=== PATIENT | female | born 1940 | race Caucasian/White ===

== ENCOUNTER → 2018-01-03 | Outpatient (CLI) | payer MEDICARE, BC ==
--- NOTE | 2018-01-03 10:45 | ECHOS ---
STRESS ECHOCARDIOGRAM INDICATIONS: Shortness of breath, preoperative. BASELINE HEART RATE: 80 BASELINE BLOOD PRESSURE: 141/47 MAXIMUM HEART RATE: 142 MAXIMUM BLOOD PRESSURE: 191/63 85% MPHR: 120 100% MPHR: 141 METS: 3.8 MAXIMUM STAGE REACHED: I TOTAL EXERCISE TIME: 2:36 CLINICAL INFORMATION: Baseline EKG shows sinus rhythm, normal axis, normal intervals. Patient exercised on Faisal protocol for a total of 2.5 minutes achieving 3 METS, 100% of predicted maximal heart rate without chest pain or diagnostic ST-segment depression. Baseline echo shows normal left ventricular size wall motion systolic function. Postexercise, there is normal hyperdynamic response of all segments of myocardium noted. CONCLUSIONS: 1. Poor exercise tolerance. 2. Negative stress test by EKG criteria. 3. Negative stress echo. MMODL / IJN: [id number] /
--- NOTE | 2018-01-03 11:00 | XR ---
EXAMINATION TYPE: XR chest 2V DATE OF EXAM: 01/03/2018 COMPARISON: NONE HISTORY: Shortness of breath TECHNIQUE: Frontal and lateral views of the chest are obtained. FINDINGS: Retrocardiac density with associated air-fluid level is noted. The aorta is dense. There is no focal air space opacity, pleural effusion, or pneumothorax seen. The cardiac silhouette size is within normal limits. The osseous structures are intact. Eventration of the right hemidiaphragm is noted. IMPRESSION: No acute cardiopulmonary process. There is likely an hiatal hernia, fixed portion of int rathoracic stomach, correlate.
== END ==
LOC: RADNMMAIN 08:35
PROVIDERS: ATTEND Family Medicine
DX: R06.02 Shortness of breath (principal); I10 Essential (primary) hypertension
CPT/HCPCS: 71046; 93351

== ENCOUNTER 2018-04-08 13:40 | Inpatient (IN) | payer MEDICARE, BC ==
[2018-03-28 09:02] VITALS: BMI 34.3
[~2018-04-08 13:40] MED LIST: ACETAMINOPHEN TAB 500 MG TAB PO ONE; DEXAMETHASONE SOD PHOSPHATE 10 MG/ML 1 ML VIAL IV ONE; MELOXICAM 7.5 MG TAB PO ONE; MIDAZOLAM (PF) 2 MG/2 ML VIAL IV PRN; ONDANSETRON 4 MG/2 ML VIAL IVP ONE; TRANEXAMIC ACID 1,000 MG in SODIUM CHLORIDE 0.9% 50 ML IVPB ONE; fentaNYL (PF) 50 MCG/ML 2 ML AMP IV PRN
[2018-04-08] MEDS: LACTATED RINGERS 1,000 ML IV SCH ×3 (14:30→23:27)
--- NOTE | 2018-04-08 15:12 | P.ONQ ---
Anesthesiology Proc Note - PNB - Peripheral Nerve Block Performed Right Adductor Canal Infusion Time Out Performed: Yes Procedure Start Time: 14:47 Procedure Stop Time: 14:57 Indication: Acute Post-Operative Pain, Analgesia, Requested by physician Sedation Type: Sedate with meaningful contact maintained Preparation: Sterile Prep Position: Supine Catheter: None Needle Types: On-Q Needle Size: 100mm (4") Needle Gauge: 21 Technique: Ultrasound Injectate: 0.5% Ropivacaine (see comment for volume) (20cc) Blood Aspirated: No Pain Paresthesia on Injection Noted: No Resistance on Injection: Normal Events: Uneventful and Well Tolerated
[2018-04-08] MEDS ORDERED: HYDROmorphone (PF) 1 MG/ML ONE (15:46)
[2018-04-08] MEDS ORDERED: LIDOCAINE 1% INJ 10MG/ML (20 ML MDV) ONE (15:46)
[2018-04-08] MEDS ORDERED: MIDAZOLAM 2 MG/2 ML VIAL ONE (15:46)
[2018-04-08] MEDS ORDERED: SODIUM CHLORIDE 0.9% 100 ML BAG ONE (15:46)
[2018-04-08] MEDS ORDERED: KETAMINE 10 MG/ML 20 ML VIAL ONE (15:46)
[2018-04-08] MEDS ORDERED: PROPOFOL 10 MG/ML 20 ML VIAL IV ONE (15:46)
[2018-04-08] MEDS ORDERED: GLYCOPYRROLATE 0.2 MG/ML 2 ML VIAL ONE (15:46)
[2018-04-08] MEDS ORDERED: TRANEXAMIC ACID 1,000 MG/10 ML VIAL ONE (15:46)
[2018-04-08] MEDS ORDERED: ROPIVACAINE 246.25 MG, EPINEPHrine 0.5 MG, KETOROLAC 30 MG, cloNIDine HCL/PF 80 MCG, WA... MISCELLANE ONE ×5 (15:56)
[2018-04-08] MEDS: ceFAZolin IN SWFI 2 GM/20 ML SYRINGE IVP ONE ×2 (15:56→16:36)
[2018-04-08] MEDS ORDERED: ceFAZolin 3,000 MG in SODIUM CHLORIDE 0.9% IRRIGATIO 3,000 ML IRRIGATION ONE (16:15)
[2018-04-08] MEDS: ROPIVACAINE 1,100 MG, SODIUM CHLORIDE 0.9% 500 ML 330 ML MISCELLANE PRN ×4 (16:36→18:25)
[2018-04-08] MEDS ORDERED: BISACODYL 10 MG SUPP RECTAL PRN (17:46)
[2018-04-08] MEDS ORDERED: traMADol 50 MG TAB PO PRN (17:46)
[2018-04-08] MEDS ORDERED: MAGNESIUM HYDROXIDE 2,400 MG/10 ML CUP PO PRN (17:46)
[2018-04-08] MEDS ORDERED: NALOXONE 0.4 MG/ML 1 ML VIAL IV PRN (17:46)
[2018-04-08] MEDS ORDERED: NA PHOS,M-B/NA PHOS,DI-BA 133 ML ENEMA RECTAL PRN (17:46)
--- NOTE | 2018-04-08 18:00 | P.OP ---
Date of Procedure: 04/08/18 Procedure(s) Performed: right knee TKA no stem extension Bon genu varum PREOPERATIVE DIAGNOSIS: Right knee severe osteoarthritis with genu varum POSTOPERATIVE DIAGNOSIS: Right knee severe osteoarthritis with genu varum OPERATION: Right knee cemented total replacement arthroplasty. ANESTHESIA: Spinal ESTIMATED BLOOD LOSS: 100 ml. TELECOMMUNICATIONS OFFICER: Kristina Crockett PA-C (assistance with: patient positioning, retraction, exposure, hemostasis, leg positioning, implantation, irrigation, closure, dressing) COMPLICATIONS: None apparent. COMPONENTS IMPLANTED: Persona system from [employer] INDICATIONS: Mrs. Draper is a 77-year-old female with a history of right knee osteoarthritis. She has artery undergone left knee replacement without complication 3 years ago. The patient's right knee is end-stage, and conservative management has failed. The operation of knee replacement has been discussed at length in the office, as well as potential risks and complications. These are inclusive of, but not limited to: bleeding, infection , scarring, discomfort, blood vessel and nerve damage, need for further surgery , failure to relieve symptoms, persistence, recurrence, or worsening of problems , loosening, dislocation, wear, blood clot, pulmonary embolism, , gait dysfunction, stiffness, and other risks as discussed in the office. The patient elects to proceed and the consent form has been signed. PROCEDURE: The patient was taken to the operating room and positioned on the operating room table in the supine position. Anesthesia was initiated. Care was taken to make sure that all pressure points were adequately padded. The operative lower extremity was prepped and draped in the usual aseptic fashion using ChloraPrep. Ioban drape was used for the case and the patient received intravenous antibiotics within one hour of the incision. A pneumotourniquet and leg hong were used for the case. The limb was exsanguinated with an Esmarch bandage and the tourniquet was inflated to 350 mmHg. Time-out was called confirming the patient's identity, side, procedure and administration of antibiotics and tranexamic acid. The incision was then created midline directly over the knee, carried down through skin and into the subcutaneous tissues and down to fascia. Full thickness subcutaneous medial flap was developed. Medial parapatellar arthrotomy was performed and the interior of the knee was inspected. There was end-stage osteoarthritis of the knee with a mild to moderate genu varum type deformity. The fat pad was excised and proximal medial release on the tibia was completed using meticulous dissection and a curved osteotome. The anterior cruciate ligament was taken down. Note was made of significant attrition of the anterior and significant degenerative appearance of the cruciate ligaments. The exposure was excellent. The knee was flexed 90 degrees and the patella was everted. A spot was chosen on the femur approximately 1 cm anterior to the posterior cruciate ligament insertion and an intramedullary hole was created within the femur. The intramedullary guide was then set to 5 degrees of valgus. The distal cutting block was attached and pinned into position. An appropriate amount of distal femoral resection was set. The oscillating saw was then used to make the distal femoral cut. This cut was confirmed to be flat with the flat end of an osteotome. The retractors were placed around the tibia and the tibial surface was addressed. The angle and depth of resection was adjusted using an extramedullary cutting guide. The guide had a built-in 3 degree posterior slope cut. Once the cutting guide was adjusted appropriately and in line with the axis of the tibia and confirmed to be in good position in relation to the second metatarsal and transmalleolar axis, the tibial cut was then created with protection of the posterior neurovascular structures and the collateral ligaments. The tibial cut surface was removed and sized. Femoral sizing was then accomplished using anterior referencing. Care was taken to analyze the posterior condyles for signs of deficiency or severe wear, and adjustments to the guide were made, as appropriate. 3 degree external rotation pins were placed. The cutting jig for the femur was applied to these pins. The planned cuts were further analyzed prior to performing them with the oscillating saw. No femoral notching was produced. Bone fragments were removed and the cut surfaces were finished, as necessary, with a reciprocating saw. Spacer block technique was then used to confirm that the flexion and extension gaps were equal. Soft tissue releases and adjustment of the tibial and/or femoral cuts were made, as necessary, until the gaps were equal. This included release of the posterior cruciate ligament, which was excessively tight in this patient. The femur was then further finished for a posterior cruciate ligament substituting component. Patellar resurfacing was performed using a reamer. The size of the required patellar component was estimated and the patellar surface was then reamed down to a residual thickness which would recreate the sioux thickness with the component. The exact placement of the patellar component was adjusted for position based on preoperative x-rays and intraoperative findings. Prior to placing trial components, anesthetic solution consisting of ropivicaine with epinephrine, ketorolac, and clonidine was injected carefully and methodically in a grid pattern using aspiration technique into the soft tissue around the knee circumferentially, starting with the deeper tissues first and progressing to fascia, and then finally the skin/subcutaneous tissue. Particular care was taken when injecting the posterior capsule. The trial components were inserted. The tibial tray was allowed to self center and the patella was noted to track very well. The position of the tibial component was marked and the tibia was then finished for a stemmed tibial component. Cement was mixed on the back table and applied to the final components. Trial components were removed and the cut surfaces of the bone were pulse lavaged thoroughly and dried. Cement was then applied to the tibial surface and pressurized into the surface using finger pressurization technique. The tibial component was then applied and excess cement was removed after it was impacted securely and noted to be flush with the cut surface. In similar fashion, the cement was applied to the cut femoral surface, pressurized in using finger pressurization and the component was impacted into place. Excess cement was removed. The polyethylene spacer was then implanted and locked into position. The patellar component was then applied in similar technique and a patellar clamp was used to hold the patella in place as the cement hardened. Once the cement had fully hardened, the knee was reinspected. Any other cement extrusion was removed and final kinematic testing showed range of motion from 0 to 130 degrees with excellent stability, both medially and laterally and appropriate alignment of the leg. Patellar tracking was excellent. The knee was then thoroughly pulse lavaged with normal saline. The tourniquet was deflated and hemostasis was obtained with electrocautery and IV tranexamic acid, 1 g given at the start of the operation and 1 g at the start of closure. Closure was with #2 Ethibond in the fascia/capsule and supplemented with #2 Quill, 2-0 Vicryl suture was used for the subcutaneous tissues and 3-0 Quill for the skin. Dermabond/Steri-Strips were then applied. A lightly compressive dressing was applied using Webril and an Everardo wrap. The patient was then transferred to stretcher and taken to the recovery room in stable condition. Sponge and needle counts were correct.
--- NOTE | 2018-04-08 18:26 | XR ---
EXAMINATION TYPE: XR knee limited RT DATE OF EXAM: 04/08/2018 CLINICAL HISTORY: Right knee pain and arthritis status post total knee replacement. TECHNIQUE: Portable AP and crosstable lateral views of the right knee are obtained immediately posto peratively. COMPARISON: Bilateral knee x-ray February 12, 2014 FINDINGS: Metallic hardware from total right knee arthroplasty is seen and appears satisfactory in a lignment and position. There is evidence of recent surgery with diffuse subcutaneous gas and soft ti ssue swelling noted. IMPRESSION: METALLIC HARDWARE FROM TOTAL RIGHT KNEE ARTHROPLASTY IS SATISFACTORY IN ALIGNMENT.
[2018-04-08] MEDS ORDERED: SENNOSIDES-DOCUSATE SODIUM 1 EACH TAB PO SCH (21:00)
[2018-04-08] MEDS: ceFAZolin IN SWFI 2 GM/20 ML SYRINGE IVP SCH (23:50)
[2018-04-09 02:17] VITALS: RESP 17
[2018-04-09] MEDS: LACTATED RINGERS 1,000 ML IV SCH (05:20)
--- NOTE | 2018-04-09 07:08 | P.PN ---
Progress Note - Text Progress Note Date: 04/09/18 Patient is postop day 1 from total knee replacement doing very well. Catheter is in place. Required no when necessary medications. Has full range of motion of the lower extremities. Has been able to ambulate. Denies any numbness or tingling in the lower extremities. On-Q pump is functional, site is clean and dry. Patient is likely to be discharged home today.
[2018-04-09 07:30] VITALS: BP 109/69; PULSE 60; TEMP 98.5
[2018-04-09] MEDS: ceFAZolin IN SWFI 2 GM/20 ML SYRINGE IVP SCH (07:31)
[2018-04-09 07:47] LABS: Basophils % (A) 0 %; Eosinophils % (A) 0 %; HCT 36.5 % (34.0-46.0); HGB 11.6 gm/dL (11.4-16.0); Lymphocytes # (A) 0.8 k/uL (1.0-4.8); Lymphocytes % (A) 7 %; MCH 30.1 pg (25.0-35.0); MCHC 31.7 g/dL (31.0-37.0); MCV 94.8 fL (80.0-100.0); Mean Platelet Volume 9.4; Monocytes # (A) 0.6 k/uL (0-1.0); Monocytes % (A) 6 %; Neutrophils # (A) 9.2 k/uL (1.3-7.7); Neutrophils % (A) 86 %; Platelet Count 147 k/uL (150-450); RBC 3.85 m/uL (3.80-5.40); RDW 14.9 % (11.5-15.5); WBC 10.7 k/uL (3.8-10.6)
[2018-04-09] MEDS ORDERED: MELOXICAM 7.5 MG TAB PO SCH (09:00)
[2018-04-09] MEDS ORDERED: RIVAROXABAN 10 MG TAB PO SCH (09:00)
--- NOTE | 2018-04-09 13:13 | P.DS ---
Providers Date of admission: 04/08/18 13:40 Expected date of discharge: 04/09/18 Attending physician: Petar Matamoros Consults: 04/08/18 17:46 Consult Physician Routine Consulting Provider: Bernardino Townsend Consult Reason/Comments: Medical management Do you want consulting provider notified?: Yes Primary care physician: Nico Joiner - Discharge Diagnosis(es) (1) Osteoarthritis of right knee Current Visit: Yes Status: Acute (2) Status post total right knee replacement Current Visit: Yes Status: Acute (3) Hypertension Current Visit: No Status: Acute Hospital Course: This is a 77-year-old female who was last seen with complaint of continued right knee pain. The patient has a known history of degenerative arthritis of the right knee and presents to discuss surgical options. After discussion and consideration the patient elects to proceed with total right knee arthroplasty. The patient is seen preoperatively by her primary care physician and cleared for surgery. The patient is admitted to [facility] for total right knee arthroplasty. The procedures performed without complication or sequelae. Patient is doing well postoperatively. Vital signs are stable at discharge. Labs are stable at discharge. the patient is ambulating well with walker with minimal assistance. The patient is discharged to home on postop day #1 pending medical clearance. Please see orders and refer to the med rec for accurate list of medications. Plan - Discharge Summary Discharge Rx Participant: No New Discharge Prescriptions: New Aspirin 325 mg PO DAILY #30 tab Rivaroxaban [Xarelto] 10 mg PO DAILY #5 tab Sennosides-Docusate Sodium [Senokot-S] 1 tab PO BID #60 tablet traMADol HCL [Ultram] 50 mg PO Q6HR PRN #28 tab PRN Reason: Pain No Action Simvastatin 40 mg PO DAILY Allopurinol 300 mg PO DAILY NIFEdipine [NIFEdipine ER] 60 mg PO DAILY Vit C/E/Zn/Coppr/Lutein/Zeaxan [Preservision Areds 2 Softgel] 1 each PO BID Aspirin [Adult Low Dose Aspirin EC] 81 mg PO DAILY Losartan/Hydrochlorothiazide [Hyzaar 50-12.5 Tablet] 1 each PO DAILY Discharge Medication List Allopurinol 300 mg PO DAILY 08/12/14 [History] NIFEdipine [NIFEdipine ER] 60 mg PO DAILY 08/12/14 [History] Simvastatin 40 mg PO DAILY 08/12/14 [History] Vit C/E/Zn/Coppr/Lutein/Zeaxan [Preservision Areds 2 Softgel] 1 each PO BID 12/17 [History] Aspirin [Adult Low Dose Aspirin EC] 81 mg PO DAILY 03/28/18 [History] Losartan/Hydrochlorothiazide [Hyzaar 50-12.5 Tablet] 1 each PO DAILY 03/28/18 [ History] Aspirin 325 mg PO DAILY #30 tab 04/08/18 [Rx] Rivaroxaban [Xarelto] 10 mg PO DAILY #5 tab 04/08/18 [Rx] Sennosides-Docusate Sodium [Senokot-S] 1 tab PO BID #60 tablet 04/08/18 [Rx] traMADol HCL [Ultram] 50 mg PO Q6HR PRN #28 tab 04/08/18 [Rx] Follow up Appointment(s)/Referral(s): Kristian Crockett PAC [PHYSICIAN WAITER/WAITRESS TAKE OUT] - 04/22/18 9:45 am Nico Joiner DO [Primary Care Provider] - 1 Week (Office will contact patient upon discharge to set up a follow up appointment) Activity/Diet/Wound Care/Special Instructions: May bear wt as tolerated w walker. May shower if no drainage from incision. Patient to attend physical therapy at [facility] - 04/11/18 at 10:45 a.m. Discharge Disposition: HOME SELF-CARE
--- NOTE | 2018-04-09 15:53 | P.CONS ---
History of Present Illness - Reason for Consult Consult date: 04/09/18 Medical management - History of Present Illness This is a 77-year-old female patient of Dr. Joiner with past medical history for macular degeneration, gastroesophageal reflux disease, hypertension, hyperlipidemia, gout. Patient has been brought in under the care of Dr. Matamoros status post right total knee arthroplasty. Patient has had no postop complications. She is on a Qpump for pain control. Her plan is to return home today with her . She denies any calf pain or discomfort. Blood pressure is stable. She has been afebrile. Review of Systems All systems: negative Constitutional: Denies anorexia, Denies chills, Denies fatigue, Denies fever, Denies poor appetite, Denies weight loss Eyes: denies blurred vision, denies pain Ears, nose, mouth and throat: Denies dysphagia, Denies headache, Denies sore throat, Denies vertigo Cardiovascular: Denies chest pain, Denies dyspnea on exertion, Denies edema, Denies leg edema, Denies shortness of breath, Denies syncope Respiratory: Denies cough, Denies cough with sputum, Denies dyspnea, Denies excessive sputum, Denies hemoptysis, Denies home oxygen, Denies wheezing Gastrointestinal: Denies abdominal pain, Denies diarrhea, Denies loss of appetite, Denies melena, Denies nausea, Denies vomiting Genitourinary: Denies dysuria, Denies hematuria Musculoskeletal: Denies frequent falls, Denies gait dysfunction, Denies myalgias Integumentary: Reports wounds, Denies pruritus, Denies rash Neurological: Denies aphasia, Denies change in mentation, Denies confusion, Denies gait dysfunction, Denies head injury, Denies headaches, Denies numbness, Denies seizures, Denies weakness Psychiatric: Denies anxiety, Denies depression Endocrine: Denies fatigue, Denies weight change Past Medical History Past Medical History: Eye Disorder, GERD/Reflux, Hyperlipidemia, Hypertension, Osteoarthritis (OA) Additional Past Medical History / Comment(s): MACULAR DEGENERATION, cataract shun eyes, gout History of Any Multi-Drug Resistant Organisms: None Reported Past Surgical History: Breast Surgery, Joint Replacement, Orthopedic Surgery Additional Past Surgical History / Comment(s): RIGHT KNEE ARTHROSCOPIC ,RIGHT BREAST BIOPSY,THYROID SURGERY-removed rt side , 08-24-14 TOTAL LT KNEE ARTHROPLASTY Past Anesthesia/Blood Transfusion Reactions: No Reported Reaction Past Psychological History: No Psychological Hx Reported Smoking Status: Never smoker Past Alcohol Use History: None Reported Additional Past Alcohol Use History / Comment(s): Patient is a lifelong nonsmoker. She denies any marijuana or illicit drug use. No alcohol use. She lives at home with her . Past Drug Use History: None Reported - Past Family History Sister(s) Family Medical History: Cancer Additional Family Medical History / Comment(s): Patient has one sister that from recurrence of breast cancer. Mother Family Medical History: No Reported History, Chest Pain / Angina Additional Family Medical History / Comment(s): Mother at age 74 from myocardial infarction. Father Additional Family Medical History / Comment(s): Father at age 82 from renal failure. Brother(s) Additional Family Medical History / Comment(s): Patient has 2 brothers that have passed one from a myocardial infarction at age 65 and 1 from a tumor in his neck. One brother is alive with no major medical problems. Medications and Allergies Home Medications Medication Instructions Recorded Confirmed Type Allopurinol 300 mg PO DAILY 08/12/14 03/28/18 History NIFEdipine [NIFEdipine ER] 60 mg PO DAILY 08/12/14 03/28/18 History Simvastatin 40 mg PO DAILY 08/12/14 03/28/18 History Vit C/E/Zn/Coppr/Lutein/Zeaxan 1 each PO BID 08/12/14 04/08/18 History [Preservision Areds 2 Softgel] Aspirin [Adult Low Dose Aspirin EC] 81 mg PO DAILY 03/28/18 04/08/18 History Losartan/Hydrochlorothiazide 1 each PO DAILY 03/28/18 03/28/18 History [Hyzaar 50-12.5 Tablet] Aspirin 325 mg PO DAILY #30 tab 04/08/18 Rx Rivaroxaban [Xarelto] 10 mg PO DAILY #5 tab 04/08/18 Rx Sennosides-Docusate Sodium 1 tab PO BID #60 tablet 04/08/18 Rx [Senokot-S] traMADol HCL [Ultram] 50 mg PO Q6HR PRN #28 tab 04/08/18 Rx Allergies Allergy/AdvReac Type Severity Reaction Status Date / Time codeine Allergy Rapid Verified 04/08/18 20:23 Heart Rate Penicillins Allergy Rash/Hives Verified 04/08/18 20:23 Physical Exam Vitals: Vital Signs Temp Pulse Pulse Resp BP Pulse Ox 04/09/18 07:00 98.5 F 60 17 109/69 91 L 04/09/18 00:00 98.1 F 58 L 17 107/67 95 04/08/18 21:20 76 118/70 91 L 04/08/18 21:05 74 108/70 84 L 04/08/18 20:50 62 114/71 93 L 04/08/18 20:35 64 113/66 95 04/08/18 20:20 73 115/73 91 L 04/08/18 20:05 77 120/64 92 L 04/08/18 19:50 80 122/79 89 L 04/08/18 19:35 79 121/74 91 L 04/08/18 19:20 97.4 F L 77 18 108/70 92 L 04/08/18 18:25 79 16 103/58 94 L 04/08/18 18:10 79 16 108/59 94 L 04/08/18 17:55 77 16 98/50 94 L 04/08/18 17:44 97.9 F 80 14 103/57 95 04/08/18 15:22 69 16 139/72 96 04/08/18 14:23 98.3 F 76 20 128/70 95 Intake and Output 04/08/18 04/09/18 04/09/18 22:59 06:59 14:59 Intake Total 701 800 296 Output Total 50 Balance 651 800 296 Intake: IV 601 Intake, IV Titration 800 Amount Lactated Ringers 1,000 ml 800 @ 100 mls/hr IV .Q10H SHRUTHI Rx#:[id number] Oral 100 296 Output: Estimated Blood Loss 50 Other: # Voids 1 2 Gen: This is a 77-year-old female. She is sitting up in a chair after walking from the bathroom and appears to be comfortable and in no acute distress. HEENT: Head is atraumatic, normocephalic. Pupils equal, round. Sclerae is anicteric. NECK: Supple. No JVD. No lymphadenopathy. No thyromegaly. LUNGS: Clear to auscultation. No wheezes or rhonchi. No intercostal retractions. HEART: Regular rate and rhythm. No murmur. ABDOMEN: Soft. Bowel sounds are present. No masses. No tenderness. EXTREMITIES: No pedal edema. No calf tenderness. Dorsalis pedis +2 bilaterally. Small dressing in place to the right knee. NEUROLOGICAL: Patient is awake, alert and oriented x3. Cranial nerves 2 through 12 are grossly intact. Results CBC & Chem 7: 04/09/18 06:52 Labs: Abnormal Lab Results - Last 24 Hours (Table) 04/09/18 Range/Units 06:52 WBC 10.7 H (3.8-10.6) k/uL Plt Count 147 L (150-450) k/uL Neutrophils # 9.2 H (1.3-7.7) k/uL Lymphocytes # 0.8 L (1.0-4.8) k/uL Assessment and Plan Plan: 1. Osteoarthritis status post right total knee arthroplasty. Continue PT OT. Patient is on aspirin and Xarelto for DVT prophylaxis. Continue current pain control. 2. Hypertension. Continue nifedipine 60 mg daily, Hyzaar one daily. 3. Hyperlipidemia. Continue simvastatin 40 mg daily. 4. Gout, chronic. Continue allopurinol. Discharge plan: home Impression and plan of care have been directed as dictated by the signing physician. Mya Stanley nurse practitioner acting as scribe for signing physician.
[2018-04-09] MEDS ORDERED: VIT A,C & E-LUTEIN-MINERALS 1 EACH TAB PO SCH (17:30)
[2018-04-10] MEDS ORDERED: ALLOPURINOL 300 MG TAB PO SCH (09:00)
[2018-04-10] MEDS ORDERED: ATORVASTATIN 20 MG TAB PO SCH (09:00)
== END 2018-04-09 14:00 | disposition home or self-care (01) | DRG 470 ==
LOC: 2ORMAIN 13:40 → 4SSUR 18:42
PROVIDERS: ADMIT Orthopaedic Surgery; ATTEND Orthopaedic Surgery
PROC: 0SRC0J9 Replacement of Right Knee Joint with Synthetic Substitute, Cemented, Open Approach (ICD-10-PCS; principal; 2018-04-08 15:25)
DX: M17.11 Unilateral primary osteoarthritis, right knee (principal); M21.169 Varus deformity, not elsewhere classified, unspecified knee; E78.5 Hyperlipidemia, unspecified; H35.30 Unspecified macular degeneration; I10 Essential (primary) hypertension; K21.9 Gastro-esophageal reflux disease without esophagitis; Z79.01 Long term (current) use of anticoagulants; Z79.82 Long term (current) use of aspirin; Z79.899 Other long term (current) drug therapy; Z80.3 Family history of malignant neoplasm of breast; Z82.49 Family history of ischemic heart disease and other diseases of the circulatory system; Z96.652 Presence of left artificial knee joint; H26.9 Unspecified cataract; Z84.1 Family history of disorders of kidney and ureter; Z88.5 Allergy status to narcotic agent; Z88.0 Allergy status to penicillin; M10.9 Gout, unspecified
CPT/HCPCS: 85025; 88300

== ENCOUNTER → 2019-12-30 | Outpatient (CLI) | payer MEDICARE, BC ==
--- NOTE | 2019-12-30 09:58 | XR ---
EXAMINATION TYPE: XR chest 2V DATE OF EXAM: 12/30/2019 COMPARISON: Prior chest x-ray January 03, 2018 HISTORY: Shortness of breath for 2 months. TECHNIQUE: Frontal and lateral views of the chest are obtained. FINDINGS: There is some chronic parietal change without suspicious new focal air space opacity, pleu ral effusion, or pneumothorax seen. The cardiac silhouette size remains within normal limits. Retro cardiac opacity consistent with moderate to large size hiatal hernia with air-fluid level redemonstra jose. The osseous structures are intact. IMPRESSION: Chronic changes without acute pulmonary process.
== END | disposition home or self-care (01) ==
LOC: RADXRWHC 09:05
PROVIDERS: ATTEND Family Medicine
DX: R06.02 Shortness of breath (principal)
CPT/HCPCS: 71046

== ENCOUNTER → 2021-06-16 | Outpatient (CLI) | payer MEDICARE, BC ==
--- NOTE | 2021-06-16 13:23 | P.STRESS ---
- Stress Test Note Stress Test Results/Findings: Exam Performed: stress test Exam Date: 06/16/21 Reason for Exam: SYNCOPE Height: 5 ft 5 in Weight: 81.647 kg Protocol: THANIA Stage: 1 Duration of Exercise: 2:10 Resting Heart Rate: 103 Resting Blood Pressure: 123/81 Maximum Achieved Heart Rate: 137 Maximum Achieved Blood Pressure: 123/81 85% PMHR: 117 100% PMHR: 138 METS: 4.7 Technologist Comment: Stress Test Results/Findings: Patient underwent exercise stress EKG with a Thania protocol treadmill stress test. Patient exercised into Stage 1 for a total of 2 minutes and 10 seconds reaching a total of 4.7 METS. Patient's maximum heart rate was 137 which represented 99 % age-predicted maximum heart rate. Stress EKG findings: At baseline patient's EKG showed normal sinus rhythm, normal axis, no significant ST or T wave abnormalities. At peak exercise, EKG showed no significant change from baseline. Conclusions: 1. Normal EKG response to exercise without evidence of inducible ischemia. 2. Poor exercise capacity.
--- NOTE | 2021-06-16 15:13 | XR ---
EXAMINATION TYPE: XR cervical spine 5 views comp, XR shoulder complete 3 views RT DATE OF EXAM: 06/16/2021 COMPARISON: None HISTORY: 80-year-old female M25.511 M54.2 FINDINGS: Cervical spine: Multilevel hypertrophic facet and uncovertebral joint arthropathy. There is moderate disc/endplate de generative change throughout especially C3-C4, C5-C7 levels with disc space narrowing, endplate scler osis/irregularity, and endplate spurring. There is degenerative grade 1 retrolisthesis C3-C4. Remaini ng alignment is maintained. No predental space widening or prevertebral soft tissue swelling. Degener ative changes at the C1 dens articulation. Normal odontoid view. On the left, moderate bony neurofora lillian narrowing at C5-C6 and C6-C7. On the right, moderate bony neuroforaminal narrowing at C5-C6 and possibly moderate to severe at C6/C7 and C7-T1. Right shoulder: Mild degenerative change at the AC joint with joint space narrowing and marginal spurring along with capsular hypertrophy. Subacromial space is preserved. No tendinous or bursal calcifications. Visualiz ed right hemithorax is clear. No acute fracture, subluxation, dislocation. IMPRESSION: 1. Cervical spine: Moderate to advanced spondylotic change. Degenerative grade 1 retrolisthesis at C3 -C4. Possible moderate to severe neuroforaminal narrowing on the right at C6/C7 and C7-T1. Moderate o n both sides in the mid cervical spine as outlined above. 2. Right shoulder: Mild AC joint OA. No acute osseous abnormality seen.
== END | disposition home or self-care (01) ==
LOC: RADNMMAIN 10:30
PROVIDERS: ATTEND Family Medicine
DX: M19.011 Primary osteoarthritis, right shoulder (principal); M47.812 Spondylosis without myelopathy or radiculopathy, cervical region; M43.12 Spondylolisthesis, cervical region; R55 Syncope and collapse
CPT/HCPCS: 72050; 93017

== ENCOUNTER → 2022-01-04 | Outpatient (CLI) | payer MEDICARE, BC ==
[2022-01-04 22:49] LABS: HCT 36.1 % (37.2-46.3); HGB 11.1 g/dL (12.0-15.0); MCH 25.8 pg (27.0-32.0); MCHC 30.7 g/dL (32.0-37.0); MCV 83.8 fL (80.0-97.0); NRBC Per 100 WBC 0 /100 WBCS (0.0-0.0); Platelet Count 185 X 10*3/uL (140-440); RBC 4.31 X 10*6/uL (4.10-5.20); RDW 18.1 % (11.5-14.5); WBC 7.72 X 10*3/uL (4.50-10.00)
[2022-01-04 23:14] LABS: African American GFR (CKD) 40.2 (60.0-200.0); Non-African American GFR(CKD) 34.7 (60.0-200.0); Potassium 4.3 mmol/L (3.5-5.5)
== END | disposition home or self-care (01) ==
LOC: LABPAT 15:51
PROVIDERS: ATTEND Internal Medicine
DX: Z01.812 Encounter for preprocedural laboratory examination (principal); R06.02 Shortness of breath
CPT/HCPCS: 80051; 82565; 84520; 85027

== ENCOUNTER 2022-01-09 10:06 | Day surgery (SDC) | payer MEDICARE, BC ==
[2022-01-06 09:55] VITALS: BMI 29.9
[~2022-01-09 10:06] MED LIST changes: -ACETAMINOPHEN TAB 500 MG TAB PO ONE; +ALPRAZolam 0.25 MG TAB PO PRN; +ALPRAZolam 0.5 MG TAB PO PRN; +ASPIRIN 325 MG TAB PO STA; +ATORVASTATIN 80 MG TAB PO STA; -DEXAMETHASONE SOD PHOSPHATE 10 MG/ML 1 ML VIAL IV ONE; +HEPARIN SODIUM,PORCINE 10,000 UNIT in SODIUM CHLORIDE 0.9% 1,000 ML IRRIGATION PRN; +HEPARIN SODIUM,PORCINE 2,500 UNIT in SODIUM CHLORIDE 0.9% 250 ML IRRIGATION PRN; -MELOXICAM 7.5 MG TAB PO ONE; -MIDAZOLAM (PF) 2 MG/2 ML VIAL IV PRN; +NITROGLYCERIN SL TABS 0.4 MG TAB SUBLINGUAL PRN; -ONDANSETRON 4 MG/2 ML VIAL IVP ONE; +SODIUM CHLORIDE 0.9% 1,000 ML in EMPTY BAG 1 BAG IV ONE; -TRANEXAMIC ACID 1,000 MG in SODIUM CHLORIDE 0.9% 50 ML IVPB ONE; -fentaNYL (PF) 50 MCG/ML 2 ML AMP IV PRN
[2022-01-09 10:39] VITALS: TEMP 97.7
[2022-01-09] MEDS: MIDAZOLAM 2 MG/2 ML VIAL IV ONE ×2 (11:29→11:59)
[2022-01-09] MEDS ORDERED: LIDOCAINE 1% INJ 10MG/ML (30 ML VIAL-PF) SQ ONE (11:30)
[2022-01-09] MEDS: fentaNYL (PF) 50 MCG/ML 2 ML AMP IV ONE ×2 (11:30→12:00)
[2022-01-09] MEDS ORDERED: VERAPAMIL 2.5 MG/ML 2 ML AMP IV ONE (11:37)
[2022-01-09] MEDS ORDERED: HEPARIN SODIUM 1,000 UN/ML (10ML VL) IV ONE (11:39)
[2022-01-09] MEDS ORDERED: SODIUM CHLORIDE 0.9% 500 ML 220 ML IV ONE (11:45)
[2022-01-09] MEDS ORDERED: IOPAMIDOL-370 125ML BTL INJ ONE (12:15)
[2022-01-09 13:19] VITALS: RESP 16
[2022-01-09 16:08] VITALS: BP 136/77; PULSE 80
--- NOTE | 2022-01-09 19:58 | P.CARDCATH ---
Description of Procedure: PROCEDURES PERFORMED: Left heart catheterization, bilateral coronary angiography INDICATION: Dyspnea on exertion concerning for unstable angina CONSENT:I have discussed the risks, benefits and alternative therapies for the above-mentioned procedure and for both sedation/analgesia as well as necessary blood product administration, if indicated, as they pertain to this patient. The patient has indicated understanding and acceptance of the risks and procedures discussed. PROCEDURE: After the risks, benefits and alternatives of the above mentioned procedure explained in detail with the patient, informed consent was obtained. Patient was taken to the catheterization lab and prepped and draped in usual fashion. 1% lidocaine was used to anesthetize the right radial artery. A 6- [place] sheath was placed in the right radial artery using modified Seldinger technique. Attempts were made at cannulating from the radial approach however given subclavian tortuosity, short aorta, there was difficulty engaging the left main and therefore felt best to limit contrast to go from a femoral approach. Therefore a 6Fr sheath was placed in the right femoral artery using Seldinger technique. Left coronary angiography was performed with a 5-Bolivian JL 3.5 catheter and right coronary angiography was performed with a 6-Bolivian AR2 cath eter in various views. There were brief episodes of bradycardia and hypotension when injecting the RCA and appeared possibly related to a vagal reaction which recovered on its own. A 5-B[place]ivian FR5 catheter was inserted into the left ventricle and pressure measurements were obtained. The right radial sheath was removed and a TR band was placed with hemostasis achieved. Right femoral angiography showed adequate anatomy for closure and therefore a 6Fr Angioseal was placed with hemostasis achieved. The patient tolerated the procedure well. Patient was transported back to the post catheterization holding area in stable condition. Conscious Sedation: Patient was monitored under the direct supervision of vision of myself for conscious sedation using Versed and fentanyl for a total duration of 46 minutes HEMODYNAMICS: Ao: 133/77 LV: 132/8, LVEDP 13 SELECTIVE CORONARY ARTERIOGRAPHY: LEFT MAIN: The left main is a large caliber vessel which bifurcates into the LAD and circumflex. There is no significant stenosis. LEFT ANTERIOR DESCENDING CORONARY ARTERY: LAD is a large caliber vessel which wraps around to the apex. There are mild luminal irregularities. LEFT CIRCUMFLEX CORONARY ARTERY: Left circumflex is a moderate caliber vessel with mild luminal irregularities and somewhat tortuous. RIGHT CORONARY ARTERY: The right coronary artery is a large caliber vessel which gives off a PDA and PLV branch and is the dominant vessel. There are mild luminal irregularities with a proximal RCA 20% stenosis FINAL IMPRESSION: 1. Relatively normal coronary arteries as described above 2. Temporary bradycardia and hypotension noted with RCA angiography, likely related to vagal reaction however may be a result of microvascular dysfunction with relatively normal RCA appearance. 3. Normal left sided filling pressures PLAN: 1. Aggressive risk factor modification per most recent ACC/AHA guidelines. 2. Continue medical therapy and pursue other workup of dyspnea.
== END 2022-01-09 16:20 | disposition home or self-care (01) ==
LOC: CATHCVL 10:06
PROVIDERS: ATTEND Internal Medicine
DX: I25.10 Atherosclerotic heart disease of native coronary artery without angina pectoris (principal); I10 Essential (primary) hypertension; E78.5 Hyperlipidemia, unspecified; R06.00 Dyspnea, unspecified
CPT/HCPCS: 93458; C1769 ×4; C1760; C1894 ×2; J2250; J2001; J3010; J1644; Q9967

== ENCOUNTER 2022-02-13 21:23 | Inpatient (IN) | payer MEDICARE, BC ==
--- NOTE | 2022-02-13 21:49 | ED ---
General Adult HPI - General Chief complaint: Shortness of Breath Stated complaint: sob Time Seen by Provider: 02/13/22 21:37 Source: patient Mode of arrival: wheelchair Limitations: no limitations - History of Present Illness Initial comments: Dictation was produced using [employer] dictation software. please excuse any grammatical, word or spelling errors. Chief Complaint: 81-year-old female with past medical history dyslipidemia and h ypertension presents to the ER for hypoxia and shortness of breath History of Present Illness: Patient is a 81-year-old female she has multiple comorbidities. Patient states that she has been having worsening shortness of breath for the last week or so. She's been having shortness of breath for the last 2 years it has felt like it's been getting worse over the last several days. She has been seen by primary care doctor who has been working up her shortness of breath. At this point there is no obvious cause for patient's shortness of breath. She states that she is going to follow-up with a maintenance leader. She recently had a cardiac catheterization that showed no obvious findings to cause her shortness of breath. Patient denies any chest pain. Denies any exacerbating or mitigating features. She states her shortness of breath is more noticeable with ambulation and exertion. She has no established history of COPD or asthma. The ROS documented in this emergency department record has been reviewed and confirmed by me. Those systems with pertinent positive or negative responses have been documented in the HPI. All other systems are other negative and/or noncontributory. PHYSICAL EXAM: General Impression: Alert and oriented x3, not in acute distress HEENT: Normocephalic atraumatic, extra-ocular movements intact, pupils equal and reactive to light bilaterally, mucous membranes moist. Cardiovascular: Heart regular rate and rhythm Chest: Able to complete full sentences, no retractions, no tachypnea Abdomen: abdomen soft, non-tender, non-distended, no organomegaly Musculoskeletal: Pulses present and equal in all extremities, no peripheral edema Motor: no focal deficits noted Neurological: CN II-XII grossly intact, no focal motor or sensory deficits noted Skin: Intact with no visualized rashes Psych: Normal affect and mood ED course: 81-year-old female presents emergency department for acute on chronic shortness of breath. Vital Signs upon arrival are within acceptable limits. Nursing notes and chart review was performed Old charts reviewed showing the patient had recent cardiac catheterization performed last month. Cardiac cath results showed no coronary artery disease. laboratory evaluation obtained showing normal CBC, coag panel unremarkable. Metabolic panel shows mild non-gap acidosis per troponin elevated 0.097 of unclear significance. Unclear what is causing elevated troponin however due to recent negative cardiac cath likely not secondary to coronary artery disease. 4 panel vital testing is negative. X-ray interpreted by me showing normal chest without any obvious acute processes. Patient admitted for pulmonary consultation, medical monitoring, serial troponins Case discussed with [facility] of [facility] hospitalist group Critical Care: no Critical Care time: n/a EKG interpreted by me: Ventricular rate 129, sinus tachycardia,. 140, QRS 80, QTC 347. No MD prolongation, no QTC prolongation, no ST or T-wave changes noted. Artifact limiting interpretation EKG compared to Gen. 2018 showing no changes. Overall, this EKG is unremarkable - Related Data Home Medications Medication Instructions Recorded Confirmed NIFEdipine [NIFEdipine ER] 60 mg PO DAILY 08/12/14 02/13/22 Simvastatin 40 mg PO DAILY 08/12/14 02/13/22 Vit C/E/Zn/Coppr/Lutein/Zeaxan 1 cap PO BID 08/12/14 02/13/22 [Preservision Areds 2 Softgel] allopurinoL [Allopurinol] 300 mg PO DAILY 08/12/14 02/13/22 Aspirin [Adult Low Dose Aspirin EC] 81 mg PO DAILY 03/28/18 02/13/22 Losartan Potassium [Cozaar] 25 mg PO BID 01/06/22 02/13/22 Albuterol Sulfate [Albuterol 2 puff PO RT-Q6H PRN 02/13/22 02/13/22 Sulfate Hfa] Allergies Allergy/AdvReac Type Severity Reaction Status Date / Time codeine Allergy Rapid Verified 02/13/22 22:07 Heart Rate Penicillins Allergy Rash/Hives Verified 02/13/22 22:07 Review of Systems ROS Statement: Those systems with pertinent positive or pertinent negative responses have been documented in the HPI. ROS Other: All systems not noted in ROS Statement are negative. Past Medical History Past Medical History: Eye Disorder, GERD/Reflux, Hyperlipidemia, Hypertension, Osteoarthritis (OA) Additional Past Medical History / Comment(s): Recent SOB. Macular Degeneration, Gout. Recent right carpal tunnel surgery, "still a little sore." History of Any Multi-Drug Resistant Organisms: None Reported Past Surgical History: Breast Surgery, Joint Replacement, Orthopedic Surgery Additional Past Surgical History / Comment(s): RIGHT KNEE ARTHROSCOPY ,RIGHT BREAST BIOPSY, PARTIAL THYROIDECTOMY(RIGHT SIDE), BILATERAL TOTAL KNEE REPLACEMENTS, BILATERAL CATARACTS REMOVED, RIGHT CARPAL TUNNEL SURGERY. Past Anesthesia/Blood Transfusion Reactions: No Reported Reaction Past Psychological History: No Psychological Hx Reported Smoking Status: Never smoker Past Alcohol Use History: None Reported Past Drug Use History: None Reported - Past Family History Sister(s) Family Medical History: Cancer Additional Family Medical History / Comment(s): Patient has one sister that from recurrence of breast cancer. Father Family Medical History: Renal Disease Additional Family Medical History / Comment(s): Father at age 82 from renal failure. Brother(s) Family Medical History: Cancer, Myocardial Infarction ([place]) Additional Family Medical History / Comment(s): Patient has 2 brothers that have passed, one from a myocardial infarction at age 65 and 1 from a tumor in his neck. Mother Family Medical History: Chest Pain / Angina, Myocardial Infarction ([place]) Additional Family Medical History / Comment(s): Mother at age 74 from myocardial infarction. General Exam Limitations: no limitations Course Vital Signs 02/13/22 02/13/22 02/13/22 21:26 21:44 22:00 Temperature 97.8 F Pulse Rate 122 H 114 H Respiratory 20 26 H 26 H Rate Blood Pressure 109/71 130/82 O2 Sat by Pulse 89 L 90 L Oximetry 02/13/22 23:00 Temperature Pulse Rate 115 H Respiratory 24 Rate Blood Pressure 112/79 O2 Sat by Pulse 90 L Oximetry Medical Decision Making - Lab Data Result diagrams: 02/13/22 21:49 02/13/22 21:49 Lab Results 02/13/22 02/13/22 02/13/22 Range/Units 21:49 21:49 21:49 WBC 7.3 (3.8-10.6) k/uL RBC 4.83 (3.80-5.40) m/uL Hgb 12.7 (11.4-16.0) gm/dL Hct 39.1 (34.0-46.0) % MCV 80.9 (80.0-100.0) fL MCH 26.3 (25.0-35.0) pg MCHC 32.4 (31.0-37.0) g/dL RDW 16.9 H (11.5-15.5) % Plt Count 291 (150-450) k/uL MPV 9.6 Neutrophils % 66 % Lymphocytes % 18 % Monocytes % 8 % Eosinophils % 3 % Basophils % 1 % Neutrophils # 4.8 (1.3-7.7) k/uL Lymphocytes # 1.3 (1.0-4.8) k/uL Monocytes # 0.6 (0-1.0) k/uL Eosinophils # 0.2 (0-0.7) k/uL Basophils # 0.1 (0-0.2) k/uL Hypochromasia Moderate Anisocytosis Slight PT 10.7 (9.0-12.0) sec INR 1.0 (<1.2) APTT 22.4 (22.0-30.0) sec Sodium 138 (137-145) mmol/L Potassium 4.4 (3.5-5.1) mmol/L Chloride 109 H (98-107) mmol/L Carbon Dioxide 18 L (22-30) mmol/L Anion Gap 11 mmol/L BUN 29 H (7-17) mg/dL Creatinine 1.32 H (0.52-1.04) mg/dL Est GFR (CKD-EPI)AfAm 43 (>60 ml/min/1.73 sqM) Est GFR (CKD-EPI)NonAf 37 (>60 ml/min/1.73 sqM) Glucose 114 H (74-99) mg/dL Calcium 9.4 (8.4-10.2) mg/dL Magnesium 1.8 (1.6-2.3) mg/dL Total Bilirubin 0.4 (0.2-1.3) mg/dL AST 22 (14-36) U/L ALT 17 (4-34) U/L Alkaline Phosphatase 148 H (38-126) U/L Troponin I (0.000-0.034) ng/mL Total Protein 6.2 L (6.3-8.2) g/dL Albumin 3.4 L (3.5-5.0) g/dL Influenza Type A (PCR) (Not Detectd) Influenza Type B (PCR) (Not Detectd) RSV (PCR) (Not Detectd) SARS-CoV-2 (PCR) (Not Detectd) 02/13/22 02/13/22 Range/Units 21:49 21:49 WBC (3.8-10.6) k/uL RBC (3.80-5.40) m/uL Hgb (11.4-16.0) gm/dL Hct (34.0-46.0) % MCV (80.0-100.0) fL MCH (25.0-35.0) pg MCHC (31.0-37.0) g/dL RDW (11.5-15.5) % Plt Count (150-450) k/uL MPV Neutrophils % % Lymphocytes % % Monocytes % % Eosinophils % % Basophils % % Neutrophils # (1.3-7.7) k/uL Lymphocytes # (1.0-4.8) k/uL Monocytes # (0-1.0) k/uL Eosinophils # (0-0.7) k/uL Basophils # (0-0.2) k/uL Hypochromasia Anisocytosis PT (9.0-12.0) sec INR (<1.2) APTT (22.0-30.0) sec Sodium (137-145) mmol/L Potassium (3.5-5.1) mmol/L Chloride (98-107) mmol/L Carbon Dioxide (22-30) mmol/L Anion Gap mmol/L BUN (7-17) mg/dL Creatinine (0.52-1.04) mg/dL Est GFR (CKD-EPI)AfAm (>60 ml/min/1.73 sqM) Est GFR (CKD-EPI)NonAf (>60 ml/min/1.73 sqM) Glucose (74-99) mg/dL Calcium (8.4-10.2) mg/dL Magnesium (1.6-2.3) mg/dL Total Bilirubin (0.2-1.3) mg/dL AST (14-36) U/L ALT (4-34) U/L Alkaline Phosphatase (38-126) U/L Troponin I 0.097 H* (0.000-0.034) ng/mL Total Protein (6.3-8.2) g/dL Albumin (3.5-5.0) g/dL Influenza Type A (PCR) Not Detected (Not Detectd) Influenza Type B (PCR) Not Detected (Not Detectd) RSV (PCR) Not Detected (Not Detectd) SARS-CoV-2 (PCR) Not Detected (Not Detectd) Disposition Clinical Impression: Hypoxia Disposition: ADMITTED IP TO THIS HOSP Condition: Serious Referrals: Nico Joiner DO [Primary Care Provider] - 1-2 days Decision Time: 23:38
[2022-02-13 22:08] LABS: Anisocytosis Slight; Basophils # (A) 0.1 k/uL (0-0.2); Basophils % (A) 1 %; Eosinophils # (A) 0.2 k/uL (0-0.7); Eosinophils % (A) 3 %; HCT 39.1 % (34.0-46.0); HGB 12.7 gm/dL (11.4-16.0); Hypochromasia Moderate; Lymphocytes # (A) 1.3 k/uL (1.0-4.8); Lymphocytes % (A) 18 %; MCH 26.3 pg (25.0-35.0); MCHC 32.4 g/dL (31.0-37.0); MCV 80.9 fL (80.0-100.0); Mean Platelet Volume 9.6; Monocytes # (A) 0.6 k/uL (0-1.0); Monocytes % (A) 8 %; Neutrophils # (A) 4.8 k/uL (1.3-7.7); Neutrophils % (A) 66 %; Platelet Count 291 k/uL (150-450); RBC 4.83 m/uL (3.80-5.40); RDW 16.9 % (11.5-15.5); WBC 7.3 k/uL (3.8-10.6)
--- NOTE | 2022-02-13 22:13 | XR ---
EXAMINATION TYPE: XR chest 2V DATE OF EXAM: 02/13/2022 COMPARISON: 01/03/2018 HISTORY: Short of breath TECHNIQUE: 2 view FINDINGS: Heart is normal. There is a large hiatal hernia. No heart failure seen. There are chest brittany ds. Bony thorax is intact. No evidence of pleural effusion. IMPRESSION: Large hiatal hernia which is increased compared to old exam. No active cardiopulmonary di sease.
[2022-02-13 22:16] LABS: Albumin 3.4 g/dL (3.5-5.0); Calcium 9.4 mg/dL (8.4-10.2); Magnesium 1.8 mg/dL (1.6-2.3); Potassium 4.4 mmol/L (3.5-5.1); Total Bilirubin 0.4 mg/dL (0.2-1.3); Total Protein 6.2 g/dL (6.3-8.2)
[2022-02-13 22:26] LABS: Partial Thromboplastin Time 22.4 sec (22.0-30.0); Prothrombin Time 10.7 sec (9.0-12.0)
[2022-02-13] MEDS ORDERED: NALOXONE 0.4 MG/ML 1 ML VIAL IV PRN (23:31)
[2022-02-14] MEDS ORDERED: HEPARIN SODIUM 1,000 UN/ML (10ML VL) IV PRN (00:30)
[2022-02-14] MEDS ORDERED: HEPARIN SODIUM 1,000 UN/ML (10ML VL) IV ONE (00:30)
[2022-02-14] MEDS ORDERED: HEPARIN SOD,PORK IN 0.45% NACL 25,000 UNIT in 0.45% NACL 1 250ML.BAG IV SCH (00:30)
[2022-02-14] MEDS ORDERED: SODIUM CHLORIDE 0.9% 500 ML 500 ML IV STA (00:31)
[2022-02-14] MEDS: SODIUM CHLORIDE 0.9% 1,000 ML IV SCH (00:37)
[2022-02-14] MEDS: HEPARIN SOD,PORK IN 0.45% NACL 25,000 UNIT in 0.45% NACL 1 250ML.BAG IV SCH ×2 (01:38→19:49)
--- NOTE | 2022-02-14 01:40 | ED ---
Medical Decision Making - Medical Decision Making I was notified by nurse at her approximately 12 in that patient's oxygen requirements were slowly increasing. More, tachycardia is not improved. She was placed on higher supplement oxygen. At this point there was going suspicion of pulmonary embolus. CT angios the chest was obtained showing large PE in the right pulmonary venous system. Patient started on high-dose heparin. Blood pressures trended remained stable. Patient be admitted to intensive care unit. Critical care: Yes Critical care time: 33 minutes - Lab Data Result diagrams: 02/13/22 21:49 02/13/22 21:49 Lab Results 02/13/22 02/13/22 02/13/22 Range/Units 21:49 21:49 21:49 WBC 7.3 (3.8-10.6) k/uL RBC 4.83 (3.80-5.40) m/uL Hgb 12.7 (11.4-16.0) gm/dL Hct 39.1 (34.0-46.0) % MCV 80.9 (80.0-100.0) fL MCH 26.3 (25.0-35.0) pg MCHC 32.4 (31.0-37.0) g/dL RDW 16.9 H (11.5-15.5) % Plt Count 291 (150-450) k/uL MPV 9.6 Neutrophils % 66 % Lymphocytes % 18 % Monocytes % 8 % Eosinophils % 3 % Basophils % 1 % Neutrophils # 4.8 (1.3-7.7) k/uL Lymphocytes # 1.3 (1.0-4.8) k/uL Monocytes # 0.6 (0-1.0) k/uL Eosinophils # 0.2 (0-0.7) k/uL Basophils # 0.1 (0-0.2) k/uL Hypochromasia Moderate Anisocytosis Slight PT 10.7 (9.0-12.0) sec INR 1.0 (<1.2) APTT 22.4 (22.0-30.0) sec Sodium 138 (137-145) mmol/L Potassium 4.4 (3.5-5.1) mmol/L Chloride 109 H (98-107) mmol/L Carbon Dioxide 18 L (22-30) mmol/L Anion Gap 11 mmol/L BUN 29 H (7-17) mg/dL Creatinine 1.32 H (0.52-1.04) mg/dL Est GFR (CKD-EPI)AfAm 43 (>60 ml/min/1.73 sqM) Est GFR (CKD-EPI)NonAf 37 (>60 ml/min/1.73 sqM) Glucose 114 H (74-99) mg/dL Calcium 9.4 (8.4-10.2) mg/dL Magnesium 1.8 (1.6-2.3) mg/dL Total Bilirubin 0.4 (0.2-1.3) mg/dL AST 22 (14-36) U/L ALT 17 (4-34) U/L Alkaline Phosphatase 148 H (38-126) U/L Troponin I (0.000-0.034) ng/mL NT-Pro-B Natriuret Pep pg/mL Total Protein 6.2 L (6.3-8.2) g/dL Albumin 3.4 L (3.5-5.0) g/dL Influenza Type A (PCR) (Not Detectd) Influenza Type B (PCR) (Not Detectd) RSV (PCR) (Not Detectd) SARS-CoV-2 (PCR) (Not Detectd) 02/13/22 02/13/22 02/13/22 Range/Units 21:49 21:49 21:49 WBC (3.8-10.6) k/uL RBC (3.80-5.40) m/uL Hgb (11.4-16.0) gm/dL Hct (34.0-46.0) % MCV (80.0-100.0) fL MCH (25.0-35.0) pg MCHC (31.0-37.0) g/dL RDW (11.5-15.5) % Plt Count (150-450) k/uL MPV Neutrophils % % Lymphocytes % % Monocytes % % Eosinophils % % Basophils % % Neutrophils # (1.3-7.7) k/uL Lymphocytes # (1.0-4.8) k/uL Monocytes # (0-1.0) k/uL Eosinophils # (0-0.7) k/uL Basophils # (0-0.2) k/uL Hypochromasia Anisocytosis PT (9.0-12.0) sec INR (<1.2) APTT (22.0-30.0) sec Sodium (137-145) mmol/L Potassium (3.5-5.1) mmol/L Chloride (98-107) mmol/L Carbon Dioxide (22-30) mmol/L Anion Gap mmol/L BUN (7-17) mg/dL Creatinine (0.52-1.04) mg/dL Est GFR (CKD-EPI)AfAm (>60 ml/min/1.73 sqM) Est GFR (CKD-EPI)NonAf (>60 ml/min/1.73 sqM) Glucose (74-99) mg/dL Calcium (8.4-10.2) mg/dL Magnesium (1.6-2.3) mg/dL Total Bilirubin (0.2-1.3) mg/dL AST (14-36) U/L ALT (4-34) U/L Alkaline Phosphatase (38-126) U/L Troponin I 0.097 H* (0.000-0.034) ng/mL NT-Pro-B Natriuret Pep 832 pg/mL Total Protein (6.3-8.2) g/dL Albumin (3.5-5.0) g/dL Influenza Type A (PCR) Not Detected (Not Detectd) Influenza Type B (PCR) Not Detected (Not Detectd) RSV (PCR) Not Detected (Not Detectd) SARS-CoV-2 (PCR) Not Detected (Not Detectd) Disposition Clinical Impression: Hypoxia, Pulmonary embolism Disposition: ADMITTED IP TO THIS HOSP Condition: Serious
[2022-02-14] MEDS ORDERED: AZITHROMYCIN 500 MG in SODIUM CHLORIDE 0.9% 250 ML IVPB STA (02:01)
[2022-02-14] MEDS ORDERED: cefTRIAXone IN SWFI 1,000 MG/10 ML SYRINGE IVP STA (02:01)
--- NOTE | 2022-02-14 02:04 | CT ---
EXAMINATION TYPE: CT angio chest DATE OF EXAM: 02/14/2022 COMPARISON: None HISTORY: ELEVATED D DIMER CT DLP: 336.5 mGycm Automated exposure control for dose reduction was used. CONTRAST: Performed with IV Contrast, patient injected with 66 mL of Isovue 370. Images obtained from the thoracic inlet to the diaphragm with the IV contrast. There are Three-D post processed images. There is some interstitial infiltrate and atelectasis left lower lobe. There is large hiatal hernia. There is filling defect in the right pulmonary artery extending into the right upper lobe and right l ower lobe. There is no mediastinal adenopathy. There are no hilar masses. The bony thorax is intact. The thoraci c spine is intact. Sternum is intact. IMPRESSION: There is large pulmonary emboli in the right upper lobe and right lower lobe branches of the right pu lmonary artery. Hiatal hernia. No evidence of right heart strain. Heart size is normal. Mild atelectasis and interstitial infiltrate left upper lobe and left lower lobe.. Exam was discussed with emergency room attending staff at 2:00 AM.
[2022-02-14] MEDS ORDERED: ONDANSETRON 4 MG/2 ML VIAL IVP STA (03:38)
--- NOTE | 2022-02-14 10:29 | P.CRDCN ---
History of Present Illness Consult date: 02/14/22 History of present illness: History of Present Illness: The patient is an 81-year-old female with known history of hypertension and hyperlipidemia, chronic dyspnea who presented with an acute dyspneic episode with no associated chest discomfort, dizziness or palpitations. She underwent cardiac catheterization in January of this year because of her symptoms of dyspnea and had no evidence of significant obstructive disease. She has been followed by Dr. Elder. Her left ventricle systolic function by echocardiography was normal in June. She underwent a CT angiogram of the chest today that showed right pulmonary artery embolism involving the right upper and right lower lobe. She is in sinus mechanism on 100% nonrebreather. There is no evidence of right heart strain on the computed tomography scan. She denies any chest discomfort, dizziness or palpitations. She has no leg pain or peripheral edema. She denies any PND or orthopnea. She has no recent injury to her extremities and her activity level has been stable. She has no prior history of pulmonary embolism. She is a nonsmoker, nondiabetic. Medications: Cozaar 25 mg daily, nifedipine 60 mg daily, simvastatin 40 mg daily, aspirin once a day Review of Systems: Respiratory: She has chronic dyspnea on exertion but no documented obstructive lung disease. GI: No nausea or vomiting . No history of peptic ulcer disease. No recent GI bleed. : No hematuria or dysuria. Nervous System: No stroke or seizure. Physical Examination: 81-year-old female, alert oriented mildly dyspneic ,Blood pressure 108/60, Heart rate 105 Head: Normocephalic. Eyes: Sclerae nonicteric. Neck: Good carotid upstroke, no bruit, no jugular venous distention. Lungs: Decreased air exchange with no wheezes Heart: Regular rate and rhythm, S1-S2, no S3, plus S4 no rub. No murmur. Abdomen: Soft nontender, positive bowel sounds no organomegaly. Extremities: No edema, intact distal pulses. Rocco signs are negative Labs: D-dimer 5.6, hemoglobin 12.7, BUN 29, creatinine 1.32. Potassium 4.4. NT proBNP 836. Troponin 0.09, 0.186, 0.355. Chest x-ray was evidence of hiatal hernia EKG: Sinus mechanism rate of 121 with right axis deviation Impression: 1. Acute pulmonary embolism with no evidence of right heart strain on the computed tomography scan, requiring oxygen supplementation 2. Troponin elevation secondary to the pulmonary embolism 3. Mild CAD by cardiac catheterization in January 4. History of hypertension 5. History of hyperlipidemia Plan: 1. Obtain an echocardiogram with Doppler 2. Duplex scan of the lower extremities 3. IV heparin and subsequently changed to oral anticoagulation 4. If there is evidence of strain on the echocardiogram she may be a candidate for thrombolytics and EKOS 5. Resume statin 6. Depending on her progress further recommendations will be made, thank you fo r this consult we will follow with you. Past Medical History Past Medical History: Eye Disorder, GERD/Reflux, Hyperlipidemia, Hypertension, Osteoarthritis (OA) Additional Past Medical History / Comment(s): Macular Degeneration, Gout. right carpal tunnel surgery Nov 2021. COVID 19 vaccination (moderna x3) and a flu shot History of Any Multi-Drug Resistant Organisms: None Reported Past Surgical History: Breast Surgery, Joint Replacement, Orthopedic Surgery Additional Past Surgical History / Comment(s): RIGHT KNEE ARTHROSCOPY ,RIGHT BREAST BIOPSY, PARTIAL THYROIDECTOMY(RIGHT SIDE), BILATERAL TOTAL KNEE REPLACEMENTS, BILATERAL CATARACTS REMOVED, RIGHT CARPAL TUNNEL SURGERY. Past Anesthesia/Blood Transfusion Reactions: No Reported Reaction Past Psychological History: No Psychological Hx Reported Smoking Status: Never smoker Past Alcohol Use History: None Reported Past Drug Use History: None Reported - Past Family History Sister(s) Family Medical History: Cancer Additional Family Medical History / Comment(s): Patient has one sister that from recurrence of breast cancer. Father Family Medical History: Renal Disease Additional Family Medical History / Comment(s): Father at age 82 from renal failure. Brother(s) Family Medical History: Cancer, Myocardial Infarction ([place]) Additional Family Medical History / Comment(s): Patient has 2 brothers that have passed, one from a myocardial infarction at age 65 and 1 from a tumor in his neck. Mother Family Medical History: Chest Pain / Angina, Myocardial Infarction ([place]) Additional Family Medical History / Comment(s): Mother at age 74 from myocardial infarction. Medications and Allergies Home Medications Medication Instructions Recorded Confirmed Type NIFEdipine [NIFEdipine ER] 60 mg PO DAILY 08/12/14 02/13/22 History Simvastatin 40 mg PO DAILY 08/12/14 02/13/22 History Vit C/E/Zn/Coppr/Lutein/Zeaxan 1 cap PO BID 08/12/14 02/13/22 History [Preservision Areds 2 Softgel] allopurinoL [Allopurinol] 300 mg PO DAILY 08/12/14 02/13/22 History Aspirin [Adult Low Dose Aspirin EC] 81 mg PO DAILY 03/28/18 02/13/22 History Losartan Potassium [Cozaar] 25 mg PO BID 01/06/22 02/13/22 History Albuterol Sulfate [Albuterol 2 puff PO RT-Q6H PRN 02/13/22 02/13/22 History Sulfate Hfa] Allergies Allergy/AdvReac Type Severity Reaction Status Date / Time codeine Allergy Rapid Verified 02/13/22 22:07 Heart Rate Penicillins Allergy Rash/Hives Verified 02/13/22 22:07 Physical Exam Vitals: Vital Signs Temp Pulse Resp BP Pulse Ox FiO2 02/14/22 09:00 105 H 31 H 108/67 90 L 02/14/22 08:00 104 H 29 H 101/69 89 L 02/14/22 07:00 108 H 30 H 115/77 91 L 02/14/22 06:30 112 H 30 H 115/77 87 L 02/14/22 06:00 111 H 32 H 118/72 92 L 02/14/22 05:30 111 H 26 H 118/72 98 02/14/22 05:00 115 H 21 104/67 98 02/14/22 04:30 111 H 32 H 104/67 93 L 02/14/22 04:00 112 H 32 H 138/85 94 L 02/14/22 03:30 118 H 32 H 138/85 86 L 02/14/22 03:00 126 H 32 H 136/94 96 02/14/22 02:30 126 H 30 H 136/94 84 L 02/14/22 02:00 121 H 34 H 133/88 88 L 02/14/22 01:30 121 H 29 H 155/93 90 L 50 02/14/22 01:00 122 H 28 H 133/86 89 L 02/14/22 00:30 121 H 32 H 133/81 88 L 02/14/22 00:00 117 H 27 H 129/81 88 L 02/13/22 23:30 116 H 28 H 116/88 88 L 02/13/22 23:00 115 H 24 112/79 90 L 02/13/22 22:00 114 H 26 H 130/82 90 L 02/13/22 21:44 26 H 02/13/22 21:26 97.8 F 122 H 20 109/71 89 L Intake and Output 02/13/22 02/14/22 02/14/22 22:59 06:59 14:59 Intake Total 67.318 0 Balance 67.318 0 Intake: Intake, IV Titration 67.318 0 Amount Heparin Sod,Pork in 0.45% 67.318 0 NaCl 25,000 unit In 0.45 % NaCl 1 250ml.bag @ 18 UNITS/KG/HR 13.88 mls/hr IV .Q18H1M [facility] Rx#: [id number] Other: Weight 77.111 kg Results 02/13/22 21:49 02/13/22 21:49 Cardiac Enzymes 02/13/22 02/13/22 02/14/22 Range/Units 21:49 21:49 00:09 AST 22 (14-36) U/L Troponin I 0.097 H* 0.186 H* (0.000-0.034) ng/mL 02/14/22 Range/Units 05:15 AST (14-36) U/L Troponin I 0.355 H* (0.000-0.034) ng/mL Coagulation 02/13/22 02/14/22 Range/Units 21:49 05:04 PT 10.7 (9.0-12.0) sec APTT 22.4 101.9 H* (22.0-30.0) sec CBC 02/13/22 Range/Units 21:49 WBC 7.3 (3.8-10.6) k/uL RBC 4.83 (3.80-5.40) m/uL Hgb 12.7 (11.4-16.0) gm/dL Hct 39.1 (34.0-46.0) % Plt Count 291 (150-450) k/uL Comprehensive Metabolic Panel 02/13/22 Range/Units 21:49 Sodium 138 (137-145) mmol/L Potassium 4.4 (3.5-5.1) mmol/L Chloride 109 H (98-107) mmol/L Carbon Dioxide 18 L (22-30) mmol/L BUN 29 H (7-17) mg/dL Creatinine 1.32 H (0.52-1.04) mg/dL Glucose 114 H (74-99) mg/dL Calcium 9.4 (8.4-10.2) mg/dL AST 22 (14-36) U/L ALT 17 (4-34) U/L Alkaline Phosphatase 148 H (38-126) U/L Total Protein 6.2 L (6.3-8.2) g/dL Albumin 3.4 L (3.5-5.0) g/dL Current Medications Generic Name Dose Route Start Last Admin Trade Name Hyacinth PRN Reason Stop Dose Admin Heparin Sodium (Porcine) 0 unit 02/14/22 00:30 Heparin Sodium 1,000 Un/Ml (10ml Vl) IV PER PROTOCOL PRN Low PTT Protocol Sodium Chloride 1,000 mls @ 20 mls/hr 02/13/22 23:45 02/14/22 00:37 Saline 0.9% IV 20 mls/hr .Q24H SHRUTHI Administration Heparin Sodium/Sodium Chloride 250 mls @ 13.88 mls/hr 02/14/22 01:45 02/14/22 07:30 25,000 unit/ Sodium Chloride IV 15 units/kg/hr .Q18H1M SHRUTHI 11.567 mls/hr Titration Protocol 18 UNITS/KG/HR Naloxone HCl 0.2 mg 02/13/22 23:31 Naloxone 0.4 Mg/Ml 1 Ml Vial IV Q2M PRN Opioid Reversal Intake and Output 02/13/22 02/14/22 02/14/22 22:59 06:59 14:59 Intake Total 67.318 0 Balance 67.318 0 Intake: Intake, IV Titration 67.318 0 Amount Heparin Sod,Pork in 0.45% 67.318 0 NaCl 25,000 unit In 0.45 % NaCl 1 250ml.bag @ 18 UNITS/KG/HR 13.88 mls/hr IV .Q18H1M [facility] Rx#: [id number] Other: Weight 77.111 kg 02/13/22 21:49 02/13/22 21:49
--- NOTE | 2022-02-14 10:36 | US ---
EXAMINATION TYPE: US venous doppler duplex LE BI DATE OF EXAM: 02/14/2022 10:26 AM COMPARISON: NONE CLINICAL HISTORY: PE, r/o DVT. SIDE PERFORMED: Bilateral TECHNIQUE: The lower extremity deep venous system is examined utilizing real time linear array sonog loco with graded compression, doppler sonography and color-flow sonography. VESSELS IMAGED: Common Femoral Vein Deep Femoral Vein Greater Saphenous Vein * Femoral Vein Popliteal Vein Small Saphenous Vein * Proximal Calf Veins (* superficial vessels) Right Leg: Negative for DVT Left Leg: Negative for DVT IMPRESSION: No evidence of DVT at this time.
[2022-02-14] MEDS: ATORVASTATIN 40 MG TAB PO SCH (14:15)
--- NOTE | 2022-02-14 14:20 | P.CNPUL ---
History of Present Illness Consult date: 02/14/22 Reason for consult: dyspnea History of present illness: 81-year-old female patient, presented emergency department because of an acute shortness of breath. The patient was at home and she felt an acute dyspnea without any pleurisy or chest pain or hemoptysis. He is known to have no significant coronary artery disease and she underwent a recent cardiac catheterization that showed no evidence of any significant coronary artery disease. The patient came into the emergency and the patient was having difficulty breathing. D-dimer was elevated. CT angiogram of the chest was done and the patient was found to have a large clot obstructing the right main pulmonary artery. Based on CAT scan criteria, there is no evidence of any strain. Nevertheless the troponins were elevated and the patient was quite hypoxic and currently she is on 100% nonrebreather facemask. She is in a normal sinus rhythm for now. Echo was ordered. Dopplers were ordered of the lower extremity. No previous PEs or DVTs and this patient. No history of malignancy. No history of any chronic immobilization. She has hypertension hyperlipidemia as comorbid conditions. Awaiting echocardiogram. This will be needed to assess the patient's PA pressures. Meanwhile, the patient was started on IV heparin in the emergency department. She has some mild sinus tachycardia. Otherwise she is hemodynamically stable. No altered mentation. Review of Systems Constitutional: Reports as per HPI Eyes: bilateral blurred vision, bilateral decreased vision, denies as per HPI, denies bulging eye, denies diplopia, denies discharge, denies dry eye, denies irritation, denies itching, denies pain, denies photophobia, denies loss of peripheral vision, denies loss of vision, denies tunnel vision/blind spots Ears: deny: decreased hearing, ear discharge, earache, tinnitus Ears, nose, mouth and throat: Reports as per HPI Breasts: absent: as per HPI, change in shape, gynecomastia, masses, nipple discharge, pain, skin changes, swelling Cardiovascular: Reports decreased exercise tolerance, Reports dyspnea on exertion Respiratory: Reports dyspnea Genitourinary: Reports as per HPI Menstruation: Reports as per HPI Musculoskeletal: Reports as per HPI Musculoskeletal: absent: ankle pain, ankle stiffness, ankle swelling Integumentary: Reports as per HPI Neurological: Reports as per HPI Psychiatric: Reports as per HPI Endocrine: Reports as per HPI Hematologic/Lymphatic: Reports as per HPI Allergic/Immunologic: Reports as per HPI Past Medical History Past Medical History: Eye Disorder, GERD/Reflux, Hyperlipidemia, Hypertension, Osteoarthritis (OA) Additional Past Medical History / Comment(s): Macular Degeneration, Gout. right carpal tunnel surgery Nov 2021. COVID 19 vaccination (moderna x3) and a flu shot History of Any Multi-Drug Resistant Organisms: None Reported Past Surgical History: Breast Surgery, Joint Replacement, Orthopedic Surgery Additional Past Surgical History / Comment(s): RIGHT KNEE ARTHROSCOPY ,RIGHT BREAST BIOPSY, PARTIAL THYROIDECTOMY(RIGHT SIDE), BILATERAL TOTAL KNEE REPLACEMENTS, BILATERAL CATARACTS REMOVED, RIGHT CARPAL TUNNEL SURGERY. Past Anesthesia/Blood Transfusion Reactions: No Reported Reaction Past Psychological History: No Psychological Hx Reported Smoking Status: Never smoker Past Alcohol Use History: None Reported Past Drug Use History: None Reported - Past Family History Sister(s) Family Medical History: Cancer Additional Family Medical History / Comment(s): Patient has one sister that from recurrence of breast cancer. Father Family Medical History: Renal Disease Additional Family Medical History / Comment(s): Father at age 82 from renal failure. Brother(s) Family Medical History: Cancer, Myocardial Infarction ([place]) Additional Family Medical History / Comment(s): Patient has 2 brothers that have passed, one from a myocardial infarction at age 65 and 1 from a tumor in his neck. Mother Family Medical History: Chest Pain / Angina, Myocardial Infarction ([place]) Additional Family Medical History / Comment(s): Mother at age 74 from myocardial infarction. Medications and Allergies Home Medications Medication Instructions Recorded Confirmed Type NIFEdipine [NIFEdipine ER] 60 mg PO DAILY 08/12/14 02/13/22 History Simvastatin 40 mg PO DAILY 08/12/14 02/13/22 History Vit C/E/Zn/Coppr/Lutein/Zeaxan 1 cap PO BID 08/12/14 02/13/22 History [Preservision Areds 2 Softgel] allopurinoL [Allopurinol] 300 mg PO DAILY 08/12/14 02/13/22 History Aspirin [Adult Low Dose Aspirin EC] 81 mg PO DAILY 03/28/18 02/13/22 History Losartan Potassium [Cozaar] 25 mg PO BID 01/06/22 02/13/22 History Albuterol Sulfate [Albuterol 2 puff PO RT-Q6H PRN 02/13/22 02/13/22 History Sulfate Hfa] Allergies Allergy/AdvReac Type Severity Reaction Status Date / Time codeine Allergy Rapid Verified 02/13/22 22:07 Heart Rate Penicillins Allergy Rash/Hives Verified 02/13/22 22:07 Physical Exam Vitals: Vital Signs Temp Pulse Resp BP Pulse Ox FiO2 02/14/22 09:00 105 H 31 H 108/67 90 L 02/14/22 08:00 104 H 29 H 101/69 89 L 02/14/22 07:00 108 H 30 H 115/77 91 L 02/14/22 06:30 112 H 30 H 115/77 87 L 02/14/22 06:00 111 H 32 H 118/72 92 L 02/14/22 05:30 111 H 26 H 118/72 98 02/14/22 05:00 115 H 21 104/67 98 02/14/22 04:30 111 H 32 H 104/67 93 L 02/14/22 04:00 112 H 32 H 138/85 94 L 02/14/22 03:30 118 H 32 H 138/85 86 L 02/14/22 03:00 126 H 32 H 136/94 96 02/14/22 02:30 126 H 30 H 136/94 84 L 02/14/22 02:00 121 H 34 H 133/88 88 L 02/14/22 01:30 121 H 29 H 155/93 90 L 50 02/14/22 01:00 122 H 28 H 133/86 89 L 02/14/22 00:30 121 H 32 H 133/81 88 L 02/14/22 00:00 117 H 27 H 129/81 88 L 02/13/22 23:30 116 H 28 H 116/88 88 L 02/13/22 23:00 115 H 24 112/79 90 L 02/13/22 22:00 114 H 26 H 130/82 90 L 02/13/22 21:44 26 H 02/13/22 21:26 97.8 F 122 H 20 109/71 89 L Intake and Output 02/13/22 02/14/22 02/14/22 22:59 06:59 14:59 Intake Total 67.318 0 Balance 67.318 0 Intake: Intake, IV Titration 67.318 0 Amount Heparin Sod,Pork in 0.45% 67.318 0 NaCl 25,000 unit In 0.45 % NaCl 1 250ml.bag @ 18 UNITS/KG/HR 13.88 mls/hr IV .Q18H1M [facility] Rx#: [id number] Other: Weight 77.111 kg The patient appeared well nourished and normally developed. Vital signs as documented. The patient is currently a mild degree of respiratory distress and the patient is currently in the 100% nonrebreather facemask Head exam is unremarkable. No scleral icterus or corneal arcus noted. Neck is without jugular venous distension, thyromegaly, or carotid bruits. Carotid upstrokes are brisk bilaterally. Lungs are clear to auscultation and percussion. Cardiac exam reveals the PMI to be normally sized and situated. Rhythm is regular. First and second heart sounds normal. No murmurs, rubs or gallops. Abdominal exam reveals normal bowel sounds, no masses, no organomegaly and no aortic enlargement. Extremities are nonedematous and both femoral and pedal pulses are normal. Neurologically, the patient is awake and alert and the patient does not have any focal neurological deficit. Cranial nerves are essentially intact. Examination of the skin revealed no evidence of significant rashes, suspicious appearing nevi or other concerning lesions. The patient has scars of previous knee surgeries on her knees bilaterally. No leg edema. no tenderness. Results - Laboratory Findings CBC and BMP: 02/13/22 21:49 02/13/22 21:49 PT/INR, D-dimer PT 10.7 sec (9.0-12.0) 02/13/22 21:49 INR 1.0 (<1.2) 02/13/22 21:49 D-Dimer 5.68 mg/L FEU (<0.60) H 02/14/22 00:40 Abnormal lab findings: Abnormal Labs 02/13/22 02/13/22 02/13/22 21:49 21:49 21:49 RDW 16.9 H APTT D-Dimer Chloride 109 H Carbon Dioxide 18 L BUN 29 H Creatinine 1.32 H Glucose 114 H Alkaline Phosphatase 148 H Troponin I 0.097 H* Total Protein 6.2 L Albumin 3.4 L 02/14/22 02/14/22 02/14/22 00:09 00:40 05:04 RDW APTT 101.9 H* D-Dimer 5.68 H Chloride Carbon Dioxide BUN Creatinine Glucose Alkaline Phosphatase Troponin I 0.186 H* Total Protein Albumin 02/14/22 05:15 RDW APTT D-Dimer Chloride Carbon Dioxide BUN Creatinine Glucose Alkaline Phosphatase Troponin I 0.355 H* Total Protein Albumin - Diagnostic Findings Chest x-ray: image reviewed CT scan - chest: image reviewed Assessment and Plan Plan: Acute pulmonary embolism, probably submassive, and the patient is a large clot burden obstructing the right main pulmonary artery. No strain pattern on the CAT scan findings. Awaiting echocardiogram to assess RV, and pulmonary artery pressures. Acute hypoxic respiratory failure secondary to above currently on 100% nonrebreather facemask Acute troponin elevation secondary to pulmonary embolism Acute dyspnea secondary to above Previous history of Covid 19 vaccination 3 Hypertension Hyperlipidemia Large hiatal hernia with ongoing acid reflux Macular degeneration Gout History of CVA also arthritis requiring bilateral knee replacements History of right carpal tunnel surgery, recent Plan Continue IV heparin Doppler of the lower extremities Echo of the heart with evaluation of the RV strain, RV failure and pulmonary artery pressures Possible catheter directed thrombolytic therapy in this will discuss with cardiology Continue IV heparin for now Admit this patient to the intensive care unit Keep 100% nonrebreather the facemask We'll continue to follow
[2022-02-14] MEDS: ALBUTEROL NEBULIZED 2.5 MG/3 ML INHALATION SCH ×2 (15:48→21:16)
--- NOTE | 2022-02-14 17:45 | CA ---
Transthoracic Echo Report Name: Gayatri Draper Age: 81 Gender: F : 1940 Exam Date: 02/14/2022 13:34 Exam Location: [facility] Ht (in): 65 Wt (lb): 170 Ordering Physician: Emy Lemon Attending/Referring Phys: [employer] Elli Saleh RDCS Procedure CPT: Indications: PE Cardiac Hx: Technical Quality: Fair Contrast 1: Total Dose (mL): Contrast 2: Total Dose (mL): MEASUREMENTS (Male / Female) Normal Values 2D ECHO LV Diastolic Diameter PLAX 2.4 cm 4.2 - 5.9 / 3.9 - 5.3 cm LV Systolic Diameter PLAX 1.3 cm IVS Diastolic Thickness 1.2 cm 0.6 - 1.0 / 0.6 - 0.9 cm LVPW Diastolic Thickness 1.3 cm 0.6 - 1.0 / 0.6 - 0.9 cm LV Relative Wall Thickness 1.1 RV Internal Dim ED PLAX 2.7 cm LA Volume 33.0 cm??? 18 - 58 / 22 - 52 cm??? M-MODE Aortic Root Diameter MM 3.0 cm LA Systolic Diameter MM 3.8 cm LA Ao Ratio MM 1.3 AV Cusp Separation MM 1.7 cm DOPPLER AV Peak Velocity 181.6 cm/s AV Peak Gradient 13.2 mmHg AV Mean Velocity 110.3 cm/s AV Mean Gradient 5.8 mmHg AV Velocity Time Integral 26.5 cm LVOT Peak Velocity 121.7 cm/s LVOT Peak Gradient 5.9 mmHg MV Area PHT 3.5 cm??? Mitral E Point Velocity 70.8 cm/s Mitral A Point Velocity 119.1 cm/s Mitral E to A Ratio 0.6 MV Deceleration Time 214.3 ms TR Peak Velocity 373.5 cm/s TR Peak Gradient 55.8 mmHg Right Ventricular Systolic Press 60.4 mmHg FINDINGS Left Ventricle Mildly increased left ventricular wall thickness. Normal left ventricular systolic function with no obvious regional wall motion abnormalities. Left ventricular ejection fraction is estimated at 55-60 %. Right Ventricle Mild right ventricular dilatation. Severe pulmonary hypertension. Right ventricular systolic pressure estimated at 60 mm hg. No RV strain noted. TAPSE 25, RV' 19 cm/sec. Right Atrium Mild right atrial dilatation. Left Atrium Mild left atrial dilatation. Mitral Valve Structurally normal mitral valve. Mild mitral regurgitation. Aortic Valve No aortic valve stenosis or regurgitation. Tricuspid Valve Moderate to severe tricuspid regurgitation. Pulmonic Valve Structurally normal pulmonic valve. Trace pulmonic regurgitation. Pericardium No pericardial effusion. Aorta Normal size aortic root and proximal ascending aorta. CONCLUSIONS Normal LV systolic function Severe pulmonary hypertension Moderate to severe tricuspid regurgitation Dilated right ventricle Apical septum is hypokinetic Previewed by: Dr. Christo Colby MD (Electronically Signed) Final Date: 14 February 2022 17:44
[2022-02-14] MEDS: LOSARTAN 25 MG TAB PO SCH (21:52)
--- NOTE | 2022-02-15 00:06 | HP ---
HISTORY AND PHYSICAL CHIEF COMPLAINT: Shortness of breath. HISTORY OF PRESENT ILLNESS: This 81-year-old woman with a past medical history of multiple medical problems including hypertension and hyperlipidemia, being followed by Dr. Joiner in the outpatient setting, apparently woke up this morning with shortness of breath. The patient came to [facility]. D-dimer was elevated at 5.8, and CT angio showed large pulmonary embolism on the right side. The patient is on non-rebreather mask at this time. There is no history of any fever, rigors, or chills. Ultrasound was negative for DVT. The patient is being transferred to ICU at this time. The patient also had retinal injections every 2 weeks from [facility] and the patient has minimal subconjunctival hemorrhage on the left eye. PAST MEDICAL HISTORY: Reviewed and include hypertension and hyperlipidemia. The rest of the history and the chart is also reviewed. HOME MEDICATIONS: Reviewed. Allopurinol, dose and rest of the medications reviewed. ALLERGIES: Reviewed and include codeine. FAMILY HISTORY: History of myocardial infarction. SOCIAL HISTORY: No history of smoking. REVIEW OF SYSTEMS: A 14-point review of systems is negative except as mentioned earlier. PHYSICAL EXAMINATION: VITAL SIGNS: Pulse 105, blood pressure ntd HEENT: Conjunctivae normal. NECK: No JVD. CARDIOVASCULAR: S1, S2. RESPIRATION: Breath sounds diminished at the bases. Scattered rhonchi and crackles. ABDOMEN: Soft, nontender. LEGS: No edema. No swelling. NERVOUS SYSTEM: Nonfocal. SKIN: No ulcer, rash, bleeding. JOINTS: No active deforming arthropathy. LABORATORY DATA: Reviewed. CT scan reviewed personally. Troponin noted. ASSESSMENT: 1. Acute right pulmonary embolism with acute hypoxic respiratory failure. 2. Troponin elevated up to 0.355, possibly secondary to pulmonary embolism. 3. Rule out coronary artery disease. 4. Hypertension. 5. Hyperlipidemia. 6. Degenerative joint disease. 7. Left subconjunctival hemorrhage. 8. Multiple medical issues. RECOMMENDATIONS AND DISCUSSION: In this 81-year-old woman, who presented with multiple complex medical issues, we will monitor the patient closely. I would recommend IV heparin. Otherwise, resume the home medications once they are confirmed. DVT is negative at this time. Cardiology consultation, 2D echo with Doppler was also ordered. Pulmonary evaluation. Further recommendations to follow. We will also obtain Ophthalmology consultation. Continue to monitor. Prognosis guarded. MMODL / IJN: [id number] / MTDD
[2022-02-15] MEDS: ALBUTEROL NEBULIZED 2.5 MG/3 ML INHALATION SCH ×2 (01:53→08:27)
[2022-02-15 06:05] LABS: Anisocytosis Slight; Basophils % (A) 1 %; Eosinophils # (A) 0.2 k/uL (0-0.7); Eosinophils % (A) 3 %; HCT 31.8 % (34.0-46.0); Hypochromasia Marked; Lymphocytes # (A) 0.9 k/uL (1.0-4.8); Lymphocytes % (A) 17 %; MCH 25.8 pg (25.0-35.0); MCHC 31.3 g/dL (31.0-37.0); MCV 82.4 fL (80.0-100.0); Mean Platelet Volume 9.8; Monocytes # (A) 0.3 k/uL (0-1.0); Monocytes % (A) 6 %; Neutrophils # (A) 3.5 k/uL (1.3-7.7); Neutrophils % (A) 71 %; Platelet Count 227 k/uL (150-450); RBC 3.85 m/uL (3.80-5.40); RDW 16.8 % (11.5-15.5); WBC 4.9 k/uL (3.8-10.6)
[2022-02-15 06:13] LABS: INR 1.1 (<1.2); Prothrombin Time 11.3 sec (9.0-12.0)
[2022-02-15 06:17] LABS: Calcium 8.5 mg/dL (8.4-10.2); HGB 9.9 gm/dL (11.4-16.0); Potassium 4.3 mmol/L (3.5-5.1)
[2022-02-15] MEDS: SODIUM CHLORIDE 0.9% 1,000 ML IV SCH (07:19)
[2022-02-15] MEDS ORDERED: NON FORMULARY DRUG (Simvastatin [Simvastatin] 40 MG Tablet) PO SCH (09:00)
[2022-02-15] MEDS ORDERED: allopurinoL 300 MG TAB PO SCH (09:00)
[2022-02-15] MEDS: LOSARTAN 25 MG TAB PO SCH (09:59)
[2022-02-15] MEDS: ATORVASTATIN 40 MG TAB PO SCH (09:59)
--- NOTE | 2022-02-15 11:37 | P.PN ---
Subjective Progress Note Date: 02/15/22 PROGRESS NOTE The patient is an 81-year-old female with known history of hypertension and hyperlipidemia, chronic dyspnea who presented with an acute dyspneic episode with no associated chest discomfort, dizziness or palpitations. She underwent cardiac catheterization in January of this year because of her symptoms of dyspnea and had no evidence of significant obstructive disease. She has been followed by Dr. Elder. Her left ventricle systolic function by echocardiography was normal in June. She underwent a CT angiogram of the chest today that showed right pulmonary artery embolism involving the right upper and right lower lobe. She is in sinus mechanism on 100% nonrebreather. There is no evidence of right heart strain on the computed tomography scan. She denies any chest discomfort, dizziness or palpitations. She has no leg pain or peripheral edema. She denies any PND or orthopnea. February 15: The patient continues to be dyspneic with minimal physical activity on high flow oxygen. She denies any chest discomfort, she has no dizziness or palpitation no nausea. She is in sinus tachycardia. Her echocardiogram showed a normal left ventricle systolic function with severe pulmonary hypertension and no evidence of RV strain. She had mild mitral and moderate severe tricuspid regurgitation. Her duplex scan of the lower extremities showed no evidence of thrombus. She continues to be on IV heparin. Her blood pressure has been stable. Medications: Lipitor 40 mg daily, IV heparin, losartan 25 mg twice a day, nifedipine 60 mg daily PHYSICAL EXAMINATION: Blood pressure 130/70 heart rate 102 LUNGS: Clear to auscultation HEART: Regular rate and rhythm, S1, S2. Prominent P2 No S3. systolic murmur at the left lower sternal border ABDOMEN: Soft, nontender, no organomegaly EXTREMETIES: No edema LAB: Hemoglobin 9.9, BUN 22, creatinine 1.1, potassium 4.3 IMPRESSION: 1. Right-sided pulmonary embolism with associated pulmonary hypertension and hypoxemia 2. History of hypertension 3. Mild CAD PLAN: 1. Continue IV heparin 2. The case was discussed with the primary service for possible transfer to tertiary unit for mechanical embolectomy 3. Discussed with the family 4. Prognosis is guarded Objective - Vital Signs Vital signs: Vital Signs Temp 97.8 F 02/13/22 21:26 Pulse 106 H 02/15/22 10:00 Resp 22 02/15/22 10:00 BP 138/82 02/15/22 10:00 Pulse Ox 89 L 02/15/22 10:00 FiO2 50 02/14/22 01:30 Intake & Output 02/14/22 02/15/22 02/15/22 18:59 06:59 18:59 Intake Total 104.489 70.168 Balance 104.489 70.168 Intake: Intake, IV Titration 104.489 70.168 Amount Heparin Sod,Pork in 0.45% 104.489 70.168 NaCl 25,000 unit In 0.45 % NaCl 1 250ml.bag @ 18 UNITS/KG/HR 13.88 mls/hr IV .Q18H1M [facility] Rx#: [id number] - Labs CBC & Chem 7: 02/15/22 05:37 02/15/22 05:37 Labs: Abnormal Lab Results - Last 24 Hours (Table) 02/14/22 02/14/22 02/15/22 Range/Units 13:14 22:44 05:37 Hgb 9.9 L D (11.4-16.0) gm/dL Hct 31.8 L (34.0-46.0) % RDW 16.8 H (11.5-15.5) % Lymphocytes # 0.9 L (1.0-4.8) k/uL APTT 71.1 H 66.2 H (22.0-30.0) sec Chloride (98-107) mmol/L BUN (7-17) mg/dL Creatinine (0.52-1.04) mg/dL 02/15/22 02/15/22 Range/Units 05:37 05:37 Hgb (11.4-16.0) gm/dL Hct (34.0-46.0) % RDW (11.5-15.5) % Lymphocytes # (1.0-4.8) k/uL APTT 49.7 H (22.0-30.0) sec Chloride 112 H (98-107) mmol/L BUN 22 H (7-17) mg/dL Creatinine 1.11 H (0.52-1.04) mg/dL
--- NOTE | 2022-02-15 14:26 | P.GSCN ---
History of Present Illness Consult date: 02/15/22 Reason for Consult: Pulmonary embolism, questionable cor pulmonale Requesting physician: Triny Rebolledo History of present illness: This is a pleasant 81-year-old female with a past medical history ocular degeneration, hypertension and hyperlipidemia who recently underwent cardiac catheterization on 01/07/2022 to evaluate for shortness of breath which she states she's had for the last 2 years duration. There was reported minimal heart disease not requiring any stenting. Patient states she was recommended to see a lithographic proofer however was trying to wait until after the first of the year. Patient came in 2 days ago with complaints of shortness of breath especially with exertion. Patient was noted to be hypoxic and is requiring 15 L high flow nasal cannula with saturation of 89-90%. Labs had shown an elevated d-dimer as well as elevated troponins. She had a CT angiogram of the chest that reported large pulmonary emboli in the right upper lobe and right lower lobe branches of the right pulmonary artery. Hiatal hernia, no evidence right heart strain, heart size normal. Mild atelectasis and interstitial infiltrate left upper lobe and left lower lobe. Cardiology was consulted as they were on all for pulmonary embolism response team. Cardiology has been following, they ordered an echocardiogram which reported mild right ventricular dilation with severe pulmonary hypertension. Right ventricular systolic pressure 60 mmHg. No RV strain noted. Venous duplex of bilateral lower extremities was negative for DVT. Vascular surgery was consulted by primary medicine team for pulmonary embolism, evaluate possible cor pulmonale. Patient also states she has been getting retinal injections every 10 weeks her last one was 2 weeks ago and she has a little residual left eye sub-conjunctiva hemorrhage, which she states is actually getting better. She states the hemorrhage was present since the injections not since his hospitalization. The patient currently states she has shortness of breath even at rest. She denies any chest pain. Denies any pain in her lower extremities, abdominal pain, prasad sea or vomiting. She denies any recent traveling, no previous history of DVT or pulmonary embolism no known history of clotting disorder. She did recently undergo carpal tunnel surgery in November of this year. Cardiology is recommending transfer to tertiary center, transfer to [facility] has been initiated prior to vascular surgery consultation. Review of Systems A 14 point review systems was completed all pertinent positives and negatives as stated in the HPI. Past Medical History Past Medical History: Eye Disorder, GERD/Reflux, Hyperlipidemia, Hypertension, Osteoarthritis (OA) Additional Past Medical History / Comment(s): Macular Degeneration, Gout. rig ht carpal tunnel surgery Nov 2021. COVID 19 vaccination (moderna x3) and a flu shot History of Any Multi-Drug Resistant Organisms: None Reported Past Surgical History: Breast Surgery, Joint Replacement, Orthopedic Surgery Additional Past Surgical History / Comment(s): RIGHT KNEE ARTHROSCOPY ,RIGHT BREAST BIOPSY, PARTIAL THYROIDECTOMY(RIGHT SIDE), BILATERAL TOTAL KNEE REPLACEMENTS, BILATERAL CATARACTS REMOVED, RIGHT CARPAL TUNNEL SURGERY. Past Anesthesia/Blood Transfusion Reactions: No Reported Reaction Past Psychological History: No Psychological Hx Reported Smoking Status: Never smoker Past Alcohol Use History: None Reported Past Drug Use History: None Reported - Past Family History Sister(s) Family Medical History: Cancer Additional Family Medical History / Comment(s): Patient has one sister that from recurrence of breast cancer. Father Family Medical History: Renal Disease Additional Family Medical History / Comment(s): Father at age 82 from renal failure. Brother(s) Family Medical History: Cancer, Myocardial Infarction (ND) Additional Family Medical History / Comment(s): Patient has 2 brothers that have passed, one from a myocardial infarction at age 65 and 1 from a tumor in his neck. Mother Family Medical History: Chest Pain / Angina, Myocardial Infarction (ND) Additional Family Medical History / Comment(s): Mother at age 74 from myocardial infarction. Medications and Allergies Home Medications Medication Instructions Recorded Confirmed Type NIFEdipine [NIFEdipine ER] 60 mg PO DAILY 08/12/14 02/13/22 History Simvastatin 40 mg PO DAILY 08/12/14 02/13/22 History Vit C/E/Zn/Coppr/Lutein/Zeaxan 1 cap PO BID 08/12/14 02/13/22 History [Preservision Areds 2 Softgel] allopurinoL [Allopurinol] 300 mg PO DAILY 08/12/14 02/13/22 History Aspirin [Adult Low Dose Aspirin EC] 81 mg PO DAILY 03/28/18 02/13/22 History Losartan Potassium [Cozaar] 25 mg PO BID 01/06/22 02/13/22 History Albuterol Sulfate [Albuterol 2 puff PO RT-Q6H PRN 02/13/22 02/13/22 History Sulfate Hfa] Allergies Allergy/AdvReac Type Severity Reaction Status Date / Time codeine Allergy Rapid Verified 02/13/22 22:07 Heart Rate Penicillins Allergy Rash/Hives Verified 02/13/22 22:07 Surgical - Exam Vital Signs Temp Pulse Resp BP Pulse Ox 97.8 F 122 H 20 109/71 89 L 02/13/22 21:26 02/13/22 21:26 02/13/22 21:26 02/13/22 21:26 02/13/22 21:26 General appearance: The patient is alert, oriented, appears in no acute distress. HET: Head is normocephalic and atraumatic. Pupils are equal and reactive. Neck: Supple without lymphadenopathy. Trachea midline. Heart: Regular. Lungs: Equal expansion, normal respiratory effort. Abdomen: Soft, nontender, nondistended. Extremities: Normal skin color and turgor. No cyanosis, rash, ulceration, clubbing, or edema. Neurological: No focal deficits. Alert and oriented 3. Results - Labs 02/15/22 05:37 02/15/22 05:37 Abnormal Lab Results - Last 24 Hours (Table) 02/14/22 02/15/22 02/15/22 Range/Units 22:44 05:37 05:37 Hgb 9.9 L D (11.4-16.0) gm/dL Hct 31.8 L (34.0-46.0) % RDW 16.8 H (11.5-15.5) % Lymphocytes # 0.9 L (1.0-4.8) k/uL APTT 66.2 H (22.0-30.0) sec Chloride 112 H (98-107) mmol/L BUN 22 H (7-17) mg/dL Creatinine 1.11 H (0.52-1.04) mg/dL 02/15/22 Range/Units 05:37 Hgb (11.4-16.0) gm/dL Hct (34.0-46.0) % RDW (11.5-15.5) % Lymphocytes # (1.0-4.8) k/uL APTT 49.7 H (22.0-30.0) sec Chloride (98-107) mmol/L BUN (7-17) mg/dL Creatinine (0.52-1.04) mg/dL Diabetes panel 02/15/22 Range/Units 05:37 Sodium 140 (137-145) mmol/L Potassium 4.3 (3.5-5.1) mmol/L Chloride 112 H (98-107) mmol/L Carbon Dioxide 23 (22-30) mmol/L BUN 22 H (7-17) mg/dL Creatinine 1.11 H (0.52-1.04) mg/dL Glucose 98 (74-99) mg/dL Calcium 8.5 (8.4-10.2) mg/dL Calcium panel 02/15/22 Range/Units 05:37 Calcium 8.5 (8.4-10.2) mg/dL Pituitary panel 02/15/22 Range/Units 05:37 Sodium 140 (137-145) mmol/L Potassium 4.3 (3.5-5.1) mmol/L Chloride 112 H (98-107) mmol/L Carbon Dioxide 23 (22-30) mmol/L BUN 22 H (7-17) mg/dL Creatinine 1.11 H (0.52-1.04) mg/dL Glucose 98 (74-99) mg/dL Calcium 8.5 (8.4-10.2) mg/dL Adrenal panel 02/15/22 Range/Units 05:37 Sodium 140 (137-145) mmol/L Potassium 4.3 (3.5-5.1) mmol/L Chloride 112 H (98-107) mmol/L Carbon Dioxide 23 (22-30) mmol/L BUN 22 H (7-17) mg/dL Creatinine 1.11 H (0.52-1.04) mg/dL Glucose 98 (74-99) mg/dL Calcium 8.5 (8.4-10.2) mg/dL Assessment and Plan Assessment: 1. Pulmonary embolism with main pulmonary artery thrombus, with right heart strain 2. Hypoxia secondary to above requiring 15 L high flow cannula 3. Chronic shortness of breath, over last 2 years duration Plan: Chest CT angiogram images reviewed by Dr. Thompson with evidence of right sided pulmonary embolism with main pulmonary artery thrombus and evidence of right heart strain with reflux contrast. Agree with aggressive intervention. Transfer to [facility] has already been initiated prior to vascular consultation by institutional nutrition consultant and lithographic proofer. Certainly if patient is not accepted at [facility] would recommend consideration for transfer to [facility] where he would be happy to see patient and provide continuity of care and treatment for possible thrombectomy. Thank you for this consultation, we will continue to follow along with you. The impression and plan of care has been dictated as directed. Dr. Thompson I performed a history and examination of this patient, discussed the same with the dictator. I agree with the dictator's note ,documented as a scribe. Any additional findings or plans will be noted.
[2022-02-15 14:51] VITALS: BP 144/85; PULSE 113; RESP 18; TEMP 98.2
--- NOTE | 2022-02-15 15:17 | P.PN ---
Subjective Progress Note Date: 02/15/22 On today's evaluation of 02/15/2022, the patient is essentially unchanged. The patient remains on high flow oxygen at 15 L per minute nasal cannula. She is complaining of shortness of breath and her breathing is slightly worse compared to yesterday according to her. She remains in sinus tachycardia. She remains hemodynamically stable. Troponins were slightly elevated because of her submassive pulmonary embolism. The patient's echocardiogram showed pulmonary hypertension. Of concern, his ongoing hypoxemia and shortness of breath. No obvious cause of 4.9 with a hemoglobin of 9.9 and a platelet count of 227. PTT is at 49.7. BUN is at 22 with a creatinine of 1.1. Doppler of the lower extrem ity has been negative. There is no evidence of any DVT. Objective - Vital Signs Vital signs: Vital Signs Temp 98.2 F 02/15/22 14:47 Pulse 113 H 02/15/22 14:47 Resp 18 02/15/22 14:47 BP 144/85 02/15/22 14:47 Pulse Ox 91 L 02/15/22 14:47 FiO2 50 02/14/22 01:30 Intake & Output 02/14/22 02/15/22 02/15/22 18:59 06:59 18:59 Intake Total 104.489 70.168 Balance 104.489 70.168 Intake: Intake, IV Titration 104.489 70.168 Amount Heparin Sod,Pork in 0.45% 104.489 70.168 NaCl 25,000 unit In 0.45 % NaCl 1 250ml.bag @ 18 UNITS/KG/HR 13.88 mls/hr IV .Q18H1M [facility] Rx#: [id number] - Exam The patient appeared well nourished and normally developed. Vital signs as documented. The patient is currently a mild degree of respiratory distress and the patient is currently on 15 L nasal cannula high flow Head exam is unremarkable. No scleral icterus or corneal arcus noted. Neck is without jugular venous distension, thyromegaly, or carotid bruits. Carotid upstrokes are brisk bilaterally. Lungs are clear to auscultation and percussion. Cardiac exam reveals the PMI to be normally sized and situated. Rhythm is regular. First and second heart sounds normal. No murmurs, rubs or gallops. Abdominal exam reveals normal bowel sounds, no masses, no organomegaly and no aortic enlargement. Extremities are nonedematous and both femoral and pedal pulses are normal. Neurologically, the patient is awake and alert and the patient does not have any focal neurological deficit. Cranial nerves are essentially intact. Examination of the skin revealed no evidence of significant rashes, suspicious appearing nevi or other concerning lesions. The patient has scars of previous knee surgeries on her knees bilaterally. No leg edema. no tenderness. - Labs CBC & Chem 7: 02/15/22 05:37 02/15/22 05:37 Labs: Abnormal Lab Results - Last 24 Hours (Table) 02/14/22 02/15/22 02/15/22 Range/Units 22:44 05:37 05:37 Hgb 9.9 L D (11.4-16.0) gm/dL Hct 31.8 L (34.0-46.0) % RDW 16.8 H (11.5-15.5) % Lymphocytes # 0.9 L (1.0-4.8) k/uL APTT 66.2 H (22.0-30.0) sec Chloride 112 H (98-107) mmol/L BUN 22 H (7-17) mg/dL Creatinine 1.11 H (0.52-1.04) mg/dL 02/15/22 Range/Units 05:37 Hgb (11.4-16.0) gm/dL Hct (34.0-46.0) % RDW (11.5-15.5) % Lymphocytes # (1.0-4.8) k/uL APTT 49.7 H (22.0-30.0) sec Chloride (98-107) mmol/L BUN (7-17) mg/dL Creatinine (0.52-1.04) mg/dL Assessment and Plan Plan: Acute pulmonary embolism, probably submassive, and the patient is a large clot burden obstructing the right main pulmonary artery. No strain pattern on the CAT scan findings. The pulmonary artery pressures were quite elevated and the patient continued to be hypoxic and currently patient is on 15 L nasal cannula. Acute hypoxic respiratory failure secondary to above currently on 15 L nasal cannula, high flow Acute troponin elevation secondary to pulmonary embolism, secondary to submassive pulmonary embolism Acute dyspnea secondary to above, with interval worsening in shortness of breath Previous history of Covid 19 vaccination 3 Hypertension Hyperlipidemia Large hiatal hernia with ongoing acid reflux Macular degeneration Gout History of CVA also arthritis requiring bilateral knee replacements History of right carpal tunnel surgery, recent Plan Continue IV heparin Doppler of the lower extremities were negative Echo of the heart showed significant pulmonary hypertension Continue IV heparin for now Patient may not be a candidate for EKOS due to the location and extent of the right sided pulmonary embolism which is pretty much obstructing the pulmonary outflow tract on the right. She will be a good candidate for INARI , mechanical removal/suctioning of the pulmonary embolism. For that reason, the patient will be transferred to [facility]. Family was agreeable Appropriate transfer process was initiated Case was discussed with cardiology We'll continue to follow
--- NOTE | 2022-02-16 04:28 | PN ---
PROGRESS NOTE DATE OF SERVICE: 02/15/2022 SUBJECTIVE: This is an 81-year-old woman who was admitted with acute right-sided pulmonary embolism, also had elevated troponin. The patient is being closely monitored. The patient is also hypoxic. The patient is on high-flow oxygen. Multiple consultants are following the patient closely. The patient had a 2D echo with Doppler, which showed normal systolic function, severe pulmonary hypertension and moderate severe tricuspid regurgitation, and dilated right ventricle. Ophthalmology has seen the patient for left subconjunctival hemorrhage with a history of recent injections. PAST MEDICAL HISTORY: Reviewed. REVIEW OF SYSTEMS: A 14-point review of systems is negative except as mentioned earlier. CURRENT MEDICATIONS: Reviewed include heparin. Dose and rest of medication reviewed. PHYSICAL EXAMINATION: VITAL SIGNS: Pulse is 106, blood pressure 138/80, respirations 20. HEENT: Conjunctivae normal. NECK: No JVD. CARDIOVASCULAR: S1, S2 muffled. RESPIRATIONS: Breath sounds diminished at the bases. Scattered rhonchi and crackles. ABDOMEN: Soft, nontender. LEGS: No edema. NERVOUS SYSTEM: No focal deficits. LABS: WBC 12.9, hemoglobin 9.9. The rest of the labs are noted. ASSESSMENT: 1. Acute right-sided pulmonary embolism with possible cor pulmonale. 2. Troponin elevated up to 0.355. Rule out acute unf-VA-kcssaeu elevation myocardial infarction possibly secondary to pulmonary embolism. 3. Rule out coronary artery disease. 4. Hypertension. 5. Hyperlipidemia. 6. Degenerative joint disease. 7. Left subconjunctival hemorrhage. 8. Multiple medical issues. RECOMMENDATIONS AND DISCUSSION: Recommend to continue current management and symptomatic treatment. Continue the IV heparin. I would also recommend Vascular Surgery evaluation because of the 2D echo findings. Otherwise continue the rest of medications. See orders for further details. Hypoxia will be closely monitored and Pulmonary is consulted. Overall prognosis guarded, which I discussed with the family and further recommendations to follow. See orders for further details. MMODL / IJN: [id number] /
--- NOTE | 2022-02-16 14:26 | DS ---
DISCHARGE SUMMARY FINAL DIAGNOSES: 1. Acute right pulmonary embolism with possible cor pulmonale. 2. Troponin elevated up to 0.355, possibly secondary to pulmonary embolism. 3. Hypertension. 4. Hyperlipidemia. 5. Multiple medical issues. DISCHARGE DISPOSITION: The patient will be transferred to [facility] for possible [place] per Dr. Wilson's suggestion. HISTORY OF PRESENT ILLNESS: This 81-year-old woman with a past medical history as above, admitted with acute pulmonary embolism. The patient was found to be hypoxic, and the patient was treated with IV heparin. Because of lack of improvement, Dr. Wilson discussed [facility]'s, and the patient will be transferred to [facility] for further evaluation and treatment. PHYSICAL EXAMINATION: VITAL SIGNS: Stable. CARDIOVASCULAR: S1, S2. ABDOMEN: Soft. NERVOUS SYSTEM: Nonfocal. DISCHARGE MEDICATIONS: Please refer to the list of medications for detailed list of medications. MMODL / IJN: [id number] /
== END 2022-02-15 14:51 | disposition short-term general hospital, planned readmission (82) | DRG 175 ==
LOC: EC 21:23 → 3SCARD 23:31 → 2SICU 02-14 01:59
PROVIDERS: ADMIT Hospitalist; ATTEND Hospitalist
PROC: 3E0F7SF Introduction of Other Gas into Respiratory Tract, Via Natural or Artificial Opening (ICD-10-PCS; principal; 2022-02-13)
PROC: B246ZZ4 Ultrasonography of Right and Left Heart, Transesophageal (ICD-10-PCS; 2022-02-14)
DX: I26.09 Other pulmonary embolism with acute cor pulmonale (principal); J96.01 Acute respiratory failure with hypoxia; E87.20 Acidosis, unspecified; J98.11 Atelectasis; I27.20 Pulmonary hypertension, unspecified; Z20.822 Contact with and (suspected) exposure to COVID-19; R00.0 Tachycardia, unspecified; R79.89 Other specified abnormal findings of blood chemistry; H11.32 Conjunctival hemorrhage, left eye; I25.10 Atherosclerotic heart disease of native coronary artery without angina pectoris; I08.1 Rheumatic disorders of both mitral and tricuspid valves; K44.9 Diaphragmatic hernia without obstruction or gangrene; I10 Essential (primary) hypertension; E78.5 Hyperlipidemia, unspecified; K21.9 Gastro-esophageal reflux disease without esophagitis; H35.30 Unspecified macular degeneration; M19.90 Unspecified osteoarthritis, unspecified site; M10.9 Gout, unspecified; Z96.653 Presence of artificial knee joint, bilateral; Z88.5 Allergy status to narcotic agent; Z88.0 Allergy status to penicillin; Z79.899 Other long term (current) drug therapy; Z79.82 Long term (current) use of aspirin; Z82.49 Family history of ischemic heart disease and other diseases of the circulatory system; Z84.1 Family history of disorders of kidney and ureter; Z86.711 Personal history of pulmonary embolism; Z98.42 Cataract extraction status, left eye; Z98.41 Cataract extraction status, right eye
CPT/HCPCS: 36415; 71046; 71275; 80048; 80053; 83735; 83880; 84484; 85025; 85379; 85610; 85730; 87636; 93005; 93306; 93970; 94640; 96365; 96366; 96368; 96375; 99285

== ENCOUNTER 2022-06-21 09:10 | Observation (INO) | payer MEDICARE, BC ==
[2022-06-21] MEDS ORDERED: SODIUM CHLORIDE 0.9% 1,000 ML IV STA (09:35)
[2022-06-21] MEDS ORDERED: PANTOPRAZOLE 40 MG/10 ML VIAL IVP STA (09:35)
[2022-06-21] MEDS ORDERED: ONDANSETRON 4 MG/2 ML VIAL IVP STA (09:35)
[2022-06-21] MEDS ORDERED: HYDROmorphone 0.5 MG/0.5 ML SYRINGE IVP STA (09:36)
--- NOTE | 2022-06-21 09:37 | ED ---
General Adult HPI - General Chief complaint: Abdominal Pain Stated complaint: Abd pain/vomiting Time Seen by Provider: 06/21/22 09:24 Source: patient, family, RN notes reviewed Mode of arrival: ambulatory Limitations: no limitations - History of Present Illness Initial comments: Patient is a pleasant 81-year-old female presenting to the emergency department with concerns for abdominal pain. Symptoms have been progressing over the past few weeks. Patient has been constipated the last couple of days. Patient is vomiting. Emesis is somewhat darkened patient is concerned she could be vomiting stool. No history of similar symptoms previously. No back pain. - Related Data Home Medications Medication Instructions Recorded Confirmed NIFEdipine [NIFEdipine ER] 60 mg PO DAILY 08/12/14 06/21/22 Simvastatin 40 mg PO DAILY 08/12/14 06/21/22 allopurinoL [Allopurinol] 300 mg PO DAILY 08/12/14 06/21/22 Aspirin [Adult Low Dose Aspirin EC] 81 mg PO DAILY 03/28/18 06/21/22 Apixaban [Eliquis] 5 mg PO BID 06/05/22 06/21/22 Sildenafil [Revatio] 1 tab PO TID 06/05/22 06/21/22 Albuterol Sulfate [Ventolin HFA] 2 puff INHALATION RT-Q6H PRN 06/21/22 06/21/22 Vit C/E/Zn/Coppr/Lutein/Zeaxan 1 tab PO BID 06/21/22 06/21/22 [Preservision Areds 2 Softgel] Allergies Allergy/AdvReac Type Severity Reaction Status Date / Time codeine Allergy Rapid Verified 06/21/22 11:25 Heart Rate Penicillins Allergy Rash/Hives Verified 06/21/22 11:25 Review of Systems ROS Statement: Those systems with pertinent positive or pertinent negative responses have been documented in the HPI. ROS Other: All systems not noted in ROS Statement are negative. Constitutional: Denies: fever Eyes: Denies: eye pain ENT: Denies: ear pain Respiratory: Denies: cough, dyspnea Cardiovascular: Denies: chest pain Endocrine: Denies: fatigue Gastrointestinal: Reports: as per HPI, abdominal pain, nausea, vomiting, constipation Genitourinary: Denies: dysuria Musculoskeletal: Denies: back pain Skin: Denies: rash Neurological: Denies: weakness Past Medical History Past Medical History: Eye Disorder, GERD/Reflux, Hyperlipidemia, Hypertension, Osteoarthritis (OA) Additional Past Medical History / Comment(s): Macular Degeneration, Gout. right carpal tunnel surgery Nov 2021. COVID 19 vaccination (moderna x3) and a flu shot History of Any Multi-Drug Resistant Organisms: None Reported Past Surgical History: Breast Surgery, Joint Replacement, Orthopedic Surgery Additional Past Surgical History / Comment(s): RIGHT KNEE ARTHROSCOPY ,RIGHT BREAST BIOPSY, PARTIAL THYROIDECTOMY(RIGHT SIDE), BILATERAL TOTAL KNEE REPLACEMENTS, BILATERAL CATARACTS REMOVED, RIGHT CARPAL TUNNEL SURGERY. Past Anesthesia/Blood Transfusion Reactions: No Reported Reaction Past Psychological History: No Psychological Hx Reported Smoking Status: Never smoker Past Alcohol Use History: None Reported Past Drug Use History: None Reported - Past Family History Sister(s) Family Medical History: Cancer Additional Family Medical History / Comment(s): Patient has one sister that from recurrence of breast cancer. Father Family Medical History: Renal Disease Additional Family Medical History / Comment(s): Father at age 82 from renal failure. Brother(s) Family Medical History: Cancer, Myocardial Infarction ([place]) Additional Family Medical History / Comment(s): Patient has 2 brothers that have passed, one from a myocardial infarction at age 65 and 1 from a tumor in his neck. Mother Family Medical History: Chest Pain / Angina, Myocardial Infarction ([place]) Additional Family Medical History / Comment(s): Mother at age 74 from myocardial infarction. General Exam Limitations: no limitations General appearance: alert, in no apparent distress Head exam: Present: normocephalic Eye exam: Present: normal appearance Neck exam: Present: normal inspection Respiratory exam: Present: normal lung sounds bilaterally Cardiovascular Exam: Present: regular rate, normal rhythm Expanded Peripheral pulses: 2+: Dorsalis Pedis (R), Dorsalis Pedis (L) GI/Abdominal exam: Present: soft, tenderness (Mild diffuse tenderness) Extremities exam: Present: pedal edema (+1 bilateral). Absent: calf tenderness Neurological exam: Present: alert Psychiatric exam: Present: normal affect, normal mood Skin exam: Present: normal color Course Vital Signs 06/21/22 09:15 Temperature 97.5 F L Pulse Rate 89 Respiratory 20 Rate Blood Pressure 92/58 O2 Sat by Pulse 96 Oximetry EKG Findings - EKG Results: EKG: interpreted by ERMD, sinus rhythm, normal axis, normal QRS, normal ST/T Medical Decision Making - Medical Decision Making Was pt. sent in by a medical professional or institution (JONNA Malin, [employer], urgent care, hospital, or fdc...) When possible be specific @ -Patient did go to clinic and was advised come to emergency department Did you speak to anyone other than the patient for history (EMS, parent, family, police, friend...)? What history was obtained from this source @ -Family is present and provides history. Daughter is a superior historian to the patient Did you review nursing and triage notes (agree or disagree)? Why? @ -I reviewed and agree with nursing and triage notes Were old charts reviewed (outside hosp., previous admission, EMS record, old EKG, old radiological studies, urgent care reports/EKG's, fdc records)? Report findings @ -No old charts were reviewed Differential Diagnosis (chest pain, altered mental status, abdominal pain women, abdominal pain men, vaginal bleeding, weakness, fever, dyspnea, syncope, headache, dizziness, GI bleed, back pain, seizure, CVA, palpatations, mental health)? @ -Differential Abdominal Pain Women: Appendicitis, Cholecystitis, diverticulosis, ischemic bowel, pancreatitis, hepatitis, UTI, gastroenteritis, AAA, incarcerated hernia, bowel obstruction, constipation, inflammatory bowel, hepatitis, peptic ulcer disease, splenic infarction, perforated viscus, vulvitis, ovarian torsion, PID, kidney stone, placenta abruption, this is not meant to be an all-inclusive list EKG interpreted by me (3pts min.). @ -As above X-rays interpreted by me (1pt min.). @ -None done CT interpreted by me (1pt min.). @ -Report reviewed U/S interpreted by me (1pt. min.). @ -None done What testing was considered but not performed or refused? (CT, X-rays, U/S, labs)? Why? @ -None What meds were considered but not given or refused? Why? @ -None Did you discuss the management of the patient with other professionals (professionals i.e. JONNA Malin, [employer], lab, RT, psych nurse, social work msw, public service director, teacher, human resources officer, shoe caser)? Give summary @ -Case was discussed with Dr. herron who will admit covering Dr. Worley. He does request consult with Dr. Philippe Was smoking cessation discussed for >3mins.? @ -No Was critical care preformed (if so, how long)? @ -No Were there social determinants of health that impacted care today? How? (Homelessness, low income, unemployed, alcoholism, drug addiction, transportatio n, low edu. Level, literacy, decrease access to med. care, fci, rehab)? @ -No Was there de-escalation of care discussed even if they declined (Discuss DNR or withdrawal of care, Hospice)? DNR status @ -No What co-morbidities impacted this encounter? (DM, HTN, Smoking, COPD, CAD, Cancer, CVA, ARF, Chemo, Hep., AIDS, mental health diagnosis, sleep apnea, morbid obesity)? @ -None Was patient admitted / discharged? Hospital course, mention meds given and route, prescriptions, significant lab abnormalities, going to OR and other pertinent info. @ -Patient reevaluated and still not feeling well. Patient does have mild epigastric tenderness. Patient is not comfortable with discharge home. She will be admitted with surgical consult. Undiagnosed new problem with uncertain prognosis? @ -No Drug Therapy requiring intensive monitoring for toxicity (Heparin, Nitro, Insulin, Cardizem)? @ -No Were any procedures done? @ -No Diagnosis/symptom? @ -Abdominal pain. Cholelithiasis Acute, or Chronic, or Acute on Chronic? @ -Acute, acute Uncomplicated (without systemic symptoms) or Complicated (systemic symptoms)? @ -default Side effects of treatment? @ -No Exacerbation, Progression, or Severe Exacerbation? @ -No Poses a threat to life or bodily function? How? (Chest pain, [place], [place], pneumonia, PE, COPD, DKA, ARF, appy, cholecystitis, CVA, Diverticulitis, Homicidal, Suicidal, threat to staff... and all critical care pts) @ -No - Lab Data Result diagrams: 06/21/22 09:39 06/21/22 09:39 Lab Results 06/21/22 06/21/22 06/21/22 Range/Units 09:39 09:39 09:39 WBC 8.3 (3.8-10.6) k/uL RBC 4.65 (3.80-5.40) m/uL Hgb 10.7 L (11.4-16.0) gm/dL Hct 35.6 (34.0-46.0) % MCV 76.6 L (80.0-100.0) fL MCH 22.9 L (25.0-35.0) pg MCHC 30.0 L (31.0-37.0) g/dL RDW 19.8 H (11.5-15.5) % Plt Count 255 (150-450) k/uL MPV 8.0 Neutrophils % 78 % Lymphocytes % 13 % Monocytes % 5 % Eosinophils % 2 % Basophils % 0 % Neutrophils # 6.5 (1.3-7.7) k/uL Lymphocytes # 1.1 (1.0-4.8) k/uL Monocytes # 0.4 (0-1.0) k/uL Eosinophils # 0.2 (0-0.7) k/uL Basophils # 0.0 (0-0.2) k/uL Hypochromasia Marked Poikilocytosis Slight Anisocytosis Slight Microcytosis Moderate PT 11.3 (9.0-12.0) sec INR 1.1 (<1.2) APTT 23.9 (22.0-30.0) sec Sodium 140 (137-145) mmol/L Potassium 4.0 (3.5-5.1) mmol/L Chloride 108 H (98-107) mmol/L Carbon Dioxide 22 (22-30) mmol/L Anion Gap 10 mmol/L BUN 18 H (7-17) mg/dL Creatinine 1.16 H (0.52-1.04) mg/dL Est GFR (CKD-EPI)AfAm 51 (>60 ml/min/1.73 sqM) Est GFR (CKD-EPI)NonAf 44 (>60 ml/min/1.73 sqM) Glucose 102 H (74-99) mg/dL Calcium 9.6 (8.4-10.2) mg/dL Total Bilirubin 0.6 (0.2-1.3) mg/dL AST 25 (14-36) U/L ALT 22 (4-34) U/L Alkaline Phosphatase 133 H (38-126) U/L Total Protein 5.8 L (6.3-8.2) g/dL Albumin 3.3 L (3.5-5.0) g/dL Amylase 34 (30-110) U/L Lipase 92 (23-300) U/L Disposition Clinical Impression: Abdominal pain, Cholelithiasis Disposition: ADMITTED IP TO THIS HOSP Is patient prescribed a controlled substance at d/c from ED?: No Referrals: Nico Joiner DO [Primary Care Provider] - 1-2 days Time of Disposition: 11:43
[2022-06-21 09:58] LABS: Anisocytosis Slight; Basophils % (A) 0 %; Eosinophils # (A) 0.2 k/uL (0-0.7); Eosinophils % (A) 2 %; HCT 35.6 % (34.0-46.0); HGB 10.7 gm/dL (11.4-16.0); Hypochromasia Marked; Lymphocytes # (A) 1.1 k/uL (1.0-4.8); Lymphocytes % (A) 13 %; MCH 22.9 pg (25.0-35.0); MCV 76.6 fL (80.0-100.0); Microcytosis Moderate; Monocytes # (A) 0.4 k/uL (0-1.0); Monocytes % (A) 5 %; Neutrophils # (A) 6.5 k/uL (1.3-7.7); Neutrophils % (A) 78 %; Platelet Count 255 k/uL (150-450); Poikilocytosis Slight; RBC 4.65 m/uL (3.80-5.40); RDW 19.8 % (11.5-15.5); WBC 8.3 k/uL (3.8-10.6)
[2022-06-21 10:06] LABS: INR 1.1 (<1.2); Partial Thromboplastin Time 23.9 sec (22.0-30.0); Prothrombin Time 11.3 sec (9.0-12.0)
[2022-06-21 10:10] LABS: Albumin 3.3 g/dL (3.5-5.0); Calcium 9.6 mg/dL (8.4-10.2); Total Bilirubin 0.6 mg/dL (0.2-1.3); Total Protein 5.8 g/dL (6.3-8.2)
--- NOTE | 2022-06-21 10:54 | CT ---
EXAMINATION TYPE: CT abdomen pelvis w con CT DLP: 942.7 mGycm, Automated exposure control for dose reduction was used. DATE OF EXAM: 06/21/2022 10:44 AM COMPARISON: None CLINICAL INDICATION:Female, 81 years old with history of abdominal pain; Pain, possible obstruction TECHNIQUE: Standard CT of the abdomen and pelvis following the administration of 80 cc of Isovue 30 0 IV contrast material. Coronal and sagittal reformats were performed. FINDINGS: LOWER CHEST: Posterior dependent subsegmental atelectasis is noted. Cardiomegaly. Trace pericardial e ffusion. ABDOMEN LIVER: Unremarkable GALLBLADDER AND BILE DUCTS: Layering increased densities within the lumen consistent with gallstones are present. PANCREAS: Fatty infiltration. SPLEEN: Unremarkable. ADRENAL GLANDS: Unremarkable. KIDNEYS AND URETERS: No hydronephrosis or renal calculi. Multiple bilateral renal cysts. The largest are within the right kidney measuring up to 7.4 cm. The kidneys enhance symmetrically. PELVIS BLADDER: Incompletely distended but grossly unremarkable. REPRODUCTIVE: Unremarkable. ABDOMEN & PELVIS STOMACH AND BOWEL: Large hiatal hernia containing at least half the stomach. Distal colonic diverticu losis without evidence for acute diverticulitis. No pneumatosis focal wall thickening. No surrounding inflammatory changes. No evidence of bowel obstruction. PERITONEUM: No evidence of pneumoperitoneum or free fluid. VASCULATURE: Mild atherosclerotic calcifications are present throughout the abdominal aorta and its b ranches. No evidence of aortic aneurysm. MUSCULOSKELETAL: No acute osseous abnormalities. Mild disc degeneration changes are present throughou t the thoracolumbar spine. Grade 1 anterolisthesis of L4 on L5 without evidence of pars defects. Ther e is some pneumorachis related to disc degeneration involving the L3-L4 disc. LYMPH NODES: No gross evidence for lymphadenopathy. SOFT TISSUE/ABDOMINAL WALL: Bilateral fat filled inguinal hernias. IMPRESSION: 1. No evidence for bowel obstruction. 2. Large hiatal hernia containing at least half the stomach. 3. Cholelithiasis. 4. Colonic diverticulosis without evidence for acute diverticulitis.
[2022-06-21] MEDS ORDERED: ACETAMINOPHEN TAB 325 MG TAB PO PRN (11:43)
[2022-06-21] MEDS ORDERED: NALOXONE 0.4 MG/ML 1 ML VIAL IV PRN (11:43)
[2022-06-21] MEDS ORDERED: HYDROmorphone 0.5 MG/0.5 ML SYRINGE IVP PRN (11:43)
[2022-06-21] MEDS ORDERED: traMADol 50 MG TAB PO PRN (11:43)
[2022-06-21] MEDS ORDERED: ONDANSETRON 4 MG/2 ML VIAL IVP PRN (11:43)
[2022-06-21] MEDS ORDERED: HEPARIN SODIUM 1,000 UN/ML (10ML VL) IV PRN (12:32)
[2022-06-21] MEDS ORDERED: ALBUTEROL NEBULIZED 2.5 MG/3 ML INHALATION PRN (12:34)
[2022-06-21] MEDS ORDERED: hydrALAZINE HCL 20 MG/ML 1 ML VIAL IVP PRN (12:36)
--- NOTE | 2022-06-21 12:37 | P.HPIM ---
History of Present Illness This is a pleasant 81 years old female with multiple medical problems as below. GERD/Reflux, Hyperlipidemia, Hypertension, Osteoarthritis, Macular Degeneration, Gout. right carpal tunnel surgery Nov 2021. Presents because of periumbilical abdominal pain of 2 days' duration, but it/10 in severity, nonspecific, nonradiating Associated with vomiting twice last night and this morning with no blood. Patient had little bowel movement this morning She denies any other symptoms like no chest pain or dyspnea. 9. No headache dizziness weakness. Patient denies smoking alcohol or illicit drugs. Patient is afebrile preop blood pressure 92/58 Labs showed mild anemia with hemoglobin 10.7, rest of CBC is unremarkable. Creatinine 1.1. Liver enzymes not elevated. Lipase is normal. CT of the abdomen and pelvis with IV contrast showing no bowel obstruction, cholelithiasis, colonic diverticulosis without diverticulitis EKG showing normal sinus rhythm at [address]-T changes. Review of Systems Review of systems CONSTITUTIONAL: No fever, no malaise, no fatigue. HEENT: No recent visual problems or hearing problems. Denied any sore throat. CARDIOVASCULAR: No orthopnea, PND, no palpitations, no syncope. PULMONARY: No shortness of breath, no cough, no hemoptysis. GASTROINTESTINAL: No constipation, Normoactive bowel sounds. NEUROLOGICAL: No headaches, no weakness, no numbness. HEMATOLOGICAL: Denies any bleeding or petechiae. GENITOURINARY: Denies any burning micturition, frequency, or urgency. MUSCULOSKELETAL/RHEUMATOLOGICAL: Denies any joint pain, swelling, or any muscle pain. ENDOCRINE: Denies any polyuria or polydipsia. Past Medical History Past Medical History: Eye Disorder, GERD/Reflux, Hyperlipidemia, Hypertension, Osteoarthritis (OA) Additional Past Medical History / Comment(s): Macular Degeneration, Gout. right carpal tunnel surgery Nov 2021. COVID 19 vaccination (moderna x3) and a flu shot History of Any Multi-Drug Resistant Organisms: None Reported Past Surgical History: Breast Surgery, Joint Replacement, Orthopedic Surgery Additional Past Surgical History / Comment(s): RIGHT KNEE ARTHROSCOPY ,RIGHT BREAST BIOPSY, PARTIAL THYROIDECTOMY(RIGHT SIDE), BILATERAL TOTAL KNEE REPLACEMENTS, BILATERAL CATARACTS REMOVED, RIGHT CARPAL TUNNEL SURGERY. Past Anesthesia/Blood Transfusion Reactions: No Reported Reaction Past Psychological History: No Psychological Hx Reported Smoking Status: Never smoker Past Alcohol Use History: None Reported Past Drug Use History: None Reported - Past Family History Sister(s) Family Medical History: Cancer Additional Family Medical History / Comment(s): Patient has one sister that from recurrence of breast cancer. Father Family Medical History: Renal Disease Additional Family Medical History / Comment(s): Father at age 82 from renal failure. Brother(s) Family Medical History: Cancer, Myocardial Infarction ([place]) Additional Family Medical History / Comment(s): Patient has 2 brothers that have passed, one from a myocardial infarction at age 65 and 1 from a tumor in his neck. Mother Family Medical History: Chest Pain / Angina, Myocardial Infarction ([place]) Additional Family Medical History / Comment(s): Mother at age 74 from myocardial infarction. Medications and Allergies Home Medications Medication Instructions Recorded Confirmed Type NIFEdipine [NIFEdipine ER] 60 mg PO DAILY 08/12/14 06/21/22 History Simvastatin 40 mg PO DAILY 08/12/14 06/21/22 History allopurinoL [Allopurinol] 300 mg PO DAILY 08/12/14 06/21/22 History Aspirin [Adult Low Dose Aspirin EC] 81 mg PO DAILY 03/28/18 06/21/22 History Apixaban [Eliquis] 5 mg PO BID 06/05/22 06/21/22 History Sildenafil [Revatio] 1 tab PO TID 06/05/22 06/21/22 History Albuterol Sulfate [Ventolin HFA] 2 puff INHALATION RT-Q6H PRN 06/21/22 06/21/22 History Vit C/E/Zn/Coppr/Lutein/Zeaxan 1 tab PO BID 06/21/22 06/21/22 History [Preservision Areds 2 Softgel] Allergies Allergy/AdvReac Type Severity Reaction Status Date / Time codeine Allergy Rapid Verified 06/21/22 11:25 Heart Rate Penicillins Allergy Rash/Hives Verified 06/21/22 11:25 Physical Exam Vitals: Vital Signs Temp Pulse Resp BP Pulse Ox 06/21/22 09:15 97.5 F L 89 20 92/58 96 Intake and Output 06/20/22 06/21/22 06/21/22 22:59 06:59 14:59 Other: Weight 72.575 kg GENERAL: The patient is alert and oriented x3, not in any acute distress. Well developed, well nourished. HEENT: Pupils are round and equally reacting to light. EOMI. No scleral icterus. No conjunctival pallor. Normocephalic, atraumatic. No pharyngeal erythema. No thyromegaly. CARDIOVASCULAR: S1 and S2 present. No murmurs, rubs, or gallops. PULMONARY: Chest is clear to auscultation, no wheezing or crackles. -ABDOMEN: Soft, mild periumbilical tenderness, nondistended, normoactive bowel sounds. No palpable organomegaly. MUSCULOSKELETAL: No joint swelling or deformity. EXTREMITIES: No cyanosis, clubbing, or pedal edema. NEUROLOGICAL: Gross neurological examination did not reveal any focal deficits. SKIN: No rashes. no petechiae. Results CBC & Chem 7: 06/21/22 09:39 06/21/22 09:39 Labs: Abnormal Lab Results - Last 24 Hours (Table) 06/21/22 06/21/22 Range/Units 09:39 09:39 Hgb 10.7 L (11.4-16.0) gm/dL MCV 76.6 L (80.0-100.0) fL MCH 22.9 L (25.0-35.0) pg MCHC 30.0 L (31.0-37.0) g/dL RDW 19.8 H (11.5-15.5) % Chloride 108 H (98-107) mmol/L BUN 18 H (7-17) mg/dL Creatinine 1.16 H (0.52-1.04) mg/dL Glucose 102 H (74-99) mg/dL Alkaline Phosphatase 133 H (38-126) U/L Total Protein 5.8 L (6.3-8.2) g/dL Albumin 3.3 L (3.5-5.0) g/dL Assessment and Plan Assessment: Abdominal pain possible Acute gastroenteritis cholelithiasis Hypertension, currently patient is hypertensive Hyperlipidemia History of GERD and history of osteoarthritis history of pulmonary embolism on 02/23 was on Eliquis Plan: Continue with bowel rest ( currently placed on liquid diet) IV fluids Pain medication Surgery team consult Hold Eliquis and start the patient on heparin drip hold nifedipine while blood pressure on hold. Put IV hydralazine when necessary Labs and medication were reviewed.. Continue same treatment. Continue with symptomatic treatment. Resume home medication. Monitor labs and vitals. DVT and GI prophylaxis. Further recommendations as per clinical course of the patient DVT prophylaxis:heparin GI Prophylaxis: Ppi Prognosis is guarded
[2022-06-21] MEDS: HEPARIN SOD,PORK IN 0.45% NACL 25,000 UNIT in 0.45% NACL 1 250ML.BAG IV SCH (12:58)
[2022-06-21] MEDS: SODIUM CHLORIDE 0.9% 1,000 ML IV SCH ×2 (13:18→20:29)
--- NOTE | 2022-06-21 20:41 | P.GSCN ---
History of Present Illness Consult date: 06/21/22 Reason for Consult: Abdominal pain History of present illness: A 1-year-old female known to our service. Patient came to the hospital complain ing of multiple medical issues. We were consulted for patient's complaints of abdominal pain with episode of vomiting last night and again this morning. Bile was ileus in nature. Patient states the abdominal discomfort is in the lower abdomen. Feels better currently. No nausea or vomiting since admission. CAT scan shows a large hiatal hernia. Possible gallstones in the gallbladder. Liver enzymes are normal. White blood cell count is normal. Patient also has complaints of right arm numbness, chronic back pain. Denies rectal bleeding or melena. GI has been consulted as well. Review of Systems The patient denies any acute changes in vision or hearing, no dysphagia or odynophagia, no chest pain or shortness of breath, no dysuria or hematuria, no headache, no runny nose, no rectal bleeding or melena, no unexplained weight loss Past Medical History Past Medical History: Eye Disorder, GERD/Reflux, Hyperlipidemia, Hypertension, Osteoarthritis (OA) Additional Past Medical History / Comment(s): Macular Degeneration, Gout. right carpal tunnel surgery Nov 2021. COVID 19 vaccination (moderna x3) and a flu shot History of Any Multi-Drug Resistant Organisms: None Reported Past Surgical History: Breast Surgery, Joint Replacement, Orthopedic Surgery Additional Past Surgical History / Comment(s): RIGHT KNEE ARTHROSCOPY ,RIGHT BREAST BIOPSY, PARTIAL THYROIDECTOMY(RIGHT SIDE), BILATERAL TOTAL KNEE REPLACEMENTS, BILATERAL CATARACTS REMOVED, RIGHT CARPAL TUNNEL SURGERY. Past Anesthesia/Blood Transfusion Reactions: No Reported Reaction Past Psychological History: No Psychological Hx Reported Smoking Status: Never smoker Past Alcohol Use History: None Reported Additional Past Alcohol Use History / Comment(s): Patient is a lifelong nonsmoker. She denies any marijuana or illicit drug use. No alcohol use. She lives at home with her . Past Drug Use History: None Reported - Past Family History Sister(s) Family Medical History: Cancer Additional Family Medical History / Comment(s): Patient has one sister that from recurrence of breast cancer. Father Family Medical History: Renal Disease Additional Family Medical History / Comment(s): Father at age 82 from renal failure. Brother(s) Family Medical History: Cancer, Myocardial Infarction ([place]) Additional Family Medical History / Comment(s): Patient has 2 brothers that have passed, one from a myocardial infarction at age 65 and 1 from a tumor in his neck. Mother Family Medical History: Chest Pain / Angina, Myocardial Infarction ([place]) Additional Family Medical History / Comment(s): Mother at age 74 from myocardial infarction. Medications and Allergies Home Medications Medication Instructions Recorded Confirmed Type NIFEdipine [NIFEdipine ER] 60 mg PO DAILY 08/12/14 06/21/22 History Simvastatin 40 mg PO DAILY 08/12/14 06/21/22 History allopurinoL [Allopurinol] 300 mg PO DAILY 08/12/14 06/21/22 History Aspirin [Adult Low Dose Aspirin EC] 81 mg PO DAILY 03/28/18 06/21/22 History Apixaban [Eliquis] 5 mg PO BID 06/05/22 06/21/22 History Sildenafil [Revatio] 1 tab PO TID 06/05/22 06/21/22 History Albuterol Sulfate [Ventolin HFA] 2 puff INHALATION RT-Q6H PRN 06/21/22 06/21/22 History Vit C/E/Zn/Coppr/Lutein/Zeaxan 1 tab PO BID 06/21/22 06/21/22 History [Preservision Areds 2 Softgel] Allergies Allergy/AdvReac Type Severity Reaction Status Date / Time codeine Allergy Rapid Verified 06/21/22 11:25 Heart Rate Penicillins Allergy Rash/Hives Verified 06/21/22 11:25 Surgical - Exam Vital Signs Temp Pulse Resp BP Pulse Ox 97.5 F L 89 20 92/58 96 06/21/22 09:15 06/21/22 09:15 06/21/22 09:15 06/21/22 09:15 06/21/22 09:15 Physical exam: General: Well-developed, well-nourished HEENT: Normocephalic, sclerae nonicteric Abdomen: Mild lower abdominal tenderness, nondistended Extremities: No edema Neuro: Alert and oriented Results - Labs 06/21/22 09:39 06/21/22 09:39 Abnormal Lab Results - Last 24 Hours (Table) 06/21/22 06/21/22 06/21/22 Range/Units 09:39 09:39 18:10 Hgb 10.7 L (11.4-16.0) gm/dL MCV 76.6 L (80.0-100.0) fL MCH 22.9 L (25.0-35.0) pg MCHC 30.0 L (31.0-37.0) g/dL RDW 19.8 H (11.5-15.5) % APTT 46.3 H (22.0-30.0) sec Chloride 108 H (98-107) mmol/L BUN 18 H (7-17) mg/dL Creatinine 1.16 H (0.52-1.04) mg/dL Glucose 102 H (74-99) mg/dL Alkaline Phosphatase 133 H (38-126) U/L Total Protein 5.8 L (6.3-8.2) g/dL Albumin 3.3 L (3.5-5.0) g/dL Diabetes panel 06/21/22 Range/Units 09:39 Sodium 140 (137-145) mmol/L Potassium 4.0 (3.5-5.1) mmol/L Chloride 108 H (98-107) mmol/L Carbon Dioxide 22 (22-30) mmol/L BUN 18 H (7-17) mg/dL Creatinine 1.16 H (0.52-1.04) mg/dL Glucose 102 H (74-99) mg/dL Calcium 9.6 (8.4-10.2) mg/dL AST 25 (14-36) U/L ALT 22 (4-34) U/L Alkaline Phosphatase 133 H (38-126) U/L Total Protein 5.8 L (6.3-8.2) g/dL Albumin 3.3 L (3.5-5.0) g/dL Calcium panel 06/21/22 Range/Units 09:39 Calcium 9.6 (8.4-10.2) mg/dL Albumin 3.3 L (3.5-5.0) g/dL Pituitary panel 06/21/22 Range/Units 09:39 Sodium 140 (137-145) mmol/L Potassium 4.0 (3.5-5.1) mmol/L Chloride 108 H (98-107) mmol/L Carbon Dioxide 22 (22-30) mmol/L BUN 18 H (7-17) mg/dL Creatinine 1.16 H (0.52-1.04) mg/dL Glucose 102 H (74-99) mg/dL Calcium 9.6 (8.4-10.2) mg/dL Adrenal panel 06/21/22 Range/Units 09:39 Sodium 140 (137-145) mmol/L Potassium 4.0 (3.5-5.1) mmol/L Chloride 108 H (98-107) mmol/L Carbon Dioxide 22 (22-30) mmol/L BUN 18 H (7-17) mg/dL Creatinine 1.16 H (0.52-1.04) mg/dL Glucose 102 H (74-99) mg/dL Calcium 9.6 (8.4-10.2) mg/dL Total Bilirubin 0.6 (0.2-1.3) mg/dL AST 25 (14-36) U/L ALT 22 (4-34) U/L Alkaline Phosphatase 133 H (38-126) U/L Total Protein 5.8 L (6.3-8.2) g/dL Albumin 3.3 L (3.5-5.0) g/dL Assessment and Plan (1) Abdominal pain Narrative/Plan: 81-year-old female with abdominal pain and vomiting. Pain is mostly lower abdomen which would not be explained by the recent findings of hiatal hernia or gallstones. We'll check abdominal ultrasound to first confirm the presence of gallstones. Continue clear liquids. Await GI consultation. Will follow with you. Current Visit: Yes Status: Acute Code(s): R10.9 - UNSPECIFIED ABDOMINAL PAIN SNOMED Code(s): 19819690
--- NOTE | 2022-06-22 08:01 | US ---
EXAMINATION TYPE: US gallbladder DATE OF EXAM: 06/22/2022 COMPARISON: CT 06/21/2022 CLINICAL INDICATION: Female, 81 years old with history of Abnormal CAT scan; Abnormal CAT scan. TECHNIQUE: Multiple sonographic images of the right upper quadrant are obtained. FINDINGS: EXAM MEASUREMENTS: Liver Length: 16.0 cm Gallbladder Wall: 0.20 cm CBD: 0.56 cm Right Kidney:Measurements are limited, difficult to visualize kidney tissue 10.5 x 5.9 x 5.7 cm MANAGER COMMERCIAL NOTES: Exam is limited due to gas. Pancreas: Not well seen. Liver: Appears coarse in echotexture. Gallbladder: Hyperechoic material seen within the gallbladder measuring 7.0 x 3.9 x 0.6 cm. Gallb ladder measures 4.7 cm in width. Evidence for sonographic Castaneda's sign: No CBD: Measures upper limits of normal. Right Kidney: Limited visibility of kidney tissue. Several septated anechoic areas seen. Largest seen measures: 7.3 x 6.8 x 7.1 cm. Pancreas is not well-visualized due to overlying bowel gas. Liver appears coarse in echotexture witho ut evidence of focal lesion. Cholelithiasis demonstrated. No wall thickening or pericholecystic fluid . Per conical mixer, negative sonographic Castaneda sign. Common bile duct is within normal limits. Multip le cystic anechoic septated cysts demonstrated involving the right kidney with limited visibility of parenchyma. IMPRESSION: 1. Cholelithiasis without evidence for acute cholecystitis. 2. Right renal cysts.
[2022-06-22] MEDS: PANTOPRAZOLE 40 MG/10 ML VIAL IV SCH (09:19)
[2022-06-22] MEDS: allopurinoL 300 MG TAB PO SCH (09:53)
[2022-06-22] MEDS: ASPIRIN 81 MG PO SCH (09:53)
[2022-06-22 10:28] LABS: Basophils # (A) 0.02 X 10*3/uL (0.00-0.10); Basophils % (A) 0.3 %; Eosinophils % (A) 3.4 %; HCT 30.8 % (37.2-46.3); HGB 9.2 g/dL (12.0-15.0); Immature Grans, Automated 0.5 %; Lymphocytes # (A) 1.04 X 10*3/uL (0.90-5.00); Lymphocytes % (A) 17.6 %; MCH 23.2 pg (27.0-32.0); MCHC 29.9 g/dL (32.0-37.0); MCV 77.6 fL (80.0-97.0); Monocytes # (A) 0.48 X 10*3/uL (0.20-1.00); Monocytes % (A) 8.1 %; NRBC Per 100 WBC 0 /100 WBCS (0.0-0.0); Neutrophils # (A) 4.14 X 10*3/uL (1.80-7.70); Neutrophils % (A) 70.1 %; Platelet Count 239 X 10*3/uL (140-440); RBC 3.97 X 10*6/uL (4.10-5.20); RDW 21.8 % (11.5-14.5); WBC 5.91 X 10*3/uL (4.50-10.00)
[2022-06-22 11:22] LABS: INR 1.09 (0.90-1.11); Prothrombin Time 12.3 sec (9.9-11.9)
[2022-06-22 11:57] LABS: African American GFR (CKD) 58.2 (60.0-200.0); Albumin/Globulin Ratio 1.68 (1.60-3.17); Anion Gap 10.5 mmol/L (10.00-18.00); BUN/Creat Ratio 14.27 Ratio (12.00-20.00); Blood Urea Nitrogen 14.7 mg/dL (9.0-27.0); Calcium 9.1 mg/dL (8.7-10.3); Carbon Dioxide 20.6 mmol/L (20.0-27.5); Globulin 1.8 g/dL (1.6-3.3); Non-African American GFR(CKD) 50.2 (60.0-200.0); Potassium 4.3 mmol/L (3.5-5.5); Total Bilirubin 0.4 mg/dL (0.30-1.20); Total Protein 4.8 g/dL (6.2-8.2)
--- NOTE | 2022-06-22 13:25 | P.CONS ---
History of Present Illness - Reason for Consult Consult date: 06/22/22 Abdominal pain Requesting physician: Rajendra E Sheet - Chief Complaint Abdominal pain, nausea and vomiting - History of Present Illness This a pleasant 81-year-old female who presented to the emergency department yesterday for complaints of abdominal pain and nausea and vomiting. Patient states emesis was bile colored. States she was concerned because she has not had a bowel movement for last 4 days and that she could have an obstruction. This she has a past medical history including GERD, hyperlipidemia, hypertension, osteoarthritis, recent pulmonary embolism diagnosed in February and currently on Eliquis. She denies any previous history of obstruction, denies any previous history of GI bleed. Denies any previous EGDs or colonoscopy. States currently she has no abdominal pain, no nausea or vomiting. States bowel movements are usually daily. CT abdomen and pelvis with contrast reported no evidence for bowel obstruction, large hiatal hernia containing at least half the stomach, cholelithiasis, colonic diverticulosis without evidence for acute diverticulitis. Gen. surgery following an Dr. Aguilar portable gallbladder ultrasound reports cholelithiasis without evidence for acute cholecystitis. Right renal cyst. Patient currently on IV heparin for PE. Initial hemoglobin 10.7 repeat today 9.2. Labs WBC 5.9 hemoglobin 9.2 hematocrit 30 platelet count 239,000, INR 1.0 sodium 144 potassium 4.3 BUN 14.7 creatinine 1.0 total bilirubin 0.4 AST 23 ALT 19 alkaline phosphatase 113 amylase 34 lipase 92 Review of Systems REVIEW OF SYSTEMS: CARDIOPULMONARY: No chest pain or shortness of breath. Gastrointestinal: Patient currently with no abdominal pain. Nausea and vomiting improved. No hematemesis, coffee-ground emesis. No rectal bleeding, or melena. GENITOURINARY: No dysuria or hematuria. MUSCULOSKELETAL: Reports normal range of motion. Joint pain. SKIN: No rashes. No jaundice. ENDOCRINE: No chills, fevers. No excessive weight gain or loss. No polydipsia or polyuria. PSYCHIATRIC: Unremarkable. NEUROLOGY: No change in mental status. Denies dizziness, headache. ENT: Vision unremarkable. CONSTITUTIONAL: No recent weight loss. No fever, chills, night sweats. Past Medical History Past Medical History: Eye Disorder, GERD/Reflux, Hyperlipidemia, Hypertension, Osteoarthritis (OA) Additional Past Medical History / Comment(s): Macular Degeneration, Gout. right carpal tunnel surgery Nov 2021. COVID 19 vaccination (moderna x3) and a flu shot History of Any Multi-Drug Resistant Organisms: None Reported Past Surgical History: Breast Surgery, Joint Replacement, Orthopedic Surgery Additional Past Surgical History / Comment(s): RIGHT KNEE ARTHROSCOPY ,RIGHT JERRY AST BIOPSY, PARTIAL THYROIDECTOMY(RIGHT SIDE), BILATERAL TOTAL KNEE REPLACEMENTS, BILATERAL CATARACTS REMOVED, RIGHT CARPAL TUNNEL SURGERY. Past Anesthesia/Blood Transfusion Reactions: No Reported Reaction Past Psychological History: No Psychological Hx Reported Smoking Status: Never smoker Past Alcohol Use History: None Reported Additional Past Alcohol Use History / Comment(s): Patient is a lifelong nonsmoker. She denies any marijuana or illicit drug use. No alcohol use. She lives at home with her . Past Drug Use History: None Reported - Past Family History Sister(s) Family Medical History: Cancer Additional Family Medical History / Comment(s): Patient has one sister that from recurrence of breast cancer. Father Family Medical History: Renal Disease Additional Family Medical History / Comment(s): Father at age 82 from renal failure. Brother(s) Family Medical History: Cancer, Myocardial Infarction ([place]) Additional Family Medical History / Comment(s): Patient has 2 brothers that have passed, one from a myocardial infarction at age 65 and 1 from a tumor in his neck. Mother Family Medical History: Chest Pain / Angina, Myocardial Infarction ([place]) Additional Family Medical History / Comment(s): Mother at age 74 from myocardial infarction. Medications and Allergies Home Medications Medication Instructions Recorded Confirmed Type NIFEdipine [NIFEdipine ER] 60 mg PO DAILY 08/12/14 06/21/22 History Simvastatin 40 mg PO DAILY 08/12/14 06/21/22 History allopurinoL [Allopurinol] 300 mg PO DAILY 08/12/14 06/21/22 History Aspirin [Adult Low Dose Aspirin EC] 81 mg PO DAILY 03/28/18 06/21/22 History Apixaban [Eliquis] 5 mg PO BID 06/05/22 06/21/22 History Sildenafil [Revatio] 1 tab PO TID 06/05/22 06/21/22 History Albuterol Sulfate [Ventolin HFA] 2 puff INHALATION RT-Q6H PRN 06/21/22 06/21/22 History Vit C/E/Zn/Coppr/Lutein/Zeaxan 1 tab PO BID 06/21/22 06/21/22 History [Preservision Areds 2 Softgel] Allergies Allergy/AdvReac Type Severity Reaction Status Date / Time codeine Allergy Rapid Verified 06/21/22 11:25 Heart Rate Penicillins Allergy Rash/Hives Verified 06/21/22 11:25 Physical Exam Vitals: Vital Signs Temp Pulse Pulse Resp BP BP Pulse Ox 06/22/22 07:00 98.2 F 76 17 140/82 91 L 06/22/22 02:19 97.9 F 76 18 121/81 94 L 06/21/22 20:00 83 16 06/21/22 19:18 97.7 F 83 16 127/77 94 L 06/21/22 18:50 74 06/21/22 18:41 74 06/21/22 15:00 97.5 F L 76 16 127/73 93 L 06/21/22 13:23 97.6 F 74 16 110/58 91 L 06/21/22 09:15 97.5 F L 89 20 92/58 96 Intake and Output 06/21/22 06/22/22 06/22/22 22:59 06:59 14:59 Intake Total 441.383 250 Balance 441.383 250 Intake: Intake, IV Titration 51.383 Amount Heparin Sod,Pork in 0.45% 51.383 NaCl 25,000 unit In 0.45 % NaCl 1 250ml.bag @ 12 UNITS/KG/HR 8.709 mls/hr IV .Q24H [facility] Rx#: [id number] Oral 390 250 Other: Voiding Method Toilet Weight 72.575 kg General appearance: The patient is alert, oriented, appears in no acute distress. HET: Head is normocephalic and atraumatic. Conjunctiva pink. Sclera anicteric. Neck: Supple without lymphadenopathy. Trachea midline. Heart: S1 S2. Regular rate and rhythm. Lungs: Clear to auscultation. Abdomen: Soft, nontender, nondistended with bowel sounds. No guarding or rigidity. Skin: No rashes. No jaundice. Extremities: Normal skin color and turgor. No pedal edema. Neurological: No focal deficits. Alert and oriented x3. Results CBC & Chem 7: 06/22/22 05:21 06/22/22 05:21 Labs: Abnormal Lab Results - Last 24 Hours (Table) 06/21/22 06/21/22 06/21/22 Range/Units 09:39 09:39 18:10 Hgb 10.7 L (11.4-16.0) gm/dL MCV 76.6 L (80.0-100.0) fL MCH 22.9 L (25.0-35.0) pg MCHC 30.0 L (31.0-37.0) g/dL RDW 19.8 H (11.5-15.5) % APTT 46.3 H (22.0-30.0) sec Chloride 108 H (98-107) mmol/L BUN 18 H (7-17) mg/dL Creatinine 1.16 H (0.52-1.04) mg/dL Glucose 102 H (74-99) mg/dL Alkaline Phosphatase 133 H (38-126) U/L Total Protein 5.8 L (6.3-8.2) g/dL Albumin 3.3 L (3.5-5.0) g/dL Assessment and Plan (1) Abdominal pain Narrative/Plan: 81-year-old female with multiple comorbidities who is on [place] for recent PE diagnosed in February 2022 presented to the emergency department with nausea and vomiting and reportedly abdominal pain. Patient denies any abdominal pain at this time. States she had several episodes of vomiting yesterday that were pelvis. She was concerned that she could have obstructions that she has not had a bowel movement for last 4 days duration. States that she regular has bowel movements daily with no previous history of bowel obstruction. No previous history of EGD colonoscopy. Nausea and vomiting has subsided, no abdominal pain at this time. Gen. surgery following as well. Will await their recommendations. Consider adding medication for bowel movement. No plans on endoscopic evaluation. Current Visit: Yes Status: Acute Code(s): R10.9 - UNSPECIFIED ABDOMINAL PAIN SNOMED Code(s): 35772355 (2) Nausea and vomiting Current Visit: Yes Status: Acute Code(s): R11.2 - NAUSEA WITH VOMITING, UNSPECIFIED SNOMED Code(s): 60919937 (3) Cholelithiasis Current Visit: Yes Status: Acute Code(s): K80.20 - CALCULUS OF GALLBLADDER W/O CHOLECYSTITIS W/O OBSTRUCTION SNOMED Code(s): 817830853 Plan: 1. Continue symptomatic and supportive care 2. Diet as tolerated if cleared by general surgery 3. Continue Protonix 40 mg IV daily 4. MiraLAX daily, discussed with patient can titrate to have daily to every other day to regulate bowel movements 5. No plans on endoscopic evaluation by gastroenterology 6. Await recommendations from general surgery 7. Patient has bowel movement she is cleared by gastroenterology for discharge Thank you for this consultation, we will continue to follow. Dr. Kike Colby I agree with the dictator's note, documented as a scribe by Kirsten Fan.
--- NOTE | 2022-06-22 13:30 | P.PN ---
Subjective This is a pleasant 81 years old female with multiple medical problems as below. GERD/Reflux, Hyperlipidemia, Hypertension, Osteoarthritis, Macular Degeneration, Gout. right carpal tunnel surgery Nov 2021. Presents because of periumbilical abdominal pain of 2 days' duration, but it/10 in severity, nonspecific, nonradiating Associated with vomiting twice last night and this morning with no blood. Patient had little bowel movement this morning She denies any other symptoms like no chest pain or dyspnea. 9. No headache dizziness weakness. Patient denies smoking alcohol or illicit drugs. Patient is afebrile preop blood pressure 92/58 Labs showed mild anemia with hemoglobin 10.7, rest of CBC is unremarkable. Creatinine 1.1. Liver enzymes not elevated. Lipase is normal. CT of the abdomen and pelvis with IV contrast showing no bowel obstruction, cholelithiasis, colonic diverticulosis without diverticulitis EKG showing normal sinus rhythm at [address]-T changes. 06/22/2022 Patient reports abdominal pain significantly improved today about 3/10 in severity. No more nausea vomiting. Patient has normal bowel movement with passing gas Ultrasound of the gallbladder showing gallstones with no acute cholecystitis Patient is afebrile, no leukocytosis. Since patient is improving and the suspicion for surgical intervention is low with going to hold his heparin drip and start him on his home dose of Eliquis 5 mg for his recent history of pulmonary embolism. He remains on aspirin overdose of 51 mg on normal saline 75 mL/h and Protonix Objective - Vital Signs Vital signs: Vital Signs Temp 98.2 F 06/22/22 07:00 Pulse 76 06/22/22 07:00 Resp 17 06/22/22 07:00 BP 140/82 06/22/22 07:00 Pulse Ox 91 L 06/22/22 07:00 FiO2 Intake & Output 06/21/22 06/22/22 06/22/22 18:59 06:59 18:59 Intake Total 291.383 400 134.554 Balance 291.383 400 134.554 Weight 72.575 kg Intake: Intake, IV Titration 51.383 134.554 Amount Heparin Sod,Pork in 0.45% 51.383 134.554 NaCl 25,000 unit In 0.45 % NaCl 1 250ml.bag @ 12 UNITS/KG/HR 8.709 mls/hr IV .Q24H [facility] Rx#: [id number] Oral 240 400 Other: Voiding Method Toilet - Exam GENERAL: The patient is alert and oriented x3, not in any acute distress. Well developed, well nourished. HEENT: Pupils are round and equally reacting to light. EOMI. No scleral icterus. No conjunctival pallor. Normocephalic, atraumatic. No pharyngeal erythema. No thyromegaly. CARDIOVASCULAR: S1 and S2 present. No murmurs, rubs, or gallops. PULMONARY: Chest is clear to auscultation, no wheezing or crackles. ABDOMEN: Soft, nontender, nondistended, normoactive bowel sounds. No palpable organomegaly. MUSCULOSKELETAL: No joint swelling or deformity. EXTREMITIES: No cyanosis, clubbing, or pedal edema. NEUROLOGICAL: Gross neurological examination did not reveal any focal deficits. SKIN: No rashes. no petechiae. - Labs CBC & Chem 7: 06/22/22 05:21 06/22/22 05:21 Labs: Abnormal Lab Results - Last 24 Hours (Table) 06/21/22 06/22/22 06/22/22 Range/Units 18:10 05:21 05:21 RBC 3.97 L (4.10-5.20) X 10*6/uL Hgb 9.2 L (12.0-15.0) g/dL Hct 30.8 L (37.2-46.3) % MCV 77.6 L (80.0-97.0) fL MCH 23.2 L (27.0-32.0) pg MCHC 29.9 L (32.0-37.0) g/dL RDW 21.8 H (11.5-14.5) % PT (9.9-11.9) sec APTT 46.3 H (22.0-30.0) sec Chloride 113 H (96-109) mmol/L Est GFR (CKD-EPI)AfAm 58.2 L (60.0-200.0) Est GFR (CKD-EPI)NonAf 50.2 L (60.0-200.0) Total Protein 4.8 L (6.2-8.2) g/dL Albumin 3.0 L (3.8-4.9) g/dL 04/20/23 04/20/23 Range/Units 05:21 09:11 RBC (4.10-5.20) X 10*6/uL Hgb (12.0-15.0) g/dL Hct (37.2-46.3) % MCV (80.0-97.0) fL MCH (27.0-32.0) pg MCHC (32.0-37.0) g/dL RDW (11.5-14.5) % PT 12.3 H (9.9-11.9) sec APTT 116.9 H* (22.0-30.0) sec Chloride (96-109) mmol/L Est GFR (CKD-EPI)AfAm (60.0-200.0) Est GFR (CKD-EPI)NonAf (60.0-200.0) Total Protein (6.2-8.2) g/dL Albumin (3.8-4.9) g/dL Assessment and Plan Assessment: Abdominal pain possible Acute gastroenteritis cholelithiasis Hypertension, currently patient is hypertensive Hyperlipidemia History of GERD and history of osteoarthritis history of pulmonary embolism on 02/23 was on Eliquis Plan: Continue with bowel rest ( currently placed on liquid diet) IV fluids Pain medication Surgery team consult Hold Eliquis and start the patient on heparin drip hold nifedipine while blood pressure on hold. Put IV hydralazine when necessary Labs and medication were reviewed.. Continue same treatment. Continue with symptomatic treatment. Resume home medication. Monitor labs and vitals. DVT and GI prophylaxis. Further recommendations as per clinical course of the patient DVT prophylaxis:heparin GI Prophylaxis: Ppi Prognosis is guarded
[2022-06-22] MEDS ORDERED: polyethylene glycoL 3350 17 GM POWD.PACK PO STA (13:34)
[2022-06-22] MEDS: DOCUSATE 100 MG CAP PO SCH ×2 (13:54→22:13)
[2022-06-22] MEDS: HEPARIN SOD,PORK IN 0.45% NACL 25,000 UNIT in 0.45% NACL 1 250ML.BAG IV SCH (13:54)
[2022-06-22] MEDS: SODIUM CHLORIDE 0.9% 1,000 ML IV SCH (13:54)
--- NOTE | 2022-06-22 14:07 | P.PN ---
Subjective Progress Note Date: 06/22/22 CHIEF COMPLAINT: Abdominal pain HISTORY OF PRESENT ILLNESS: Patient reports that she feels weak. Patient currently reporting no abdominal pain. Denies any nausea or vomiting. She is having flatus. But is complaining of constipation. Her last bowel movement was 4 days ago. Ultrasound of the gallbladder has shown evidence of cholelithiasis but no acute cholecystitis. CAT scan did show evidence of a large hiatal hernia and no bowel obstruction. Patient has history of PE and is restarted on Eliqu is. Afebrile. WBC 5.91 hgb 9.2 plt 239. LFTs normal. Patient also evaluated by GI service. They report no plans for endoscopy. PHYSICAL EXAM: VITAL SIGNS: Reviewed. GENERAL: Well-developed in no acute distress. HEENT: No sclera icterus. Extraocular movements grossly intact. Moist buccal mucosa. Head is atraumatic, normocephalic. ABDOMEN: Soft. Nondistended. Nontender. NEUROLOGIC: Alert and oriented. Cranial nerves II through XII grossly intact. ASSESSMENT: 1. Abdominal pain with nausea and vomiting improved 2. Cholelithiasis 3. Large hiatal hernia 4. Constipation PLAN: -No surgical intervention planned currently -Start low-fat diet -Constipation management per GI service Physician Acute Dialysis Registered Nurse note has been reviewed by physician. Signing provider agrees with the documented findings, assessment, and plan of care. I have personally seen and examined the patient, reviewed the RN CASE MGR /PAs history, exam and MDM and agree with the assessment and plan as written. Based on total visit time, I have performed more than 50% of the visit. As above: Patient says she has been doing well today. She did have some abdominal discomfort after eating solid food for dinner. No vomiting. The patient's abdominal pain and also tenderness is in the right lower abdomen. Ultrasound did confirm the findings of gallstones. The family and the patient and I discussed the clinical scenario. Unfortunately I do not have a good explanation for her lower abdominal pain or tenderness. Certainly her nausea after eating could be related to the moderate to large sized hiatal hernia or e ashley the recent identification of gallstones. Patient is a poor surgical candidate because of her history of near fatal pulmonary embolism last year. She thinks that many of her symptoms began after starting a new medication from cardiology. She would like to discuss that further with them. Again patient complaining of arm numbness intermittently. No bowel movement for the last 4 days. She was given stool softeners today. We will wait to see if the patient has any successful bowel function. Continue diet as ordered for now. Hopefully can discharge tomorrow with plans for outpatient follow-up. Objective - Vital Signs Vital signs: Vital Signs Temp 98.2 F 06/22/22 07:00 Pulse 76 06/22/22 07:00 Resp 17 06/22/22 07:00 BP 140/82 06/22/22 07:00 Pulse Ox 91 L 06/22/22 07:00 FiO2 Intake & Output 06/21/22 06/22/22 06/22/22 18:59 06:59 18:59 Intake Total 291.383 400 134.554 Balance 291.383 400 134.554 Weight 72.575 kg Intake: Intake, IV Titration 51.383 134.554 Amount Heparin Sod,Pork in 0.45% 51.383 134.554 NaCl 25,000 unit In 0.45 % NaCl 1 250ml.bag @ 12 UNITS/KG/HR 8.709 mls/hr IV .Q24H [facility] Rx#: [id number] Oral 240 400 Other: Voiding Method Toilet - Labs CBC & Chem 7: 06/22/22 05:21 06/22/22 05:21 Labs: Abnormal Lab Results - Last 24 Hours (Table) 06/21/22 06/22/22 06/22/22 Range/Units 18:10 05:21 05:21 RBC 3.97 L (4.10-5.20) X 10*6/uL Hgb 9.2 L (12.0-15.0) g/dL Hct 30.8 L (37.2-46.3) % MCV 77.6 L (80.0-97.0) fL MCH 23.2 L (27.0-32.0) pg MCHC 29.9 L (32.0-37.0) g/dL RDW 21.8 H (11.5-14.5) % PT (9.9-11.9) sec APTT 46.3 H (22.0-30.0) sec Chloride 113 H (96-109) mmol/L Est GFR (CKD-EPI)AfAm 58.2 L (60.0-200.0) Est GFR (CKD-EPI)NonAf 50.2 L (60.0-200.0) Total Protein 4.8 L (6.2-8.2) g/dL Albumin 3.0 L (3.8-4.9) g/dL 06/22/22 06/22/22 Range/Units 05:21 09:11 RBC (4.10-5.20) X 10*6/uL Hgb (12.0-15.0) g/dL Hct (37.2-46.3) % MCV (80.0-97.0) fL MCH (27.0-32.0) pg MCHC (32.0-37.0) g/dL RDW (11.5-14.5) % PT 12.3 H (9.9-11.9) sec APTT 116.9 H* (22.0-30.0) sec Chloride (96-109) mmol/L Est GFR (CKD-EPI)AfAm (60.0-200.0) Est GFR (CKD-EPI)NonAf (60.0-200.0) Total Protein (6.2-8.2) g/dL Albumin (3.8-4.9) g/dL
[2022-06-22] MEDS: APIXABAN 5 MG TAB PO SCH (22:13)
[2022-06-23] MEDS: SODIUM CHLORIDE 0.9% 1,000 ML IV SCH ×2 (01:30→15:30)
[2022-06-23] MEDS ORDERED: NA PHOS,M-B/NA PHOS,DI-BA 133 ML ENEMA RECTAL STA (06:03)
--- NOTE | 2022-06-23 07:56 | XR ---
EXAMINATION TYPE: XR abdomen 1V DATE OF EXAM: 06/23/2022 7:50 AM INDICATION: Patient age:Female; 81 years old; Reason for study: abdominal pain, constipation; COMPARISON: 06/21/2022 CT TECHNIQUE: One radiographic view of the abdomen was obtained. FINDINGS: The bowel gas pattern is nonspecific without dilated loops of small or large bowel. There i s no evidence for organomegaly or pneumoperitoneum. The osseous structures are intact. No abnormal calcifications are present. Fecal material and gas are demonstrated throughout the colon and rectum. IMPRESSION: Nonspecific bowel gas pattern without radiographic evidence for acute process.
[2022-06-23] MEDS: APIXABAN 5 MG TAB PO SCH ×2 (08:17→20:05)
[2022-06-23] MEDS: PANTOPRAZOLE 40 MG/10 ML VIAL IV SCH (08:17)
[2022-06-23] MEDS: allopurinoL 300 MG TAB PO SCH (08:17)
[2022-06-23] MEDS: DOCUSATE 100 MG CAP PO SCH ×2 (08:17→20:18)
[2022-06-23] MEDS: ASPIRIN 81 MG PO SCH (08:17)
[2022-06-23] MEDS: polyethylene glycoL 3350 17 GM POWD.PACK PO SCH (08:18)
[2022-06-23 08:55] LABS: African American GFR (CKD) 53.8 (60.0-200.0); Anion Gap 8.2 mmol/L (10.00-18.00); BUN/Creat Ratio 12.55 Ratio (12.00-20.00); Blood Urea Nitrogen 13.8 mg/dL (9.0-27.0); Calcium 9.2 mg/dL (8.7-10.3); Carbon Dioxide 22.8 mmol/L (20.0-27.5); Non-African American GFR(CKD) 46.4 (60.0-200.0); Potassium 4.3 mmol/L (3.5-5.5)
[2022-06-23 09:19] LABS: Basophils # (A) 0.01 X 10*3/uL (0.00-0.10); Basophils % (A) 0.1 %; Eosinophils # (A) 0.19 X 10*3/uL (0.04-0.35); Eosinophils % (A) 2.8 %; HCT 30.5 % (37.2-46.3); HGB 8.8 g/dL (12.0-15.0); Immature Grans, Automated 0.4 %; Lymphocytes # (A) 1.08 X 10*3/uL (0.90-5.00); Lymphocytes % (A) 15.9 %; MCH 22.5 pg (27.0-32.0); MCHC 28.9 g/dL (32.0-37.0); Mean Platelet Volume 12.3 fL (9.5-12.2); Monocytes # (A) 0.55 X 10*3/uL (0.20-1.00); Monocytes % (A) 8.1 %; NRBC Per 100 WBC 0 /100 WBCS (0.0-0.0); Neutrophils # (A) 4.94 X 10*3/uL (1.80-7.70); Neutrophils % (A) 72.7 %; Platelet Count 226 X 10*3/uL (140-440); RBC 3.91 X 10*6/uL (4.10-5.20); RDW 21.6 % (11.5-14.5)
[2022-06-23] MEDS ORDERED: LACTULOSE 20 GM/30 ML CUP PO ONE (10:16)
--- NOTE | 2022-06-23 10:36 | P.PN ---
Subjective Progress Note Date: 06/23/22 Principal diagnosis: Abdominal pain, nausea and vomiting This a pleasant 81-year-old female who presented to the emergency department yesterday for complaints of abdominal pain and nausea and vomiting. Patient states emesis was bile colored. States she was concerned because she has not had a bowel movement for last 4 days and that she could have an obstruction. This she has a past medical history including GERD, hyperlipidemia, hypertension, osteoarthritis, recent pulmonary embolism diagnosed in February and currently on Eliquis. She denies any previous history of obstruction, denies any previous history of GI bleed. Denies any previous EGDs or colonoscopy. States currently she has no abdominal pain, no nausea or vomiting. States bowel movements are usually daily. CT abdomen and pelvis with contrast reported no evidence for bowel obstruction, large hiatal hernia containing at least half the stomach, cholelithiasis, colonic diverticulosis without evidence for acute diverticulitis. Gen. surgery following an Dr. Aguilar portable gallbladder ultrasound reports cholelithiasis without evidence for acute cholecystitis. Right renal cyst. Patient currently on IV heparin for PE. Initial hemoglobin 10.7 repeat today 9.2. Labs WBC 5.9 hemoglobin 9.2 hematocrit 30 platelet count 239,000, INR 1.0 sodium 144 potassium 4.3 BUN 14.7 creatinine 1.0 total bilirubin 0.4 AST 23 ALT 19 alkaline phosphatase 113 amylase 34 lipase 92 06/23/2022: Patient seen and examined today as follow-up. She states she's had lower abdominal pain throughout the night. She states she ate yesterday and that dad vomit afterwards. Still has not had a bowel movement. No nausea or vomiting currently. Objective - Vital Signs Vital signs: Vital Signs Temp 98.6 F 06/23/22 02:28 Pulse 78 06/23/22 02:28 Resp 18 06/23/22 02:28 BP 133/69 06/23/22 02:28 Pulse Ox 94 L 06/23/22 02:28 FiO2 Intake & Output 06/22/22 06/22/22 06/23/22 06:59 18:59 06:59 Intake Total 400 1092.554 Output Total 100 Balance 400 1092.554 -100 Intake: Intake, IV Titration 734.554 Amount Heparin Sod,Pork in 0.45% 134.554 NaCl 25,000 unit In 0.45 % NaCl 1 250ml.bag @ 12 UNITS/KG/HR 8.709 mls/hr IV .Q24H [facility] Rx#: [id number] Sodium Chloride 0.9% 1, 600 000 ml @ 75 mls/hr IV . [id number] [facility] Rx#:[id number] Oral 400 358 Output: Emesis 100 Other: Voiding Method Toilet Toilet # Voids 2 - Exam General appearance: The patient is alert, oriented, appears in no acute distress. HET: Head is normocephalic and atraumatic. Conjunctiva pink. Sclera anicteric. Neck: Supple without lymphadenopathy. Abdomen: Soft, lower abdominal tenderness, nondistended with bowel sounds. No guarding or rigidity. Extremities: Normal skin color and turgor. No pedal edema Skin: No rashes, no jaundice Neurological: No focal deficits. Alert and oriented. - Labs CBC & Chem 7: 06/23/22 05:38 06/23/22 05:38 Labs: Abnormal Lab Results - Last 24 Hours (Table) 06/22/22 06/22/22 06/22/22 Range/Units 05:21 05:21 05:21 RBC 3.97 L (4.10-5.20) X 10*6/uL Hgb 9.2 L (12.0-15.0) g/dL Hct 30.8 L (37.2-46.3) % MCV 77.6 L (80.0-97.0) fL MCH 23.2 L (27.0-32.0) pg MCHC 29.9 L (32.0-37.0) g/dL RDW 21.8 H (11.5-14.5) % PT 12.3 H (9.9-11.9) sec APTT (22.0-30.0) sec Chloride 113 H (96-109) mmol/L Est GFR (CKD-EPI)AfAm 58.2 L (60.0-200.0) Est GFR (CKD-EPI)NonAf 50.2 L (60.0-200.0) Total Protein 4.8 L (6.2-8.2) g/dL Albumin 3.0 L (3.8-4.9) g/dL 06/22/22 Range/Units 09:11 RBC (4.10-5.20) X 10*6/uL Hgb (12.0-15.0) g/dL Hct (37.2-46.3) % MCV (80.0-97.0) fL MCH (27.0-32.0) pg MCHC (32.0-37.0) g/dL RDW (11.5-14.5) % PT (9.9-11.9) sec APTT 116.9 H* (22.0-30.0) sec Chloride (96-109) mmol/L Est GFR (CKD-EPI)AfAm (60.0-200.0) Est GFR (CKD-EPI)NonAf (60.0-200.0) Total Protein (6.2-8.2) g/dL Albumin (3.8-4.9) g/dL Assessment and Plan (1) Abdominal pain Narrative/Plan: 81-year-old female with multiple comorbidities who is on A[place]quist for recent PE diagnosed in February 2022 presented to the emergency department with nausea and vomiting and reportedly abdominal pain. Patient denies any abdominal pain at this time. States she had several episodes of vomiting yesterday that were pelvis. She was concerned that she could have obstructions that she has not had a bowel movement for last 4 days duration. States that she regular has bowel movements daily with no previous history of bowel obstruction. No previous history of EGD colonoscopy. Nausea and vomiting has subsided, no abdominal pain at this time. Gen. surgery following as well. Will await their recommendations. Consider adding medication for bowel movement. No plans on endoscopic evaluation. Patient with continued constipation and no bowel movement this morning. Abdominal x-ray ordered and reviewed showing nonspecific bowel gas pattern without radiographic evidence for acute process. Does state fecal material and gas demonstrated throughout the colon and rectum. Fleets enema ordered without much relief. Lactulose ordered. Current Visit: Yes Status: Acute Code(s): R10.9 - UNSPECIFIED ABDOMINAL PAIN SNOMED Code(s): 05867438 (2) Nausea and vomiting Current Visit: Yes Status: Acute Code(s): R11.2 - NAUSEA WITH VOMITING, UNSPECIFIED SNOMED Code(s): 18254765 (3) Cholelithiasis Current Visit: Yes Status: Acute Code(s): K80.20 - CALCULUS OF GALLBLADDER W/O CHOLECYSTITIS W/O OBSTRUCTION SNOMED Code(s): 803337442 Plan: 1. Continue symptomatic and supportive care 2. Diet as tolerated 3. Continue Protonix 40 mg IV daily 4. Fleets enema and lactulose 30 g 1 ordered 5. MiraLAX daily, discussed with patient can titrate to have daily to every other day to regulate bowel movements 6. No plans on endoscopic evaluation by gastroenterology 7. Continue with recommendations from general surgery Thank you for this consultation we will sign off at this time. Dr. iKke Colby I agree with the dictator's note, documented as a scribe by Kirsten Fan.
[2022-06-23] MEDS: SENNOSIDES 8.6 MG TAB PO SCH ×2 (11:14→20:18)
[2022-06-23] MEDS: METOCLOPRAMIDE 5 MG/ML 2 ML VIAL IVP PRN ×2 (11:15→17:28)
--- NOTE | 2022-06-23 13:12 | P.PN ---
Subjective Progress Note Date: 06/23/22 CHIEF COMPLAINT: Abdominal pain HISTORY OF PRESENT ILLNESS: Patient lying in bed comfortably. She did have one episode of vomiting last night. She still having issues with constipation. GI service had ordered Fleet enema as well as an abdominal x-ray showed nonspecific bowel gas pattern without acute process. There was fecal material and gas demonstrated throughout the colon and rectum. GI service has ordered lactulose. Patient denies any abdominal pain. Patient seen and examined with Dr. samuel PHYSICAL EXAM: VITAL SIGNS: Reviewed. GENERAL: Well-developed in no acute distress. HEENT: No sclera icterus. Extraocular movements grossly intact. Moist buccal mucosa. Head is atraumatic, normocephalic. ABDOMEN: Soft. Nondistended. Nontender. NEUROLOGIC: Alert and oriented. Cranial nerves II through XII grossly intact. ASSESSMENT: 1. Abdominal pain with nausea and vomiting improved 2. Cholelithiasis 3. Large hiatal hernia 4. Constipation PLAN: -No surgical intervention planned -Patient can be discharged from surgical standpoint if tolerates diet and has bowel movement -Case discussed with medicine service Physician Fire Manager note has been reviewed by physician. Signing provider agrees with the documented findings, assessment, and plan of care. Objective - Vital Signs Vital signs: Vital Signs Temp 97.6 F 06/23/22 07:00 Pulse 66 06/23/22 07:00 Resp 18 06/23/22 08:17 BP 132/75 06/23/22 07:00 Pulse Ox 92 L 06/23/22 09:13 FiO2 Intake & Output 06/22/22 06/23/22 06/23/22 18:59 06:59 18:59 Intake Total 1092.554 Output Total 100 100 Balance 1092.554 -100 -100 Intake: Intake, IV Titration 734.554 Amount Heparin Sod,Pork in 0.45% 134.554 NaCl 25,000 unit In 0.45 % NaCl 1 250ml.bag @ 12 UNITS/KG/HR 8.709 mls/hr IV .Q24H [facility] Rx#: [id number] Sodium Chloride 0.9% 1, 600 000 ml @ 75 mls/hr IV . [id number] [facility] Rx#:[id number] Oral 358 Output: Stool 100 Emesis 100 Other: Voiding Method Toilet Toilet # Voids 1 # Bowel Movements 1 - Labs CBC & Chem 7: 06/23/22 05:38 06/23/22 05:38 Labs: Abnormal Lab Results - Last 24 Hours (Table) 06/23/22 06/23/22 Range/Units 05:38 05:38 RBC 3.91 L (4.10-5.20) X 10*6/uL Hgb 8.8 L (12.0-15.0) g/dL Hct 30.5 L (37.2-46.3) % MCV 78.0 L (80.0-97.0) fL MCH 22.5 L (27.0-32.0) pg MCHC 28.9 L (32.0-37.0) g/dL RDW 21.6 H (11.5-14.5) % MPV 12.3 H (9.5-12.2) fL Chloride 112 H (96-109) mmol/L Anion Gap 8.20 L (10.00-18.00) mmol/L Est GFR (CKD-EPI)AfAm 53.8 L (60.0-200.0) Est GFR (CKD-EPI)NonAf 46.4 L (60.0-200.0)
--- NOTE | 2022-06-24 07:13 | P.PN ---
Subjective This is a pleasant 81 years old female with multiple medical problems as below. GERD/Reflux, Hyperlipidemia, Hypertension, Osteoarthritis, Macular Degeneration, Gout. right carpal tunnel surgery Nov 2021. Presents because of periumbilical abdominal pain of 2 days' duration, but it/10 in severity, nonspecific, nonradiating Associated with vomiting twice last night and this morning with no blood. Patient had little bowel movement this morning She denies any other symptoms like no chest pain or dyspnea. 9. No headache dizziness weakness. Patient denies smoking alcohol or illicit drugs. Patient is afebrile preop blood pressure 92/58 Labs showed mild anemia with hemoglobin 10.7, rest of CBC is unremarkable. Creatinine 1.1. Liver enzymes not elevated. Lipase is normal. CT of the abdomen and pelvis with IV contrast showing no bowel obstruction, cholelithiasis, colonic diverticulosis without diverticulitis EKG showing normal sinus rhythm at [address]-T changes. 06/22/2022 Patient reports abdominal pain significantly improved today about 3/10 in severity. No more nausea vomiting. Patient has normal bowel movement with passing gas Ultrasound of the gallbladder showing gallstones with no acute cholecystitis Patient is afebrile, no leukocytosis. Since patient is improving and the suspicion for surgical intervention is low with going to hold his heparin drip and start him on his home dose of Eliquis 5 mg for his recent history of pulmonary embolism. He remains on aspirin overdose of 51 mg on normal saline 75 mL/h and Protonix 06/23/2022 pt is still unable to eat due to persistant nausea , abdominal pain is better but still does not have bowel movement i discussed the case with gi team , she is not cleared for discharge per them till he has bowel movement , senna is added (there is will be no gi coverage over the weekend and next week so they signed off) they ordered kub which showed fecal material and ags throughout the colon and rectum, no bowel obstruction because of this pt is not medically stable yet for discharge, pt herself does not feel she is ready for discharge Objective - Vital Signs Vital signs: Vital Signs Temp 98.1 F 06/23/22 16:30 Pulse 76 06/23/22 16:30 Resp 18 06/23/22 16:30 BP 149/87 06/23/22 16:30 Pulse Ox 95 06/23/22 16:30 FiO2 Intake & Output 06/22/22 06/23/22 06/23/22 18:59 06:59 18:59 Intake Total 1092.554 240 Output Total 100 250 Balance 1092.554 -100 -10 Intake: Intake, IV Titration 734.554 Amount Heparin Sod,Pork in 0.45% 134.554 NaCl 25,000 unit In 0.45 % NaCl 1 250ml.bag @ 12 UNITS/KG/HR 8.709 mls/hr IV .Q24H [facility] Rx#: [id number] Sodium Chloride 0.9% 1, 600 000 ml @ 75 mls/hr IV . [id number] [facility] Rx#:[id number] Oral 358 240 Output: Stool 250 Emesis 100 Other: Voiding Method Toilet Toilet # Voids 1 # Bowel Movements 1 - Exam GENERAL: The patient is alert and oriented x3, not in any acute distress. Well developed, well nourished. HEENT: Pupils are round and equally reacting to light. EOMI. No scleral icterus. No conjunctival pallor. Normocephalic, atraumatic. No pharyngeal erythema. No thyromegaly. CARDIOVASCULAR: S1 and S2 present. No murmurs, rubs, or gallops. PULMONARY: Chest is clear to auscultation, no wheezing or crackles. ABDOMEN: Soft, nontender, nondistended, normoactive bowel sounds. No palpable organomegaly. MUSCULOSKELETAL: No joint swelling or deformity. EXTREMITIES: No cyanosis, clubbing, or pedal edema. NEUROLOGICAL: Gross neurological examination did not reveal any focal deficits. SKIN: No rashes. no petechiae. - Labs CBC & Chem 7: 06/23/22 05:38 06/23/22 05:38 Labs: Abnormal Lab Results - Last 24 Hours (Table) 06/23/22 06/23/22 Range/Units 05:38 05:38 RBC 3.91 L (4.10-5.20) X 10*6/uL Hgb 8.8 L (12.0-15.0) g/dL Hct 30.5 L (37.2-46.3) % MCV 78.0 L (80.0-97.0) fL MCH 22.5 L (27.0-32.0) pg MCHC 28.9 L (32.0-37.0) g/dL RDW 21.6 H (11.5-14.5) % MPV 12.3 H (9.5-12.2) fL Chloride 112 H (96-109) mmol/L Anion Gap 8.20 L (10.00-18.00) mmol/L Est GFR (CKD-EPI)AfAm 53.8 L (60.0-200.0) Est GFR (CKD-EPI)NonAf 46.4 L (60.0-200.0) Assessment and Plan Assessment: anorexia with constipation Abdominal pain possible Acute gastroenteritis , improved cholelithiasis Hypertension, currently patient is hypertensive Hyperlipidemia History of GERD and history of osteoarthritis history of pulmonary embolism on 02/23 was on Eliquis Plan: advance diet as tolerated add stool softners, senna Pain medication Surgery team consult i dscussed the case with bi service, pt is not cleared for discharged till has bowel movement .. pt should be able to eat as well resume Eliquis hold nifedipine while blood pressure on hold. Put IV hydralazine when necessary. we will replaced nifedipine ( which caused constipation) with labetolol with close monitoring of BP Labs and medication were reviewed.. Continue same treatment. Continue with symptomatic treatment. Resume home medication. Monitor labs and vitals. DVT and GI prophylaxis. Further recommendations as per clinical course of the patient DVT prophylaxis:heparin GI Prophylaxis: Ppi Prognosis is guarded
[2022-06-24] MEDS: SODIUM CHLORIDE 0.9% 1,000 ML IV SCH (08:30)
[2022-06-24] MEDS ORDERED: LABETALOL 100 MG TAB PO SCH (09:00)
[2022-06-24] MEDS: PANTOPRAZOLE 40 MG/10 ML VIAL IV SCH (09:24)
[2022-06-24] MEDS: DOCUSATE 100 MG CAP PO SCH (09:24)
[2022-06-24] MEDS: allopurinoL 300 MG TAB PO SCH (09:24)
[2022-06-24] MEDS: ASPIRIN 81 MG PO SCH (09:24)
[2022-06-24] MEDS: APIXABAN 5 MG TAB PO SCH (09:24)
[2022-06-24] MEDS: SENNOSIDES 8.6 MG TAB PO SCH (09:25)
[2022-06-24] MEDS: polyethylene glycoL 3350 17 GM POWD.PACK PO SCH (09:25)
--- NOTE | 2022-06-24 09:48 | P.PN ---
Progress Note - Text Progress Note Date: 06/24/22 The patient's complaints of epigastric and retrosternal fullness. She is history of dysphagia and GERD, reflux and aspiration when in the supine position. Patient that she's lost prostate 40 pounds over the last 6 months. Patient's CAT scan was reviewed. She has a large hiatal hernia with in trathoracic stomach. The patient has proximally 56% of her stomach within the chest. On exam vital signs are stable. Abdomen soft. Patient wishes to have her hiatal hernia repaired. We will tentatively plan for repair of her hiatal hernia this admission.
[2022-06-24 13:25] VITALS: RESP 17; TEMP 98.1
[2022-06-24 13:28] LABS: Anisocytosis Moderate; HCT 33.2 % (34.0-46.0); Hypochromasia Marked; MCH 24.1 pg (25.0-35.0); MCHC 30.1 g/dL (31.0-37.0); MCV 80.1 fL (80.0-100.0); Mean Platelet Volume 9.9; Microcytosis Slight; Platelet Count 207 k/uL (150-450); Poikilocytosis Slight; RBC 4.14 m/uL (3.80-5.40); RDW 20.3 % (11.5-15.5); WBC 5.6 k/uL (3.8-10.6)
[2022-06-24 14:04] VITALS: BMI 26.6
[2022-06-24 15:38] VITALS: BP 128/78; PULSE 70
--- NOTE | 2022-06-24 22:03 | P.DS ---
Providers Date of admission: 06/21/22 11:45 Attending physician: Rajendra Frederick MD Consults: 06/21/22 11:43 Consult Physician Routine Consulting Provider: Lg Aguilar Consult Reason/Comments: Abdominal pain, cholelithiasis Do you want consulting provider notified?: Yes 06/21/22 12:31 Consult Physician Urgent Consulting Provider: Syeda Colby Consult Reason/Comments: abd pain Do you want consulting provider notified?: Yes Primary care physician: Nico ThomasRhys [facility] Course: Diagnoses: anorexia with constipation, partly due to nifedipine Abdominal pain, nausea vomiting secondary to above cholelithiasis Hypertension, currently patient is hypertensive Hyperlipidemia History of GERD and history of osteoarthritis history of pulmonary embolism on 02/23 was on [facility] course: This is a pleasant 81 years old female with multiple medical problems as below. GERD/Reflux, Hyperlipidemia, Hypertension, Osteoarthritis, Macular Degeneration, Gout. right carpal tunnel surgery Nov 2021. Presents because of periumbilical abdominal pain of 2 days' duration, CT of the abdomen and pelvis with IV contrast showing no bowel obstruction, cholelithiasis, colonic diverticulosis without diverticulitis . KUB showing OF stool in the colon. Patient evaluated by surgery team and GI team. She was started on stool softener and she have bowel movement and her symptoms improved and she tolerates that well. Abdominal pain resolved. Patient and her doctor at bedside both think she is improved and she can go home. Nifedipine was discontinued for possible causing constipation and she was started on labetalol tolerated well, patient was instructed to check her blood pressure on her PCP in Problems and management plan were discussed with the patient and he verbalized understanding and acceptance Patient was found stable and can be discharged home in guarded prognosis however he needs follow-up as an outpatient. Patient was instructed to follow up with PCP Dr. Joiner within 2-3 days and patient agrees. The patient was instructed to follow up with the surgeon Dr. Crook or Dr. Aguilar in 1-2 weeks that she agrees and with GI service Dr. Colby and 1-2 weeks and she agrees Also patient was instructed to follow up with her tractor mechanic apprentice Dr. Elder in 2-3 weeks for her blood pressure and other medical problems and she agrees Physical exam Gen: patient is a AAOx3, no distress CVS: S1-S2, RRR, no murmur Lungs: B/L CTA, no wheezing Abdomen: soft, no distention, no tenderness, positive bowel sounds Extremity: no leg edema or induration Time spent more than 35 minutes Plan - Discharge Summary Discharge Rx Participant: No New Discharge Prescriptions: New Docusate [Colace] 100 mg PO BID #60 cap Labetalol [Trandate] 100 mg PO BID #60 tab Continue Simvastatin 40 mg PO DAILY allopurinoL [Allopurinol] 300 mg PO DAILY Aspirin [Adult Low Dose Aspirin EC] 81 mg PO DAILY Vit C/E/Zn/Coppr/Lutein/Zeaxan [Preservision Areds 2 Softgel] 1 tab PO BID Albuterol Sulfate [Ventolin HFA] 2 puff INHALATION RT-Q6H PRN PRN Reason: Shortness Of Breath Apixaban [Eliquis] 5 mg PO BID Discontinued NIFEdipine [NIFEdipine ER] 60 mg PO DAILY No Action Sildenafil [Revatio] 1 tab PO TID Discharge Medication List Simvastatin 40 mg PO DAILY 08/12/14 [History] allopurinoL [Allopurinol] 300 mg PO DAILY 08/12/14 [History] Aspirin [Adult Low Dose Aspirin EC] 81 mg PO DAILY 03/28/18 [History] Apixaban [Eliquis] 5 mg PO BID 06/05/22 [History] Sildenafil [Revatio] 1 tab PO TID 06/05/22 [History] Albuterol Sulfate [Ventolin HFA] 2 puff INHALATION RT-Q6H PRN 06/21/22 [History] Vit C/E/Zn/Coppr/Lutein/Zeaxan [Preservision Areds 2 Softgel] 1 tab PO BID 06/21/22 [History] Docusate [Colace] 100 mg PO BID #60 cap 06/24/22 [Rx] Labetalol [Trandate] 100 mg PO BID #60 tab 06/24/22 [Rx] Follow up Appointment(s)/Referral(s): Lg Aguilar MD [Medical Doctor] - 1 Week Sean Elder DO [STAFF PHYSICIAN] - 2 Weeks Syeda Colby MD [STAFF PHYSICIAN] - 1 Week Nico Joiner DO [Primary Care Provider] - 1-2 days Jordin Philippe MD [STAFF PHYSICIAN] - 1 Week Patient Instructions/Handouts: Hiatal Hernia (DC), Gallstones (DC) Activity/Diet/Wound Care/Special Instructions: heart healthy diet activity is restricted till you see your doctor we recommend to check your blood pressure and heart with your doctor in 2-3 days Discharge Disposition: HOME SELF-CARE
== END 2022-06-24 16:00 | disposition home or self-care (01) ==
LOC: EC 09:10 → 6NMEDSUR 11:45
PROVIDERS: ADMIT Internal Medicine; ATTEND Internal Medicine
DX: K59.00 Constipation, unspecified (principal); R63.0 Anorexia; T46.1X5A Adverse effect of calcium-channel blockers, initial encounter; K80.20 Calculus of gallbladder without cholecystitis without obstruction; K57.30 Diverticulosis of large intestine without perforation or abscess without bleeding; K44.9 Diaphragmatic hernia without obstruction or gangrene; I10 Essential (primary) hypertension; E78.5 Hyperlipidemia, unspecified; K21.9 Gastro-esophageal reflux disease without esophagitis; M19.90 Unspecified osteoarthritis, unspecified site; H35.30 Unspecified macular degeneration; M10.9 Gout, unspecified; E89.0 Postprocedural hypothyroidism; D64.9 Anemia, unspecified; G89.29 Other chronic pain; R20.0 Anesthesia of skin; M54.9 Dorsalgia, unspecified; N28.1 Cyst of kidney, acquired; R13.10 Dysphagia, unspecified; Z79.82 Long term (current) use of aspirin; Z79.01 Long term (current) use of anticoagulants; Z79.899 Other long term (current) drug therapy; Z88.0 Allergy status to penicillin; Z88.5 Allergy status to narcotic agent; Z96.653 Presence of artificial knee joint, bilateral; Z86.711 Personal history of pulmonary embolism; Z98.42 Cataract extraction status, left eye; Z98.41 Cataract extraction status, right eye; Z98.890 Other specified postprocedural states; Z80.3 Family history of malignant neoplasm of breast; Z84.1 Family history of disorders of kidney and ureter; Z82.49 Family history of ischemic heart disease and other diseases of the circulatory system
CPT/HCPCS: 96376 ×3; 96361 ×4; 96366 ×2; 96375 ×2; 96365; 99285; 36415; 94640; 94760 ×2; 93005; 80053 ×2; 80048; 82150; 83690; 85025 ×3; 85027; 85610 ×2; 85730 ×2; 74018; 76705; 74177; G0378 ×4; J2765; J2405 ×2; C9113 ×4; J1170; Q9967; J1644

== ENCOUNTER 2022-08-09 22:29 | Inpatient (IN) | payer MEDICARE, BC ==
[2022-08-09 23:32] LABS: Anisocytosis Moderate; Basophils % (A) 0 %; Eosinophils # (A) 0.1 k/uL (0-0.7); Eosinophils % (A) 1 %; HCT 34.7 % (34.0-46.0); HGB 10.8 gm/dL (11.4-16.0); Hypochromasia Marked; Lymphocytes # (A) 0.5 k/uL (1.0-4.8); Lymphocytes % (A) 3 %; MCH 27.5 pg (25.0-35.0); MCHC 31.1 g/dL (31.0-37.0); Mean Platelet Volume 11.3; Microcytosis Slight; Monocytes # (A) 0.4 k/uL (0-1.0); Monocytes % (A) 2 %; Neutrophils # (A) 16.4 k/uL (1.3-7.7); Neutrophils % (A) 93 %; Platelet Count 249 k/uL (150-450); RBC 3.92 m/uL (3.80-5.40); RDW 23.5 % (11.5-15.5); WBC 17.6 k/uL (3.8-10.6)
[2022-08-09 23:41] LABS: Glucose 77 mg/dL (74-99)
[2022-08-09 23:42] LABS: ALT 26 U/L (4-34); AST 22 U/L (14-36); African American GFR (CKD) 59 (>60 ml/min/1.73 sqM); Albumin 2.8 g/dL (3.5-5.0); Alkaline Phosphatase 136 U/L (38-126); Anion Gap 11 mmol/L; Blood Urea Nitrogen 20 mg/dL (7-17); Carbon Dioxide 21 mmol/L (22-30); Chloride 106 mmol/L (98-107); Magnesium 1.8 mg/dL (1.6-2.3); Non-African American GFR(CKD) 51 (>60 ml/min/1.73 sqM); Potassium 3.9 mmol/L (3.5-5.1); Sodium 138 mmol/L (137-145); Total Bilirubin 1.5 mg/dL (0.2-1.3); Total Protein 5.7 g/dL (6.3-8.2)
[2022-08-09 23:54] LABS: MCV 88.5 fL (80.0-100.0)
[2022-08-09 23:57] LABS: INR 1.5 (<1.2); Partial Thromboplastin Time 28.3 sec (22.0-30.0); Prothrombin Time 14.7 sec (9.0-12.0)
[2022-08-10] MEDS ORDERED: SODIUM CHLORIDE 0.9% 1,000 ML IV STA (00:44)
[2022-08-10] MEDS ORDERED: MORPHINE SULFATE 4 MG/ML SYRINGE IVP STA (01:16)
--- NOTE | 2022-08-10 01:40 | CT ---
EXAM: CT Angiography Chest With Intravenous Contrast CLINICAL HISTORY: eval for PE TECHNIQUE: Axial computed tomographic angiography images of the chest with intravenous contrast. CTDI is 6 mGy and DLP is 422.8 mGy-cm. This CT exam was performed using one or more of the following dose reduction techniques: automated exposure control, adjustment of the mA and/or kV according to patient size, and/or use of iterative reconstruction technique. MIP reconstructed images were created and reviewed. COMPARISON: February 14, 2022. FINDINGS: Pulmonary arteries: Unremarkable. No pulmonary embolism. Aorta: No acute findings. No thoracic aortic aneurysm. Lungs: Atelectasis in both lower lobes, worse on the left. No mass. Pleural space: Moderate sized bilateral pleural effusions. No pneumothorax. Heart: Cardiomegaly. No significant pericardial effusion. No evidence of RV dysfunction. Bones/joints: No acute fracture. No dislocation. Soft tissues: Unremarkable. Lymph nodes: Unremarkable. No enlarged lymph nodes. IMPRESSION: No evidence of pulmonary emboli.
[2022-08-10] MEDS ORDERED: KETOROLAC 15 MG/ML 1 ML VIAL IVP STA (02:20)
[2022-08-10] MEDS ORDERED: ASPIRIN 81 MG PO STA (02:20)
[2022-08-10] MEDS ORDERED: LIDOCAINE 5% PATCH TOPICAL STA (02:20)
[2022-08-10] MEDS ORDERED: NALOXONE 0.4 MG/ML 1 ML VIAL IV PRN (02:21)
--- NOTE | 2022-08-10 03:47 | ED ---
General Adult HPI - General Chief complaint: Chest Pain Stated complaint: Pain in right side Time Seen by Provider: 08/10/22 00:05 Source: patient, RN notes reviewed, old records reviewed Mode of arrival: ambulatory Limitations: no limitations - History of Present Illness Initial comments: Patient is an 81-year-old female presents from his apartment complaining of right-sided chest pain. Began earlier this evening. Presents him of the night over concern for worsening pain. It is reproducible on palpation with movement of her right arm. States she does do PT and OT since being discharged from the hospital last week after an extensive stay for hiatal hernia surgery at [facility]. 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 No cardiac history as far she knows. States the pain is worse with movement. Worse with deep inspiration. It is focal located over to specific points of her chest wall. Denies any falls or injuries. Denies any nausea, vomiting, abdominal pain. Endorses chronic lower extremity edema. Denies orthopnea or PND. Denies any left-sided chest pain. Denies any weakness or numbness. No other acute complaints at this time. Presents for further evaluation at this time. Workup was started in triage. - Related Data Home Medications Medication Instructions Recorded Confirmed Simvastatin 40 mg PO DAILY 08/12/14 06/21/22 allopurinoL [Allopurinol] 300 mg PO DAILY 08/12/14 06/21/22 Aspirin [Adult Low Dose Aspirin EC] 81 mg PO DAILY 03/28/18 06/21/22 Apixaban [Eliquis] 5 mg PO BID 06/05/22 06/21/22 Sildenafil [Revatio] 1 tab PO TID 06/05/22 06/21/22 Albuterol Sulfate [Ventolin HFA] 2 puff INHALATION RT-Q6H PRN 06/21/22 06/21/22 Vit C/E/Zn/Coppr/Lutein/Zeaxan 1 tab PO BID 06/21/22 06/21/22 [Preservision Areds 2 Softgel] Previous Rx's Medication Instructions Recorded Docusate [Colace] 100 mg PO BID #60 cap 06/24/22 Labetalol [Trandate] 100 mg PO BID #60 tab 06/24/22 Allergies Allergy/AdvReac Type Severity Reaction Status Date / Time codeine Allergy Rapid Verified 08/09/22 22:42 Heart Rate Penicillins Allergy Rash/Hives Verified 08/09/22 22:42 Review of Systems ROS Statement: Those systems with pertinent positive or pertinent negative responses have been documented in the HPI. Review of Systems: CONST: Denies fever EYES: Denies blurry vision ENT: Denies nasal congestion C/V: Endorses right-sided chest pain RESP: Denies shortness of breath GI: Denies abdominal pain : Denies dysuria SKIN: Denies rash. MSK: Denies joint pain. NEURO: Denies headache ROS Other: All systems not noted in ROS Statement are negative. Past Medical History Past Medical History: Eye Disorder, GERD/Reflux, Hyperlipidemia, Hypertension, Osteoarthritis (OA) Additional Past Medical History / Comment(s): Macular Degeneration, Gout. right carpal tunnel surgery Nov 2021. COVID 19 vaccination (moderna x3) and a flu shot History of Any Multi-Drug Resistant Organisms: None Reported Past Surgical History: Breast Surgery, Joint Replacement, Orthopedic Surgery Additional Past Surgical History / Comment(s): RIGHT KNEE ARTHROSCOPY ,RIGHT BREAST BIOPSY, PARTIAL THYROIDECTOMY(RIGHT SIDE), BILATERAL TOTAL KNEE REPLACEMENTS, BILATERAL CATARACTS REMOVED, RIGHT CARPAL TUNNEL SURGERY. Past Anesthesia/Blood Transfusion Reactions: No Reported Reaction Past Psychological History: No Psychological Hx Reported Smoking Status: Never smoker Past Alcohol Use History: None Reported Past Drug Use History: None Reported - Past Family History Sister(s) Family Medical History: Cancer Additional Family Medical History / Comment(s): Patient has one sister that from recurrence of breast cancer. Father Family Medical History: Renal Disease Additional Family Medical History / Comment(s): Father at age 82 from renal failure. Brother(s) Family Medical History: Cancer, Myocardial Infarction ([place]) Additional Family Medical History / Comment(s): Patient has 2 brothers that have passed, one from a myocardial infarction at age 65 and 1 from a tumor in his neck. Mother Family Medical History: Chest Pain / Angina, Myocardial Infarction ([place]) Additional Family Medical History / Comment(s): Mother at age 74 from myocardial infarction. General Exam - General Exam Comments Initial Comments: General: Appears in mild distress secondary to pain. HEAD: Normal with no signs of head trauma. EYES: PERRLA, EOMI, conjunctiva normal, no discharge. ENT: Hearing grossly intact, normal oropharynx. RESPIRATORY: Clear breath sounds bilaterally. No wheezes, rales, or rhonchi. C/V: Regular rate and rhythm. S1 and S2 auscultated, mild symmetrical lower extremity pitting edema. Peripheral pulses 2+ and intact throughout ABD: Abd is soft, nontender, nondistended EXT: Normal range of motion, no obvious deformity SKIN: No rashes or lesions observed on exposed skin. NEURO: Alert and oriented 4. Limitations: no limitations Course Vital Signs 08/09/22 08/10/22 08/10/22 22:39 02:02 02:56 Temperature 97.8 F Pulse Rate 70 72 66 Respiratory 20 18 18 Rate Blood Pressure 137/74 118/69 124/75 O2 Sat by Pulse 94 L 95 96 Oximetry 08/10/22 08/10/22 04:06 04:50 Temperature Pulse Rate 64 60 Respiratory 18 18 Rate Blood Pressure 102/53 O2 Sat by Pulse 95 95 Oximetry Procedures - [place] Protocol (Time Out) Nurse: Aaliyah Ponce Medical Decision Making - Medical Decision Making Was pt. sent in by a medical professional or institution (, PA, COUNTER PERSON, urgent care, hospital, or alf...) When possible be specific @ -No Did you speak to anyone other than the patient for history (EMS, parent, family, police, friend...)? What history was obtained from this source @ -I spoke with family members who provided past medical history. Patient including information on recent stay. Did you review nursing and triage notes (agree or disagree)? Why? @ -I reviewed and agree with nursing and triage notes Were old charts reviewed (outside hosp., previous admission, EMS record, old EKG, old radiological studies, urgent care reports/EKG's, alf records)? Report findings @ -Reviewed charts from February 2022. Differential Diagnosis (chest pain, altered mental status, abdominal pain women, abdominal pain men, vaginal bleeding, weakness, fever, dyspnea, syncope, headache, dizziness, GI bleed, back pain, seizure, CVA, palpatations, mental health, musculoskeletal)? @ -Differential Chest Pain: Stable Angina, Unstable Angina, STEMI, NSTEMI Aortic Dissection, Pneumothorax, Musculoskeletal, Esophageal Spasm GERD, Cholecystitis, Pancreatitis, Zoster, this is not meant to be an all-inclusive list. EKG interpreted by me (3pts min.). @ -As above X-rays interpreted by me (1pt min.). @ -None done CT interpreted by me (1pt min.). @ -CT of the chest revealed no evidence of acute pulmonary embolism. She does have bilateral pleural effusions. COVID-19 increase in size from previous CT imaging. U/S interpreted by me (1pt. min.). @ -None done What testing was considered but not performed or refused? (CT, X-rays, U/S, labs)? Why? @ -None What meds were considered but not given or refused? Why? @ -Initially considered aspirin, however wanted to wait until CT imaging returned on the off chance there was an aortic injury. Aspirin was provided after CT imaging negative for any aortic injury or PE. Considered heparin initially as well, as the patient had an elevated troponin and an NSTEMI. However discussed it with the patient's family and patient, and she recently did have IV heparin and they refuse at this time. She is already on a blood thinning medication. They would like to watch the troponin and if it increases, but may are amenable to heparin administration. States she had a reaction to heparin last time which caused her to swell. They do not want the medication at this time. Did you discuss the management of the patient with other professionals (joanna ayoub i.e. , PA, COUNTER PERSON, lab, RT, psych nurse, high school social studies tutor, white washer piler, teacher, air support control officer, residential case manager)? Give summary @ -I spoke with the admitting team, QIAN Lowe of [facility] who accepted the patient. Was smoking cessation discussed for >3mins.? @ -No Was critical care preformed (if so, how long)? @ -Yes, 35 minutes. Were there social determinants of health that impacted care today? How? (Homelessness, low income, unemployed, alcoholism, drug addiction, transportation, low edu. Level, literacy, decrease access to med. care, [place] [facility], rehab)? @ -No Was there de-escalation of care discussed even if they declined (Discuss DNR or withdrawal of care, Hospice)? DNR status @ -No What co-morbidities impacted this encounter? (DM, HTN, Smoking, COPD, CAD, Cancer, CVA, ARF, Chemo, Hep., AIDS, mental health diagnosis, sleep apnea, morbid obesity)? @ -Prior pulmonary embolism, currently on anticoagulation. Was patient admitted / discharged? Hospital course, mention meds given and route, prescriptions, significant lab abnormalities, going to OR and other pertinent info. @ -Based on the patient's presentation and physical exam, there is concern for cardiopulmonary etiology for her current symptoms. She does have a history of PE and has been compliant with anticoagulation. She presents with atypical chest wall pain that seems were musculoskeletal in nature she does have to pinpoint locations on her chest wall in the right axillary region that is causing her pain. Workup in triage was remarkable for a leukocytosis of unknown significance at 17. This could be reactive. D-dimer was elevated to 3.[address] PE was negative. Patient's troponin is elevated to 0.9 with a history of some elevation in her troponin to 0.3 in the past. Patient also has an elevated BNP of 8000. Likely related to pleural effusions. No EKG changes to suggest acute ischemia at this time. Vital signs are within acceptable limits. Patient was given analgesia medications for her pain which did improve a, including lidocaine patch, morphine. She was given an aspirin after CT imaging returned negative for any aortic injury. At this time I did discuss with the patient as well as her family. I would like to start heparin, however as detailed above they would like to avoid that at this time. They are minimal starting at the troponin continues to increase but at this time they would like to keep her on her normal anticoagulation, Eliquis, as she had a recent swelling on heparin and they do not want to start it at this time. I explained the risks and benefits of it, but they would like to repeat the troponin which is due at this time prior to starting heparin. If it increases they are in agreement with attempting to use heparin for management. Cardiology will be consulted. Patient will be admitted to the hospital for this atypical chest pain as well as elevated troponin. Concern for likely type 2 NSTEMI. Pleural effusions may be playing a role in the patient's current workup as well. She will be admitted to the hospital for cardiology evaluation. Echo ordered. Patient's repeat troponin was flat. Remains 0.92. Therefore per the discussion with family and patient, however will not be initiated at this time but we will continue to trend the troponin. We will continue the patient's normal anticoagulation Eliquis. I spoke with the admitting team, QIAN Lowe of [facility] who accepted the patient. Undiagnosed new problem with uncertain prognosis? @ -No Drug Therapy requiring intensive monitoring for toxicity (Heparin, Nitro, Insulin, Cardizem)? @ -No Were any procedures done? @ -No Diagnosis/symptom? @ -Atypical chest wall pain Acute, or Chronic, or Acute on Chronic? @ -Acute Uncomplicated (without systemic symptoms) or Complicated (systemic symptoms)? @ -Uncomplicated Side effects of treatment? @ -No Exacerbation, Progression, or Severe Exacerbation? @ -No Poses a threat to life or bodily function? How? (Chest pain, [place], [place], pneumonia, PE, COPD, DKA, ARF, appy, cholecystitis, CVA, Diverticulitis, Homicidal, Suicidal, threat to staff... and all critical care pts) @ -No Diagnosis/symptom? @ -NSTEMI, pleural effusions Acute, or Chronic, or Acute on Chronic? @ -Acute Uncomplicated (without systemic symptoms) or Complicated (systemic symptoms)? @ -complicated Side effects of treatment? @ -none Exacerbation, Progression, or Severe Exacerbation] @ -no Poses a threat to life or bodily function? @ -Yes - Lab Data Result diagrams: 08/09/22 23:21 08/09/22 23:21 Lab Results 08/09/22 08/09/22 08/09/22 Range/Units 23:21 23:21 23:21 WBC 17.6 H (3.8-10.6) k/uL RBC 3.92 (3.80-5.40) m/uL Hgb 10.8 L (11.4-16.0) gm/dL Hct 34.7 (34.0-46.0) % MCV 88.5 D (80.0-100.0) fL MCH 27.5 (25.0-35.0) pg MCHC 31.1 (31.0-37.0) g/dL RDW 23.5 H (11.5-15.5) % Plt Count 249 (150-450) k/uL MPV 11.3 Neutrophils % 93 % Lymphocytes % 3 % Monocytes % 2 % Eosinophils % 1 % Basophils % 0 % Neutrophils # 16.4 H (1.3-7.7) k/uL Lymphocytes # 0.5 L (1.0-4.8) k/uL Monocytes # 0.4 (0-1.0) k/uL Eosinophils # 0.1 (0-0.7) k/uL Basophils # 0.0 (0-0.2) k/uL Hypochromasia Marked Anisocytosis Moderate Microcytosis Slight PT 14.7 H (9.0-12.0) sec INR 1.5 H (<1.2) APTT 28.3 (22.0-30.0) sec D-Dimer 3.05 H (<0.60) mg/L FEU Sodium 138 (137-145) mmol/L Potassium 3.9 (3.5-5.1) mmol/L Chloride 106 (98-107) mmol/L Carbon Dioxide 21 L (22-30) mmol/L Anion Gap 11 mmol/L BUN 20 H (7-17) mg/dL Creatinine 1.02 (0.52-1.04) mg/dL Est GFR (CKD-EPI)AfAm 59 (>60 ml/min/1.73 sqM) Est GFR (CKD-EPI)NonAf 51 (>60 ml/min/1.73 sqM) Glucose 77 (74-99) mg/dL Calcium 9.0 (8.4-10.2) mg/dL Magnesium 1.8 (1.6-2.3) mg/dL Total Bilirubin 1.5 H (0.2-1.3) mg/dL AST 22 (14-36) U/L ALT 26 (4-34) U/L Alkaline Phosphatase 136 H (38-126) U/L Troponin I (0.000-0.034) ng/mL NT-Pro-B Natriuret Pep pg/mL Total Protein 5.7 L (6.3-8.2) g/dL Albumin 2.8 L (3.5-5.0) g/dL 08/09/22 08/09/22 Range/Units 23:21 23:21 WBC (3.8-10.6) k/uL RBC (3.80-5.40) m/uL Hgb (11.4-16.0) gm/dL Hct (34.0-46.0) % MCV (80.0-100.0) fL MCH (25.0-35.0) pg MCHC (31.0-37.0) g/dL RDW (11.5-15.5) % Plt Count (150-450) k/uL MPV Neutrophils % % Lymphocytes % % Monocytes % % Eosinophils % % Basophils % % Neutrophils # (1.3-7.7) k/uL Lymphocytes # (1.0-4.8) k/uL Monocytes # (0-1.0) k/uL Eosinophils # (0-0.7) k/uL Basophils # (0-0.2) k/uL Hypochromasia Anisocytosis Microcytosis PT (9.0-12.0) sec INR (<1.2) APTT (22.0-30.0) sec D-Dimer (<0.60) mg/L FEU Sodium (137-145) mmol/L Potassium (3.5-5.1) mmol/L Chloride (98-107) mmol/L Carbon Dioxide (22-30) mmol/L Anion Gap mmol/L BUN (7-17) mg/dL Creatinine (0.52-1.04) mg/dL Est GFR (CKD-EPI)AfAm (>60 ml/min/1.73 sqM) Est GFR (CKD-EPI)NonAf (>60 ml/min/1.73 sqM) Glucose (74-99) mg/dL Calcium (8.4-10.2) mg/dL Magnesium (1.6-2.3) mg/dL Total Bilirubin (0.2-1.3) mg/dL AST (14-36) U/L ALT (4-34) U/L Alkaline Phosphatase (38-126) U/L Troponin I 0.928 H* (0.000-0.034) ng/mL NT-Pro-B Natriuret Pep 8280 pg/mL Total Protein (6.3-8.2) g/dL Albumin (3.5-5.0) g/dL - EKG Data -: EKG Interpreted by Me EKG Comments: 12-lead Electrocardiogram Interpretation Note EKG was reviewed and interpreted by myself. 12-lead ECG performed at 2306 is interpreted by me as revealing normal sinus rhythm at a rate of 66 beats per minute. Left axis deviation. MD interval is 164 ms, QRS duration is 93 ms, QTc is 404 ms.. There were no ST or T wave abnormalities to suggest myocardial ischemia or injury. R wave progression across the precordium was satisfactory. By my interpretation this EKG is non-diagnostic for acute ischemia. 12-lead Electrocardiogram Interpretation Note EKG was reviewed and interpreted by myself. 12-lead ECG performed at 0125 is interpreted by me as revealing normal sinus rhythm at a rate of 78 beats per minute. Left axis deviation. MD intervals 179 ms, QRS duration is 102 ms, QTc is 404 ms.. There were no ST or T wave abnormalities to suggest myocardial ischemia or injury. R wave progression across the precordium was satisfactory. By my interpretation this EKG is non-diagnostic for acute ischemia. Critical Care Time Critical Care Time: Yes Total Critical Care Time: 35 Disposition Clinical Impression: Chest wall pain, NSTEMI (non-ST elevated myocardial infarction), Pleural effusion, Atypical chest pain Disposition: ADMITTED IP TO THIS HOSP Condition: Stable Time of Disposition: 02:05
--- NOTE | 2022-08-10 07:39 | P.CNPUL ---
History of Present Illness Consult date: 08/10/22 Requesting physician: Dat Ayala Reason for consult: pleural effusion Chief complaint: Right-sided chest pain History of present illness: I am seeing this patient in new consultation today 08/10/2022 for right sided chest pain and bilateral pleural effusions. Patient is an 81-year-old female with past medical history significant for recent prolonged hospitalization at [facility] where she had a hiatal hernia repair, and was discharged on . She also has history pulmonary embolism, atrial fibrillation on Eliquis, hypertension, hyperlipidemia, GERD. Patient presented early this morning complaining of a right-sided chest pain that started approximately 3 hours prior to arrival in the emergency room. Patient's pain is reproducible with movement or palpation of the right arm and chest wall. Denies any falls or injuries. Denies palpitations, orthopnea, PND. Denies any fevers, chills, cough, shortness of breath, nausea, vomiting, abdominal pain. Patient is currently sitting up in bed, on 2 L nasal cannula, in no acute distress. Chest CTA on arrival showed no evidence of pulmonary embolism. There were small to moderate size bilateral pleural effusions. No obvious ischemic changes on ECG. Troponins are elevated however at 0.93 and 0.92 respectively. Cardiology is on the case. NT proBNP elevated at 8280. BMP shows sodium 130, potassium 3.9, chloride 106, serum CO2, BUN 20, creatinine 1.02, glucose 77. CBC shows a WBC count of 17.6, hemoglobin 10.8, hematocrit 34.7, plt 249. Vital signs are stable. Review of Systems REVIEW OF SYSTEMS: CONSTITUTIONAL: Denies any recent significant weight loss or weight gain. EYES: Denies change in vision. EARS, NOSE, MOUTH, THROAT: Denies headaches, denies sore throat. CARDIOVASCULAR: Denies palpitations or syncopal episodes. Chest pain as described in HPI RESPIRATORY: Denies shortness of breath, cough, congestion or hemoptysis. GASTROINTESTINAL: Denies change in appetite, abdominal pain, nausea and vomiting, or diarrhea GENITOURINARY: Denies hematuria, denies infections. MUSKULOSKELETAL: Denies pain, admits chronic bilateral lower extremity swelling INTEGUMENTARY: Denies rash, denies eczema. NEUROLOGICAL: Denies recent memory loss, no recent seizure activity. PSYCHIATRIC: Denies anxiety, denies depression. HEMATOLOGIC/LYMPHATIC: Denies anemia, denies enlarged lymph node Past Medical History Past Medical History: Eye Disorder, GERD/Reflux, Hyperlipidemia, Hypertension, Osteoarthritis (OA) Additional Past Medical History / Comment(s): Macular Degeneration, Gout. right carpal tunnel surgery Nov 2021. COVID 19 vaccination (moderna x3) and a flu shot History of Any Multi-Drug Resistant Organisms: None Reported Past Surgical History: Breast Surgery, Joint Replacement, Orthopedic Surgery Additional Past Surgical History / Comment(s): RIGHT KNEE ARTHROSCOPY ,RIGHT BREAST BIOPSY, PARTIAL THYROIDECTOMY(RIGHT SIDE), BILATERAL TOTAL KNEE REPLACEMENTS, BILATERAL CATARACTS REMOVED, RIGHT CARPAL TUNNEL SURGERY. Past Anesthesia/Blood Transfusion Reactions: No Reported Reaction Past Psychological History: No Psychological Hx Reported Smoking Status: Never smoker Past Alcohol Use History: None Reported Past Drug Use History: None Reported - Past Family History Sister(s) Family Medical History: Cancer Additional Family Medical History / Comment(s): Patient has one sister that from recurrence of breast cancer. Father Family Medical History: Renal Disease Additional Family Medical History / Comment(s): Father at age 82 from renal failure. Brother(s) Family Medical History: Cancer, Myocardial Infarction ([place]) Additional Family Medical History / Comment(s): Patient has 2 brothers that have passed, one from a myocardial infarction at age 65 and 1 from a tumor in his neck. Mother Family Medical History: Chest Pain / Angina, Myocardial Infarction ([place]) Additional Family Medical History / Comment(s): Mother at age 74 from myocardial infarction. Medications and Allergies Home Medications Medication Instructions Recorded Confirmed Type Simvastatin 40 mg PO DAILY 08/12/14 06/21/22 History allopurinoL [Allopurinol] 300 mg PO DAILY 08/12/14 06/21/22 History Aspirin [Adult Low Dose Aspirin EC] 81 mg PO DAILY 03/28/18 06/21/22 History Apixaban [Eliquis] 5 mg PO BID 06/05/22 06/21/22 History Sildenafil [Revatio] 1 tab PO TID 06/05/22 06/21/22 History Albuterol Sulfate [Ventolin HFA] 2 puff INHALATION RT-Q6H PRN 06/21/22 06/21/22 History Vit C/E/Zn/Coppr/Lutein/Zeaxan 1 tab PO BID 06/21/22 06/21/22 History [Preservision Areds 2 Softgel] Docusate [Colace] 100 mg PO BID #60 cap 06/24/22 Rx Labetalol [Trandate] 100 mg PO BID #60 tab 06/24/22 Rx Allergies Allergy/AdvReac Type Severity Reaction Status Date / Time codeine Allergy Rapid Verified 08/09/22 22:42 Heart Rate Penicillins Allergy Rash/Hives Verified 08/09/22 22:42 Physical Exam Vitals: Vital Signs Temp Pulse Resp BP Pulse Ox 08/10/22 04:50 60 18 102/53 95 08/10/22 04:06 64 18 95 08/10/22 02:56 66 18 124/75 96 08/10/22 02:02 72 18 118/69 95 08/09/22 22:39 97.8 F 70 20 137/74 94 L Intake and Output 08/09/22 08/09/22 08/10/22 14:59 22:59 06:59 Other: Weight 72.121 kg GENERAL EXAM: Alert, 81-year-old white female, comfortable in no apparent distress. HEAD: Normocephalic and atraumatic EYES: Normal reaction of pupils, equal size. NOSE: Clear with pink turbinates. THROAT: No erythema or exudates. NECK: No masses, no JVD. CHEST: No chest wall deformity. No crepitus LUNGS: Equal air entry with faint bibasilar inspiratory crackles. No wheeze, rhonchi or dullness. On 2 L nasal cannula. No conversational dyspnea or accessory muscle use.. CVS: S1 and S2 normal with no audible murmur, regular rhythm. No extra heart sounds ABDOMEN: No hepatosplenomegaly, active bowel sounds, no guarding or rigidity. SPINE: No scoliosis or deformity SKIN: No rashes CENTRAL NERVOUS SYSTEM: No focal deficits, tone is normal in all 4 extremities. EXTREMITIES: There is mild nonpitting bilateral lower extremity edema. No clubbing, or cyanosis. Peripheral pulses are intact. Results - Laboratory Findings CBC and BMP: 08/09/22 23:21 08/09/22 23:21 PT/INR, D-dimer PT 14.7 sec (9.0-12.0) H 08/09/22 23:21 INR 1.5 (<1.2) H 08/09/22 23:21 D-Dimer 3.05 mg/L FEU (<0.60) H 08/09/22 23:21 Abnormal lab findings: Abnormal Labs 08/09/22 08/09/22 08/09/22 23:21 23:21 23:21 WBC 17.6 H Hgb 10.8 L RDW 23.5 H Neutrophils # 16.4 H Lymphocytes # 0.5 L PT 14.7 H INR 1.5 H D-Dimer 3.05 H Carbon Dioxide 21 L BUN 20 H Total Bilirubin 1.5 H Alkaline Phosphatase 136 H Troponin I Total Protein 5.7 L Albumin 2.8 L 08/09/22 08/10/22 23:21 02:35 WBC Hgb RDW Neutrophils # Lymphocytes # PT INR D-Dimer Carbon Dioxide BUN Total Bilirubin Alkaline Phosphatase Troponin I 0.928 H* 0.920 H* Total Protein Albumin Assessment and Plan Assessment: Right sided chest pain, which is reproducible with coughing, deep inspiration, and palpation. Elevated troponins, possible NSTEMI Small to moderate sized bilateral lateral pleural effusions, greater on the right than left. Suspected CHF exacerbation, patient has cardiomegaly and bilateral pleural effusions demonstrated on chest CTA. nt pro-bnp elevated at 8280. Acute hypoxemic respiratory failure secondary to above, currently on 2 L nasal cannula History of atrial fibrillation currently anticoagulated on Eliquis. Currently in normal sinus rhythm History of pulmonary embolism Hypertension Hyperlipidemia GERD, without esophagitis Recent prolonged hospital stay for repair of the hiatal hernia Plan: Patient's medications, labs, chest CTA reviewed Continue supplemental oxygen obtain chest ultrasound Start the patient on Lasix twice a day Anticoagulated on Eliquis Echocardiogram is pending Cardiology was consulted Trend troponins we will continue to follow I have personally seen and examined the patient, performed the documentation and the assessment and plan as written. Number of minutes spent on the visit:20 Time with Patient: Greater than 30
[2022-08-10] MEDS ORDERED: APIXABAN 5 MG TAB PO SCH (09:00)
[2022-08-10] MEDS ORDERED: METOPROLOL TARTRATE 25 MG TAB PO SCH (09:15)
--- NOTE | 2022-08-10 09:23 | US ---
EXAMINATION TYPE: US chest DATE OF EXAM: 08/10/2022 COMPARISON: CT earlier today CLINICAL INDICATION: Female, 81 years old with history of pleural effusions; bilateral pleural effusi on TECHNIQUE: Targeted ultrasound of the posterior lower bilateral hemithoraces EXAM MEASUREMENTS: Right Pleural Effusion pocket size: 4.9 cm Right skin surface to fluid distance: 3.3 cm Left Pleural Effusion pocket size: 7.2 cm - lung noted anteriorly Left skin surface to fluid distance: 2.9 cm Right side marked for possible thoracentesis outside the dept. Left side marked for possible thoracentesis outside the dept. Pulmonologists are able to review the images in the patient?s EMR. IMPRESSIONS: Bilateral [id number] pleural effusions.
[2022-08-10] MEDS ORDERED: HEPARIN SODIUM 1,000 UN/ML (10ML VL) IV PRN (09:24)
[2022-08-10] MEDS ORDERED: HEPARIN SODIUM 1,000 UN/ML (10ML VL) IV ONE (09:24)
[2022-08-10] MEDS ORDERED: SILDENAFIL 20 MG TAB PO SCH (09:30)
[2022-08-10] MEDS: FUROSEMIDE 10 MG/ML 2 ML VIAL IV SCH ×2 (09:59→21:49)
[2022-08-10] MEDS: HEPARIN SOD,PORK IN 0.45% NACL 25,000 UNIT in 0.45% NACL 1 250ML.BAG IV SCH (10:01)
--- NOTE | 2022-08-10 10:15 | P.CRDCN ---
History of Present Illness Consult date: 08/10/22 Consult reason: non-Q-wave NE History of present illness: History of present illness: This is an 81-year-old female patient of Dr. Elder with past medical history of hypertension, hyperlipidemia, family history of coronary artery disease, tem porary bradycardia, acute pulmonary embolism 02/2022 status post Inari thrombectomy at [facility] by Dr. Hamilton. On 04/17/2022 she had an EF of 55-60% and continued elevated RVSP of 55 and underwent lower extremity ultrasound negative for DVT. Patient was recently hospitalized at [facility] from July due to hiatal hernia but unfortunately she developed new onset of atrial fibrillation was started on amiodarone and Coreg. She was having palpitations and dizziness was initially started on heparin drip developed right upper extremity hematoma as well as right hip hematoma. She barely was diagnosed with bilateral upper extremity blood clots as well. She was eventually cleared for surgery underwent hernia repair on 07/26/2022. During her hospitalization, patient was also started on Revatio but developed bowel impaction and this was stopped and not resumed. Patient has been resumed on eliquis. Patient feels occasional episodes of atrial fibrillation the last from a few minutes to a few hours. Patient was seen in the office yesterday and states she was feeling fine at that time. Subsequently she developed significant right shoulder, right-sided chest and right lateral rib pain. She has never had this before. She was provided morphine, Toradol and lidocaine and pain is improved but she still has it when she moves. There is some tenderness to palpation. She denies having any abdominal pain. She states she's had some shortness of breath. No lightheadedness or dizziness. She complains of lower extremity edema. Patient is seen today in the emergency center waiting for a bed on the cardiac stepdown unit. We have been asked to evaluate the patient f or non-ST elevated myocardial infarction. EKG sinus rhythm with no acute ST changes, low voltage CTA of the chest no evidence of pulmonary emboli. Chest ultrasound reveals bilateral small to moderate pleural effusions, right pleural effusion pocket size 4.9 cm and left pleural effusion pocket size 7.2 cm. WBC 17.6, hemoglobin 10.8, platelet count 249. INR 1.5. D-dimer 3.05. BUN 20 creatinine 1.02, potassium 3.9. Alkaline phosphatase 136, total bilirubin 1.5. Troponin 0.928, 0.92, 1.05. ProBNP 8280 Home cardiac medications: Amiodarone 200 mg daily, Coreg 6.25 mg twice daily, eliquis 5 mg twice daily, simvastatin 40 mg in the evening, aspirin 81 mg daily Echocardiogram 04/17/2022 reveals EF of 55-60%, elevated RVSP of 55 Review Of Systems: At the time of my evaluation: Constitutional: No fever, no chills. No weakness, fatigue or lethargy. EENT: No headache. No dizziness. Lungs: No shortness of breath, cough, no sputum production. No wheezing. Cardiovascular: No chest pain, no lower extremity edema. No palpitations. No paroxysmal nocturnal dyspnea. No orthopnea. No lightheadedness or dizziness. No syncopal episodes. Abdominal: No abdominal pain. No nausea, vomiting. No diarrhea. No constipation. No bloody or tarry stools. Genitourinary: No dysuria.. No urinary retention. Musculoskeletal: No myalgias. No muscle weakness, no frequent falls. No back pain. No neck pain. Integumentary: No wounds. No rash. No unusual bruising. Neurologic: No aphasia. No facial droop. No change in mentation. No head injury. No headache. Physical examination: Gen: This is an 81-year-old female. She is resting on ER stretcher and appears to be comfortable and in no acute distress VS: reviewed HEENT: Head is atraumatic, normocephalic. Pupils equal, round. Sclerae is anicteric. NECK: Supple. No JVD. LUNGS: Clear to auscultation. No wheezes or rhonchi. No intercostal retractions. HEART: Regular rate and rhythm. No murmur. Tenderness right rib area. ABDOMEN: Soft No tenderness. EXTREMITIES: Trace pedal edema. No calf tenderness. NEUROLOGICAL: Patient is awake, alert and oriented x3. Assessment: Elevated troponin, rule out non-ST NE, possible Takotsubo syndrome, possible myocarditis, possible cardiac amyloidosis Recent hernia repair Recent new onset of atrial fibrillation, paroxysmal Bilateral pleural effusions Hypertension Hyperlipidemia History of pulmonary embolism 02/23 with elevated RVSP Possible recent bilateral upper extremity DVTs Plan: Hold eliquis and start patient on heparin drip Hold amiodarone as patient is bradycardic, change Lopressor down to 12.5 mg daily Continue IV Lasix as ordered by pulmonary Continue home dose of aspirin and statin Obtain [place]a, routine electrophoresis Obtain 2-D echocardiogram and Doppler study to assess cardiac structure and function May plan for patient to undergo cardiac catheterization. Will reassess tomorrow. Further recommendations to follow based upon clinical course Thank you kindly for this consultation. Nurse practitioner note has been reviewed, I agree with documented findings and plan of care. Patient was seen and examined. Past Medical History Past Medical History: Eye Disorder, GERD/Reflux, Hyperlipidemia, Hypertension, Osteoarthritis (OA) Additional Past Medical History / Comment(s): Macular Degeneration, Gout. right carpal tunnel surgery Nov 2021. COVID 19 vaccination (moderna x3) and a flu shot History of Any Multi-Drug Resistant Organisms: None Reported Past Surgical History: Breast Surgery, Joint Replacement, Orthopedic Surgery Additional Past Surgical History / Comment(s): RIGHT KNEE ARTHROSCOPY ,RIGHT BREAST BIOPSY, PARTIAL THYROIDECTOMY(RIGHT SIDE), BILATERAL TOTAL KNEE REPLACEMENTS, BILATERAL CATARACTS REMOVED, RIGHT CARPAL TUNNEL SURGERY. Past Anesthesia/Blood Transfusion Reactions: No Reported Reaction Past Psychological History: No Psychological Hx Reported Smoking Status: Never smoker Past Alcohol Use History: None Reported Past Drug Use History: None Reported - Past Family History Sister(s) Family Medical History: Cancer Additional Family Medical History / Comment(s): Patient has one sister that from recurrence of breast cancer. Father Family Medical History: Renal Disease Additional Family Medical History / Comment(s): Father at age 82 from renal failure. Brother(s) Family Medical History: Cancer, Myocardial Infarction ([place]) Additional Family Medical History / Comment(s): Patient has 2 brothers that have passed, one from a myocardial infarction at age 65 and 1 from a tumor in his neck. Mother Family Medical History: Chest Pain / Angina, Myocardial Infarction ([place]) Additional Family Medical History / Comment(s): Mother at age 74 from myocardial infarction. Medications and Allergies Home Medications Medication Instructions Recorded Confirmed Type Simvastatin 40 mg PO DAILY 08/12/14 06/21/22 History allopurinoL [Allopurinol] 300 mg PO DAILY 08/12/14 06/21/22 History Aspirin [Adult Low Dose Aspirin EC] 81 mg PO DAILY 03/28/18 06/21/22 History Apixaban [Eliquis] 5 mg PO BID 06/05/22 06/21/22 History Sildenafil [Revatio] 1 tab PO TID 06/05/22 06/21/22 History Albuterol Sulfate [Ventolin HFA] 2 puff INHALATION RT-Q6H PRN 06/21/22 06/21/22 History Vit C/E/Zn/Coppr/Lutein/Zeaxan 1 tab PO BID 06/21/22 06/21/22 History [Preservision Areds 2 Softgel] Docusate [Colace] 100 mg PO BID #60 cap 06/24/22 Rx Labetalol [Trandate] 100 mg PO BID #60 tab 06/24/22 Rx Allergies Allergy/AdvReac Type Severity Reaction Status Date / Time codeine Allergy Rapid Verified 08/09/22 22:42 Heart Rate Penicillins Allergy Rash/Hives Verified 08/09/22 22:42 Physical Exam Vitals: Vital Signs Temp Pulse Resp BP Pulse Ox 08/10/22 06:57 62 18 102/61 95 08/10/22 04:50 60 18 102/53 95 08/10/22 04:06 64 18 95 08/10/22 02:56 66 18 124/75 96 08/10/22 02:02 72 18 118/69 95 08/09/22 22:39 97.8 F 70 20 137/74 94 L Intake and Output 08/09/22 08/10/22 08/10/22 22:59 06:59 14:59 Other: Weight 72.121 kg Results 08/09/22 23:21 08/09/22 23:21 Cardiac Enzymes 08/09/22 08/09/22 08/10/22 Range/Units 23:21 23:21 02:35 AST 22 (14-36) U/L Troponin I 0.928 H* 0.920 H* (0.000-0.034) ng/mL 08/10/22 Range/Units 06:02 AST (14-36) U/L Troponin I 1.050 H* (0.000-0.034) ng/mL Coagulation 08/09/22 Range/Units 23:21 PT 14.7 H (9.0-12.0) sec APTT 28.3 (22.0-30.0) sec CBC 08/09/22 Range/Units 23:21 WBC 17.6 H (3.8-10.6) k/uL RBC 3.92 (3.80-5.40) m/uL Hgb 10.8 L (11.4-16.0) gm/dL Hct 34.7 (34.0-46.0) % Plt Count 249 (150-450) k/uL Comprehensive Metabolic Panel 08/09/22 Range/Units 23:21 Sodium 138 (137-145) mmol/L Potassium 3.9 (3.5-5.1) mmol/L Chloride 106 (98-107) mmol/L Carbon Dioxide 21 L (22-30) mmol/L BUN 20 H (7-17) mg/dL Creatinine 1.02 (0.52-1.04) mg/dL Glucose 77 (74-99) mg/dL Calcium 9.0 (8.4-10.2) mg/dL AST 22 (14-36) U/L ALT 26 (4-34) U/L Alkaline Phosphatase 136 H (38-126) U/L Total Protein 5.7 L (6.3-8.2) g/dL Albumin 2.8 L (3.5-5.0) g/dL Current Medications Generic Name Dose Route Start Last Admin Trade Name Freq PRN Reason Stop Dose Admin Apixaban 5 mg 08/10/22 09:00 Apixaban 5 Mg Tab PO BID SHRUTHI Protocol Furosemide 20 mg 08/10/22 09:00 Furosemide 10 Mg/Ml 2 Ml Vial IV Q12HR [facility] Naloxone HCl 0.2 mg 08/10/22 02:21 Naloxone 0.4 Mg/Ml 1 Ml Vial IV Q2M PRN Opioid Reversal Intake and Output 08/09/22 08/10/22 08/10/22 22:59 06:59 14:59 Other: Weight 72.121 kg 08/09/22 23:21 08/09/22 23:21
[2022-08-10 11:21] LABS: Anisocytosis Moderate; Basophils % (A) 0 %; Eosinophils # (A) 0.1 k/uL (0-0.7); Eosinophils % (A) 0 %; HGB 10.2 gm/dL (11.4-16.0); Hypochromasia Marked; Lymphocytes # (A) 0.8 k/uL (1.0-4.8); Lymphocytes % (A) 4 %; MCH 27.8 pg (25.0-35.0); MCHC 30.9 g/dL (31.0-37.0); Macrocytosis Slight; Mean Platelet Volume 11.4; Microcytosis Slight; Monocytes # (A) 0.9 k/uL (0-1.0); Monocytes % (A) 5 %; Neutrophils # (A) 18.9 k/uL (1.3-7.7); Neutrophils % (A) 91 %; Platelet Count 223 k/uL (150-450); RBC 3.67 m/uL (3.80-5.40); RDW 23.2 % (11.5-15.5); WBC 20.7 k/uL (3.8-10.6)
[2022-08-10 11:33] LABS: INR 1.9 (<1.2); Prothrombin Time 18.9 sec (9.0-12.0)
[2022-08-10 12:00] LABS: Partial Thromboplastin Time >200.0 sec (22.0-30.0)
--- NOTE | 2022-08-10 12:58 | P.HPIM ---
History of Present Illness H&P Date: 08/10/22 Chief Complaint: Shortness of breath, chest pain * 81-year-old female past medical history of hypertension, hyperlipidemia, acute pulmonary embolism 02/2022 status postthrombectomy , atrial fibrillation presented to the emergency department with complaints of shortness of breath and dizziness * Patient was seen in cardiology office on the day of admission and states she was feeling fine at that time. Subsequently she developed significant right shoulder, right-sided chest and right lateral rib pain * Patient was recently hospitalized at [facility] from July due to hiatal hernia but unfortunately she developed new onset of atrial fibrillation was started on amiodarone and Coreg.. * Workup initiated at the time of presentation in ER included EKG sinus rhythm with no acute ST changes, low voltage, CTA of the chest no evidence of pulmonary emboli. * Chest ultrasound reveals bilateral small to moderate pleural effusions, right pleural effusion pocket size 4.9 cm and left pleural effusion pocket size 7.2 cm. * WBC 17.6, hemoglobin 10.8, platelet count 249. INR 1.5. D-dimer 3.05. BUN 20 creatinine 1.02, Troponin 0.928>0.92> 1.05. ProBNP 8280 * Consultation obtained from cardiology and pulmonary medicine patient to be admitted to medical floor * She'll started on IV heparin as well Review of Systems REVIEW OF SYSTEMS: CONSTITUTIONAL: No fever, no malaise, no fatigue. HEENT: No recent visual problems or hearing problems. Denied any sore throat. CARDIOVASCULAR: Chest pain shortness of breath PULMONARY: No shortness of breath, no cough, no hemoptysis. GASTROINTESTINAL: No diarrhea, no nausea, no vomiting, no abdominal pain. NEUROLOGICAL: No headaches, no weakness, no numbness. HEMATOLOGICAL: Denies any bleeding or petechiae. GENITOURINARY: Denies any burning micturition, frequency, or urgency. MUSCULOSKELETAL/RHEUMATOLOGICAL: Denies any joint pain, swelling, or any muscle pain. ENDOCRINE: Denies any polyuria or polydipsia. Past Medical History Past Medical History: Eye Disorder, GERD/Reflux, Hyperlipidemia, Hypertension, Osteoarthritis (OA) Additional Past Medical History / Comment(s): Macular Degeneration, Gout. right carpal tunnel surgery Nov 2021. COVID 19 vaccination (moderna x3) and a flu shot History of Any Multi-Drug Resistant Organisms: None Reported Past Surgical History: Breast Surgery, Joint Replacement, Orthopedic Surgery Additional Past Surgical History / Comment(s): RIGHT KNEE ARTHROSCOPY ,RIGHT BREAST BIOPSY, PARTIAL THYROIDECTOMY(RIGHT SIDE), BILATERAL TOTAL KNEE REPLACEMENTS, BILATERAL CATARACTS REMOVED, RIGHT CARPAL TUNNEL SURGERY. Past Anesthesia/Blood Transfusion Reactions: No Reported Reaction Past Psychological History: No Psychological Hx Reported Smoking Status: Never smoker Past Alcohol Use History: None Reported Past Drug Use History: None Reported - Past Family History Sister(s) Family Medical History: Cancer Additional Family Medical History / Comment(s): Patient has one sister that from recurrence of breast cancer. Father Family Medical History: Renal Disease Additional Family Medical History / Comment(s): Father at age 82 from renal failure. Brother(s) Family Medical History: Cancer, Myocardial Infarction ([place]) Additional Family Medical History / Comment(s): Patient has 2 brothers that have passed, one from a myocardial infarction at age 65 and 1 from a tumor in his neck. Mother Family Medical History: Chest Pain / Angina, Myocardial Infarction ([place]) Additional Family Medical History / Comment(s): Mother at age 74 from myocardial infarction. Medications and Allergies Home Medications Medication Instructions Recorded Confirmed Type Simvastatin 40 mg PO HS 08/12/14 08/10/22 History Aspirin [Adult Low Dose Aspirin EC] 81 mg PO DAILY 03/28/18 08/10/22 History Apixaban [Eliquis] 5 mg PO BID 06/05/22 08/10/22 History Vit C/E/Zn/Coppr/Lutein/Zeaxan 1 tab PO DAILY 06/21/22 08/10/22 History [Preservision Areds 2 Softgel] Amiodarone [Cordarone] 200 mg PO DAILY 08/10/22 08/10/22 History Famotidine [Pepcid] 20 mg PO DAILY 08/10/22 08/10/22 History Omeprazole 20 mg PO AC-BRKFST 08/10/22 08/10/22 History allopurinoL [Zyloprim] 200 mg PO DAILY 08/10/22 08/10/22 History carvediloL [Coreg] 6.25 mg PO BID 08/10/22 08/10/22 History Allergies Allergy/AdvReac Type Severity Reaction Status Date / Time Penicillins Allergy Rash/Hives Verified 08/10/22 11:22 codeine AdvReac Rapid Verified 08/10/22 11:22 Heart Rate Physical Exam Vitals: Vital Signs Temp Pulse Resp BP Pulse Ox 08/10/22 12:18 62 18 134/74 95 08/10/22 10:03 60 20 112/63 97 08/10/22 06:57 62 18 102/61 95 08/10/22 04:50 60 18 102/53 95 08/10/22 04:06 64 18 95 08/10/22 02:56 66 18 124/75 96 08/10/22 02:02 72 18 118/69 95 08/09/22 22:39 97.8 F 70 20 137/74 94 L Intake and Output 08/09/22 08/10/22 08/10/22 22:59 06:59 14:59 Intake Total 18.176 Balance 18.176 Intake: Intake, IV Titration 18.176 Amount Heparin Sod,Pork in 0.45% 18.176 NaCl 25,000 unit In 0.45 % NaCl 1 250ml.bag @ 12 UNITS/KG/HR 8.655 mls/hr IV [facility] Rx#: [id number] Other: Weight 72.121 kg PHYSICAL EXAMINATION: GENERAL: The patient is alert and oriented x3, ill appearance, nasal cannula in place HEENT: Pupils are round and equally reacting to light. EOMI. CARDIOVASCULAR: Irregular rhythm no murmur trace lower extremity edema PULMONARY: She is breath sounds bilaterally ABDOMEN: Soft, nontender, nondistended, normoactive bowel sounds. No palpable organomegaly. MUSCULOSKELETAL: No joint swelling or deformity. EXTREMITIES: No cyanosis, clubbing, or pedal edema. NEUROLOGICAL: Gross neurological examination did not reveal any focal deficits. SKIN: No rashes. Results CBC & Chem 7: 08/10/22 10:33 08/09/22 23:21 Labs: Abnormal Lab Results - Last 24 Hours (Table) 08/09/22 08/09/22 08/09/22 Range/Units 23:21 23:21 23:21 WBC 17.6 H (3.8-10.6) k/uL RBC (3.80-5.40) m/uL Hgb 10.8 L (11.4-16.0) gm/dL Hct (34.0-46.0) % MCHC (31.0-37.0) g/dL RDW 23.5 H (11.5-15.5) % Neutrophils # 16.4 H (1.3-7.7) k/uL Lymphocytes # 0.5 L (1.0-4.8) k/uL PT 14.7 H (9.0-12.0) sec INR 1.5 H (<1.2) APTT (22.0-30.0) sec D-Dimer 3.05 H (<0.60) mg/L FEU Carbon Dioxide 21 L (22-30) mmol/L BUN 20 H (7-17) mg/dL Total Bilirubin 1.5 H (0.2-1.3) mg/dL Alkaline Phosphatase 136 H (38-126) U/L Troponin I (0.000-0.034) ng/mL Total Protein 5.7 L (6.3-8.2) g/dL Albumin 2.8 L (3.5-5.0) g/dL 08/09/22 08/10/22 08/10/22 Range/Units 23:21 02:35 06:02 WBC (3.8-10.6) k/uL RBC (3.80-5.40) m/uL Hgb (11.4-16.0) gm/dL Hct (34.0-46.0) % MCHC (31.0-37.0) g/dL RDW (11.5-15.5) % Neutrophils # (1.3-7.7) k/uL Lymphocytes # (1.0-4.8) k/uL PT (9.0-12.0) sec INR (<1.2) APTT (22.0-30.0) sec D-Dimer (<0.60) mg/L FEU Carbon Dioxide (22-30) mmol/L BUN (7-17) mg/dL Total Bilirubin (0.2-1.3) mg/dL Alkaline Phosphatase (38-126) U/L Troponin I 0.928 H* 0.920 H* 1.050 H* (0.000-0.034) ng/mL Total Protein (6.3-8.2) g/dL Albumin (3.5-5.0) g/dL 08/10/22 08/10/22 Range/Units 10:33 10:33 WBC 20.7 H (3.8-10.6) k/uL RBC 3.67 L (3.80-5.40) m/uL Hgb 10.2 L (11.4-16.0) gm/dL Hct 33.0 L (34.0-46.0) % MCHC 30.9 L (31.0-37.0) g/dL RDW 23.2 H (11.5-15.5) % Neutrophils # 18.9 H (1.3-7.7) k/uL Lymphocytes # 0.8 L (1.0-4.8) k/uL PT 18.9 H (9.0-12.0) sec INR 1.9 H (<1.2) APTT >200.0 H* (22.0-30.0) sec D-Dimer (<0.60) mg/L FEU Carbon Dioxide (22-30) mmol/L BUN (7-17) mg/dL Total Bilirubin (0.2-1.3) mg/dL Alkaline Phosphatase (38-126) U/L Troponin I (0.000-0.034) ng/mL Total Protein (6.3-8.2) g/dL Albumin (3.5-5.0) g/dL Assessment and Plan Assessment: Assessment and plan * Elevated troponin rule out acute coronary syndrome * New onset atrial fibrillation paroxysmal * History of pulmonary embolism * Acute hypoxic respiratory failure secondary to CHF exacerbation bilateral pleural effusion * Recent hernia repair * Hypertension * Hyperlipidemia * Plan consultations obtained from cardiology and pulmonary medicine * Continue patient on IV heparin, hold Eliquis in anticipation of any procedures and including thoracentesis * In regard to acute hypoxic respiratory failure and bilateral pleural effusion continue patient on IV Lasix * 2-D echocardiogram ordered * Cardiology to decide regarding cardiac catheterization * Continue current and recommended medical therapy including aspirin, statin, beta lincoln * CODE STATUS is full code Time with Patient: Greater than 30
[2022-08-10] MEDS: PANTOPRAZOLE 40 MG TABLET PO SCH ×2 (13:29→13:58)
[2022-08-10] MEDS: METOPROLOL TARTRATE 12.5 MG TAB PO SCH (13:29)
[2022-08-10 18:12] LABS: Protein, Total 5.3 d/dL (6.2-8.2)
[2022-08-10] MEDS ORDERED: NON FORMULARY DRUG (Simvastatin [Simvastatin] 40 MG Tablet) PO SCH (21:00)
[2022-08-10] MEDS: ATORVASTATIN 20 MG TAB PO SCH (21:49)
[2022-08-11 05:06] LABS: African American GFR (CKD) 46 (>60 ml/min/1.73 sqM); Anion Gap 11 mmol/L; Blood Urea Nitrogen 28 mg/dL (7-17); Calcium 8.5 mg/dL (8.4-10.2); Carbon Dioxide 20 mmol/L (22-30); Chloride 107 mmol/L (98-107); Glucose 76 mg/dL (74-99); Non-African American GFR(CKD) 39 (>60 ml/min/1.73 sqM); Potassium 4.3 mmol/L (3.5-5.1); Sodium 138 mmol/L (137-145)
[2022-08-11] MEDS: PANTOPRAZOLE 40 MG TABLET PO SCH (05:48)
[2022-08-11 05:58] LABS: INR 1.5 (<1.2); Partial Thromboplastin Time 34.5 sec (22.0-30.0)
[2022-08-11 06:31] LABS: Anisocytosis Moderate; HCT 34.5 % (34.0-46.0); HGB 10.2 gm/dL (11.4-16.0); Hypochromasia Marked; MCHC 29.7 g/dL (31.0-37.0); MCV 91.1 fL (80.0-100.0); Macrocytosis Slight; Mean Platelet Volume 12.9; Microcytosis Slight; Platelet Count 215 k/uL (150-450); RBC 3.79 m/uL (3.80-5.40); RDW 23.4 % (11.5-15.5); WBC 15.9 k/uL (3.8-10.6)
[2022-08-11 08:18] LABS: Eosinophils # (M) 0.64 k/uL (0-0.7); Lymphocytes # (M) 0.64 k/uL (1.0-4.8); Monocytes # (M) 0.48 k/uL (0-1.0); Neutrophils # (M) 14.15 k/uL (1.3-7.7); Neutrophils % (M) 89 %; Nucleated Red Blood Cells 0 /100 WBC (0-0); Total Cells Counted 100
[2022-08-11] MEDS: FUROSEMIDE 10 MG/ML 2 ML VIAL IV SCH ×2 (08:32→19:41)
[2022-08-11] MEDS: METOPROLOL TARTRATE 12.5 MG TAB PO SCH (08:32)
[2022-08-11] MEDS: FAMOTIDINE 20 MG TAB PO SCH (08:32)
[2022-08-11] MEDS: allopurinoL 100 MG TAB PO SCH (08:32)
[2022-08-11] MEDS: ASPIRIN 81 MG PO SCH (08:32)
[2022-08-11] MEDS: HEPARIN SOD,PORK IN 0.45% NACL 25,000 UNIT in 0.45% NACL 1 250ML.BAG IV SCH (08:34)
[2022-08-11] MEDS ORDERED: AMIODARONE 200 MG TAB PO SCH (09:00)
--- NOTE | 2022-08-11 10:47 | CA ---
Transthoracic Echo Report Name: Gayatri Draper Age: 81 Gender: F : 1940 Exam Date: 08/10/2022 08:19 Exam Location: [facility] Ht (in): 65 Wt (lb): 159 Ordering Physician: Dat Ayala MD Attending/Referring Phys: [employer] Program Coordinator Wilfredo Ambrose Procedure CPT: Indications: eval for chf Cardiac Hx: Technical Quality: Good Contrast 1: Total Dose (mL): Contrast 2: Total Dose (mL): MEASUREMENTS (Male / Female) Normal Values 2D ECHO LV Diastolic Diameter PLAX 3.8 cm 4.2 - 5.9 / 3.9 - 5.3 cm IVS Diastolic Thickness 1.4 cm 0.6 - 1.0 / 0.6 - 0.9 cm LVPW Diastolic Thickness 1.2 cm 0.6 - 1.0 / 0.6 - 0.9 cm LV Relative Wall Thickness 0.7 RV Internal Dim ED PLAX 3.1 cm LVOT Diameter 1.8 cm Aortic Root Diameter 2.6 cm LA Systolic Diameter LX 3.4 cm 3.0 - 4.0 / 2.7 - 3.8 cm LV Diastolic Volume MOD BP 43.9 cm??? 67 - 155 / 56 - 104 cm??? LV Systolic Volume MOD BP 12.6 cm??? 22 - 58 / 19 - 49 cm??? LV Ejection Fraction MOD BP 71.4 % >= 55 % LV Diastolic Volume MOD 4C 45.5 cm??? LV Systolic Volume MOD 4C 10.8 cm??? LV Ejection Fraction MOD 4C 76.1 % LV Diastolic Length 4C 6.4 cm LV Systolic Length 4C 5.1 cm LV Diastolic Volume MOD 2C 41.1 cm??? LV Systolic Volume MOD 2C 13.3 cm??? LV Ejection Fraction MOD 2C 67.6 % LV Diastolic Length 2C 6.6 cm LV Systolic Length 2C 5.6 cm LA Volume 49.9 cm??? 18 - 58 / 22 - 52 cm??? Ascending Aorta Diameter 2.6 cm DOPPLER AV Peak Velocity 158.6 cm/s AV Peak Gradient 10.1 mmHg LVOT Peak Velocity 105.0 cm/s LVOT Peak Gradient 4.4 mmHg AV Area Cont Eq pk 1.7 cm??? MR Peak Velocity 431.8 cm/s MR Peak Gradient 74.6 mmHg Mitral E Point Velocity 116.0 cm/s Mitral A Point Velocity 47.0 cm/s Mitral E to A Ratio 2.5 MV Deceleration Time 176.4 ms TR Peak Velocity 324.6 cm/s TR Peak Gradient 42.1 mmHg Right Ventricular Systolic Press 52.3 mmHg PV Peak Velocity 116.3 cm/s PV Peak Gradient 5.4 mmHg FINDINGS Left Ventricle Mild concentric LVH.left ventricular ejection fraction is estimated at 60-65 %. Right Ventricle Normal right ventricular size. RVSP= 57mmhg Right Atrium Mild right atrial dilatation. Left Atrium Mild left atrial dilatation. Mitral Valve Structurally normal mitral valve. Mild MR. Aortic Valve Trileaflet aortic valve. No aortic valve stenosis or regurgitation. Tricuspid Valve Structurally normal tricuspid valve. Geibszan-dd-uaqbcp tricuspid regurgitation. Pulmonic Valve Structurally normal pulmonic valve. Moderate pulmonic regurgitation. Pericardium Small Pericardial effusion. Aorta Normal size aortic root and proximal ascending aorta. CONCLUSIONS Normal LV systolic function Small pericardial effusion Previewed by: Dr. Jony Francois MD (Electronically Signed) Final Date: 11 August 2022 10:46
--- NOTE | 2022-08-11 11:54 | P.PN ---
Subjective Progress Note Date: 08/11/22 History of present illness: This is an 81-year-old female patient of Dr. Elder with past medical history of hypertension, hyperlipidemia, family history of coronary artery disease, temporary bradycardia, acute pulmonary embolism 02/2022 status post Inari thrombectomy at [facility] by Dr. Hamilton. On 04/17/2022 she had an EF of 55-60% and continued elevated RVSP of 55 and underwent lower extremity ultrasound negative for DVT. Patient was recently hospitalized at [facility] from July due to hiatal hernia but unfortunately she developed new onset of atrial fibrillation was started on amiodarone and Coreg. She was having palpitations and dizziness was initially started on heparin drip developed right upper extremity hematoma as well as right hip hematoma. She barely was diagnosed with bilateral upper extremity blood clots as well. She was eventually cleared for surgery underwent hernia repair on 07/26/2022. During her hospitalization, patient was also started on Revatio but developed bowel impaction and this was stopped and not resumed. Patient has been resumed on el iquis. Patient feels occasional episodes of atrial fibrillation the last from a few minutes to a few hours. Patient was seen in the office yesterday and states she was feeling fine at that time. Subsequently she developed significant right shoulder, right-sided chest and right lateral rib pain. She has never had this before. She was provided morphine, Toradol and lidocaine and pain is improved but she still has it when she moves. There is some tenderness to palpation. She denies having any abdominal pain. She states she's had some shortness of breath. No lightheadedness or dizziness. She complains of lower extremity edema. Patient is seen today in the emergency center waiting for a bed on the cardiac stepdown unit. We have been asked to evaluate the patient for non-ST elevated myocardial infarction. EKG sinus rhythm with no acute ST changes, low voltage CTA of the chest no evidence of pulmonary emboli. Chest ultrasound reveals bilateral small to moderate pleural effusions, right pleural effusion pocket size 4.9 cm and left pleural effusion pocket size 7.2 cm. WBC 17.6, hemoglobin 10.8, platelet count 249. INR 1.5. D-dimer 3.05. BUN 20 creatinine 1.02, potassium 3.9. Alkaline phosphatase 136, total bilirubin 1.5. Troponin 0.928, 0.92, 1.05. ProBNP 8280 Home cardiac medications: Amiodarone 200 mg daily, Coreg 6.25 mg twice daily, eliquis 5 mg twice daily, simvastatin 40 mg in the evening, aspirin 81 mg daily Echocardiogram 04/17/2022 reveals EF of 55-60%, elevated RVSP of 55 08/11 Patient is seen today in follow up on the cardiac stepdown unit. Patient states pain is gone but she has shortness of breath stating that she is gasping for air. She states that she has been urinating quite a bit. Patient appears to be comfortable at rest. Heart rate is in the 70s to 90s, blood pressure 133/76, pulse ox 96% on 2 L nasal cannula. Repeat blood work reveals potassium 4.3, BUN 28 and creatinine 1.26. Patient has been continued on heparin drip. She is on Lasix 20 mg IV every 12 hours Echocardiogram reveals normal LV systolic function. Small pericardial effusion. Physical examination: Gen: This is an 81-year-old female. She is resting in bed and appears to be comfortable and in no acute distress VS: reviewed HEENT: Head is atraumatic, normocephalic. Pupils equal, round. Sclerae is anicteric. NECK: Supple. No JVD. LUNGS: Clear to auscultation. No wheezes or rhonchi. No intercostal retractions. HEART: Regular rate and rhythm. No murmur. Tenderness right rib area. ABDOMEN: Soft No tenderness. EXTREMITIES: Trace pedal edema. No calf tenderness. NEUROLOGICAL: Patient is awake, alert and oriented x3. Assessment: Elevated troponin, ruled out non-ST RI, possible Takotsubo syndrome, possible myocarditis, possible cardiac amyloidosis Recent hernia repair Recent new onset of atrial fibrillation, paroxysmal Bilateral pleural effusions Hypertension Hyperlipidemia History of pulmonary embolism 02/23 with elevated RVSP Possible recent bilateral upper extremity DVTs Leukocytosis Plan: Hold eliquis and continue patient on heparin drip for another 24 hours Hold amiodarone as patient is bradycardic, continue reduced dose of Lopressor at 12.5 mg daily Continue IV Lasix as ordered by pulmonary Continue home dose of aspirin and statin Obtain [place]a, routine electrophoresis - pending No plan for cardiac catheterization at this time Further recommendations to follow based upon clinical course Nurse practitioner note has been reviewed, I agree with documented findings and plan of care. Patient was seen and examined. Objective - Vital Signs Vital signs: Vital Signs Temp 97.4 F L 08/11/22 08:00 Pulse 73 08/11/22 08:00 Resp 20 08/11/22 08:00 BP 133/76 08/11/22 08:00 Pulse Ox 96 08/11/22 08:00 FiO2 Intake & Output 08/10/22 08/11/22 08/11/22 18:59 06:59 18:59 Intake Total 36.544 43.705 120 Output Total 250 Balance 36.544 -206.295 120 Weight 72 kg Intake: IV 20 Invasive Line 1 20 Intake, IV Titration 36.544 23.705 Amount Heparin Sod,Pork in 0.45% 36.544 23.705 NaCl 25,000 unit In 0.45 % NaCl 1 250ml.bag @ 12 UNITS/KG/HR 8.655 mls/hr IV .Q24H COUNTS INCLUDE 234 BEDS AT THE [facility] Rx#: [id number] Oral 120 Output: Urine 250 Other: Voiding Method Bedside Commode Bedside Commode # Voids 1 # Bowel Movements 1 - Labs CBC & Chem 7: 08/11/22 04:35 08/11/22 04:35 Labs: Abnormal Lab Results - Last 24 Hours (Table) 08/10/22 08/10/22 08/10/22 Range/Units 10:33 10:33 10:33 WBC 20.7 H (3.8-10.6) k/uL RBC 3.67 L (3.80-5.40) m/uL Hgb 10.2 L (11.4-16.0) gm/dL Hct 33.0 L (34.0-46.0) % MCHC 30.9 L (31.0-37.0) g/dL RDW 23.2 H (11.5-15.5) % Neutrophils # 18.9 H (1.3-7.7) k/uL Neutrophils # (Manual) (1.3-7.7) k/uL Lymphocytes # 0.8 L (1.0-4.8) k/uL Lymphocytes # (Manual) (1.0-4.8) k/uL PT 18.9 H (9.0-12.0) sec INR 1.9 H (<1.2) APTT >200.0 H* (22.0-30.0) sec Carbon Dioxide (22-30) mmol/L BUN (7-17) mg/dL Creatinine (0.52-1.04) mg/dL Total Protein (PEP) 5.3 L (6.2-8.2) d/dL Jsku-6-Yjgolqqopvmaj (0.61-2.37) mg/L 08/10/22 08/10/22 08/10/22 Range/Units 10:33 15:35 21:17 WBC (3.8-10.6) k/uL RBC (3.80-5.40) m/uL Hgb (11.4-16.0) gm/dL Hct (34.0-46.0) % MCHC (31.0-37.0) g/dL RDW (11.5-15.5) % Neutrophils # (1.3-7.7) k/uL Neutrophils # (Manual) (1.3-7.7) k/uL Lymphocytes # (1.0-4.8) k/uL Lymphocytes # (Manual) (1.0-4.8) k/uL PT (9.0-12.0) sec INR (<1.2) APTT >200.0 H* 31.0 H (22.0-30.0) sec Carbon Dioxide (22-30) mmol/L BUN (7-17) mg/dL Creatinine (0.52-1.04) mg/dL Total Protein (PEP) (6.2-8.2) d/dL Xukv-5-Ryjbnrzfnebkh 6.80 H (0.61-2.37) mg/L 08/11/22 08/11/22 08/11/22 Range/Units 04:35 04:35 04:35 WBC 15.9 H (3.8-10.6) k/uL RBC 3.79 L (3.80-5.40) m/uL Hgb 10.2 L (11.4-16.0) gm/dL Hct (34.0-46.0) % MCHC 29.7 L (31.0-37.0) g/dL RDW 23.4 H (11.5-15.5) % Neutrophils # (1.3-7.7) k/uL Neutrophils # (Manual) 14.15 H (1.3-7.7) k/uL Lymphocytes # (1.0-4.8) k/uL Lymphocytes # (Manual) 0.64 L (1.0-4.8) k/uL PT 15.0 H (9.0-12.0) sec INR 1.5 H (<1.2) APTT 34.5 H (22.0-30.0) sec Carbon Dioxide 20 L (22-30) mmol/L BUN 28 H (7-17) mg/dL Creatinine 1.26 H (0.52-1.04) mg/dL Total Protein (PEP) (6.2-8.2) d/dL Teht-4-Sjcukltqnqsoa (0.61-2.37) mg/L
--- NOTE | 2022-08-11 12:32 | P.PN ---
Subjective Progress Note Date: 08/11/22 * 81-year-old female past medical history of hypertension, hyperlipidemia, acute pulmonary embolism 02/2022 status postthrombectomy , atrial fibrillation presented to the emergency department with complaints of shortness of breath and dizziness * Workup initiated at the time of presentation in ER included EKG sinus rhythm with no acute ST changes, low voltage, CTA of the chest no evidence of pulmonary emboli. * Chest ultrasound reveals bilateral small to moderate pleural effusions, right pleural effusion pocket size 4.9 cm and left pleural effusion pocket size 7.2 cm. * WBC 17.6, hemoglobin 10.8, platelet count 249. INR 1.5. D-dimer 3.05. BUN 20 creatinine 1.02, Troponin 0.928>0.92> 1.05. ProBNP 8280 * Consultation obtained from cardiology and pulmonary medicine * 08/11> patient evaluated and bedside. Patient does state that her shortness of breath still there and does not feel better. She does appear to be comfortable vitals reviewed. Continue patient on IV heparin drip cardiology following patient is receiving IV Lasix as per echocardiogram showed normal left ventricle systolic function small pericardial effusion noted, conservative management recommended by cardiology for cardiac catheterization at this point continue diuresis Objective - Vital Signs Vital signs: Vital Signs Temp 97.8 F 08/11/22 11:36 Pulse 72 08/11/22 11:36 Resp 18 08/11/22 11:36 BP 135/82 08/11/22 11:36 Pulse Ox 96 08/11/22 11:36 FiO2 Intake & Output 08/10/22 08/11/22 08/11/22 18:59 06:59 18:59 Intake Total 36.544 43.705 120 Output Total 250 0 Balance 36.544 -206.295 120 Weight 72 kg Intake: IV 20 Invasive Line 1 20 Intake, IV Titration 36.544 23.705 Amount Heparin Sod,Pork in 0.45% 36.544 23.705 NaCl 25,000 unit In 0.45 % NaCl 1 250ml.bag @ 12 UNITS/KG/HR 8.655 mls/hr IV .Q24H [facility] Rx#: [id number] Oral 120 Output: Urine 250 0 Stool 0 Other: Voiding Method Bedside Commode Bedside Commode # Voids 1 # Bowel Movements 1 - Exam PHYSICAL EXAMINATION: GENERAL: The patient is alert and oriented x3, ill appearance, nasal cannula in place HEENT: Pupils are round and equally reacting to light. EOMI. CARDIOVASCULAR: Irregular rhythm ,trace lower extremity edema PULMONARY: Decreased breath sounds bilaterally rhonchi audible ABDOMEN: Soft, nontender, nondistended, normoactive bowel sounds. No palpable organomegaly. MUSCULOSKELETAL: No joint swelling or deformity. EXTREMITIES: No cyanosis, clubbing, or pedal edema. NEUROLOGICAL: Gross neurological examination did not reveal any focal deficits. SKIN: No rashes. - Labs CBC & Chem 7: 08/11/22 04:35 08/11/22 04:35 Labs: Abnormal Lab Results - Last 24 Hours (Table) 08/10/22 08/10/22 08/10/22 Range/Units 10:33 10:33 15:35 WBC (3.8-10.6) k/uL RBC (3.80-5.40) m/uL Hgb (11.4-16.0) gm/dL MCHC (31.0-37.0) g/dL RDW (11.5-15.5) % Neutrophils # (Manual) (1.3-7.7) k/uL Lymphocytes # (Manual) (1.0-4.8) k/uL PT (9.0-12.0) sec INR (<1.2) APTT >200.0 H* (22.0-30.0) sec Carbon Dioxide (22-30) mmol/L BUN (7-17) mg/dL Creatinine (0.52-1.04) mg/dL Total Protein (PEP) 5.3 L (6.2-8.2) d/dL Jnkm-8-Yuleiwvdvbfnw 6.80 H (0.61-2.37) mg/L 08/10/22 08/11/22 08/11/22 Range/Units 21:17 04:35 04:35 WBC 15.9 H (3.8-10.6) k/uL RBC 3.79 L (3.80-5.40) m/uL Hgb 10.2 L (11.4-16.0) gm/dL MCHC 29.7 L (31.0-37.0) g/dL RDW 23.4 H (11.5-15.5) % Neutrophils # (Manual) 14.15 H (1.3-7.7) k/uL Lymphocytes # (Manual) 0.64 L (1.0-4.8) k/uL PT (9.0-12.0) sec INR (<1.2) APTT 31.0 H (22.0-30.0) sec Carbon Dioxide 20 L (22-30) mmol/L BUN 28 H (7-17) mg/dL Creatinine 1.26 H (0.52-1.04) mg/dL Total Protein (PEP) (6.2-8.2) d/dL Vqkr-3-Pitsomfjgkzxk (0.61-2.37) mg/L 08/11/22 Range/Units 04:35 WBC (3.8-10.6) k/uL RBC (3.80-5.40) m/uL Hgb (11.4-16.0) gm/dL MCHC (31.0-37.0) g/dL RDW (11.5-15.5) % Neutrophils # (Manual) (1.3-7.7) k/uL Lymphocytes # (Manual) (1.0-4.8) k/uL PT 15.0 H (9.0-12.0) sec INR 1.5 H (<1.2) APTT 34.5 H (22.0-30.0) sec Carbon Dioxide (22-30) mmol/L BUN (7-17) mg/dL Creatinine (0.52-1.04) mg/dL Total Protein (PEP) (6.2-8.2) d/dL Onvy-9-Uufhnowelxdwi (0.61-2.37) mg/L Assessment and Plan Assessment: Assessment and plan * Elevated troponin non-ST elevated VT * New onset atrial fibrillation paroxysmal * History of pulmonary embolism * Acute hypoxic respiratory failure secondary to CHF exacerbation bilateral pleural effusion * Recent hernia repair * Hypertension * Hyperlipidemia * consultations obtained from cardiology and pulmonary medicine * Continue patient on IV heparin, hold Eliquis in anticipation of any procedures and including thoracentesis, however nothing planned at this point * In regard to acute hypoxic respiratory failure and bilateral pleural effusion continue patient on IV Lasix * 2-D echocardiogram shows preserved ejection fraction * Cardiology recommended conservative management continue aspirin, Lipitor, Lasix, metoprolol * Continue current and recommended medical therapy including aspirin, statin, beta l[place] * CODE STATUS is full code Time with Patient: Greater than 30
--- NOTE | 2022-08-11 16:12 | P.PN ---
Subjective Progress Note Date: 08/11/22 I am seeing this patient in new consultation today 08/10/2022 for right sided chest pain and bilateral pleural effusions. Patient is an 81-year-old female with past medical history significant for recent prolonged hospitalization at [facility] where she had a hiatal hernia repair, and was discharged on . She also has history pulmonary embolism, atrial fibrillation on Eliquis, hypertension, hyperlipidemia, GERD. Patient presented early this morning complaining of a right-sided chest pain that started approximately 3 hours prior to arrival in the emergency room. Patient's pain is reproducible with movement or palpation of the right arm and chest wall. Denies any falls or injuries. Denies palpitations, orthopnea, PND. Denies any fevers, chills, cough, shortness of breath, nausea, vomiting, abdominal pain. Patient is currently sitting up in bed, on 2 L nasal cannula, in no acute distress. Chest CTA on arrival showed no evidence of pulmonary embolism. There were small to moderate size bilateral pleural effusions. No obvious ischemic changes on ECG. Troponins are elevated however at 0.93 and 0.92 respectively. Cardiology is on the case. NT proBNP elevated at 8280. BMP shows sodium 130, potassium 3.9, chloride 106, serum CO2, BUN 20, creatinine 1.02, glucose 77. CBC shows a WBC count of 17.6, hemoglobin 10.8, hematocrit 34.7, plt 249. Vital signs are stable. The patient is seen today 08/11/2022 in follow-up on the selective care unit. She is currently resting quite comfortably in bed. Awake and alert in no acute distress. She states her chest discomfort is improved. She still has some shortness of breath with conversation. Shortness of breath with exertion. She is maintaining good O2 saturations in the 90s on 2 L/m per nasal cannula. Echocardiogram revealed preserved left ventricular systolic function with ejection fraction 6065%. Ultrasound of the chest revealed a 4.9 cm pocket on the right and a 7.2 cm pocket on the left. She is continued on Lasix 20 mg IV every 12 hours. White count 15.9. Hemoglobin 10.2. Platelets 2:15. INR 1.5. She remains on a heparin drip. Sodium 138. Potassium 4.3. Bicarb 20. BUN 28. Creatinine 1.26. Objective - Vital Signs Vital signs: Vital Signs Temp 97.8 F 08/11/22 11:36 Pulse 72 08/11/22 11:36 Resp 18 08/11/22 11:36 BP 135/82 08/11/22 11:36 Pulse Ox 96 08/11/22 11:36 FiO2 Intake & Output 08/10/22 08/11/22 08/11/22 18:59 06:59 18:59 Intake Total 36.544 43.705 120 Output Total 250 200 Balance 36.544 -206.295 -80 Weight 72 kg Intake: IV 20 Invasive Line 1 20 Intake, IV Titration 36.544 23.705 Amount Heparin Sod,Pork in 0.45% 36.544 23.705 NaCl 25,000 unit In 0.45 % NaCl 1 250ml.bag @ 12 UNITS/KG/HR 8.655 mls/hr IV .Q24H [facility] Rx#: [id number] Oral 120 Output: Urine 250 200 Stool 0 Other: Voiding Method Bedside Commode Bedside Commode # Voids 1 # Bowel Movements 1 - Exam GENERAL EXAM: Alert, very pleasant 81-year-old female, on 2 L nasal cannula, comfortable in no apparent distress. HEAD: Normocephalic and atraumatic EYES: Normal reaction of pupils, equal size. NOSE: Clear with pink turbinates. THROAT: No erythema or exudates. NECK: No masses, no JVD. CHEST: No chest wall deformity. No crepitus LUNGS: Equal air entry with faint bibasilar inspiratory crackles. No wheeze, rhonchi or dullness. No conversational dyspnea or accessory muscle use.. CVS: S1 and S2 normal with no audible murmur, regular rhythm. No extra heart sounds ABDOMEN: No hepatosplenomegaly, active bowel sounds, no guarding or rigidity. SPINE: No scoliosis or deformity SKIN: No rashes CENTRAL NERVOUS SYSTEM: No focal deficits, tone is normal in all 4 extremities. EXTREMITIES: There is mild nonpitting bilateral lower extremity edema. No c lubbing, or cyanosis. Peripheral pulses are intact. - Labs CBC & Chem 7: 08/11/22 04:35 08/11/22 04:35 Labs: Abnormal Lab Results - Last 24 Hours (Table) 08/10/22 08/10/22 08/10/22 Range/Units 10:33 10:33 15:35 WBC (3.8-10.6) k/uL RBC (3.80-5.40) m/uL Hgb (11.4-16.0) gm/dL MCHC (31.0-37.0) g/dL RDW (11.5-15.5) % Neutrophils # (Manual) (1.3-7.7) k/uL Lymphocytes # (Manual) (1.0-4.8) k/uL PT (9.0-12.0) sec INR (<1.2) APTT >200.0 H* (22.0-30.0) sec Carbon Dioxide (22-30) mmol/L BUN (7-17) mg/dL Creatinine (0.52-1.04) mg/dL Total Protein (PEP) 5.3 L (6.2-8.2) d/dL Dvpg-3-Ahvsiehiahdbr 6.80 H (0.61-2.37) mg/L 08/10/22 08/11/22 08/11/22 Range/Units 21:17 04:35 04:35 WBC 15.9 H (3.8-10.6) k/uL RBC 3.79 L (3.80-5.40) m/uL Hgb 10.2 L (11.4-16.0) gm/dL MCHC 29.7 L (31.0-37.0) g/dL RDW 23.4 H (11.5-15.5) % Neutrophils # (Manual) 14.15 H (1.3-7.7) k/uL Lymphocytes # (Manual) 0.64 L (1.0-4.8) k/uL PT (9.0-12.0) sec INR (<1.2) APTT 31.0 H (22.0-30.0) sec Carbon Dioxide 20 L (22-30) mmol/L BUN 28 H (7-17) mg/dL Creatinine 1.26 H (0.52-1.04) mg/dL Total Protein (PEP) (6.2-8.2) d/dL Kuxk-3-Jurtfnxcfhuhg (0.61-2.37) mg/L 08/11/22 08/11/22 Range/Units 04:35 12:08 WBC (3.8-10.6) k/uL RBC (3.80-5.40) m/uL Hgb (11.4-16.0) gm/dL MCHC (31.0-37.0) g/dL RDW (11.5-15.5) % Neutrophils # (Manual) (1.3-7.7) k/uL Lymphocytes # (Manual) (1.0-4.8) k/uL PT 15.0 H (9.0-12.0) sec INR 1.5 H (<1.2) APTT 34.5 H 52.7 H (22.0-30.0) sec Carbon Dioxide (22-30) mmol/L BUN (7-17) mg/dL Creatinine (0.52-1.04) mg/dL Total Protein (PEP) (6.2-8.2) d/dL Glnl-1-Xrlwmrmsrfzxq (0.61-2.37) mg/L Assessment and Plan Assessment: Right sided chest pain, which is reproducible with coughing, deep inspiration, and palpation. Improved today Elevated troponins, possible NSTEMI Small to moderate sized bilateral lateral pleural effusions, greater on the left than right. Suspected CHF exacerbation, patient has cardiomegaly and bilateral pleural effusions demonstrated on chest CTA. nt pro-bnp elevated at 8280. Acute hypoxemic respiratory failure secondary to above, currently on 2 L nasal cannula History of atrial fibrillation currently anticoagulated on Eliquis. Currently in normal sinus rhythm History of pulmonary embolism Hypertension Hyperlipidemia GERD, without esophagitis Recent prolonged hospital stay for repair of the hiatal hernia Plan: The patient was seen and evaluated Echocardiogram, ultrasound of the chest, labs and medications are reviewed Chest pain is resolving Less short of breath Continue IV diuretics Hold off on thoracentesis for now Remains on a heparin drip We will continue to follow I have personally seen and examined the patient, performed the documentation and the assessment and plan as written. Number of minutes spent on the visit: 10.
[2022-08-11] MEDS: ATORVASTATIN 20 MG TAB PO SCH (19:41)
[2022-08-12] MEDS: PANTOPRAZOLE 40 MG TABLET PO SCH (05:59)
[2022-08-12] MEDS: FAMOTIDINE 20 MG TAB PO SCH (08:41)
[2022-08-12] MEDS: FUROSEMIDE 10 MG/ML 2 ML VIAL IV SCH ×2 (08:41→20:49)
[2022-08-12] MEDS: allopurinoL 100 MG TAB PO SCH (08:41)
[2022-08-12] MEDS: METOPROLOL TARTRATE 12.5 MG TAB PO SCH (08:42)
[2022-08-12] MEDS: ASPIRIN 81 MG PO SCH (08:42)
[2022-08-12 09:04] LABS: Anisocytosis Moderate; HCT 35.6 % (34.0-46.0); HGB 10.5 gm/dL (11.4-16.0); Hypochromasia Marked; MCH 27.5 pg (25.0-35.0); MCHC 29.4 g/dL (31.0-37.0); MCV 93.5 fL (80.0-100.0); Macrocytosis Slight; Mean Platelet Volume 11.8; Microcytosis Slight; RBC 3.81 m/uL (3.80-5.40); RDW 23.2 % (11.5-15.5); WBC 16.1 k/uL (3.8-10.6)
[2022-08-12 09:22] LABS: African American GFR (CKD) 34 (>60 ml/min/1.73 sqM); Anion Gap 14 mmol/L; Blood Urea Nitrogen 38 mg/dL (7-17); Calcium 8.5 mg/dL (8.4-10.2); Carbon Dioxide 15 mmol/L (22-30); Chloride 110 mmol/L (98-107); Glucose 84 mg/dL (74-99); Non-African American GFR(CKD) 30 (>60 ml/min/1.73 sqM); Sodium 139 mmol/L (137-145)
[2022-08-12 09:26] LABS: Potassium 5.2 mmol/L (3.5-5.1)
[2022-08-12 09:53] LABS: Platelet Count 210 k/uL (150-450)
--- NOTE | 2022-08-12 14:05 | P.PN ---
Subjective Progress Note Date: 08/12/22 I am seeing this patient in new consultation today 08/10/2022 for right sided chest pain and bilateral pleural effusions. Patient is an 81-year-old female with past medical history significant for recent prolonged hospitalization at [facility] where she had a hiatal hernia repair, and was discharged on . She also has history pulmonary embolism, atrial fibrillation on Eliquis, hypertension, hyperlipidemia, GERD. Patient presented early this morning complaining of a right-sided chest pain that started approximately 3 hours prior to arrival in the emergency room. Patient's pain is reproducible with movement or palpation of the right arm and chest wall. Denies any falls or injuries. Denies palpitations, orthopnea, PND. Denies any fevers, chills, cough, shortness of breath, nausea, vomiting, abdominal pain. Patient is currently sitting up in bed, on 2 L nasal cannula, in no acute distress. Chest CTA on arrival showed no evidence of pulmonary embolism. There were small to moderate size bilateral pleural effusions. No obvious ischemic changes on ECG. Troponins are elevated however at 0.93 and 0.92 respectively. Cardiology is on the case. NT proBNP elevated at 8280. BMP shows sodium 130, potassium 3.9, chloride 106, serum CO2, BUN 20, creatinine 1.02, glucose 77. CBC shows a WBC count of 17.6, hemoglobin 10.8, hematocrit 34.7, plt 249. Vital signs are stable. The patient is seen today 08/11/2022 in follow-up on the selective care unit. She is currently resting quite comfortably in bed. Awake and alert in no acute distress. She states her chest discomfort is improved. She still has some shortness of breath with conversation. Shortness of breath with exertion. She is maintaining good O2 saturations in the 90s on 2 L/m per nasal cannula. Echocardiogram revealed preserved left ventricular systolic function with ejection fraction 60-65%. Ultrasound of the chest revealed a 4.9 cm pocket on the right and a 7.2 cm pocket on the left. She is continued on Lasix 20 mg IV every 12 hours. White count 15.9. Hemoglobin 10.2. Platelets 215. INR 1.5. She remains on a heparin drip. Sodium 138. Potassium 4.3. Bicarb 20. BUN 28. Creatinine 1.26. The patient is seen today 08/12/2022 in follow-up on the selective care unit. She is awake and alert in no acute distress. She still feeling short of breath. She is maintaining O2 saturations in the mid 90s on room air but feels more comfortable with the oxygen on. Current O2 saturation at 99% on 2 L nasal cannula. She's been afebrile. Hemodynamically stable. White count 16.1. Hemoglobin 10.5. Platelets 210. Sodium 139. Potassium 5.2. Bicarb 15. BUN 38. Creatinine 1.59. Nephrology has been consulted. She remains on IV Lasix 20 mg every 12 hours. Follow-up chest x-ray will be ordered. Objective - Vital Signs Vital signs: Vital Signs Temp 97.3 F L 08/12/22 03:03 Pulse 75 08/12/22 12:00 Resp 16 08/12/22 12:00 BP 148/82 08/12/22 12:00 Pulse Ox 99 08/12/22 12:00 FiO2 Intake & Output 08/11/22 08/12/22 08/12/22 18:59 06:59 18:59 Intake Total 240 225 331.692 Output Total 200 300 200 Balance 40 -75 131.692 Weight 70.1 kg Intake: Intake, IV Titration 151.692 Amount Heparin Sod,Pork in 0.45% 151.692 NaCl 25,000 unit In 0.45 % NaCl 1 250ml.bag @ 12 UNITS/KG/HR 8.655 mls/hr IV .Q24H [facility] Rx#: [id number] Oral 240 225 180 Output: Urine 200 300 200 Stool 0 0 Other: Voiding Method Bedside Commode Bedside Commode Bedside Commode # Voids 1 1 # Bowel Movements 1 1 1 - Exam GENERAL EXAM: Alert, 81-year-old female, on 2 L nasal cannula, comfortable in no apparent distress. HEAD: Normocephalic and atraumatic EYES: Normal reaction of pupils, equal size. NOSE: Clear with pink turbinates. THROAT: No erythema or exudates. NECK: No masses, no JVD. CHEST: No chest wall deformity. No crepitus LUNGS: Equal air entry with faint bibasilar inspiratory crackles left greater than right. CVS: S1 and S2 normal with no audible murmur, regular rhythm. No extra heart sounds ABDOMEN: No hepatosplenomegaly, active bowel sounds, no guarding or rigidity. SPINE: No scoliosis or deformity SKIN: No rashes CENTRAL NERVOUS SYSTEM: No focal deficits, tone is normal in all 4 extremities. EXTREMITIES: There is mild nonpitting bilateral lower extremity edema. No clubbing, or cyanosis. Peripheral pulses are intact. - Labs CBC & Chem 7: 08/12/22 08:04 08/12/22 08:04 Labs: Abnormal Lab Results - Last 24 Hours (Table) 08/12/22 08/12/22 Range/Units 08:04 08:04 WBC 16.1 H (3.8-10.6) k/uL Hgb 10.5 L (11.4-16.0) gm/dL MCHC 29.4 L (31.0-37.0) g/dL RDW 23.2 H (11.5-15.5) % Potassium 5.2 H (3.5-5.1) mmol/L Chloride 110 H (98-107) mmol/L Carbon Dioxide 15 L (22-30) mmol/L BUN 38 H (7-17) mg/dL Creatinine 1.59 H (0.52-1.04) mg/dL Assessment and Plan Assessment: Right sided chest pain, which is reproducible with coughing, deep inspiration, and palpation. Improved today Elevated troponins, possible NSTEMI Moderate sized bilateral lateral pleural effusions, greater on the left than right. Acute exacerbation of diastolic congestive heart failure, patient has cardiomegaly and bilateral pleural effusions demonstrated on chest CTA. nt pro- bnp elevated at 8280. Acute hypoxemic respiratory failure secondary to above, currently on 2 L nasal cannula History of atrial fibrillation currently anticoagulated on Eliquis. Currently in normal sinus rhythm History of pulmonary embolism Hypertension Hyperlipidemia GERD, without esophagitis Recent prolonged hospital stay for repair of the hiatal hernia Plan: The patient was seen and evaluated Labs and medications are reviewed Patient is having continued shortness of breath Chest x-ray ordered Continues on IV diuretics Remains on a heparin drip We will continue to follow I have personally seen and examined the patient, performed the documentation and the assessment and plan as written. Number of minutes spent on the visit: 10.
[2022-08-12] MEDS ORDERED: SODIUM BICARB 8.4% 50 ML SYR (1 MEQ/ML) IV STA (14:42)
[2022-08-12] MEDS: SODIUM BICARBONATE TAB 650 MG TAB PO SCH ×2 (15:01→20:49)
[2022-08-12] MEDS ORDERED: ASPIRIN 325 MG TAB PO STA (16:11)
[2022-08-12] MEDS ORDERED: ATORVASTATIN 80 MG TAB PO STA (16:11)
[2022-08-12] MEDS ORDERED: NITROGLYCERIN SL TABS 0.4 MG TAB SUBLINGUAL PRN (16:11)
[2022-08-12] MEDS ORDERED: DEXTROSE 5% IN WATER 100 ML with AMIODARONE 150 MG IV ONE (16:13)
[2022-08-12] MEDS ORDERED: AMIODARONE 360 MG in DEXTROSE 5% IN WATER 200 ML IV ONE ×2 (16:13)
--- NOTE | 2022-08-12 16:48 | XR ---
EXAMINATION TYPE: XR chest 1V portable DATE OF EXAM: 08/12/2022 Comparison: 02/13/2022 Clinical History: 81-year-old female Pleural effusions Findings: Uomof-xo-fjebryjp right and small left pleural effusions with adjacent opacities in the lower lungs. Atherosclerotic arch calcifications. Heart margins largely obscured. Upper lungs appear clear. Impression: Nffxj-px-fdtjnncn right and small left pleural effusions with adjacent atelectasis and/or consolidati on.
[2022-08-12] MEDS ORDERED: IV FLUID CONTINUATION 1,000 ML IV ONE (16:57)
--- NOTE | 2022-08-12 17:03 | P.PN ---
Subjective Progress Note Date: 08/12/22 History of present illness: This is an 81-year-old female patient of Dr. Elder with past medical history of hypertension, hyperlipidemia, family history of coronary artery disease, temporary bradycardia, acute pulmonary embolism 02/2022 status post Inari thrombectomy at [facility] by Dr. Hamilton. On 04/17/2022 she had an EF of 55-60% and continued elevated RVSP of 55 and underwent lower extremity ultrasound negative for DVT. Patient was recently hospitalized at [facility] from July due to hiatal hernia but unfortunately she developed new onset of atrial fibrillation was started on amiodarone and Coreg. She was having palpitations and dizziness was initially started on heparin drip developed right upper extremity hematoma as well as right hip hematoma. She barely was diagnosed with bilateral upper extremity blood clots as well. She was eventually cleared for surgery underwent hernia repair on 07/26/2022. During her hospitalization, patient was also started on Revatio but developed bowel impaction and this was stopped and not resumed. Patient has been resumed on el iquis. Patient feels occasional episodes of atrial fibrillation the last from a few minutes to a few hours. Patient was seen in the office yesterday and states she was feeling fine at that time. Subsequently she developed significant right shoulder, right-sided chest and right lateral rib pain. She has never had this before. She was provided morphine, Toradol and lidocaine and pain is improved but she still has it when she moves. There is some tenderness to palpation. She denies having any abdominal pain. She states she's had some shortness of breath. No lightheadedness or dizziness. She complains of lower extremity edema. Patient is seen today in the emergency center waiting for a bed on the cardiac stepdown unit. We have been asked to evaluate the patient for non-ST elevated myocardial infarction. EKG sinus rhythm with no acute ST changes, low voltage CTA of the chest no evidence of pulmonary emboli. Chest ultrasound reveals bilateral small to moderate pleural effusions, right pleural effusion pocket size 4.9 cm and left pleural effusion pocket size 7.2 cm. WBC 17.6, hemoglobin 10.8, platelet count 249. INR 1.5. D-dimer 3.05. BUN 20 creatinine 1.02, potassium 3.9. Alkaline phosphatase 136, total bilirubin 1.5. Troponin 0.928, 0.92, 1.05. ProBNP 8280 Home cardiac medications: Amiodarone 200 mg daily, Coreg 6.25 mg twice daily, eliquis 5 mg twice daily, simvastatin 40 mg in the evening, aspirin 81 mg daily Echocardiogram 04/17/2022 reveals EF of 55-60%, elevated RVSP of 55 08/11 Patient is seen today in follow up on the cardiac stepdown unit. Patient states pain is gone but she has shortness of breath stating that she is gasping for air. She states that she has been urinating quite a bit. Patient appears to be comfortable at rest. Heart rate is in the 70s to 90s, blood pressure 133/76, pulse ox 96% on 2 L nasal cannula. Repeat blood work reveals potassium 4.3, BUN 28 and creatinine 1.26. Patient has been continued on heparin drip. She is on Lasix 20 mg IV every 12 hours Echocardiogram reveals normal LV systolic function. Small pericardial effusion. 08/12 Vision seen and examined. She reports that she is feeling worse today. She is still having shortness of breath. She has right chest and right back discomfort that is tender on exam. She has decreased appetite and nausea, states she has not eaten today. She also feels weak and lightheaded and has not been out of bed. She denies any abdominal pain. Chest x-ray does show worsening pleural effusions. Physical examination: Gen: This is an 81-year-old female. She is resting in bed and appears to be comfortable and in no acute distress VS: reviewed HEENT: Head is atraumatic, normocephalic. Pupils equal, round. Sclerae is anicteric. NECK: Supple. No JVD. LUNGS: Clear to auscultation. No wheezes or rhonchi. No intercostal retractions. HEART: Irregular rate and rhythm. No murmur. Tenderness right rib area. ABDOMEN: Soft No tenderness. EXTREMITIES: Trace pedal edema. No calf tenderness. NEUROLOGICAL: Patient is awake, alert and oriented x3. Assessment: Elevated troponin, ruled out non-ST AL, possible Takotsubo syndrome, possible myocarditis, possible cardiac amyloidosis- labs still pending Recent hernia repair Recent new onset of atrial fibrillation, paroxysmal Bilateral pleural effusions Hypertension Hyperlipidemia History of pulmonary embolism 02/23 with elevated RVSP Possible recent bilateral upper extremity DVTs Leukocytosis Hypertension Plan: Dr. Elder had a long discussion with family at bedside. Patient with atypical chest pain however she does have elevated troponins. Her dyspnea is worse despite diuretics. Pulmonary is considering possible thoracentesis. Her kidney function is also declining, will follow up with nephrology r ecommendations. Echo reviewed and relatively stable. She had a prior heart cath that showed mild CAD. She has been having intermittent episodes of atrial fibrillation over the past 24 hours, this may be contributing to some of her worsening of symptoms today; we'll start amiodarone drip. Discussed right heart catheterization to evaluate pressures of the heart. The risks ad benefits of the procedure were discussed including worsening kidney function. Patient and family agreed to proceed with right heart catheterization at this time. Further recommendations post procedure. Nurse practitioner note has been reviewed, I agree with documented findings and plan of care. Patient was seen and examined. Objective - Vital Signs Vital signs: Vital Signs Temp 97.3 F L 08/12/22 03:03 Pulse 70 08/12/22 15:09 Resp 16 08/12/22 15:09 BP 137/83 08/12/22 15:09 Pulse Ox 97 08/12/22 15:09 FiO2 Intake & Output 08/11/22 08/12/22 08/12/22 18:59 06:59 18:59 Intake Total 240 225 331.692 Output Total 200 300 300 Balance 40 -75 31.692 Weight 70.1 kg Intake: Intake, IV Titration 151.692 Amount Heparin Sod,Pork in 0.45% 151.692 NaCl 25,000 unit In 0.45 % NaCl 1 250ml.bag @ 12 UNITS/KG/HR 8.655 mls/hr IV .Q24H [facility] Rx#: [id number] Oral 240 225 180 Output: Urine 200 300 300 Stool 0 0 Other: Voiding Method Bedside Commode Bedside Commode Bedside Commode # Voids 1 1 1 # Bowel Movements 1 1 1 - Labs CBC & Chem 7: 08/12/22 08:04 08/12/22 08:04 Labs: Abnormal Lab Results - Last 24 Hours (Table) 08/12/22 08/12/22 Range/Units 08:04 08:04 WBC 16.1 H (3.8-10.6) k/uL Hgb 10.5 L (11.4-16.0) gm/dL MCHC 29.4 L (31.0-37.0) g/dL RDW 23.2 H (11.5-15.5) % Potassium 5.2 H (3.5-5.1) mmol/L Chloride 110 H (98-107) mmol/L Carbon Dioxide 15 L (22-30) mmol/L BUN 38 H (7-17) mg/dL Creatinine 1.59 H (0.52-1.04) mg/dL
[2022-08-12] MEDS ORDERED: LIDOCAINE 1% INJ 10MG/ML (5 ML VIAL-PF) SQ ONE (17:06)
[2022-08-12] MEDS ORDERED: MIDAZOLAM 2 MG/2 ML VIAL IV ONE (17:07)
[2022-08-12 17:26] LABS: O2 Sat Blood Gas 56.1 %
[2022-08-12 17:48] LABS: O2 Sat Blood Gas 52.3 %
--- NOTE | 2022-08-12 18:13 | P.PCN ---
Description of Procedure: PROCEDURES PERFORMED: Right heart catheterization INDICATION: DANNY, CHF, Pulmonary hypertension CONSENT:I have discussed the risks, benefits and alternative therapies for the above-mentioned procedure and for both sedation/analgesia as well as necessary blood product administration, if indicated, as they pertain to this patient. Th e patient has indicated understanding and acceptance of the risks and procedures discussed. PROCEDURE: After the risks, benefits and alternatives of the above mentioned procedure explained in detail with the patient, informed consent was obtained. Patient was taken to the catheterization lab and prepped and draped in usual fashion. 1% lidocaine was used to anesthetize the right brachial area. A 6- Irish sheath was placed in the right brachial vein using modified Seldinger technique. A 5-Irish [place]-Yoel catheter was inserted into the right atrium, right ventricle, PA and pulmonary Wedge positions with pressure measurements and oxygen saturations obtained. Thermodilution was performed. The catheter was then removed. The sheath was removed and pressure maintained with hemostasis achieved. The patient tolerated the procedure well. Patient was transported back to the post catheterization holding area in stable condition. Conscious Sedation: Patient was monitored under the direct supervision of myself for conscious sedation using Versed and fentanyl for a total duration of 15 minutes HEMODYNAMICS: Ao: 138/89 RA: 8 mmHg RV: 47/1 mmHg PA: 47/22 (31) mmHg PCWP: 12 mmHg RA oxygen saturation: 52% PA oxygen saturation: 56% Pulse ox: 85% on room air Cardiac outpt by CONNIE: 5.0 L/min Cardiac index by CONNIE: 2.8 L/min/m2 Cardiac outpt by thermodilution: 4.28 L/min Cardiac index by thermodilution: 2.4 L/min/m2 FINAL IMPRESSION: 1. Normal left and minimally elevated right sided pressures 2. Low normal cardiac outpt/ cardiac index 3. Pulmonary hypertension likely mainly group 4 4. Hypoxia, 85% on room air 5. Afib with mild RVR 100-120 throughout case PLAN: Relatively normal filling pressures and therefore give 500cc fluid bolus with recent DANNY Consider addition of Revatio given pulmonary hypertension
[2022-08-12] MEDS: HEPARIN SOD,PORK IN 0.45% NACL 25,000 UNIT in 0.45% NACL 1 250ML.BAG IV SCH (18:44)
[2022-08-12] MEDS: ATORVASTATIN 20 MG TAB PO SCH (20:49)
[2022-08-12] MEDS: AMIODARONE 450 MG in DEXTROSE 5% IN WATER 250 ML IV SCH ×2 (23:46)
[2022-08-13] MEDS: PANTOPRAZOLE 40 MG TABLET PO SCH (06:18)
[2022-08-13] MEDS ORDERED: HEPARIN SODIUM,PORCINE 10,000 UNIT in SODIUM CHLORIDE 0.9% 1,000 ML IRRIGATION PRN (07:00)
[2022-08-13] MEDS ORDERED: HEPARIN SODIUM,PORCINE 2,500 UNIT in SODIUM CHLORIDE 0.9% 250 ML IRRIGATION PRN (07:00)
[2022-08-13] MEDS: FUROSEMIDE 10 MG/ML 2 ML VIAL IV SCH (08:35)
[2022-08-13] MEDS: FAMOTIDINE 20 MG TAB PO SCH (08:36)
[2022-08-13] MEDS: SODIUM BICARBONATE TAB 650 MG TAB PO SCH ×3 (08:36→21:55)
[2022-08-13] MEDS: ASPIRIN 81 MG PO SCH (08:36)
[2022-08-13] MEDS: allopurinoL 100 MG TAB PO SCH (08:36)
[2022-08-13] MEDS: METOPROLOL TARTRATE 12.5 MG TAB PO SCH (08:36)
--- NOTE | 2022-08-13 10:19 | P.NPCON ---
History of Present Illness - Reason for Consult acute renal failure, chronic renal failure - History of Present Illness Reason for consultation: Acute kidney injury on chronic kidney disease History of present illness: Patient is a 81-year-old female seen in renal consultation for acute kidney injury on chronic kidney disease. Patient has chronic kidney disease stage III A. fib baseline creatinine the range of 1-1.2. Creatinine was 1.02 on admission and was up to 1.59 yesterday. Patient came to the hospital due to sudden onset of shortness of breath which began Sunday. Patient was noted to be in A. fib with RVR and is currently maintained on amiodarone drip. Patient has diastolic CHF with moderate to severe tricuspid regurgitation and moderate pulmonic regurgitation. Imaging showed bilateral pleural effusions. She is currently on IV Lasix 20 mg twice daily. She scheduled to undergo thoracentesis today. Patient also received IV contrast on admission on 08/10/2022 for chest CTA. She is currently on 2 L cannula. Blood pressure stable. Denies gross hematuria or dysuria. No history of diabetes. Denies history of coronary artery disease. Denies family history of renal disease. Denies regular use of nonsteroidals. Vital signs are stable. General: No acute distress. HEENT: Head exam is unremarkable. On nasal cannula. LUNGS: Scattered rhonchi. HEART: Rate and Rhythm are regular. ABDOMEN: Nontender. EXTREMITITES: No edema. Past Medical History Past Medical History: Atrial Fibrillation, Eye Disorder, GERD/Reflux, Hyperlipidemia, Hypertension, Osteoarthritis (OA) Additional Past Medical History / Comment(s): Macular Degeneration, Gout. right carpal tunnel surgery Nov 2021. COVID 19 vaccination (moderna x3) and a flu shot History of Any Multi-Drug Resistant Organisms: None Reported Past Surgical History: Breast Surgery, Hernia Repair, Joint Replacement, Orthopedic Surgery Additional Past Surgical History / Comment(s): RIGHT KNEE ARTHROSCOPY ,RIGHT BREAST BIOPSY, PARTIAL THYROIDECTOMY(RIGHT SIDE), BILATERAL TOTAL KNEE RE PLACEMENTS, BILATERAL CATARACTS REMOVED, RIGHT CARPAL TUNNEL SURGERY. Past Anesthesia/Blood Transfusion Reactions: No Reported Reaction Past Psychological History: No Psychological Hx Reported Smoking Status: Never smoker Past Alcohol Use History: None Reported Additional Past Alcohol Use History / Comment(s): Patient is a lifelong nonsmoker. She denies any marijuana or illicit drug use. No alcohol use. She lives at home with her . Past Drug Use History: None Reported - Past Family History Sister(s) History Unknown: Yes Family Medical History: Cancer Additional Family Medical History / Comment(s): Patient has one sister that from recurrence of breast cancer. Father History Unknown: Yes Family Medical History: Renal Disease Additional Family Medical History / Comment(s): Father at age 82 from renal failure. Brother(s) History Unknown: Yes Family Medical History: Cancer, Myocardial Infarction (ND) Additional Family Medical History / Comment(s): Patient has 2 brothers that have passed, one from a myocardial infarction at age 65 and 1 from a tumor in his neck. Mother History Unknown: Yes Family Medical History: Chest Pain / Angina, Myocardial Infarction (ND) Additional Family Medical History / Comment(s): Mother at age 74 from myocardial infarction. Medications and Allergies Home Medications Medication Instructions Recorded Confirmed Type Simvastatin 40 mg PO HS 08/12/14 08/10/22 History Aspirin [Adult Low Dose Aspirin EC] 81 mg PO DAILY 03/28/18 08/10/22 History Apixaban [Eliquis] 5 mg PO BID 06/05/22 08/10/22 History Vit C/E/Zn/Coppr/Lutein/Zeaxan 1 tab PO DAILY 06/21/22 08/10/22 History [Preservision Areds 2 Softgel] Amiodarone [Cordarone] 200 mg PO DAILY 08/10/22 08/10/22 History Famotidine [Pepcid] 20 mg PO DAILY 08/10/22 08/10/22 History Omeprazole 20 mg PO AC-BRKFST 08/10/22 08/10/22 History allopurinoL [Zyloprim] 200 mg PO DAILY 08/10/22 08/10/22 History carvediloL [Coreg] 6.25 mg PO BID 08/10/22 08/10/22 History Allergies Allergy/AdvReac Type Severity Reaction Status Date / Time Penicillins Allergy Rash/Hives Verified 08/10/22 11:22 codeine AdvReac Rapid Verified 08/10/22 11:22 Heart Rate Physical Exam Vitals: Vital Signs Pulse Pulse Resp BP Pulse Ox 08/13/22 08:08 92 L 08/13/22 08:00 67 18 144/73 91 L 08/13/22 04:00 68 18 148/84 96 06/11/23 01:57 96 08/13/22 00:00 67 18 109/64 94 L 08/12/22 20:30 56 L 116/72 92 L 08/12/22 20:01 65 109/69 93 L 08/12/22 19:31 71 120/69 94 L 08/12/22 19:01 67 109/70 92 L 08/12/22 18:27 90 16 132/80 92 L 08/12/22 18:13 16 136/80 94 L 08/12/22 15:09 70 16 137/83 97 08/12/22 12:00 75 16 148/82 99 Intake and Output 08/12/22 08/13/22 08/13/22 22:59 06:59 14:59 Intake Total 147.796 37.153 Output Total 100 650 Balance 47.796 -612.847 Intake: IV 100 Intake, IV Titration 47.796 37.153 Amount Heparin Sod,Pork in 0.45% 47.796 37.153 NaCl 25,000 unit In 0.45 % NaCl 1 250ml.bag @ 12 UNITS/KG/HR 8.655 mls/hr IV .Q24H [facility] Rx#: [id number] Output: Urine 100 650 Other: Voiding Method Bedside Commode Bedside Commode # Voids 1 Weight 71.4 kg Results - Lab Results Most recent lab results Calcium 8.5 mg/dL (8.4-10.2) 08/12/22 08:04 Magnesium 2.0 mg/dL (1.6-2.3) 08/12/22 08:04 08/12/22 08:04 08/12/22 08:04 Assessment and Plan Plan: Assessment: 1. Acute kidney injury secondary to hemodynamic ATN. Also received IV contrast on 08/10/2022. Creatinine 1.02 on admission and up to 1.59 yesterday. 2. A. fib with RVR maintained on amiodarone drip. 3. Acute on chronic diastolic CHF with moderate pulmonary regurgitation and moderate to severe tricuspid regurgitation. 4. Volume overload with pleural effusions. Thoracentesis today. 5. Acute hypoxic respiratory failure. 6. Metabolic acidosis secondary to acute kidney injury. On oral bicarbonate. Plan: Increase Lasix to 40 mg IV twice daily. Check UA. Check renal ultrasound. Avoid nephrotoxins. Continue to monitor renal function and urine output. Morning labs pending. Thank you for the consultation. I will continue to follow the patient with you during her hospital stay.
--- NOTE | 2022-08-13 11:04 | XR ---
EXAMINATION TYPE: XR chest 1V portable DATE OF EXAM: 08/13/2022 Comparison: 08/12/2022 Clinical History: 81-year-old female Post left thoracentesis Findings: Heart normal size. Ongoing small to moderate right pleural effusion, possibly slightly increased from prior exam. Decreased left pleural effusion. Trace effusion remains but with patchy left basilar ret rocardiac opacity noted. No appreciable pneumothorax. Impression: 1. Improved effusion on the left. A trace effusion may remain. However, there is prominent patchy ret rocardiac infiltrate/atelectasis noted. 2. Small to moderate right pleural effusion may be increasing.
--- NOTE | 2022-08-13 11:30 | OP ---
OPERATIVE REPORT DATE OF SERVICE : PROCEDURE PERFORMED: Left-sided thoracentesis. PREOPERATIVE DIAGNOSIS: Left-sided pleural effusion. POSTOPERATIVE DIAGNOSIS: Left-sided pleural effusion. ANESTHESIA USED: 2 mL of 1% lidocaine. DESCRIPTION OF PROCEDURE: The patient was placed in a sitting upright position, the area below the left scapula was prepared in a sterile fashion. Drapes were applied. The area which was earlier localized by ultrasound correlated to the 8th intercostal space and tip of the scapula. The area was locally anesthetized, and a 26-gauge needle was inserted at the same site, advanced into the pleural space, fluid was localized with the needle. Then, a small tiny stab wound was made in the area and a thoracentesis catheter and needle were used, advanced at the same site into the pleural space. Fluid was obtained. The catheter was advanced over the needle, needle pulled out of the pleural space. Fluid was drained. Roughly, 400 mL of serosanguineous fluid was removed from the left pleural space. Fluid was sent for different diagnostic studies. Chest x-ray showed complete clearance of the left pleural effusion and no evidence of complications, no pneumothorax. MMODL / IJN: [id number] /
--- NOTE | 2022-08-13 12:08 | P.PN ---
Subjective History of present illness: This is an 81-year-old female patient of Dr. Elder with past medical history of hypertension, hyperlipidemia, family history of coronary artery disease, temporary bradycardia, acute pulmonary embolism 02/2022 status post Inari thrombectomy at [facility] by Dr. Hamilton. On 04/17/2022 she had an EF of 55-60% and continued elevated RVSP of 55 and underwent lower extremity ultrasound negative for DVT. Patient was recently hospitalized at [facility] from July due to hiatal hernia but unfortunately she developed new onset of atrial fibrillation was started on amiodarone and Coreg. She was having palpitations and dizziness was initially started on heparin drip developed right upper extremity hematoma as well as right hip hematoma. She barely was diagnosed with bilateral upper extremity blood clots as well. She was eventually cleared for surgery underwent hernia repair on 07/26/2022. During her hospitalization, patient was also started on Revatio but developed bowel impaction and this was stopped and not resumed. Patient has been resumed on eliquis. Patient feels occasional episodes of atrial fibrillation the last from a few minutes to a few hours. Patient was seen in the office yesterday and states she was feeling fine at that time. Subsequently she developed significant right shoulder, right-sided chest and right lateral rib pain. She has never had this before. She was provided morphine, Toradol and lidocaine and pain is improved but she still has it when she moves. There is some tenderness to palpation. She denies having any abdominal pain. She states she's had some shortness of breath. No lightheadedness or dizziness. She complains of lower extremity edema. Patient is seen today in the emergency center waiting for a bed on the cardiac stepdown unit. We have been asked to evaluate the patient for non-ST elevated myocardial infarction. EKG sinus rhythm with no acute ST changes, low voltage CTA of the chest no evidence of pulmonary emboli. Chest ultrasound reveals bilateral small to moderate pleural effusions, right pleural effusion pocket size 4.9 cm and left pleural effusion pocket size 7.2 cm. WBC 17.6, hemoglobin 10.8, platelet count 249. INR 1.5. D-dimer 3.05. BUN 20 creatinine 1.02, potassium 3.9. Alkaline phosphatase 136, total bilirubin 1.5. Troponin 0.928, 0.92, 1.05. ProBNP 8280 Home cardiac medications: Amiodarone 200 mg daily, Coreg 6.25 mg twice daily, eliquis 5 mg twice daily, simvastatin 40 mg in the evening, aspirin 81 mg daily Echocardiogram 04/17/2022 reveals EF of 55-60%, elevated RVSP of 55 08/11 Patient is seen today in follow up on the cardiac stepdown unit. Patient states pain is gone but she has shortness of breath stating that she is gasping for air. She states that she has been urinating quite a bit. Patient appears to be comfortable at rest. Heart rate is in the 70s to 90s, blood pressure 133/76, pulse ox 96% on 2 L nasal cannula. Repeat blood work reveals potassium 4.3, BUN 28 and creatinine 1.26. Patient has been continued on heparin drip. She is on Lasix 20 mg IV every 12 hours Echocardiogram reveals normal LV systolic function. Small pericardial effusion. 08/12 Vision seen and examined. She reports that she is feeling worse today. She is still having shortness of breath. She has right chest and right back discomfort that is tender on exam. She has decreased appetite and nausea, states she has not eaten today. She also feels weak and lightheaded and has not been out of bed. She denies any abdominal pain. Chest x-ray does show worsening pleural effusions. 08/13 Patient seen and examined. Patient underwent right heart catheterization yesterday which showed normal left-sided filling pressures and minimally elevated right-sided filling pressures with pulmonary hypertension likely related to prior pulmonary embolism. Therefore diuretics were discontinued and given 500 mL bolus given acute kidney injury. Nephrology saw patient this morning in place patient back on diuretics. We discussed with patient given patient had worsened symptoms despite diuresis and worsened effusion and normal left-sided filling pressures holding diuretics for now and monitoring kidney function. Patient did undergo thoracentesis with improvement and symptoms and additionally has been on amiodarone drip intermittently in A. fib however currently in sinus rhythm. She states she feels much better currently today. Physical examination: Gen: This is an 81-year-old female. She is resting in bed and appears to be comfortable and in no acute distress VS: reviewed HEENT: Head is atraumatic, normocephalic. Pupils equal, round. Sclerae is anicteric. NECK: Supple. No JVD. LUNGS: Clear to auscultation. No wheezes or rhonchi. No intercostal retractions. HEART: Irregular rate and rhythm. No murmur. Tenderness right rib area. ABDOMEN: Soft No tenderness. EXTREMITIES: Trace pedal edema. No calf tenderness. NEUROLOGICAL: Patient is awake, alert and oriented x3. Assessment: Elevated troponin, likely type 2 mechanism with prior LHC relatively normal. Some microvascular dysfunction noted previous cath. Less likely Type 1 mechanism Recent hernia repair Recent new onset of atrial fibrillation, paroxysmal Bilateral pleural effusions Hypertension Hyperlipidemia History of pulmonary embolism 02/23 with elevated RVSP Possible recent bilateral upper extremity DVTs Leukocytosis Hypertension Plan: Patient with elevated troponins, likely type II mechanism with relatively normal or heart catheterization previously and atypical chest pain Patient has had worsened bilateral effusions and worsened symptoms despite diuretics with worsening kidney function. Right heart catheterization performed yesterday shows normal left-sided filling pressures with minimally elevated right-sided filling pressures. Normal left-sided filling pressures argue against effusions and shortness of breath related to heart failure. Additionally noted to be hypoxic 85% on room air during procedure. Therefore given worsening kidney function hold diuretics and await repeat blood work to day. Evaluate thoracentesis for changes related versus exudative. Some of symptoms may be related to patient being still symptomatic from her pulmonary embolism. If patient still significantly symptomatic may consider repeat heart catheterization. Prognosis guarded. Objective - Vital Signs Vital signs: Vital Signs Temp 97.3 F L 08/12/22 03:03 Pulse 67 08/13/22 08:00 Resp 18 08/13/22 08:00 BP 144/73 08/13/22 08:00 Pulse Ox 92 L 08/13/22 08:08 FiO2 Intake & Output 08/12/22 08/13/22 08/13/22 18:59 06:59 18:59 Intake Total 469.751 46.890 Output Total 300 650 125 Balance 169.751 -603.110 -125 Weight 71.4 kg Intake: IV 100 Intake, IV Titration 189.751 46.890 Amount Heparin Sod,Pork in 0.45% 189.751 46.890 NaCl 25,000 unit In 0.45 % NaCl 1 250ml.bag @ 12 UNITS/KG/HR 8.655 mls/hr IV .Q24H [facility] Rx#: [id number] Oral 180 Output: Urine 300 650 125 Stool 0 0 Other: Voiding Method Bedside Commode Bedside Commode Bedside Commode # Voids 1 # Bowel Movements 1 - Labs CBC & Chem 7: 08/12/22 08:04 08/12/22 08:04 Labs: Abnormal Lab Results - Last 24 Hours (Table) 08/12/22 08/13/22 Range/Units 18:20 00:02 APTT 34.8 H 85.0 H (22.0-30.0) sec
--- NOTE | 2022-08-13 12:36 | P.PN ---
Subjective Progress Note Date: 08/13/22 I am seeing this patient in new consultation today 08/10/2022 for right sided chest pain and bilateral pleural effusions. Patient is an 81-year-old female with past medical history significant for recent prolonged hospitalization at [facility] where she had a hiatal hernia repair, and was discharged on . She also has history pulmonary embolism, atrial fibrillation on Eliquis, hypertension, hyperlipidemia, GERD. Patient presented early this morning complaining of a right-sided chest pain that started approximately 3 hours prior to arrival in the emergency room. Patient's pain is reproducible with movement or palpation of the right arm and chest wall. Denies any falls or injuries. Denies palpitations, orthopnea, PND. Denies any fevers, chills, cough, shortness of breath, nausea, vomiting, abdominal pain. Patient is currently sitting up in bed, on 2 L nasal cannula, in no acute distress. Chest CTA on arrival showed no evidence of pulmonary embolism. There were small to moderate size bilateral pleural effusions. No obvious ischemic changes on ECG. Troponins are elevated however at 0.93 and 0.92 respectively. Cardiology is on the case. NT proBNP elevated at 8280. BMP shows sodium 130, potassium 3.9, chloride 106, serum CO2, BUN 20, creatinine 1.02, glucose 77. CBC shows a WBC count of 17.6, hemoglobin 10.8, hematocrit 34.7, plt 249. Vital signs are stable. The patient is seen today 08/11/2022 in follow-up on the selective care unit. She is currently resting quite comfortably in bed. Awake and alert in no acute distress. She states her chest discomfort is improved. She still has some shortness of breath with conversation. Shortness of breath with exertion. She is maintaining good O2 saturations in the 90s on 2 L/m per nasal cannula. Echocardiogram revealed preserved left ventricular systolic function with ejection fraction 60-65%. Ultrasound of the chest revealed a 4.9 cm pocket on the right and a 7.2 cm pocket on the left. She is continued on Lasix 20 mg IV every 12 hours. White count 15.9. Hemoglobin 10.2. Platelets 215. INR 1.5. She remains on a heparin drip. Sodium 138. Potassium 4.3. Bicarb 20. BUN 28. Creatinine 1.26. The patient is seen today 08/12/2022 in follow-up on the selective care unit. She is awake and alert in no acute distress. She still feeling short of breath. She is maintaining O2 saturations in the mid 90s on room air but feels more comfortable with the oxygen on. Current O2 saturation at 99% on 2 L nasal cannula. She's been afebrile. Hemodynamically stable. White count 16.1. Hemoglobin 10.5. Platelets 210. Sodium 139. Potassium 5.2. Bicarb 15. BUN 38. Creatinine 1.59. Nephrology has been consulted. She remains on IV Lasix 20 mg every 12 hours. Follow-up chest x-ray will be ordered. The patient is seen today 08/13/2022 in follow-up on the selective care unit. She is currently sitting up at the bedside. Awake and alert in no acute distress. She had been admitted ongoing issues with shortness of breath and dyspnea on exertion. She does have bilateral pleural effusions left greater than right. She did undergo a left-sided thoracentesis today with 400 ML's of serosanguineous fluid removed. Follow-up chest x-ray showed no evidence of pneumothorax. Continued evidence of a right-sided pleural effusion. Her heparin drip will be resumed 2 hours post procedure. She is maintaining O2 saturations in the 90s on 3 L/m per nasal cannula. She did undergo a right-sided cardiac catheterization yesterday and was found abnormal left and minimally elevated right-sided pressures. Being considered for Revatio for her pulmonary hypertension likely mainly group 4. She did have atrial fibrillation with rapid ventricular response last evening was been initiated on amiodarone drip currently at 0.5 mg/m. She remains on Lasix 20 mg IV every 12 hours. Currently in a negative balance. Objective - Vital Signs Vital signs: Vital Signs Temp 97.3 F L 08/12/22 03:03 Pulse 67 08/13/22 12:00 Resp 16 08/13/22 12:00 BP 122/61 08/13/22 12:00 Pulse Ox 93 L 08/13/22 12:00 FiO2 Intake & Output 08/12/22 08/13/22 08/13/22 18:59 06:59 18:59 Intake Total 469.751 46.890 Output Total 300 650 125 Balance 169.751 -603.110 -125 Weight 71.4 kg Intake: IV 100 Intake, IV Titration 189.751 46.890 Amount Heparin Sod,Pork in 0.45% 189.751 46.890 NaCl 25,000 unit In 0.45 % NaCl 1 250ml.bag @ 12 UNITS/KG/HR 8.655 mls/hr IV .Q24H [facility] Rx#: [id number] Oral 180 Output: Urine 300 650 125 Stool 0 0 Other: Voiding Method Bedside Commode Bedside Commode Bedside Commode # Voids 1 # Bowel Movements 1 - Exam GENERAL EXAM: Alert, 81-year-old female, sitting up at the bedside, on 3 L nasal cannula, comfortable in no apparent distress. HEAD: Normocephalic and atraumatic EYES: Normal reaction of pupils, equal size. NOSE: Clear with pink turbinates. THROAT: No erythema or exudates. NECK: No masses, no JVD. CHEST: No chest wall deformity. No crepitus LUNGS: Equal air entry with faint bibasilar inspiratory crackles left greater than right. CVS: S1 and S2 normal with no audible murmur, irregular rhythm. No extra heart sounds ABDOMEN: No hepatosplenomegaly, active bowel sounds, no guarding or rigidity. SPINE: No scoliosis or deformity SKIN: No rashes CENTRAL NERVOUS SYSTEM: No focal deficits, tone is normal in all 4 extremities. EXTREMITIES: There is mild nonpitting bilateral lower extremity edema. No clubbing, or cyanosis. Peripheral pulses are intact. - Labs CBC & Chem 7: 08/12/22 08:04 08/12/22 08:04 Labs: Abnormal Lab Results - Last 24 Hours (Table) 08/12/22 08/13/22 Range/Units 18:20 00:02 APTT 34.8 H 85.0 H (22.0-30.0) sec Assessment and Plan Assessment: Right sided chest pain, which is reproducible with coughing, deep inspiration, and palpation. Elevated troponins, possible NSTEMI Moderate sized bilateral lateral pleural effusions, greater on the left than right. Left-sided thoracentesis performed on 08/13/2022 with 400 ML's of serosanguineous fluid removed. Fluid analysis and cytology pending Acute exacerbation of diastolic congestive heart failure, patient has cardiomegaly and bilateral pleural effusions demonstrated on chest CTA. nt pro- bnp elevated at 8280. Acute hypoxemic respiratory failure secondary to above, currently on 2 L nasal cannula History of paroxysmal atrial fibrillation currently on a heparin drip. Currently on amiodarone drip. Previously anticoagulated on Eliquis. History of pulmonary embolism Hypertension Hyperlipidemia GERD, without esophagitis Recent prolonged hospital stay for repair of the hiatal hernia Plan: The patient was seen and evaluated Labs and medications are reviewed Left-sided thoracentesis performed today with 400 mL removed Fluid analysis and cytology pending Follow-up chest x-ray revealed no pneumothorax, continues with a right-sided pleural effusion Continues on IV diuretics Remains on a heparin drip Currently on amiodarone drip. Patient had recurrent atrial fibrillation with RVR We will continue to follow I have personally seen and examined the patient, performed the documentation and the assessment and plan as written. Number of minutes spent on the visit: 10.
--- NOTE | 2022-08-13 13:04 | US ---
EXAMINATION TYPE: US kidneys/renal and bladder DATE OF EXAM: 08/13/2022 COMPARISON: NONE CLINICAL INDICATION: Female, 81 years old with history of david EXAM MEASUREMENTS: Right Kidney: 11.2 x 6.1 x 4.6 cm Left Kidney: 9.5 x 5.4 x 4.6 cm Right Kidney: Kidney tissue not well visualized due to multiple cysts largest inferior 6.7 x 7.3 x 6. 5 cm. Left Kidney: Multiple cysts visualized largest upper pole 2.9 x 3.4 x 3.9 cm. No obvious hydronephros is. Bladder: Anechoic Bilateral Jets seen: no IMPRESSION: Query history of autosomal dominant polycystic kidney disease given multiple cysts. The right kidney is largely replaced by cysts measuring up to 7.3 cm. No hydronephrosis seen on the left.
[2022-08-13 13:31] LABS: African American GFR (CKD) 29 (>60 ml/min/1.73 sqM); Anion Gap 11 mmol/L; Blood Urea Nitrogen 43 mg/dL (7-17); Carbon Dioxide 20 mmol/L (22-30); Chloride 107 mmol/L (98-107); Glucose 103 mg/dL (74-99); LDH 210 U/L (120-246); Magnesium 1.9 mg/dL (1.6-2.3); Non-African American GFR(CKD) 25 (>60 ml/min/1.73 sqM); Potassium 3.6 mmol/L (3.5-5.1); Sodium 138 mmol/L (137-145); Total Protein 5.1 g/dL (6.3-8.2)
--- NOTE | 2022-08-13 15:02 | P.PN ---
Subjective Progress Note Date: 08/12/22 81-year-old female past medical history of hypertension, hyperlipidemia, acute pulmonary embolism 02/2022 status postthrombectomy , atrial fibrillation presented to the emergency department with complaints of shortness of breath and dizziness Workup initiated at the time of presentation in ER included EKG sinus rhythm with no acute ST changes, low voltage, CTA of the chest no evidence of pulmonary emboli. Chest ultrasound reveals bilateral small to moderate pleural effusions, right pleural effusion pocket size 4.9 cm and left pleural effusion pocket size 7.2 cm. WBC 17.6, hemoglobin 10.8, platelet count 249. INR 1.5. D-dimer 3.05. BUN 20 creatinine 1.02, Troponin 0.928>0.92> 1.05. ProBNP 8280 Consultation obtained from cardiology and pulmonary medicine 08/12/2022 Patient seen and examined. She reports that she is feeling worse today. She is still having shortness of breath. She has right chest and right back discomfort that is tender on exam. She has decreased appetite and nausea, states she has not eaten today. She also feels weak and lightheaded and has not been out of bed. She denies any abdominal pain. Chest x-ray does show worsening pleural effusions. Patient with atypical chest pain however she does have elevated troponins. Her dyspnea is worse despite diuretics. Pulmonary is considering possible thoracentesis. Her kidney function is also declining, will follow up with nephrology recommendations. Echo reviewed and relatively stable. She had a prior heart cath that showed mild CAD. She has been having intermittent episodes of atrial fibrillation over the past 24 hours, this may be contributing to some of her worsening of symptoms today; patient is started on amiodarone drip. Cardiology discussed right heart catheterization to evaluate pressures of the heart. Patient and family agreed to proceed with right heart catheterization at this time. Objective - Vital Signs Vital signs: Vital Signs Temp 97.3 F L 08/12/22 03:03 Pulse 70 08/12/22 15:09 Resp 16 08/12/22 15:09 BP 137/83 08/12/22 15:09 Pulse Ox 97 08/12/22 15:09 FiO2 Intake & Output 08/11/22 08/12/22 08/12/22 18:59 06:59 18:59 Intake Total 240 225 331.692 Output Total 200 300 200 Balance 40 -75 131.692 Weight 70.1 kg Intake: Intake, IV Titration 151.692 Amount Heparin Sod,Pork in 0.45% 151.692 NaCl 25,000 unit In 0.45 % NaCl 1 250ml.bag @ 12 UNITS/KG/HR 8.655 mls/hr IV .Q24H [facility] Rx#: [id number] Oral 240 225 180 Output: Urine 200 300 200 Stool 0 0 Other: Voiding Method Bedside Commode Bedside Commode Bedside Commode # Voids 1 1 # Bowel Movements 1 1 1 - Exam GENERAL: The patient is alert and oriented x3, ill appearance, nasal cannula in place HEENT: Pupils are round and equally reacting to light. EOMI. CARDIOVASCULAR: Irregular rhythm ,trace lower extremity edema PULMONARY: Decreased breath sounds bilaterally rhonchi audible ABDOMEN: Soft, nontender, nondistended, normoactive bowel sounds. No palpable organomegaly. MUSCULOSKELETAL: No joint swelling or deformity. EXTREMITIES: No cyanosis, clubbing, or pedal edema. NEUROLOGICAL: Gross neurological examination did not reveal any focal deficits. SKIN: No rashes. - Labs CBC & Chem 7: 08/12/22 08:04 08/13/22 12:10 Labs: Abnormal Lab Results - Last 24 Hours (Table) 08/12/22 08/12/22 Range/Units 08:04 08:04 WBC 16.1 H (3.8-10.6) k/uL Hgb 10.5 L (11.4-16.0) gm/dL MCHC 29.4 L (31.0-37.0) g/dL RDW 23.2 H (11.5-15.5) % Potassium 5.2 H (3.5-5.1) mmol/L Chloride 110 H (98-107) mmol/L Carbon Dioxide 15 L (22-30) mmol/L BUN 38 H (7-17) mg/dL Creatinine 1.59 H (0.52-1.04) mg/dL Assessment and Plan Assessment: * Elevated troponin non-ST elevated [place] * New onset atrial fibrillation paroxysmal * History of pulmonary embolism * Acute hypoxic respiratory failure secondary to CHF exacerbation bilateral pleural effusion * Recent hernia repair * Hypertension * Hyperlipidemia * consultations obtained from cardiology and pulmonary medicine * Continue patient on IV heparin, hold Eliquis in anticipation of any procedures and including thoracentesis, however nothing planned at this point * In regard to acute hypoxic respiratory failure and bilateral pleural effusion continue patient on IV Lasix * 2-D echocardiogram shows preserved ejection fraction * Cardiology recommended conservative management continue aspirin, Lipitor, Lasix, metoprolol * Continue current and recommended medical therapy including aspirin, statin, beta lincoln * CODE STATUS is full code
--- NOTE | 2022-08-13 15:07 | P.PN ---
Subjective Progress Note Date: 08/13/22 81-year-old female past medical history of hypertension, hyperlipidemia, acute pulmonary embolism 02/2022 status postthrombectomy , atrial fibrillation presented to the emergency department with complaints of shortness of breath and dizziness Workup initiated at the time of presentation in ER included EKG sinus rhythm with no acute ST changes, low voltage, CTA of the chest no evidence of pulmonary emboli. Chest ultrasound reveals bilateral small to moderate pleural effusions, right pleural effusion pocket size 4.9 cm and left pleural effusion pocket size 7.2 cm. WBC 17.6, hemoglobin 10.8, platelet count 249. INR 1.5. D-dimer 3.05. BUN 20 creatinine 1.02, Troponin 0.928>0.92> 1.05. ProBNP 8280 Consultation obtained from cardiology and pulmonary medicine 08/12/2022 Patient seen and examined. She reports that she is feeling worse today. She is still having shortness of breath. She has right chest and right back discomfort that is tender on exam. She has decreased appetite and nausea, states she has not eaten today. She also feels weak and lightheaded and has not been out of bed. She denies any abdominal pain. Chest x-ray does show worsening pleural effusions. Patient with atypical chest pain however she does have elevated troponins. Her dyspnea is worse despite diuretics. Pulmonary is considering possible thoracentesis. Her kidney function is also declining, will follow up with nephrology recommendations. Echo reviewed and relatively stable. She had a prior heart cath that showed mild CAD. She has been having intermittent episodes of atrial fibrillation over the past 24 hours, this may be contributing to some of her worsening of symptoms today; patient is started on amiodarone drip. Cardiology discussed right heart catheterization to evaluate pressures of the heart. Patient and family agreed to proceed with right heart catheterization at this time. 08/13/2022 Patient is seen and evaluated in room at bedside; continues to report shortness of breath Patient is status post cardiac catheterization which revealed normal left-sided filling pressures with minimally elevated right-sided filling pressures; ca rdiology disputing shortness of breath related to heart failure Patient with elevated troponins, likely type II mechanism with relatively normal or heart catheterization previously and atypical chest pain Patient has had worsened bilateral effusions and worsened symptoms despite diuretics with worsening kidney function. Right heart catheterization performed yesterday shows normal left-sided filling pressures with minimally elevated right-sided filling pressures. Normal left-sided filling pressures argue against effusions and shortness of breath related to heart failure. Additionally noted to be hypoxic 85% on room air during procedure. Therefore given worsening kidney function hold diuretics and await repeat blood work today. Evaluate thoracentesis for changes related versus exudative. Some of symptoms may be related to patient being still symptomatic from her pulmonary embolism. If patient still significantly symptomatic may consider repeat heart catheterization. Objective - Vital Signs Vital signs: Vital Signs Temp 97.3 F L 08/12/22 03:03 Pulse 67 08/13/22 12:00 Resp 16 08/13/22 12:00 BP 122/61 08/13/22 12:00 Pulse Ox 93 L 08/13/22 12:00 FiO2 Intake & Output 08/12/22 08/13/22 08/13/22 18:59 06:59 18:59 Intake Total 469.751 46.890 Output Total 300 650 125 Balance 169.751 -603.110 -125 Weight 71.4 kg Intake: IV 100 Intake, IV Titration 189.751 46.890 Amount Heparin Sod,Pork in 0.45% 189.751 46.890 NaCl 25,000 unit In 0.45 % NaCl 1 250ml.bag @ 12 UNITS/KG/HR 8.655 mls/hr IV .Q24H [facility] Rx#: [id number] Oral 180 Output: Urine 300 650 125 Stool 0 0 Other: Voiding Method Bedside Commode Bedside Commode Bedside Commode # Voids 1 # Bowel Movements 1 - Exam GENERAL: The patient is alert and oriented x3, ill appearance, nasal cannula in place HEENT: Pupils are round and equally reacting to light. EOMI. CARDIOVASCULAR: Irregular rhythm ,trace lower extremity edema PULMONARY: Decreased breath sounds bilaterally rhonchi audible ABDOMEN: Soft, nontender, nondistended, normoactive bowel sounds. No palpable organomegaly. MUSCULOSKELETAL: No joint swelling or deformity. EXTREMITIES: No cyanosis, clubbing, or pedal edema. NEUROLOGICAL: Gross neurological examination did not reveal any focal deficits. SKIN: No rashes. - Labs CBC & Chem 7: 08/12/22 08:04 08/13/22 12:10 Labs: Abnormal Lab Results - Last 24 Hours (Table) 08/12/22 08/13/22 08/13/22 Range/Units 18:20 00:02 12:10 APTT 34.8 H 85.0 H 37.2 H (22.0-30.0) sec Carbon Dioxide (22-30) mmol/L BUN (7-17) mg/dL Creatinine (0.52-1.04) mg/dL Glucose (74-99) mg/dL Calcium (8.4-10.2) mg/dL Total Protein (6.3-8.2) g/dL 08/13/22 Range/Units 12:10 APTT (22.0-30.0) sec Carbon Dioxide 20 L (22-30) mmol/L BUN 43 H (7-17) mg/dL Creatinine 1.83 H (0.52-1.04) mg/dL Glucose 103 H (74-99) mg/dL Calcium 8.0 L (8.4-10.2) mg/dL Total Protein 5.1 L (6.3-8.2) g/dL Assessment and Plan Assessment: * Elevated troponin non-ST elevated [place] * New onset atrial fibrillation paroxysmal * History of pulmonary embolism * Acute hypoxic respiratory failure secondary to CHF exacerbation bilateral pleural effusion * Recent hernia repair * Hypertension * Hyperlipidemia * consultations obtained from cardiology and pulmonary medicine * Continue patient on IV heparin, hold Eliquis in anticipation of any procedures and including thoracentesis, however nothing planned at this point * In regard to acute hypoxic respiratory failure and bilateral pleural effusion continue patient on IV Lasix * 2-D echocardiogram shows preserved ejection fraction * Cardiology recommended conservative management continue aspirin, Lipitor, Lasix, metoprolol * Continue current and recommended medical therapy including aspirin, statin, beta lincoln * CODE STATUS is full code
[2022-08-13] MEDS: ALPRAZolam 0.25 MG TAB PO PRN (15:18)
[2022-08-13] MEDS: AMIODARONE 200 MG TAB PO SCH (15:52)
--- NOTE | 2022-08-13 16:36 | XR ---
EXAMINATION TYPE: XR chest 1V DATE OF EXAM: 08/13/2022 COMPARISON: Earlier today HISTORY: 81-year-old female shortness of breath TECHNIQUE: Single frontal view of the chest is obtained. FINDINGS: Heart remains enlarged. There is improving aeration at the left base with some mild residual patchy d ensity. Ongoing moderate right pleural effusion. Similar to minimally increased from prior. IMPRESSION: 1. Mild cardiomegaly. 2. Improving aeration at the retrocardiac region. Mild patchy density remains. 3. Similar to minimally increased moderate right pleural effusion with adjacent atelectasis and/or co nsolidation.
[2022-08-13] MEDS: AMIODARONE 450 MG in DEXTROSE 5% IN WATER 250 ML IV SCH ×2 (17:07)
[2022-08-13] MEDS ORDERED: FUROSEMIDE 10 MG/ML 4 ML VIAL IV SCH (21:00)
[2022-08-13] MEDS: ATORVASTATIN 20 MG TAB PO SCH (21:55)
[2022-08-13 23:24] LABS: LDH, Body Fluid Source Thoracentesis Fluid; T. Protein, Body Fluid Source Thoracentesis Fluid; Total Protein, Body Fluid 1700 mg/dL
[2022-08-14 00:35] LABS: Appearance,BF #BL
[2022-08-14] MEDS: ALPRAZolam 0.25 MG TAB PO PRN ×2 (02:59→13:53)
[2022-08-14] MEDS: PANTOPRAZOLE 40 MG TABLET PO SCH (06:40)
[2022-08-14] MEDS: HEPARIN SOD,PORK IN 0.45% NACL 25,000 UNIT in 0.45% NACL 1 250ML.BAG IV SCH ×2 (08:21→09:06)
[2022-08-14 08:53] LABS: African American GFR (CKD) 29 (>60 ml/min/1.73 sqM); Anion Gap 10 mmol/L; Blood Urea Nitrogen 51 mg/dL (7-17); Calcium 7.6 mg/dL (8.4-10.2); Carbon Dioxide 19 mmol/L (22-30); Chloride 109 mmol/L (98-107); Glucose 95 mg/dL (74-99); Non-African American GFR(CKD) 25 (>60 ml/min/1.73 sqM); Potassium 3.8 mmol/L (3.5-5.1); Sodium 138 mmol/L (137-145)
[2022-08-14] MEDS: METOPROLOL TARTRATE 12.5 MG TAB PO SCH (09:05)
[2022-08-14] MEDS: AMIODARONE 200 MG TAB PO SCH (09:06)
[2022-08-14] MEDS: SODIUM BICARBONATE TAB 650 MG TAB PO SCH ×3 (09:06→20:30)
[2022-08-14] MEDS: FAMOTIDINE 20 MG TAB PO SCH (09:06)
[2022-08-14] MEDS: ASPIRIN 81 MG PO SCH (09:06)
[2022-08-14] MEDS: allopurinoL 100 MG TAB PO SCH (09:06)
--- NOTE | 2022-08-14 12:21 | P.PN ---
Subjective Patient is seen in follow for acute kidney injury. Renal function stable today. Off amiodarone drip. Blood pressure stable. Underwent left-sided thoracentesis on 08/13/2022 with 400 mL removed. Oral intake fair. Family present at bedside. Vital signs are stable. General: No acute distress. HEENT: On nasal cannula. LUNGS: No audible rhonchi or wheezes. HEART: Rate and Rhythm are regular. ABDOMEN: Nontender. EXTREMITITES: No edema. Objective - Vital Signs Vital signs: Vital Signs Temp 97.5 F L 08/13/22 20:00 Pulse 97 08/14/22 08:00 Resp 16 08/14/22 08:00 BP 104/71 08/14/22 08:00 Pulse Ox 93 L 08/14/22 08:00 FiO2 Intake & Output 08/13/22 08/14/22 08/14/22 18:59 06:59 18:59 Intake Total 203.11 Output Total 125 100 Balance -125 -100 203.11 Intake: Intake, IV Titration 203.11 Amount Heparin Sod,Pork in 0.45% 203.11 NaCl 25,000 unit In 0.45 % NaCl 1 250ml.bag @ 12 UNITS/KG/HR 8.655 mls/hr IV .Q24H [facility] Rx#: [id number] Output: Urine 125 100 Stool 0 0 Other: Voiding Method Bedside Commode Bedside Commode Bedside Commode # Voids 2 1 # Bowel Movements 1 - Labs CBC & Chem 7: 08/12/22 08:04 08/14/22 07:35 Labs: Abnormal Lab Results - Last 24 Hours (Table) 08/13/22 08/13/22 08/13/22 Range/Units 12:10 12:10 18:30 APTT 37.2 H 61.4 H (22.0-30.0) sec Chloride (98-107) mmol/L Carbon Dioxide 20 L (22-30) mmol/L BUN 43 H (7-17) mg/dL Creatinine 1.83 H (0.52-1.04) mg/dL Glucose 103 H (74-99) mg/dL Calcium 8.0 L (8.4-10.2) mg/dL Troponin I (0.000-0.034) ng/mL Total Protein 5.1 L (6.3-8.2) g/dL 08/13/22 08/14/22 08/14/22 Range/Units 18:30 07:35 07:35 APTT 95.1 H (22.0-30.0) sec Chloride 109 H (98-107) mmol/L Carbon Dioxide 19 L (22-30) mmol/L BUN 51 H (7-17) mg/dL Creatinine 1.83 H (0.52-1.04) mg/dL Glucose (74-99) mg/dL Calcium 7.6 L (8.4-10.2) mg/dL Troponin I 0.895 H* (0.000-0.034) ng/mL Total Protein (6.3-8.2) g/dL Assessment and Plan Plan: Assessment: 1. Acute kidney injury secondary to hemodynamic ATN. Also received IV contrast on 08/10/2022. Creatinine 1.02 on admission and peaked at 1.83 this admission - stable at 1.83 today. No hydronephrosis noted on kidney ultrasound. Has multiple kidney cysts however kidneys are not large in size. 2. A. fib with RVR s/p amiodarone drip. On Lopressor and anticoagulation. 3. Acute on chronic diastolic CHF with moderate pulmonary regurgitation and moderate to severe tricuspid regurgitation. 4. Volume overload with pleural effusions. Underwent left-sided thoracentesis with 400 mL drained on 08/13/2022. 5. Acute hypoxic respiratory failure. 6. Metabolic acidosis secondary to acute kidney injury. On oral bicarbonate. Plan: Lasix stopped yesterday by cardiology - resume 40 mg IV once daily. Follow-up UA. Avoid nephrotoxins. Continue to monitor renal function and urine output. Monitor bladder scans to make sure no urinary retention. Discussed with patient and her family present at bedside.
--- NOTE | 2022-08-14 13:10 | P.PN ---
Subjective Progress Note Date: 08/14/22 HISTORY OF PRESENT ILLNESS: This is an 81-year-old female patient of Dr. Elder with past medical history of hypertension, hyperlipidemia, family history of coronary artery disease, temporary bradycardia, acute pulmonary embolism 02/2022 status post Inari thrombectomy at [facility] by Dr. Hamilton. On 04/17/2022 she had an EF of 55-60% and continued elevated RVSP of 55 and underwent lower extremity ultrasound negative for DVT. Patient was recently hospitalized at [facility] from July due to hiatal hernia but unfortunately she developed new onset of atrial fibrillation was started on amiodarone and Coreg. She was having palpitations and dizziness was initially started on heparin drip developed right upper extremity hematoma as well as right hip hematoma. She barely was diagnosed with bilateral upper extremity blood clots as well. She was eventually cleared for surgery underwent hernia repair on 07/26/2022. During her hospitalization, patient was also started on Revatio but developed bowel impaction and this was stopped and not resumed. Patient has been resumed on eliquis. Patient feels occasional episodes of atrial fibrillation the last from a few minutes to a few hours. Patient was seen in the office yesterday and states she was feeling fine at that time. Subsequently she developed significant right shoulder, right-sided chest and right lateral rib pain. She has never had this before. She was provided morphine, Toradol and lidocaine and pain is improved but she still has it when she moves. There is some tenderness to palpation. She denies having any abdominal pain. She states she's had some shortness of breath. No lightheadedness or dizziness. She complains of lower extremity edema. Patient is seen today in the emergency center waiting for a bed on the cardiac stepdown unit. We have been asked to evaluate the patient for non-ST elevated myocardial infarction. EKG sinus rhythm with no acute ST changes, low voltage CTA of the chest no evidence of pulmonary emboli. Chest ultrasound reveals bilateral small to moderate pleural effusions, right pleural effusion pocket size 4.9 cm and left pleural effusion pocket size 7.2 cm. WBC 17.6, hemoglobin 10.8, platelet count 249. INR 1.5. D-dimer 3.05. BUN 20 creatinine 1.02, potassium 3.9. Alkaline phosphatase 136, total bilirubin 1.5. Troponin 0.928, 0.92, 1.05. ProBNP 8280 Home cardiac medications: Amiodarone 200 mg daily, Coreg 6.25 mg twice daily, eliquis 5 mg twice daily, simvastatin 40 mg in the evening, aspirin 81 mg daily Echocardiogram 04/17/2022 reveals EF of 55-60%, elevated RVSP of 55 08/11 Patient is seen today in follow up on the cardiac stepdown unit. Patient states pain is gone but she has shortness of breath stating that she is gasping for air. She states that she has been urinating quite a bit. Patient appears to be comfortable at rest. Heart rate is in the 70s to 90s, blood pressure 133/76, pulse ox 96% on 2 L nasal cannula. Repeat blood work reveals potassium 4.3, BUN 28 and creatinine 1.26. Patient has been continued on heparin drip. She is on Lasix 20 mg IV every 12 hours Echocardiogram reveals normal LV systolic function. Small pericardial effusion. 08/12 Vision seen and examined. She reports that she is feeling worse today. She is still having shortness of breath. She has right chest and right back discomfort that is tender on exam. She has decreased appetite and nausea, states she has not eaten today. She also feels weak and lightheaded and has not been out of bed. She denies any abdominal pain. Chest x-ray does show worsening pleural effusions. 08/13 Patient seen and examined. Patient underwent right heart catheterization yesterday which showed normal left-sided filling pressures and minimally elevated right-sided filling pressures with pulmonary hypertension likely related to prior pulmonary embolism. Therefore diuretics were discontinued and given 500 mL bolus given acute kidney injury. Nephrology saw patient this morning in place patient back on diuretics. We discussed with patient given patient had worsened symptoms despite diuresis and worsened effusion and normal left-sided filling pressures holding diuretics for now and monitoring kidney function. Patient did undergo thoracentesis with improvement and symptoms and additionally has been on amiodarone drip intermittently in A. fib however currently in sinus rhythm. She states she feels much better currently today. 08/14/2022 Patient examined this morning at the bedside. She is status post right heart catheterization performed yesterday showing normal left-sided filling pressures with minimally elevated right-sided filling pressures. Normal left-sided filling pressures argue against effusions and shortness of breath related to heart failure. Diuretics remain on hold secondary to acute kidney injury. Creatinine today remains the same as yesterday at 1.83. She remains on IV heparin. She currently denies chest pain or pressure. She currently denies shortness of breath. Telemetry reveals sinus mechanism. Blood pressure stable with a reading of 104/71. PHYSICAL EXAM: VITAL SIGNS: Reviewed. GENERAL: Well-developed in no acute distress. NECK: Supple. No JVD or thyromegaly LUNGS: Respirations even and unlabored. Lungs diminished bilaterally. HEART: Regular rate and rhythm. S1 and S2 heard. EXTREMITIES: Normal range of motion. No clubbing or cyanosis. Peripheral pulses intact. No lower extremity edema ASSESSMENT: Elevated troponin, likely type 2 mechanism with prior LHC relatively normal. Some microvascular dysfunction noted previous cath. Less likely Type 1 mechanism Recent hernia repair Recent new onset of atrial fibrillation, paroxysmal Bilateral pleural effusions, status post left thoracentesis Hypertension Hyperlipidemia History of pulmonary embolism 02/23 with elevated RVSP Possible recent bilateral upper extremity DVTs Leukocytosis Hypertension PLAN: Continue current cardiac medications Diuretics remain on hold secondary to kidney function. Repeat in a.m. Discontinue IV heparin. Resume oral anticoagulation Continue telemetry monitoring No plans for repeat cardiac catheterization at this time Further recommendations pending patient's course Nurse practitioner note has been reviewed by physician. Signing provider agrees with the documented findings, assessment, and plan of care. Objective - Vital Signs Vital signs: Vital Signs Temp 97.5 F L 08/13/22 20:00 Pulse 97 08/14/22 08:00 Resp 16 08/14/22 08:00 BP 104/71 08/14/22 08:00 Pulse Ox 93 L 08/14/22 08:00 FiO2 Intake & Output 08/13/22 08/14/22 08/14/22 18:59 06:59 18:59 Intake Total 203.11 Output Total 125 100 Balance -125 -100 203.11 Intake: Intake, IV Titration 203.11 Amount Heparin Sod,Pork in 0.45% 203.11 NaCl 25,000 unit In 0.45 % NaCl 1 250ml.bag @ 12 UNITS/KG/HR 8.655 mls/hr IV .Q24H [facility] Rx#: [id number] Output: Urine 125 100 Stool 0 0 Other: Voiding Method Bedside Commode Bedside Commode Bedside Commode # Voids 2 1 # Bowel Movements 1 - Labs CBC & Chem 7: 08/12/22 08:04 08/14/22 07:35 Labs: Abnormal Lab Results - Last 24 Hours (Table) 08/13/22 08/13/22 08/13/22 Range/Units 12:10 12:10 18:30 APTT 37.2 H 61.4 H (22.0-30.0) sec Chloride (98-107) mmol/L Carbon Dioxide 20 L (22-30) mmol/L BUN 43 H (7-17) mg/dL Creatinine 1.83 H (0.52-1.04) mg/dL Glucose 103 H (74-99) mg/dL Calcium 8.0 L (8.4-10.2) mg/dL Troponin I (0.000-0.034) ng/mL Total Protein 5.1 L (6.3-8.2) g/dL 08/13/22 08/14/22 08/14/22 Range/Units 18:30 07:35 07:35 APTT 95.1 H (22.0-30.0) sec Chloride 109 H (98-107) mmol/L Carbon Dioxide 19 L (22-30) mmol/L BUN 51 H (7-17) mg/dL Creatinine 1.83 H (0.52-1.04) mg/dL Glucose (74-99) mg/dL Calcium 7.6 L (8.4-10.2) mg/dL Troponin I 0.895 H* (0.000-0.034) ng/mL Total Protein (6.3-8.2) g/dL
[2022-08-14] MEDS: APIXABAN 2.5 MG TABLET PO SCH ×2 (13:53→20:30)
[2022-08-14] MEDS: FUROSEMIDE 10 MG/ML 4 ML VIAL IV SCH (13:53)
--- NOTE | 2022-08-14 13:58 | P.PN ---
Subjective Progress Note Date: 08/14/22 I am seeing this patient in new consultation today 08/10/2022 for right sided chest pain and bilateral pleural effusions. Patient is an 81-year-old female with past medical history significant for recent prolonged hospitalization at [facility] where she had a hiatal hernia repair, and was discharged on . She also has history pulmonary embolism, atrial fibrillation on Eliquis, hypertension, hyperlipidemia, GERD. Patient presented early this morning complaining of a right-sided chest pain that started approximately 3 hours prior to arrival in the emergency room. Patient's pain is reproducible with movement or palpation of the right arm and chest wall. Denies any falls or injuries. Denies palpitations, orthopnea, PND. Denies any fevers, chills, cough, shortness of breath, nausea, vomiting, abdominal pain. Patient is currently sitting up in bed, on 2 L nasal cannula, in no acute distress. Chest CTA on arrival showed no evidence of pulmonary embolism. There were small to moderate size bilateral pleural effusions. No obvious ischemic changes on ECG. Troponins are elevated however at 0.93 and 0.92 respectively. Cardiology is on the case. NT proBNP elevated at 8280. BMP shows sodium 130, potassium 3.9, chloride 106, serum CO2, BUN 20, creatinine 1.02, glucose 77. CBC shows a WBC count of 17.6, hemoglobin 10.8, hematocrit 34.7, plt 249. Vital signs are stable. The patient is seen today 08/11/2022 in follow-up on the selective care unit. She is currently resting quite comfortably in bed. Awake and alert in no acute distress. She states her chest discomfort is improved. She still has some shortness of breath with conversation. Shortness of breath with exertion. She is maintaining good O2 saturations in the 90s on 2 L/m per nasal cannula. Echocardiogram revealed preserved left ventricular systolic function with ejection fraction 60-65%. Ultrasound of the chest revealed a 4.9 cm pocket on the right and a 7.2 cm pocket on the left. She is continued on Lasix 20 mg IV every 12 hours. White count 15.9. Hemoglobin 10.2. Platelets 215. INR 1.5. She remains on a heparin drip. Sodium 138. Potassium 4.3. Bicarb 20. BUN 28. Creatinine 1.26. The patient is seen today 08/12/2022 in follow-up on the selective care unit. She is awake and alert in no acute distress. She still feeling short of breath. She is maintaining O2 saturations in the mid 90s on room air but feels more comfortable with the oxygen on. Current O2 saturation at 99% on 2 L nasal cannula. She's been afebrile. Hemodynamically stable. White count 16.1. Hemoglobin 10.5. Platelets 210. Sodium 139. Potassium 5.2. Bicarb 15. BUN 38. Creatinine 1.59. Nephrology has been consulted. She remains on IV Lasix 20 mg every 12 hours. Follow-up chest x-ray will be ordered. The patient is seen today 08/13/2022 in follow-up on the selective care unit. She is currently sitting up at the bedside. Awake and alert in no acute distress. She had been admitted ongoing issues with shortness of breath and dyspnea on exertion. She does have bilateral pleural effusions left greater than right. She did undergo a left-sided thoracentesis today with 400 ML's of serosanguineous fluid removed. Follow-up chest x-ray showed no evidence of pneumothorax. Continued evidence of a right-sided pleural effusion. Her heparin drip will be resumed 2 hours post procedure. She is maintaining O2 saturations in the 90s on 3 L/m per nasal cannula. She did undergo a right-sided cardiac catheterization yesterday and was found abnormal left and minimally elevated right-sided pressures. Being considered for Revatio for her pulmonary hypertension likely mainly group 4. She did have atrial fibrillation with rapid ventricular response last evening was been initiated on amiodarone drip currently at 0.5 mg/m. She remains on Lasix 20 mg IV every 12 hours. Currently in a negative balance. The patient is seen today 08/14/2022 in follow-up on the selective care unit. She is currently resting comfortably in bed. Awake and alert in no acute distress. Maintaining good O2 saturations in the 90s on 3 L/m per nasal cannula. She remains on heparin drip. Sodium 138. Potassium 3.8. Bicarb 19. BUN 51. Creatinine 1.83. Pleural fluid analysis reveals a transudate with a total protein of 1.7 and LDH of 86. Cultures and cytology pending. Objective - Vital Signs Vital signs: Vital Signs Temp 97.5 F L 08/13/22 20:00 Pulse 97 08/14/22 08:00 Resp 16 08/14/22 08:00 BP 104/71 08/14/22 08:00 Pulse Ox 93 L 08/14/22 08:00 FiO2 Intake & Output 08/13/22 08/14/22 08/14/22 18:59 06:59 18:59 Intake Total 383.11 Output Total 125 100 200 Balance -125 -100 183.11 Intake: Intake, IV Titration 203.11 Amount Heparin Sod,Pork in 0.45% 203.11 NaCl 25,000 unit In 0.45 % NaCl 1 250ml.bag @ 12 UNITS/KG/HR 8.655 mls/hr IV .Q24H [facility] Rx#: [id number] Oral 180 Output: Urine 125 100 Post Void Residual 200 Stool 0 0 Other: Voiding Method Bedside Commode Bedside Commode Bedside Commode # Voids 2 1 # Bowel Movements 1 - Exam GENERAL EXAM: Alert, pleasant 81-year-old female, on 3 L nasal cannula, comfortable in no apparent distress. HEAD: Normocephalic and atraumatic EYES: Normal reaction of pupils, equal size. NOSE: Clear with pink turbinates. THROAT: No erythema or exudates. NECK: No masses, no JVD. CHEST: No chest wall deformity. No crepitus LUNGS: Equal air entry with faint bibasilar inspiratory crackles. CVS: S1 and S2 normal with no audible murmur, irregular rhythm. No extra heart sounds ABDOMEN: No hepatosplenomegaly, active bowel sounds, no guarding or rigidity. SPINE: No scoliosis or deformity SKIN: No rashes CENTRAL NERVOUS SYSTEM: No focal deficits, tone is normal in all 4 extremities. EXTREMITIES: There is mild nonpitting bilateral lower extremity edema. No clubbing, or cyanosis. Peripheral pulses are intact. - Labs CBC & Chem 7: 08/12/22 08:04 08/14/22 07:35 Labs: Abnormal Lab Results - Last 24 Hours (Table) 08/13/22 08/13/22 08/14/22 Range/Units 18:30 18:30 07:35 APTT 61.4 H (22.0-30.0) sec Chloride 109 H (98-107) mmol/L Carbon Dioxide 19 L (22-30) mmol/L BUN 51 H (7-17) mg/dL Creatinine 1.83 H (0.52-1.04) mg/dL Calcium 7.6 L (8.4-10.2) mg/dL Troponin I 0.895 H* (0.000-0.034) ng/mL 08/14/22 Range/Units 07:35 APTT 95.1 H (22.0-30.0) sec Chloride (98-107) mmol/L Carbon Dioxide (22-30) mmol/L BUN (7-17) mg/dL Creatinine (0.52-1.04) mg/dL Calcium (8.4-10.2) mg/dL Troponin I (0.000-0.034) ng/mL Assessment and Plan Assessment: Right sided chest pain, which is reproducible with coughing, deep inspiration, and palpation. Elevated troponins, possible NSTEMI Moderate sized bilateral lateral pleural effusions, greater on the left than right. Left-sided thoracentesis performed on 08/13/2022 with 400 ML's of serosanguineous fluid removed. Transudate fluid, cultures and cytology pending Acute exacerbation of diastolic congestive heart failure, patient has cardiomegaly and bilateral pleural effusions demonstrated on chest CTA. nt pro- bnp elevated at 8280. Acute hypoxemic respiratory failure secondary to above, currently on 2 L nasal cannula History of paroxysmal atrial fibrillation currently on a heparin drip. Currently on amiodarone drip. Previously anticoagulated on Eliquis. History of pulmonary embolism Hypertension Hyperlipidemia GERD, without esophagitis Recent prolonged hospital stay for repair of the hiatal hernia Plan: The patient was seen and evaluated Labs and medications are reviewed Fluid analysis transudate, cultures and cytology pending No plans for thoracentesis on the right side, fluid minimal Continues on IV diuretics Heparin drip discontinued, transitioned to Eliquis Remains on Cordarone Titrate down the FiO2 as tolerated We will continue to follow I have personally seen and examined the patient, performed the documentation and the assessment and plan as written. Number of minutes spent on the visit: 10.
[2022-08-14 14:04] LABS: Free Lambda Lt Chain Qnt, Seru 3.93 mg/dL (0.57-2.63)
[2022-08-14 14:33] LABS: Appearance,Urine Clear (Clear); Bilirubin,Urine Negative (Negative); Blood,Urine Negative (Negative); Color,Urine Yellow; Glucose,Urine (UA) Negative (Negative); Ketones,Urine Negative (Negative); Leukocyte Esterase,Urine Negative (Negative); Nitrite,Urine Negative (Negative); Protein,Urine Trace (Negative); Specific Gravity,Urine 1.016 (1.001-1.035); Urobilinogen,Urine <2.0 mg/dL (<2.0)
[2022-08-14 15:06] LABS: Free Kappa Lt Chain Qnt, Serum 200.31 mg/dL (0.33-1.94)
--- NOTE | 2022-08-14 15:55 | P.PN ---
Subjective Progress Note Date: 08/14/22 This is an 81 year old female with history of heart failure and recent hiatal hernia repair at [facility]. Patient was also found to have pulmonary embolism back in February. Patient is admitted for chest pain and being treated currently for acute heart failure. Status post left sided thoracentesis on 08/13 with 400 mls off and cytology is currently pending. Patient was taken off diuretics due to worsening renal function. Nephrology is following. Patient is resumed on IV lasix daily today. Continues to require oxygen support and reports significant shortness of breath and breathlessness when talking. Underwent cardiac catheterization with no significant coronary artery disease and normal filling pressures. Cardiology with no plans to re-cath patient. Eliquis has been resumed today. --Patient will require a wheelchair to complete ADL's, unable to complete with a can or walker currently due to the difficulty with ambulation from osteoarthritis fatigue and significant shortness of breath and breathlessness. Patient has assistance and someone to propel her with wheelchair. Review of Systems Constitutional: Reports fatigue, no fever Cardio vascular: denied any chest pain, palpitations Gastrointestinal: denied any nausea, vomiting, diarrhea Pulmonary: Reports shortness of breath, no cough. Neurologic denied any new focal deficits All inpatient medications were reviewed and appropriate changes in these medications as dictated in the interval history and assessment and plan. PHYSICAL EXAMINATION: GENERAL: The patient is alert and oriented x3, not in any acute distress. Well developed, well nourished. Fatigued. on HEENT: Pupils are round and equally reacting to light. EOMI. No scleral icterus. No conjunctival pallor. Normocephalic, atraumatic. No pharyngeal erythema. No thyromegaly. CARDIOVASCULAR: S1 and S2 present. No murmurs, rubs, or gallops. PULMONARY: Chest is clear to auscultation, no wheezing or crackles. ABDOMEN: Soft, nontender, nondistended, normoactive bowel sounds. No palpable organomegaly. MUSCULOSKELETAL: No joint swelling or deformity. EXTREMITIES: No cyanosis, clubbing, or pedal edema. NEUROLOGICAL: Gross neurological examination did not reveal any focal deficits. Diffuse weakness. SKIN: No rashes. Assessment Elevated troponin non-ST elevated NV New onset atrial fibrillation paroxysmal with RVR off amiodarone gtt. Heart rate controlled and in sinus mechanism. Acute hypoxic respiratory failure secondary to CHF exacerbation bilateral pleural effusion s/p left sided thoracentesis Acute kidney injury secondary to ATN History of pulmonary embolism anticoagulated with eliquis Recent hiatal hernia repair with prolonged hospital stay Hypertension Hyperlipidemia GI prophylaxis DVT prophylaxis resumed on eliquis Full Code Plan Continue IV lasix daily and follow up AM labs S/P left thoracentesis with no plans for right thoracentesis, resumed on eliquis Continue telemetry monitoring Continue oxygen support and wean as tolerated Encourage increase activity level Strict intake and output monitoring Physical Therapy has been consulted The impression and plan of care has been dictated by Nurse Jacek Prac titioner as directed. Dr. Carolina MD I have performed a history and physical examination and medical decision making of this patient, discussed the same with the dictator, and agree with the dictators assessment and plan as written, documented as a scribe. Based on total visit time, I have performed more than 50% of this visit. Objective - Vital Signs Vital signs: Vital Signs Temp 97.5 F L 08/13/22 20:00 Pulse 65 08/14/22 04:00 Resp 16 08/14/22 04:00 BP 133/75 08/14/22 04:00 Pulse Ox 91 L 08/14/22 04:00 FiO2 Intake & Output 08/13/22 08/14/22 08/14/22 18:59 06:59 18:59 Intake Total 203.11 Output Total 125 100 Balance -125 -100 203.11 Intake: Intake, IV Titration 203.11 Amount Heparin Sod,Pork in 0.45% 203.11 NaCl 25,000 unit In 0.45 % NaCl 1 250ml.bag @ 12 UNITS/KG/HR 8.655 mls/hr IV [facility] Rx#: [id number] Output: Urine 125 100 Stool 0 0 Other: Voiding Method Bedside Commode Bedside Commode # Voids 2 # Bowel Movements 1 - Labs CBC & Chem 7: 08/12/22 08:04 08/14/22 07:35 Labs: Abnormal Lab Results - Last 24 Hours (Table) 08/13/22 08/13/22 08/13/22 Range/Units 12:10 12:10 18:30 APTT 37.2 H 61.4 H (22.0-30.0) sec Chloride (98-107) mmol/L Carbon Dioxide 20 L (22-30) mmol/L BUN 43 H (7-17) mg/dL Creatinine 1.83 H (0.52-1.04) mg/dL Glucose 103 H (74-99) mg/dL Calcium 8.0 L (8.4-10.2) mg/dL Troponin I (0.000-0.034) ng/mL Total Protein 5.1 L (6.3-8.2) g/dL 08/13/22 08/14/22 08/14/22 Range/Units 18:30 07:35 07:35 APTT 95.1 H (22.0-30.0) sec Chloride 109 H (98-107) mmol/L Carbon Dioxide 19 L (22-30) mmol/L BUN 51 H (7-17) mg/dL Creatinine 1.83 H (0.52-1.04) mg/dL Glucose (74-99) mg/dL Calcium 7.6 L (8.4-10.2) mg/dL Troponin I 0.895 H* (0.000-0.034) ng/mL Total Protein (6.3-8.2) g/dL Assessment and Plan Time with Patient: Less than 30
[2022-08-14] MEDS: ATORVASTATIN 20 MG TAB PO SCH (20:30)
[2022-08-15] MEDS: ALPRAZolam 0.25 MG TAB PO PRN (04:22)
[2022-08-15 07:55] LABS: Anisocytosis Moderate; Basophils % (A) 0 %; Eosinophils # (A) 0.1 k/uL (0-0.7); Eosinophils % (A) 1 %; HGB 9.7 gm/dL (11.4-16.0); Hypochromasia Marked; Lymphocytes # (A) 0.7 k/uL (1.0-4.8); Lymphocytes % (A) 7 %; MCHC 29.3 g/dL (31.0-37.0); MCV 91.9 fL (80.0-100.0); Macrocytosis Slight; Mean Platelet Volume 12.2; Microcytosis Slight; Monocytes # (A) 0.7 k/uL (0-1.0); Monocytes % (A) 7 %; Neutrophils # (A) 8.4 k/uL (1.3-7.7); Neutrophils % (A) 84 %; Platelet Count 253 k/uL (150-450); RBC 3.59 m/uL (3.80-5.40); RDW 22.9 % (11.5-15.5); WBC 9.9 k/uL (3.8-10.6)
[2022-08-15 08:13] LABS: African American GFR (CKD) 25 (>60 ml/min/1.73 sqM); Anion Gap 8 mmol/L; Blood Urea Nitrogen 58 mg/dL (7-17); Calcium 7.6 mg/dL (8.4-10.2); Carbon Dioxide 24 mmol/L (22-30); Chloride 106 mmol/L (98-107); Glucose 111 mg/dL (74-99); Non-African American GFR(CKD) 22 (>60 ml/min/1.73 sqM); Potassium 3.9 mmol/L (3.5-5.1); Sodium 138 mmol/L (137-145)
[2022-08-15] MEDS: AMIODARONE 200 MG TAB PO SCH (08:59)
[2022-08-15] MEDS: allopurinoL 100 MG TAB PO SCH (08:59)
[2022-08-15] MEDS: METOPROLOL TARTRATE 12.5 MG TAB PO SCH (08:59)
[2022-08-15] MEDS: FAMOTIDINE 20 MG TAB PO SCH (08:59)
[2022-08-15] MEDS: SODIUM BICARBONATE TAB 650 MG TAB PO SCH ×2 (08:59→20:08)
[2022-08-15] MEDS: APIXABAN 2.5 MG TABLET PO SCH ×2 (08:59→20:03)
[2022-08-15] MEDS: ASPIRIN 81 MG PO SCH (08:59)
[2022-08-15] MEDS: FUROSEMIDE 10 MG/ML 4 ML VIAL IV SCH (09:00)
--- NOTE | 2022-08-15 10:03 | P.PN ---
Subjective Patient is seen in follow for acute kidney injury. Renal function a little worse from diuresis. Blood pressure stable. Underwent left-sided thoracentesis on 08/13/2022 with 400 mL removed. Oral intake fair. Has been voiding. Vital signs are stable. General: No acute distress. HEENT: On nasal cannula. LUNGS: No audible rhonchi or wheezes. HEART: Rate and Rhythm are regular. ABDOMEN: Nontender. EXTREMITITES: No edema. Objective - Vital Signs Vital signs: Vital Signs Temp 98.1 F 08/14/22 20:00 Pulse 61 08/15/22 04:00 Resp 18 08/15/22 04:00 BP 116/67 08/15/22 04:00 Pulse Ox 94 L 08/15/22 07:45 FiO2 Intake & Output 08/14/22 08/15/22 08/15/22 18:59 06:59 18:59 Intake Total 383.11 180 Output Total 300 200 Balance 83.11 -200 180 Weight 72 kg Intake: Intake, IV Titration 203.11 Amount Heparin Sod,Pork in 0.45% 203.11 NaCl 25,000 unit In 0.45 % NaCl 1 250ml.bag @ 12 UNITS/KG/HR 8.655 mls/hr IV .Q24H [facility] Rx#: [id number] Oral 180 180 Output: Urine 100 200 Post Void Residual 200 Other: Voiding Method Bedside Commode Bedside Commode # Voids 1 - Labs CBC & Chem 7: 08/15/22 07:03 08/15/22 07:03 Labs: Abnormal Lab Results - Last 24 Hours (Table) 08/10/22 08/10/22 08/14/22 Range/Units 10:33 12:45 13:40 RBC (3.80-5.40) m/uL Hgb (11.4-16.0) gm/dL Hct (34.0-46.0) % MCHC (31.0-37.0) g/dL RDW (11.5-15.5) % Neutrophils # (1.3-7.7) k/uL Lymphocytes # (1.0-4.8) k/uL BUN (7-17) mg/dL Creatinine (0.52-1.04) mg/dL Glucose (74-99) mg/dL Calcium (8.4-10.2) mg/dL Urine Protein Trace H (Negative) U Free [place] Light Ch 421.83 H (0.00-3.29) mg/dL Free [place] LC, Quant 200.31 H (0.33-1.94) mg/dL Free [place] LC, Quant 3.93 H (0.57-2.63) mg/dL 08/15/22 08/15/22 Range/Units 07:03 07:03 RBC 3.59 L (3.80-5.40) m/uL Hgb 9.7 L (11.4-16.0) gm/dL Hct 33.0 L (34.0-46.0) % MCHC 29.3 L (31.0-37.0) g/dL RDW 22.9 H (11.5-15.5) % Neutrophils # 8.4 H (1.3-7.7) k/uL Lymphocytes # 0.7 L (1.0-4.8) k/uL BUN 58 H (7-17) mg/dL Creatinine 2.06 H (0.52-1.04) mg/dL Glucose 111 H (74-99) mg/dL Calcium 7.6 L (8.4-10.2) mg/dL Urine Protein (Negative) U Free [place] Light Ch (0.00-3.29) mg/dL Free [place] LC, Quant (0.33-1.94) mg/dL Free Lambda LC, Quant (0.57-2.63) mg/dL Microbiology - Last 24 Hours (Table) 08/13/22 10:00 Gram Stain - Preliminary Pleural Fluid Body Fluid Culture - Preliminary Assessment and Plan Plan: Assessment: 1. Acute kidney injury secondary to hemodynamic ATN. Also received IV contrast on 08/10/2022. Creatinine 1.02 on admission and up to 2.06 today. Worsened from diuresis. No hydronephrosis noted on kidney ultrasound. UA fairly benign. Has multiple kidney cysts however kidneys are not large in size. 2. A. fib with RVR s/p amiodarone drip. On Lopressor and anticoagulation. 3. Acute on chronic diastolic CHF with moderate pulmonary regurgitation and moderate to severe tricuspid regurgitation. 4. Volume overload with pleural effusions. Underwent left-sided thoracentesis with 400 mL drained on 08/13/2022. 5. Acute hypoxic respiratory failure. 6. Metabolic acidosis secondary to acute kidney injury. On oral bicarbonate. Improved. 7. Significantly elevated kappa light chains concerning for multiple myeloma. Oncology consulted. 8. Anemia. Rule out iron deficiency. Plan: Change Lasix to oral. Avoid nephrotoxins. Continue to monitor renal function and urine output. Check UPC. Check iron studies. Decrease bicarb frequency to twice a day.
--- NOTE | 2022-08-15 11:09 | P.PN ---
Subjective Progress Note Date: 08/15/22 HISTORY OF PRESENT ILLNESS: This is an 81-year-old female patient of Dr. Elder with past medical history of hypertension, hyperlipidemia, family history of coronary artery disease, temporary bradycardia, acute pulmonary embolism 02/2022 status post Inari thrombectomy at [facility] by Dr. Hamilton. On 04/17/2022 she had an EF of 55-60% and continued elevated RVSP of 55 and underwent lower extremity ultrasound negative for DVT. Patient was recently hospitalized at [facility] from July due to hiatal hernia but unfortunately she developed new onset of atrial fibrillation was started on amiodarone and Coreg. She was having palpitations and dizziness was initially started on heparin drip developed right upper extremity hematoma as well as right hip hematoma. She barely was diagnosed with bilateral upper extremity blood clots as well. She was eventually cleared for surgery underwent hernia repair on 07/26/2022. During her hospitalization, patient was also started on Revatio but developed bowel impaction and this was stopped and not resumed. Patient has been resumed on eliquis. Patient feels occasional episodes of atrial fibrillation the last from a few minutes to a few hours. Patient was seen in the office yesterday and states she was feeling fine at that time. Subsequently she developed significant right shoulder, right-sided chest and right lateral rib pain. She has never had this before. She was provided morphine, Toradol and lidocaine and pain is improved but she still has it when she moves. There is some tenderness to palpation. She denies having any abdominal pain. She states she's had some shortness of breath. No lightheadedness or dizziness. She complains of lower extremity edema. Patient is seen today in the emergency center waiting for a bed on the cardiac stepdown unit. We have been asked to evaluate the patient for non-ST elevated myocardial infarction. EKG sinus rhythm with no acute ST changes, low voltage CTA of the chest no evidence of pulmonary emboli. Chest ultrasound reveals bilateral small to moderate pleural effusions, right pleural effusion pocket size 4.9 cm and left pleural effusion pocket size 7.2 cm. WBC 17.6, hemoglobin 10.8, platelet count 249. INR 1.5. D-dimer 3.05. BUN 20 creatinine 1.02, potassium 3.9. Alkaline phosphatase 136, total bilirubin 1.5. Troponin 0.928, 0.92, 1.05. ProBNP 8280 Home cardiac medications: Amiodarone 200 mg daily, Coreg 6.25 mg twice daily, eliquis 5 mg twice daily, simvastatin 40 mg in the evening, aspirin 81 mg daily Echocardiogram 04/17/2022 reveals EF of 55-60%, elevated RVSP of 55 08/11 Patient is seen today in follow up on the cardiac stepdown unit. Patient states pain is gone but she has shortness of breath stating that she is gasping for air. She states that she has been urinating quite a bit. Patient appears to be comfortable at rest. Heart rate is in the 70s to 90s, blood pressure 133/76, pulse ox 96% on 2 L nasal cannula. Repeat blood work reveals potassium 4.3, BUN 28 and creatinine 1.26. Patient has been continued on heparin drip. She is on Lasix 20 mg IV every 12 hours Echocardiogram reveals normal LV systolic function. Small pericardial effusion. 08/12 Vision seen and examined. She reports that she is feeling worse today. She is still having shortness of breath. She has right chest and right back discomfort that is tender on exam. She has decreased appetite and nausea, states she has not eaten today. She also feels weak and lightheaded and has not been out of bed. She denies any abdominal pain. Chest x-ray does show worsening pleural effusions. 08/13 Patient seen and examined. Patient underwent right heart catheterization yesterday which showed normal left-sided filling pressures and minimally elevated right-sided filling pressures with pulmonary hypertension likely related to prior pulmonary embolism. Therefore diuretics were discontinued and given 500 mL bolus given acute kidney injury. Nephrology saw patient this morning in place patient back on diuretics. We discussed with patient given patient had worsened symptoms despite diuresis and worsened effusion and normal left-sided filling pressures holding diuretics for now and monitoring kidney function. Patient did undergo thoracentesis with improvement and symptoms and additionally has been on amiodarone drip intermittently in A. fib however currently in sinus rhythm. She states she feels much better currently today. 08/14/2022 Patient examined this morning at the bedside. She is status post right heart catheterization performed yesterday showing normal left-sided filling pressures with minimally elevated right-sided filling pressures. Normal left-sided filling pressures argue against effusions and shortness of breath related to heart failure. Diuretics remain on hold secondary to acute kidney injury. Creatinine today remains the same as yesterday at 1.83. She remains on IV heparin. She currently denies chest pain or pressure. She currently denies shortness of breath. Telemetry reveals sinus mechanism. Blood pressure stable with a reading of 104/71. 08/15/2022 Patient examined this morning at the bedside. Patient denies SOB. Patient denies chest pain or pressure. She continues to report extreme weakness. Hematology has evaluated the patient this morning and plans are underway for bone marrow biopsy. She was evaluated by nephrology yesterday and resumed on Lasix. Creatinine 2.06. PHYSICAL EXAM: VITAL SIGNS: Reviewed. GENERAL: Well-developed in no acute distress. NECK: Supple. No JVD or thyromegaly LUNGS: Respirations even and unlabored. Lungs diminished bilaterally. HEART: Regular rate and rhythm. S1 and S2 heard. EXTREMITIES: Normal range of motion. No clubbing or cyanosis. Peripheral pulses intact. No lower extremity edema ASSESSMENT: Elevated troponin, likely type 2 mechanism with prior LHC relatively normal. Some microvascular dysfunction noted previous cath. 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 May hold Eliquis from a cardiac standpoint pending timing of biopsy. Further recommendations pending patient's course Nurse practitioner note has been reviewed by physician. Signing provider agrees with the documented findings, assessment, and plan of care. Objective - Vital Signs Vital signs: Vital Signs Temp 98.1 F 08/14/22 20:00 Pulse 73 08/15/22 08:00 Resp 18 08/15/22 08:00 BP 95/52 08/15/22 08:00 Pulse Ox 93 L 08/15/22 08:00 FiO2 Intake & Output 08/14/22 08/15/22 08/15/22 18:59 06:59 18:59 Intake Total 383.11 180 Output Total 300 200 Balance 83.11 -200 180 Weight 72 kg Intake: Intake, IV Titration 203.11 Amount Heparin Sod,Pork in 0.45% 203.11 NaCl 25,000 unit In 0.45 % NaCl 1 250ml.bag @ 12 UNITS/KG/HR 8.655 mls/hr IV .Q24H [facility] Rx#: [id number] Oral 180 180 Output: Urine 100 200 Post Void Residual 200 Other: Voiding Method Bedside Commode Bedside Commode Bedside Commode # Voids 1 - Labs CBC & Chem 7: 08/15/22 07:03 08/15/22 07:03 Labs: Abnormal Lab Results - Last 24 Hours (Table) 08/10/22 08/10/22 08/14/22 Range/Units 10:33 12:45 13:40 RBC (3.80-5.40) m/uL Hgb (11.4-16.0) gm/dL Hct (34.0-46.0) % MCHC (31.0-37.0) g/dL RDW (11.5-15.5) % Neutrophils # (1.3-7.7) k/uL Lymphocytes # (1.0-4.8) k/uL BUN (7-17) mg/dL Creatinine (0.52-1.04) mg/dL Glucose (74-99) mg/dL Calcium (8.4-10.2) mg/dL Urine Protein Trace H (Negative) U Free Silver Peak Light Ch 421.83 H (0.00-3.29) mg/dL Free Silver Peak LC, Quant 200.31 H (0.33-1.94) mg/dL Free Lambda LC, Quant 3.93 H (0.57-2.63) mg/dL 08/15/22 08/15/22 Range/Units 07:03 07:03 RBC 3.59 L (3.80-5.40) m/uL Hgb 9.7 L (11.4-16.0) gm/dL Hct 33.0 L (34.0-46.0) % MCHC 29.3 L (31.0-37.0) g/dL RDW 22.9 H (11.5-15.5) % Neutrophils # 8.4 H (1.3-7.7) k/uL Lymphocytes # 0.7 L (1.0-4.8) k/uL BUN 58 H (7-17) mg/dL Creatinine 2.06 H (0.52-1.04) mg/dL Glucose 111 H (74-99) mg/dL Calcium 7.6 L (8.4-10.2) mg/dL Urine Protein (Negative) U Free Silver Peak Light Ch (0.00-3.29) mg/dL Free Silver Peak LC, Quant (0.33-1.94) mg/dL Free Lambda LC, Quant (0.57-2.63) mg/dL Microbiology - Last 24 Hours (Table) 08/13/22 10:00 Gram Stain - Preliminary Pleural Fluid Body Fluid Culture - Preliminary
--- NOTE | 2022-08-15 11:42 | P.PN ---
Subjective Progress Note Date: 08/15/22 Principal diagnosis: Pleural effusion. The patient is seen today 08/12/2022 in follow-up on the selective care unit. She is awake and alert in no acute distress. She still feeling short of breath. She is maintaining O2 saturations in the mid 90s on room air but feels more com fortable with the oxygen on. Current O2 saturation at 99% on 2 L nasal cannula. She's been afebrile. Hemodynamically stable. White count 16.1. Hemoglobin 10.5. Platelets 210. Sodium 139. Potassium 5.2. Bicarb 15. BUN 38. Creatinine 1.59. Nephrology has been consulted. She remains on IV Lasix 20 mg every 12 hours. Follow-up chest x-ray will be ordered. The patient is seen today 08/13/2022 in follow-up on the selective care unit. She is currently sitting up at the bedside. Awake and alert in no acute distress. She had been admitted ongoing issues with shortness of breath and dys pnea on exertion. She does have bilateral pleural effusions left greater than right. She did undergo a left-sided thoracentesis today with 400 ML's of serosanguineous fluid removed. Follow-up chest x-ray showed no evidence of pneumothorax. Continued evidence of a right-sided pleural effusion. Her heparin drip will be resumed 2 hours post procedure. She is maintaining O2 saturations in the 90s on 3 L/m per nasal cannula. She did undergo a right-sided cardiac catheterization yesterday and was found abnormal left and minimally elevated right-sided pressures. Being considered for Revatio for her pulmonary hypertension likely mainly group 4. She did have atrial fibrillation with rapid ventricular response last evening was been initiated on amiodarone drip currently at 0.5 mg/m. She remains on Lasix 20 mg IV every 12 hours. Currently in a negative balance. The patient is seen today 08/14/2022 in follow-up on the selective care unit. She is currently resting comfortably in bed. Awake and alert in no acute distress. Maintaining good O2 saturations in the 90s on 3 L/m per nasal cannula. She remains on heparin drip. Sodium 138. Potassium 3.8. Bicarb 19. BUN 51. Creatinine 1.83. Pleural fluid analysis reveals a transudate with a total protein of 1.7 and LDH of 86. Cultures and cytology pending. Progress note dated 08/15/2022. The right chest, is relatively small, compared to the left side. Left thoracentesis was performed by my partner, and only 400 mL of fluid was retrieved. Currently, the patient's on 3 L of oxygen. Her factor X a inhibitor was restarted. There is no plans to do thoracentesis on the right side. White count is 9.9, hemoglobin 9.7, hematocrit 33, and platelet count 253,000. Sodium is 138, potassium 3.9, chlorides 106, CO2 24, BUN 58, and creatinine 2.06. Objective - Vital Signs Vital signs: Vital Signs Temp 98.1 F 08/14/22 20:00 Pulse 73 08/15/22 08:00 Resp 18 08/15/22 08:00 BP 95/52 08/15/22 08:00 Pulse Ox 93 L 08/15/22 08:00 FiO2 Intake & Output 08/14/22 08/15/22 08/15/22 18:59 06:59 18:59 Intake Total 383.11 180 Output Total 300 200 Balance 83.11 -200 180 Weight 72 kg Intake: Intake, IV Titration 203.11 Amount Heparin Sod,Pork in 0.45% 203.11 NaCl 25,000 unit In 0.45 % NaCl 1 250ml.bag @ 12 UNITS/KG/HR 8.655 mls/hr IV .Q24H [facility] Rx#: [id number] Oral 180 180 Output: Urine 100 200 Post Void Residual 200 Other: Voiding Method Bedside Commode Bedside Commode Bedside Commode # Voids 1 - Exam No acute distress, oriented 3. Currently on 3 L of oxygen. No respiratory distress. No conversational dyspnea. HEENT examination is grossly unremarkable. Neck supple. Full range of motion. No adenopathy thyromegaly or neck vein distention. Cardiovascular examination reveals regular rhythm rate. S1-S2 normal. No S3 or S4. No discernible murmur noted. Heart rate 73 bpm. Heart sounds are distant. Lungs reveal mild scattered rhonchi. Minimal crackles. Breath sounds are essentially equal bilaterally. 3 L saturation is 94%. There are no wheezes. Abdomen soft bowel sounds are heard. No masses or tenderness. Extremities are intact. No cyanosis clubbing or edema. Skin is without rash or lesion. Neurologic examination is brief but nonfocal. - Labs CBC & Chem 7: 08/15/22 07:03 08/15/22 07:03 Labs: Abnormal Lab Results - Last 24 Hours (Table) 08/10/22 08/10/22 08/14/22 Range/Units 10:33 12:45 13:40 RBC (3.80-5.40) m/uL Hgb (11.4-16.0) gm/dL Hct (34.0-46.0) % MCHC (31.0-37.0) g/dL RDW (11.5-15.5) % Neutrophils # (1.3-7.7) k/uL Lymphocytes # (1.0-4.8) k/uL BUN (7-17) mg/dL Creatinine (0.52-1.04) mg/dL Glucose (74-99) mg/dL Calcium (8.4-10.2) mg/dL Urine Protein Trace H (Negative) U Free [place] Light Ch 421.83 H (0.00-3.29) mg/dL Free [place] LC, Quant 200.31 H (0.33-1.94) mg/dL Free Lambda LC, Quant 3.93 H (0.57-2.63) mg/dL 08/15/22 08/15/22 Range/Units 07:03 07:03 RBC 3.59 L (3.80-5.40) m/uL Hgb 9.7 L (11.4-16.0) gm/dL Hct 33.0 L (34.0-46.0) % MCHC 29.3 L (31.0-37.0) g/dL RDW 22.9 H (11.5-15.5) % Neutrophils # 8.4 H (1.3-7.7) k/uL Lymphocytes # 0.7 L (1.0-4.8) k/uL BUN 58 H (7-17) mg/dL Creatinine 2.06 H (0.52-1.04) mg/dL Glucose 111 H (74-99) mg/dL Calcium 7.6 L (8.4-10.2) mg/dL Urine Protein (Negative) U Free [place] Light Ch (0.00-3.29) mg/dL Free [place] LC, Quant (0.33-1.94) mg/dL Free Lambda LC, Quant (0.57-2.63) mg/dL Microbiology - Last 24 Hours (Table) 08/13/22 10:00 Gram Stain - Preliminary Pleural Fluid Body Fluid Culture - Preliminary Assessment and Plan Assessment: Right sided chest pain, which is reproducible with coughing, deep inspiration, and palpation. Elevated troponins, possible NSTEMI. Moderate sized bilateral lateral pleural effusions, greater on the left than right. Left-sided thoracentesis performed on 08/13/2022 with 400 ML's of serosanguineous fluid removed. Transudate fluid, cultures and cytology pending. Acute exacerbation of diastolic congestive heart failure, patient has cardiomegaly and bilateral pleural effusions demonstrated on chest CTA. nt pro- bnp elevated at 8280. Acute hypoxemic respiratory failure secondary to above, currently on 2 L nasal cannula. History of paroxysmal atrial fibrillation currently on a heparin drip. Currently on amiodarone drip. Previously anticoagulated on Eliquis. History of pulmonary embolism. Hypertension. Hyperlipidemia. GERD, without esophagitis. Recent prolonged hospital stay for repair of the hiatal hernia. Plan: Plan dated 08/15/2022. There are no plans to do a right-sided thoracentesis. The factor X a inhibitor was restarted. Clinically, the patient looks very stable. She is between 2-3 L of oxygen, with more than adequate saturations. The pocket on the right side, smaller than the left. Only 400 mL of fluid was retrieved from the left pleural space. Additional recommendations and suggestions are forthcoming. Prognosis is guarded. Labs, x-rays, and medications are reviewed. The fluid on the left side, was a transudate, with a low LDH, and protein. Time with Patient: Less than 30
[2022-08-15] MEDS: ALPRAZolam 0.5 MG TAB PO PRN (14:45)
--- NOTE | 2022-08-15 14:59 | XR ---
EXAMINATION TYPE: XR bone survey complete DATE OF EXAM: 08/15/2022 COMPARISON: Chest radiograph 08/13/2022 HISTORY: Evaluation for multiple myeloma Bony calvarium : 2 views of the bony calvarium demonstrate. No lytic or sclerotic lesions identified . Spine: Two views of the cervical, thoracic and lumbar spines are submitted. No lytic or sclerotic le sions identified. Chest: Cardiomegaly with pulmonary vascular congestion and bilateral pleural effusions. No lytic or s clerotic lesions identified. PELVIS: Single view of the pelvis demonstrates. No lytic or sclerotic lesions identified. UPPER EXTREMITIES: Two views of the upper extremities. No lytic or sclerotic lesions identified. LOWER EXTREMITIES: 2 views of the lower extremities. No lytic or sclerotic lesion is identified. Pos tsurgical changes from bilateral knee arthroplasty. IMPRESSION: No visualized sclerotic or lytic osseous lesions.
--- NOTE | 2022-08-15 15:12 | P.CONS ---
History of Present Illness - Reason for Consult Consult date: 08/15/22 r/o MM Requesting physician: Jewell Sterling - Chief Complaint SOB - History of Present Illness Patient is an 81-year-old female with a significant history of hypertension, hyperlipidemia, acute pulmonary embolism (02/2022) status postthrombectomy on elquis, and atrial fibrillation. we were consult in due to elevated kappa light chains. patient presented to the ER complaining of shortness of breath and dizziness. Of note patient recently a prolonged stay at [facility] after a hiatal hernia repair. Serum kappa/lambda ratio was found to be significantly elevated at 50.9. Urine kappa LC also elevated at 421, however, this was not collected as a 24-hour sample. SPEP pending. Kidney function also worsening since admission, creatinine 2.06 today. Nephrology has been consulted. Ultrasound of kidneys and bladder revealed multiple cysts on bilateral kidneys with no obvious hydronephrosis on the left. CTA chest upon admission showed no evidence of PE. Atelectasis in both lower lobes, worse on the left and moderate sized bilateral pleural effusions. S/p left sided thoracentesis on 08/13, 400cc removed, cytology pending. Tropinins elevated upon admission, patient continues on heparin. Echo showed normal LV systolic function and small pericardial effusion. S/p heart cath. Cardiology following. At today's visit patient is reporting persisting shortness of breath. Lab findings were discussed with patient and it was discussed that we will order a further workup to rule out underlying bone marrow disorders including multiple myeloma which is concerning due to significant elevation in kappa light chains. Review of Systems 10 point ROS is negative except as stated in the HPI Past Medical History Past Medical History: Atrial Fibrillation, Eye Disorder, GERD/Reflux, Hyperlipidemia, Hypertension, Osteoarthritis (OA) Additional Past Medical History / Comment(s): Macular Degeneration, Gout. right carpal tunnel surgery Nov 2021. COVID 19 vaccination (moderna x3) and a flu shot History of Any Multi-Drug Resistant Organisms: None Reported Past Surgical History: Breast Surgery, Hernia Repair, Joint Replacement, Orthopedic Surgery Additional Past Surgical History / Comment(s): RIGHT KNEE ARTHROSCOPY ,RIGHT BREAST BIOPSY, PARTIAL THYROIDECTOMY(RIGHT SIDE), BILATERAL TOTAL KNEE R EPLACEMENTS, BILATERAL CATARACTS REMOVED, RIGHT CARPAL TUNNEL SURGERY. Past Anesthesia/Blood Transfusion Reactions: No Reported Reaction Past Psychological History: No Psychological Hx Reported Smoking Status: Never smoker Past Alcohol Use History: None Reported Additional Past Alcohol Use History / Comment(s): Patient is a lifelong nonsmoker. She denies any marijuana or illicit drug use. No alcohol use. She lives at home with her . Past Drug Use History: None Reported - Past Family History Sister(s) History Unknown: Yes Family Medical History: Cancer Additional Family Medical History / Comment(s): Patient has one sister that from recurrence of breast cancer. Father History Unknown: Yes Family Medical History: Renal Disease Additional Family Medical History / Comment(s): Father at age 82 from renal failure. Brother(s) History Unknown: Yes Family Medical History: Cancer, Myocardial Infarction ([place]) Additional Family Medical History / Comment(s): Patient has 2 brothers that have passed, one from a myocardial infarction at age 65 and 1 from a tumor in his neck. Mother History Unknown: Yes Family Medical History: Chest Pain / Angina, Myocardial Infarction ([place]) Additional Family Medical History / Comment(s): Mother at age 74 from myocardial infarction. Medications and Allergies Home Medications Medication Instructions Recorded Confirmed Type Simvastatin 40 mg PO HS 08/12/14 08/10/22 History Aspirin [Adult Low Dose Aspirin EC] 81 mg PO DAILY 03/28/18 08/10/22 History Apixaban [Eliquis] 5 mg PO BID 06/05/22 08/10/22 History Vit C/E/Zn/Coppr/Lutein/Zeaxan 1 tab PO DAILY 06/21/22 08/10/22 History [Preservision Areds 2 Softgel] Amiodarone [Cordarone] 200 mg PO DAILY 08/10/22 08/10/22 History Famotidine [Pepcid] 20 mg PO DAILY 08/10/22 08/10/22 History Omeprazole 20 mg PO AC-BRKFST 08/10/22 08/10/22 History allopurinoL [Zyloprim] 200 mg PO DAILY 08/10/22 08/10/22 History carvediloL [Coreg] 6.25 mg PO BID 08/10/22 08/10/22 History Allergies Allergy/AdvReac Type Severity Reaction Status Date / Time Penicillins Allergy Rash/Hives Verified 08/10/22 11:22 codeine AdvReac Rapid Verified 08/10/22 11:22 Heart Rate Physical Exam Vitals: Vital Signs Temp Pulse Resp BP Pulse Ox 08/15/22 12:00 52 L 87/60 95 08/15/22 08:00 73 18 95/52 93 L 08/15/22 07:45 94 L 08/15/22 04:00 61 18 116/67 92 L 08/15/22 02:00 58 L 16 08/15/22 00:00 58 L 16 109/62 94 L 08/14/22 20:00 98.1 F 60 18 103/56 96 08/14/22 16:00 58 L 100/55 97 Intake and Output 08/14/22 08/15/22 08/15/22 22:59 06:59 14:59 Intake Total 360 Output Total 100 100 Balance -100 -100 360 Intake: Oral 360 Output: Urine 100 100 Other: Voiding Method Bedside Commode Bedside Commode Bedside Commode Weight 72 kg - Constitutional General appearance: average body habitus, no acute distress - EENT Eyes: anicteric sclerae, EOMI ENT: hearing grossly normal - Neck Neck: no lymphadenopathy - Respiratory breathing labored Respiratory: bilateral: diminished - Cardiovascular Rhythm: regular Heart sounds: normal: S1, S2 Abnormal Heart Sounds: no systolic murmur, no diastolic murmur, no rub, no S3 Gallop, no S4 Gallop, no click, no other - Gastrointestinal General gastrointestinal: soft, no tenderness - Integumentary Integumentary: pale - Musculoskeletal Musculoskeletal: generalized weakness - Psychiatric Psychiatric: A&O x's 3, appropriate affect, intact judgment & insight Results CBC & Chem 7: 08/15/22 07:03 08/15/22 07:03 Labs: Abnormal Lab Results - Last 24 Hours (Table) 08/10/22 08/10/22 08/14/22 Range/Units 10:33 12:45 13:40 RBC (3.80-5.40) m/uL Hgb (11.4-16.0) gm/dL Hct (34.0-46.0) % MCHC (31.0-37.0) g/dL RDW (11.5-15.5) % Neutrophils # (1.3-7.7) k/uL Lymphocytes # (1.0-4.8) k/uL BUN (7-17) mg/dL Creatinine (0.52-1.04) mg/dL Glucose (74-99) mg/dL Calcium (8.4-10.2) mg/dL Urine Protein Trace H (Negative) U Free [place] Light Ch 421.83 H (0.00-3.29) mg/dL Free [place] LC, Quant 200.31 H (0.33-1.94) mg/dL Free Lambda LC, Quant 3.93 H (0.57-2.63) mg/dL 08/15/22 08/15/22 Range/Units 07:03 07:03 RBC 3.59 L (3.80-5.40) m/uL Hgb 9.7 L (11.4-16.0) gm/dL Hct 33.0 L (34.0-46.0) % MCHC 29.3 L (31.0-37.0) g/dL RDW 22.9 H (11.5-15.5) % Neutrophils # 8.4 H (1.3-7.7) k/uL Lymphocytes # 0.7 L (1.0-4.8) k/uL BUN 58 H (7-17) mg/dL Creatinine 2.06 H (0.52-1.04) mg/dL Glucose 111 H (74-99) mg/dL Calcium 7.6 L (8.4-10.2) mg/dL Urine Protein (Negative) U Free [place] Light Ch (0.00-3.29) mg/dL Free [place] LC, Quant (0.33-1.94) mg/dL Free Lambda LC, Quant (0.57-2.63) mg/dL Microbiology - Last 24 Hours (Table) 08/13/22 10:00 Gram Stain - Preliminary Pleural Fluid Body Fluid Culture - Preliminary Comments: echo reviewed Chest x-ray: report reviewed CT scan - chest: report reviewed US - abdomen: report reviewed Assessment and Plan (1) Pleural effusion Current Visit: Yes Status: Acute Priority: High Code(s): J90 - PLEURAL EFFUSION, NOT ELSEWHERE CLASSIFIED SNOMED Code(s): 27442616 (2) Bone marrow disorder Current Visit: Yes Status: Acute Priority: High Code(s): D75.9 - DISEASE OF BLOOD AND BLOOD-FORMING ORGANS, UNSPECIFIED SNOMED Code(s): 303837128 (3) NSTEMI (non-ST elevated myocardial infarction) Current Visit: Yes Status: Acute Priority: High Code(s): I21.4 - NON-ST ELEVATION (NSTEMI) MYOCARDIAL INFARCTION SNOMED Code(s): 93426486 Plan: Elevated [place] Light chains: -Serum kappa/lambda ratio was found to be significantly elevated at 50.9. Urine kappa LC also elevated at 421, however, this was not collected as a 24-hour terri ple. SPEP pending. -Lab findings were discussed with patient. Further workup ordered to rule out un derlying bone marrow disorders including multiple myeloma which is concerning due to significant elevation in kappa light chains. 24 hour urine kappa lambda LCs and protein elctrophoresis, serum immunofixation, and bone survey ordered. Will continue to follow -Patient will need BM biopsy, however, endoscopy is unable to schedule patient on . If patient is still admitted, will plan for next week, or will obtain in the outpatient setting -Family missed visit this morning, spoke with nursing and we will set up family meeting tomorrow morning to discuss findings and plan Pleural effusions: -CTA chest upon admission showed no evidence of PE. Atelectasis in both lower lobes, worse on the left and moderate sized bilateral pleural effusions. S/p left sided thoracentesis on 08/13, 400cc removed, cytology pending. -Pulmonology following NSTEMI: -Tropinins elevated upon admission, patient continues on heparin. Echo showed normal LV systolic function and small pericardial effusion. S/p heart cath. -Cardiology following. attests: I have performed H&P and developed impression and plan of care for patient, discussed with dictator. I agree with dictated note, documented as a s cribe
[2022-08-15 15:40] LABS: % Iron Saturation 7.26 (12.00-45.00)
--- NOTE | 2022-08-15 15:41 | P.PN ---
Subjective Progress Note Date: 08/15/22 This is an 81 year old female with history of heart failure and recent hiatal hernia repair at [facility]. Patient was also found to have pulmonary embolism back in February. Patient is admitted for chest pain and being treated currently for acute heart failure. Status post left sided thoracentesis on 08/13 with 400 mls off and cytology is currently pending. Patient was taken off diuretics due to worsening renal function. Nephrology is following. Patient is resumed on IV lasix daily today. Continues to require oxygen support and reports significant shortness of breath and breathlessness when talking. Underwent cardiac catheterization with no significant coronary artery disease and normal filling pressures. Cardiology with no plans to re-cath patient. Eliquis has been resumed today. --Patient will require a wheelchair to complete ADL's, unable to complete with a can or walker currently due to the difficulty with ambulation from osteoarthritis fatigue and significant shortness of breath and breathlessness. Patient has assistance and someone to propel her with wheelchair. 08/15/2022 Patient evaluated today sitting up in chair. Continues with significant shortness of breath and breathlessness. Lungs are diminished. Received IV lasix x 1 yesterday and creatinine today up to 2.06. Patient has 500 ml of urine output in the last 24 hours. Recommending bladder scan Q6h and post void residuals. Nephrology following. Pleural fluid culture is negative so far. Cytology pending. Patient underwent bone scan reveals no visualized sclerotic or lytic osseous lesions. There is cardiomegaly with pulmonary vascular congestion and bilateral pleural effusions. White count has normalized. Oncology has been consulted for the elevated kappa light chains rule out underlying pathology like multiple myeloma. Review of Systems Constitutional: Reports fatigue, no fever Cardio vascular: denied any chest pain, palpitations Gastrointestinal: denied any nausea, vomiting, diarrhea Pulmonary: Reports shortness of breath, no cough. Neurologic denied any new focal deficits All inpatient medications were reviewed and appropriate changes in these medications as dictated in the interval history and assessment and plan. PHYSICAL EXAMINATION: GENERAL: The patient is alert and oriented x3, not in any acute distress. Well developed, well nourished. Fatigued. on HEENT: Pupils are round and equally reacting to light. EOMI. No scleral icterus. No conjunctival pallor. Normocephalic, atraumatic. No pharyngeal erythema. No thyromegaly. CARDIOVASCULAR: S1 and S2 present. No murmurs, rubs, or gallops. PULMONARY: Chest is clear to auscultation, no wheezing or crackles. ABDOMEN: Soft, nontender, nondistended, normoactive bowel sounds. No palpable organomegaly. MUSCULOSKELETAL: No joint swelling or deformity. EXTREMITIES: No cyanosis, clubbing, or pedal edema. NEUROLOGICAL: Gross neurological examination did not reveal any focal deficits. Diffuse weakness. SKIN: No rashes. Assessment Elevated troponin non-ST elevated AK New onset atrial fibrillation paroxysmal with RVR off amiodarone gtt. Heart rate controlled and in sinus mechanism. Acute hypoxic respiratory failure secondary to CHF exacerbation bilateral pleural effusion s/p left sided thoracentesis Acute kidney injury secondary to ATN Elevated kappa light chains work up intiated with oncology consultation. History of pulmonary embolism anticoagulated with eliquis Recent hiatal hernia repair with prolonged hospital stay Hypertension Hyperlipidemia GI prophylaxis DVT prophylaxis resumed on eliquis Full Code Plan Lasix changed to oral daily. S/P left thoracentesis with no plans for right thoracentesis, resumed on eliquis Oncology consultation work up due to elevated kappa light chains Strict intake and output monitoring with bladder scan Q6h and post void residuals Physical Therapy has been consulted The impression and plan of care has been dictated by Milagros Jasmine, Nurse Practitioner as directed. Dr. Carolina MD I have performed a history and physical examination and medical decision making of this patient, discussed the same with the dictator, and agree with the dictators assessment and plan as written, documented as a scribe. Based on total visit time, I have performed more than 50% of this visit. Objective - Vital Signs Vital signs: Vital Signs Temp 98.1 F 08/14/22 20:00 Pulse 52 L 08/15/22 14:00 Resp 18 08/15/22 14:00 BP 87/60 08/15/22 12:00 Pulse Ox 95 08/15/22 12:00 FiO2 Intake & Output 08/14/22 08/15/22 08/15/22 18:59 06:59 18:59 Intake Total 383.11 480 Output Total 300 200 Balance 83.11 -200 480 Weight 72 kg Intake: Intake, IV Titration 203.11 Amount Heparin Sod,Pork in 0.45% 203.11 NaCl 25,000 unit In 0.45 % NaCl 1 250ml.bag @ 12 UNITS/KG/HR 8.655 mls/hr IV .Q24H [facility] Rx#: [id number] Oral 180 480 Output: Urine 100 200 Post Void Residual 200 Other: Voiding Method Bedside Commode Bedside Commode Bedside Commode # Voids 1 - Labs CBC & Chem 7: 08/15/22 07:03 08/15/22 07:03 Labs: Abnormal Lab Results - Last 24 Hours (Table) 08/15/22 08/15/22 Range/Units 07:03 07:03 RBC 3.59 L (3.80-5.40) m/uL Hgb 9.7 L (11.4-16.0) gm/dL Hct 33.0 L (34.0-46.0) % MCHC 29.3 L (31.0-37.0) g/dL RDW 22.9 H (11.5-15.5) % Neutrophils # 8.4 H (1.3-7.7) k/uL Lymphocytes # 0.7 L (1.0-4.8) k/uL BUN 58 H (7-17) mg/dL Creatinine 2.06 H (0.52-1.04) mg/dL Glucose 111 H (74-99) mg/dL Calcium 7.6 L (8.4-10.2) mg/dL Microbiology - Last 24 Hours (Table) 08/13/22 10:00 Gram Stain - Preliminary Pleural Fluid Body Fluid Culture - Preliminary Assessment and Plan Time with Patient: Less than 30
[2022-08-15 15:43] LABS: Immunoglobulin M <35.0 mg/dL (40.0-280.0)
[2022-08-15] MEDS: ATORVASTATIN 20 MG TAB PO SCH (20:08)
[2022-08-16] MEDS: APIXABAN 2.5 MG TABLET PO SCH ×2 (08:54→20:28)
[2022-08-16] MEDS ORDERED: FUROSEMIDE 40 MG TAB PO SCH (09:00)
[2022-08-16] MEDS: ASPIRIN 81 MG PO SCH (09:08)
[2022-08-16] MEDS: AMIODARONE 200 MG TAB PO SCH (09:08)
[2022-08-16] MEDS: METOPROLOL TARTRATE 12.5 MG TAB PO SCH (09:08)
[2022-08-16] MEDS: SODIUM BICARBONATE TAB 650 MG TAB PO SCH ×2 (09:08→20:28)
[2022-08-16] MEDS: FAMOTIDINE 20 MG TAB PO SCH (09:08)
[2022-08-16] MEDS: allopurinoL 100 MG TAB PO SCH (09:08)
--- NOTE | 2022-08-16 09:35 | XR ---
EXAMINATION TYPE: XR chest 2V DATE OF EXAM: 08/16/2022 COMPARISON: 08/13/2022 INDICATION: CHF TECHNIQUE: Frontal and lateral views of the chest are obtained. FINDINGS: The heart size is upper limits for size. The pulmonary vasculature is normal. There is a stable moderate right pleural effusion. Minimal left pleural effusion has developed.. IMPRESSION: 1. Bilateral pleural effusions
--- NOTE | 2022-08-16 10:39 | P.PN ---
Subjective Patient is seen in follow for acute kidney injury. Renal function a little worse from diuresis - creatinine 2.06 yesterday. Blood pressure on the lower side this morning. Underwent left-sided thoracentesis on 08/13/2022 with 400 mL removed. Oral intake fair. Has been voiding. Vital signs are stable. General: No acute distress. HEENT: On nasal cannula. LUNGS: No audible rhonchi or wheezes. HEART: Rate and Rhythm are regular. ABDOMEN: Nontender. EXTREMITITES: No edema. Objective - Vital Signs Vital signs: Vital Signs Temp 98.1 F 08/16/22 03:15 Pulse 85 08/16/22 08:00 Resp 16 08/16/22 08:00 BP 84/42 08/16/22 08:00 Pulse Ox 88 L 08/16/22 08:00 FiO2 Intake & Output 08/15/22 08/16/22 08/16/22 18:59 06:59 18:59 Intake Total 480 1080 118 Output Total 232 400 Balance 248 680 118 Weight 72.1 kg Intake: Oral 480 1080 118 Output: Urine 200 400 Post Void Residual 32 0 Other: Voiding Method Bedside Commode Bedside Commode Bedside Commode # Voids 1 # Bowel Movements 1 - Labs CBC & Chem 7: 08/15/22 07:03 08/15/22 07:03 Labs: Abnormal Lab Results - Last 24 Hours (Table) 08/15/22 08/15/22 Range/Units 07:03 07:03 Iron 9 L (50-170) UG/DL TIBC 124 L (228-460) UG/DL % Saturation 7.26 L (12.00-45.00) Transferrin 88.7 L (204.0-354.0) mg/dL Ferritin 384.0 H (10.0-291.0) ng/mL IgM <35.0 L (40.0-280.0) mg/dL Microbiology - Last 24 Hours (Table) 08/13/22 10:00 Gram Stain - Preliminary Pleural Fluid Body Fluid Culture - Preliminary Assessment and Plan Plan: Assessment: 1. Acute kidney injury secondary to hemodynamic ATN. Also received IV contrast on 08/10/2022. Creatinine 1.02 on admission and up to 2.06 yesterday. Worsened from diuresis. No hydronephrosis noted on kidney ultrasound. UA fairly benign. Has multiple kidney cysts however kidneys are not large in size. 2. A. fib with RVR s/p amiodarone drip. On oral amiodarone, Lopressor and anticoagulation. 3. Acute on chronic diastolic CHF with moderate pulmonary regurgitation and moderate to severe tricuspid regurgitation. 4. Volume overload with pleural effusions. Underwent left-sided thoracentesis with 400 mL drained on 08/13/2022. 5. Acute hypoxic respiratory failure. 6. Metabolic acidosis secondary to acute kidney injury. On oral bicarbonate. Improved. 7. Significantly elevated kappa light chains concerning for multiple myeloma. Oncology following. 8. Anemia. Iron deficiency noted. Plan: Change Lasix back to IV once daily due to effusions noted on chest x-ray. Avoid nephrotoxins. Continue to monitor renal function and urine output. Follow-up [facility]. Add IV iron. Bone marrow biopsy pending. Case discussed in detail with family members present at bedside.
[2022-08-16] MEDS: ALPRAZolam 0.5 MG TAB PO PRN (11:16)
[2022-08-16] MEDS: FUROSEMIDE 10 MG/ML 4 ML VIAL IV SCH (11:16)
--- NOTE | 2022-08-16 11:25 | P.PN ---
Subjective Progress Note Date: 08/16/22 I am seeing this patient in new consultation today 08/10/2022 for right sided chest pain and bilateral pleural effusions. Patient is an 81-year-old female with past medical history significant for recent prolonged hospitalization at [facility] where she had a hiatal hernia repair, and was discharged on . She also has history pulmonary embolism, atrial fibrillation on Eliquis, hypertension, hyperlipidemia, GERD. Patient presented early this morning complaining of a right-sided chest pain that started approximately 3 hours prior to arrival in the emergency room. Patient's pain is reproducible with movement or palpation of the right arm and chest wall. Denies any falls or injuries. Denies palpitations, orthopnea, PND. Denies any fevers, chills, cough, shortness of breath, nausea, vomiting, abdominal pain. Patient is currently sitting up in bed, on 2 L nasal cannula, in no acute distress. Chest CTA on arrival showed no evidence of pulmonary embolism. There were small to moderate size bilateral pleural effusions. No obvious ischemic changes on ECG. Troponins are elevated however at 0.93 and 0.92 respectively. Cardiology is on the case. NT proBNP elevated at 8280. BMP shows sodium 130, potassium 3.9, chloride 106, serum CO2, BUN 20, creatinine 1.02, glucose 77. CBC shows a WBC count of 17.6, hemoglobin 10.8, hematocrit 34.7, plt 249. Vital signs are stable. The patient is seen today 08/11/2022 in follow-up on the selective care unit. She is currently resting quite comfortably in bed. Awake and alert in no acute distress. She states her chest discomfort is improved. She still has some shortness of breath with conversation. Shortness of breath with exertion. She is maintaining good O2 saturations in the 90s on 2 L/m per nasal cannula. Echocardiogram revealed preserved left ventricular systolic function with ejection fraction 60-65%. Ultrasound of the chest revealed a 4.9 cm pocket on the right and a 7.2 cm pocket on the left. She is continued on Lasix 20 mg IV every 12 hours. White count 15.9. Hemoglobin 10.2. Platelets 215. INR 1.5. She remains on a heparin drip. Sodium 138. Potassium 4.3. Bicarb 20. BUN 28. Creatinine 1.26. The patient is seen today 08/12/2022 in follow-up on the selective care unit. She is awake and alert in no acute distress. She still feeling short of breath. She is maintaining O2 saturations in the mid 90s on room air but feels more comfortable with the oxygen on. Current O2 saturation at 99% on 2 L nasal cannula. She's been afebrile. Hemodynamically stable. White count 16.1. Hemoglobin 10.5. Platelets 210. Sodium 139. Potassium 5.2. Bicarb 15. BUN 38. Creatinine 1.59. Nephrology has been consulted. She remains on IV Lasix 20 mg every 12 hours. Follow-up chest x-ray will be ordered. The patient is seen today 08/13/2022 in follow-up on the selective care unit. She is currently sitting up at the bedside. Awake and alert in no acute distress. She had been admitted ongoing issues with shortness of breath and dyspnea on exertion. She does have bilateral pleural effusions left greater than right. She did undergo a left-sided thoracentesis today with 400 ML's of serosanguineous fluid removed. Follow-up chest x-ray showed no evidence of pneumothorax. Continued evidence of a right-sided pleural effusion. Her heparin drip will be resumed 2 hours post procedure. She is maintaining O2 saturations in the 90s on 3 L/m per nasal cannula. She did undergo a right-sided cardiac catheterization yesterday and was found abnormal left and minimally elevated right-sided pressures. Being considered for Revatio for her pulmonary hypertension likely mainly group 4. She did have atrial fibrillation with rapid ventricular response last evening was been initiated on amiodarone drip currently at 0.5 mg/m. She remains on Lasix 20 mg IV every 12 hours. Currently in a negative balance. The patient is seen today 08/14/2022 in follow-up on the selective care unit. She is currently resting comfortably in bed. Awake and alert in no acute distress. Maintaining good O2 saturations in the 90s on 3 L/m per nasal cannula. She remains on heparin drip. Sodium 138. Potassium 3.8. Bicarb 19. BUN 51. Creatinine 1.83. Pleural fluid analysis reveals a transudate with a total protein of 1.7 and LDH of 86. Cultures and cytology pending. Progress note dated 08/15/2022. The right chest, is relatively small, compared to the left side. Left thoracentesis was performed by my partner, and only 400 mL of fluid was retrieved. Currently, the patient's on 3 L of oxygen. Her factor X a inhibitor was restarted. There is no plans to do thoracentesis on the right side. White count is 9.9, hemoglobin 9.7, hematocrit 33, and platelet count 253,000. Sodium is 138, potassium 3.9, chlorides 106, CO2 24, BUN 58, and creatinine 2.06. The patient is seen today 08/16/2022 in follow-up on the selective care unit. Chest x-ray continues to show stable right-sided pleural effusion. Minimal left-sided pleural effusion. A bone scan revealed no sclerotic or lytic osseous lesions. Pleural fluid culture and cytology are pending. There are multiple family members in the room this morning. There is a meeting planned with oncology. She is continued on IV diuretics. Iron being replaced. Anticoagulated with Eliquis. Objective - Vital Signs Vital signs: Vital Signs Temp 98.1 F 08/16/22 03:15 Pulse 62 08/16/22 11:13 Resp 22 08/16/22 11:13 BP 109/73 08/16/22 11:13 Pulse Ox 92 L 08/16/22 11:13 FiO2 Intake & Output 08/15/22 08/16/22 08/16/22 18:59 06:59 18:59 Intake Total 480 1080 118 Output Total 232 400 50 Balance 248 680 68 Weight 72.1 kg Intake: Oral 480 1080 118 Output: Urine 200 400 Post Void Residual 32 0 50 Other: Voiding Method Bedside Commode Bedside Commode Bedside Commode # Voids 1 # Bowel Movements 1 - Exam GENERAL EXAM: Alert, pleasant 81-year-old female, on 3 L nasal cannula, comfortable in no apparent distress. HEAD: Normocephalic and atraumatic EYES: Normal reaction of pupils, equal size. NOSE: Clear with pink turbinates. THROAT: No erythema or exudates. NECK: No masses, no JVD. CHEST: No chest wall deformity. No crepitus LUNGS: Equal air entry with faint bibasilar inspiratory crackles, right greater than left. CVS: S1 and S2 normal with no audible murmur, irregular rhythm. No extra heart sounds ABDOMEN: No hepatosplenomegaly, active bowel sounds, no guarding or rigidity. SPINE: No scoliosis or deformity SKIN: No rashes CENTRAL NERVOUS SYSTEM: No focal deficits, tone is normal in all 4 extremities. EXTREMITIES: There is mild nonpitting bilateral lower extremity edema. No clubbing, or cyanosis. Peripheral pulses are intact. - Labs CBC & Chem 7: 08/15/22 07:03 08/15/22 07:03 Labs: Abnormal Lab Results - Last 24 Hours (Table) 08/15/22 08/15/22 Range/Units 07:03 07:03 Iron 9 L (50-170) UG/DL TIBC 124 L (228-460) UG/DL % Saturation 7.26 L (12.00-45.00) Transferrin 88.7 L (204.0-354.0) mg/dL Ferritin 384.0 H (10.0-291.0) ng/mL IgM <35.0 L (40.0-280.0) mg/dL Microbiology - Last 24 Hours (Table) 08/13/22 10:00 Gram Stain - Preliminary Pleural Fluid Body Fluid Culture - Preliminary Assessment and Plan Assessment: Right sided chest pain, which is reproducible with coughing, deep inspiration, and palpation. Elevated troponins, possible NSTEMI Moderate sized bilateral lateral pleural effusions, greater on the left than right. Left-sided thoracentesis performed on 08/13/2022 with 400 ML's of serosanguineous fluid removed. Transudate fluid, cultures and cytology pending Acute exacerbation of diastolic congestive heart failure, patient has cardiomegaly and bilateral pleural effusions demonstrated on chest CTA. Pro-bnp elevated at 8280. Currently on IV diuretics Acute hypoxemic respiratory failure secondary to above, currently on 2 L nasal cannula History of paroxysmal atrial fibrillation currently on a heparin drip. Curr ently on amiodarone drip. Previously anticoagulated on Eliquis. History of pulmonary embolism Hypertension Hyperlipidemia GERD, without esophagitis Recent prolonged hospital stay for repair of the hiatal hernia Plan: The patient was seen and evaluated Medications are reviewed Fluid analysis transudate, cultures and cytology pending No plans for thoracentesis on the right side, fluid minimal Continues on IV diuretics Transitioned to Eliquis Titrate down the FiO2 as tolerated We will continue to follow I have personally seen and examined the patient, performed the documentation and the assessment and plan as written. Number of minutes spent on the visit: 10.
--- NOTE | 2022-08-16 11:43 | P.PN ---
Subjective Progress Note Date: 08/16/22 HISTORY OF PRESENT ILLNESS: This is an 81-year-old female patient of Dr. Elder with past medical history of hypertension, hyperlipidemia, family history of coronary artery disease, temporary bradycardia, acute pulmonary embolism 02/2022 status post Inari thrombectomy at [facility] by Dr. Hamilton. On 04/17/2022 she had an EF of 55-60% and continued elevated RVSP of 55 and underwent lower extremity ultrasound negative for DVT. Patient was recently hospitalized at [facility] from July due to hiatal hernia but unfortunately she developed new onset of atrial fibrillation was started on amiodarone and Coreg. She was having palpitations and dizziness was initially started on heparin drip developed right upper extremity hematoma as well as right hip hematoma. She barely was diagnosed with bilateral upper extremity blood clots as well. She was eventually cleared for surgery underwent hernia repair on 07/26/2022. During her hospitalization, patient was also started on Revatio but developed bowel impaction and this was stopped and not resumed. Patient has been resumed on eliquis. Patient feels occasional episodes of atrial fibrillation the last from a few minutes to a few hours. Patient was seen in the office yesterday and states she was feeling fine at that time. Subsequently she developed significant right shoulder, right-sided chest and right lateral rib pain. She has never had this before. She was provided morphine, Toradol and lidocaine and pain is improved but she still has it when she moves. There is some tenderness to palpation. She denies having any abdominal pain. She states she's had some shortness of breath. No lightheadedness or dizziness. She complains of lower extremity edema. Patient is seen today in the emergency center waiting for a bed on the cardiac stepdown unit. We have been asked to evaluate the patient for non-ST elevated myocardial infarction. EKG sinus rhythm with no acute ST changes, low voltage CTA of the chest no evidence of pulmonary emboli. Chest ultrasound reveals bilateral small to moderate pleural effusions, right pleural effusion pocket size 4.9 cm and left pleural effusion pocket size 7.2 cm. WBC 17.6, hemoglobin 10.8, platelet count 249. INR 1.5. D-dimer 3.05. BUN 20 creatinine 1.02, potassium 3.9. Alkaline phosphatase 136, total bilirubin 1.5. Troponin 0.928, 0.92, 1.05. ProBNP 8280 Home cardiac medications: Amiodarone 200 mg daily, Coreg 6.25 mg twice daily, eliquis 5 mg twice daily, simvastatin 40 mg in the evening, aspirin 81 mg daily Echocardiogram 04/17/2022 reveals EF of 55-60%, elevated RVSP of 55 08/11 Patient is seen today in follow up on the cardiac stepdown unit. Patient states pain is gone but she has shortness of breath stating that she is gasping for air. She states that she has been urinating quite a bit. Patient appears to be comfortable at rest. Heart rate is in the 70s to 90s, blood pressure 133/76, pulse ox 96% on 2 L nasal cannula. Repeat blood work reveals potassium 4.3, BUN 28 and creatinine 1.26. Patient has been continued on heparin drip. She is on Lasix 20 mg IV every 12 hours Echocardiogram reveals normal LV systolic function. Small pericardial effusion. 08/12 Vision seen and examined. She reports that she is feeling worse today. She is still having shortness of breath. She has right chest and right back discomfort that is tender on exam. She has decreased appetite and nausea, states she has not eaten today. She also feels weak and lightheaded and has not been out of bed. She denies any abdominal pain. Chest x-ray does show worsening pleural effusions. 08/13 Patient seen and examined. Patient underwent right heart catheterization yesterday which showed normal left-sided filling pressures and minimally elevated right-sided filling pressures with pulmonary hypertension likely related to prior pulmonary embolism. Therefore diuretics were discontinued and given 500 mL bolus given acute kidney injury. Nephrology saw patient this morning in place patient back on diuretics. We discussed with patient given patient had worsened symptoms despite diuresis and worsened effusion and normal left-sided filling pressures holding diuretics for now and monitoring kidney function. Patient did undergo thoracentesis with improvement and symptoms and additionally has been on amiodarone drip intermittently in A. fib however currently in sinus rhythm. She states she feels much better currently today. 08/14/2022 Patient examined this morning at the bedside. She is status post right heart catheterization performed yesterday showing normal left-sided filling pressures with minimally elevated right-sided filling pressures. Normal left-sided filling pressures argue against effusions and shortness of breath related to heart failure. Diuretics remain on hold secondary to acute kidney injury. Creatinine today remains the same as yesterday at 1.83. She remains on IV heparin. She currently denies chest pain or pressure. She currently denies shortness of breath. Telemetry reveals sinus mechanism. Blood pressure stable with a reading of 104/71. 08/15/2022 Patient examined this morning at the bedside. Patient denies SOB. Patient denies chest pain or pressure. She continues to report extreme weakness. Hematology has evaluated the patient this morning and plans are underway for bone marrow biopsy. She was evaluated by nephrology yesterday and resumed on Lasix. Creatinine 2.06. 08/16/2022 Patient examined this morning at the bedside. There are multiple family members present. Patient denies chest pain or pressure. She denies shortness of breath. She is maintained on IV Lasix per nephrology. Vital signs are stable. PHYSICAL EXAM: VITAL SIGNS: Reviewed. GENERAL: Well-developed in no acute distress. NECK: Supple. No JVD or thyromegaly LUNGS: Respirations even and unlabored. Lungs diminished bilaterally. HEART: Regular rate and rhythm. S1 and S2 heard. EXTREMITIES: Normal range of motion. No clubbing or cyanosis. Peripheral pulses intact. No lower extremity edema ASSESSMENT: Elevated troponin, likely type 2 mechanism with prior LHC relatively normal. Some microvascular dysfunction noted previous cath. 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 Possible biopsy on an outpatient basis next week. Patient is stable from a cardiac perspective Nurse practitioner note has been reviewed by physician. Signing provider agrees with the documented findings, assessment, and plan of care. Objective - Vital Signs Vital signs: Vital Signs Temp 98.1 F 08/16/22 03:15 Pulse 62 08/16/22 11:13 Resp 22 08/16/22 11:13 BP 109/73 08/16/22 11:13 Pulse Ox 92 L 08/16/22 11:13 FiO2 Intake & Output 08/15/22 08/16/22 08/16/22 18:59 06:59 18:59 Intake Total 480 1080 118 Output Total 232 400 50 Balance 248 680 68 Weight 72.1 kg Intake: Oral 480 1080 118 Output: Urine 200 400 Post Void Residual 32 0 50 Other: Voiding Method Bedside Commode Bedside Commode Bedside Commode # Voids 1 # Bowel Movements 1 - Labs CBC & Chem 7: 08/15/22 07:03 08/15/22 07:03 Labs: Abnormal Lab Results - Last 24 Hours (Table) 08/15/22 08/15/22 Range/Units 07:03 07:03 Iron 9 L (50-170) UG/DL TIBC 124 L (228-460) UG/DL % Saturation 7.26 L (12.00-45.00) Transferrin 88.7 L (204.0-354.0) mg/dL Ferritin 384.0 H (10.0-291.0) ng/mL IgM <35.0 L (40.0-280.0) mg/dL
[2022-08-16] MEDS: SODIUM FERRIC GLUCONAT-SUCROSE 125 MG in SODIUM CHLORIDE 0.9% 100 ML IVPB SCH (11:53)
--- NOTE | 2022-08-16 11:54 | CDI ---
Documentation Clarification Form Date: 08/16/2022 11:06:32 AM From: Soumya Garcia RN, CCDS Admit Date: 08/10/2022 02:23:00 AM Patient Name: Gayatri Draper I Visit Number: [id number] Discharge Date: ATTENTION: The Clinical Documentation Specialists (CDI) and [facility] Coding Staff appreciate your assistance in clarifying documentation. Please respond to the clarification below the line at the bottom and electronically sign. The CDI & [facility] Coding staff will review the response and follow-up if needed. Please note: Queries are made part of the Legal Health Record. If you have any questions, please contact the author of this message via ITS. Dr. Gurinder Figueroa Conflicting documentation has been found in the medical record. As attending physician, please provide clarification. 08/13 Cardiology ongoing progress notes: Elevated troponin likely type 2 mechanism. 08/11 Attending ongoing progress notes: Elevated troponin non-ST elevated NH History/Risk Factors: Hyperlipidemia, Hypertension, Atrial fibrillation, pulmonary embolism, DVTs Clinical Indicators: 81-year-old female present with shortness of breath lower extremity edema. Right sided chest pain. 08/09 VS 137/74 70 20 97.8 94% RA 08/09 Labs: WBC 17.6, D-Dimer 3.05, Troponin 0.928, BNP 8280; 08/10 Troponin 0.920, 1.050 08/09 EKG: Sinus rhythm with no acute ST changes, low voltage (per cardiology eval) 08/09 CTA: No PE 08/09 CX US: B/L small to moderate pleural effusion Treatment: Cardiac/Telemetry Monitoring 08/10 ECHO: Mild concentric LVH. Left ventricular EF is estimated at 60-65 % Lasix 40MG IV BID Lopressor 12.5 PO DAILY 08/10-08/16 08/12 Left Heart Catheterization: Normal left and minimally elevated right sided pressures. Low normal cardiac output/cardiac index. Pulmonary hypertension likely mainly group 4. Hypoxia, 85% on room air. A fib with mild RVR 100-120 throughout case. Please clarify which diagnosis is most appropriate: [ ] Type 2 NH related to acute hypoxic respiratory failure secondary to CHF exacerbation, bilateral pleural effusion [ ] non-ST elevated NH [ ] Other (please specify) [ ] Unable to determine (Template Last Revised: May 2020) As per my recent note and no need for query MTDD
[2022-08-16 12:06] LABS: African American GFR (CKD) 28 (>60 ml/min/1.73 sqM); Anion Gap 11 mmol/L; Blood Urea Nitrogen 61 mg/dL (7-17); Calcium 8.4 mg/dL (8.4-10.2); Carbon Dioxide 20 mmol/L (22-30); Chloride 106 mmol/L (98-107); Glucose 100 mg/dL (74-99); Non-African American GFR(CKD) 25 (>60 ml/min/1.73 sqM); Potassium 4.1 mmol/L (3.5-5.1); Sodium 137 mmol/L (137-145)
--- NOTE | 2022-08-16 12:56 | P.PN ---
Subjective Progress Note Date: 08/16/22 Principal diagnosis: SOB, elevated kappa LC Patient is resting comfortably in bed, family at bedside. Family meeting scheduled today with Dr. Lopes to discuss results of testing and plan of care Objective - Vital Signs Vital signs: Vital Signs Temp 98.1 F 08/16/22 03:15 Pulse 62 08/16/22 11:13 Resp 22 08/16/22 11:13 BP 109/73 08/16/22 11:13 Pulse Ox 92 L 08/16/22 11:13 FiO2 Intake & Output 08/15/22 08/16/22 08/16/22 18:59 06:59 18:59 Intake Total 480 1080 118 Output Total 232 400 50 Balance 248 680 68 Weight 72.1 kg Intake: Oral 480 1080 118 Output: Urine 200 400 Post Void Residual 32 0 50 Other: Voiding Method Bedside Commode Bedside Commode Bedside Commode # Voids 1 # Bowel Movements 1 - Constitutional General appearance: Present: average body habitus, no acute distress - EENT Eyes: Present: anicteric sclerae, EOMI ENT: Present: hearing grossly normal - Respiratory Details: breathing mildly labored - Cardiovascular Details: skin warm and dry - Integumentary Integumentary: Present: pale - Musculoskeletal Musculoskeletal: Present: generalized weakness - Psychiatric Psychiatric: Present: A&O x's 3, appropriate affect, intact judgment & insight - Labs CBC & Chem 7: 08/15/22 07:03 08/16/22 07:49 Labs: Abnormal Lab Results - Last 24 Hours (Table) 08/15/22 08/15/22 Range/Units 07:03 07:03 Iron 9 L (50-170) UG/DL TIBC 124 L (228-460) UG/DL % Saturation 7.26 L (12.00-45.00) Transferrin 88.7 L (204.0-354.0) mg/dL Ferritin 384.0 H (10.0-291.0) ng/mL IgM <35.0 L (40.0-280.0) mg/dL Assessment and Plan (1) Pleural effusion Current Visit: Yes Status: Acute Priority: High Code(s): J90 - PLEURAL EFFUSION, NOT ELSEWHERE CLASSIFIED SNOMED Code(s): 66162285 (2) Bone marrow disorder Current Visit: Yes Status: Acute Priority: High Code(s): D75.9 - DISEASE OF BLOOD AND BLOOD-FORMING ORGANS, UNSPECIFIED SNOMED Code(s): 021952316 (3) NSTEMI (non-ST elevated myocardial infarction) Current Visit: Yes Status: Acute Priority: High Code(s): I21.4 - NON-ST ELEVATION (NSTEMI) MYOCARDIAL INFARCTION SNOMED Code(s): 49252410 Plan: Elevated [place] Light chains: -Serum kappa/lambda ratio was found to be significantly elevated at 50.9. Urine kappa LC also elevated at 421, however, this was not collected as a 24-hour sample. SPEP pending. -Lab findings were discussed with patient. Further workup ordered to rule out underlying bone marrow disorders including multiple myeloma which is concerning due to significant elevation in kappa light chains. 24 hour urine kappa lambda LCs and urine protein electrophoresis, serum immunofixation, and bone survey ordered. -Bone survey revealed no visualized sclerotic or lytic osseous lesions -SPEP, no reported M-protein. IgG 1074, IgA 195, IgM 35. No significant elevations in immunoglobulins noted -Patient will need BM biopsy, however, endoscopy is unable to schedule patient on . If patient is still admitted, will plan for next week, or will obtain in the outpatient setting -Family meeting scheduled today with Dr. Lopes. Discussed in depth with patient and family lab findings and the concern for multiple myeloma and need for bone marrow biopsy for confirmation. Discussed the family that we will obtain biopsy next week if still admitted, if not we will schedule this outpatient with clinic follow-up. Family and patient's questions were answered to the best of our ability. Patient is agreeable with plan of care and wants to proceed with biopsy. Pleural effusions: -CTA chest upon admission showed no evidence of PE. Atelectasis in both lower lobes, worse on the left and moderate sized bilateral pleural effusions. S/p left sided thoracentesis on 08/13, 400cc removed. Cytology negative for malignancy. -Pulmonology following NSTEMI: -Tropinins elevated upon admission, patient continues on heparin. Echo showed normal LV systolic function and small pericardial effusion. S/p heart cath. -Cardiology following. attests: I have performed H&P and developed impression and plan of care for patient, discussed with dictator. I agree with dictated note, documented as a scribe
--- NOTE | 2022-08-16 15:58 | P.PN ---
Subjective Progress Note Date: 08/16/22 This is an 81 year old female with history of heart failure and recent hiatal hernia repair at [facility]. Patient was also found to have pulmonary embolism back in February. Patient is admitted for chest pain and being treated currently for acute heart failure. Status post left sided thoracentesis on 08/13 with 400 mls off and cytology is currently pending. Patient was taken off diuretics due to worsening renal function. Nephrology is following. Patient is resumed on IV lasix daily today. Continues to require oxygen support and reports significant shortness of breath and breathlessness when talking. Underwent cardiac catheterization with no significant coronary artery disease and normal filling pressures. Cardiology with no plans to re-cath patient. Eliquis has been resumed today. --Patient will require a wheelchair to complete ADL's, unable to complete with a can or walker currently due to the difficulty with ambulation from osteoarthritis fatigue and significant shortness of breath and breathlessness. Patient has assistance and someone to propel her with wheelchair. 08/15/2022 Patient evaluated today sitting up in chair. Continues with significant shortness of breath and breathlessness. Lungs are diminished. Received IV lasix x 1 yesterday and creatinine today up to 2.06. Patient has 500 ml of urine output in the last 24 hours. Recommending bladder scan Q6h and post void residuals. Nephrology following. Pleural fluid culture is negative so far. Cytology pending. Patient underwent bone scan reveals no visualized sclerotic or lytic osseous lesions. There is cardiomegaly with pulmonary vascular congestion and bilateral pleural effusions. White count has normalized. Oncology has been consulted for the elevated kappa light chains rule out underlying pathology like multiple myeloma. 08/16/2022 Patient evaluated today resting in bed continues to feel more short of breath. Oxygen saturation dropped to 88% on 2L and patient is now requiring 3-4L of oxygen. Chest xray shows bilateral pleural effusions, moderate right and minimal left has developed. Patient has been placed back on daily IV lasix. Creatinine today is 1.87. Oncology recommending bone marrow biopsy likely on Sunday. Pleural fluid cytology showing reactive mesothelial cells, does not appear to suggest malignancy. Review of Systems Constitutional: Reports fatigue, no fever Cardio vascular: denied any chest pain, palpitations Gastrointestinal: denied any nausea, vomiting, diarrhea Pulmonary: Reports shortness of breath, no cough. Neurologic denied any new focal deficits All inpatient medications were reviewed and appropriate changes in these medications as dictated in the interval history and assessment and plan. PHYSICAL EXAMINATION: GENERAL: The patient is alert and oriented x3, not in any acute distress. Well developed, well nourished. Fatigued. on HEENT: Pupils are round and equally reacting to light. EOMI. No scleral icterus. No conjunctival pallor. Normocephalic, atraumatic. No pharyngeal erythema. No thyromegaly. CARDIOVASCULAR: S1 and S2 present. No murmurs, rubs, or gallops. PULMONARY: Chest is clear to auscultation, no wheezing or crackles. Right base is diminished ABDOMEN: Soft, nontender, nondistended, normoactive bowel sounds. No palpable organomegaly. MUSCULOSKELETAL: No joint swelling or deformity. EXTREMITIES: No cyanosis, clubbing, or pedal edema. NEUROLOGICAL: Gross neurological examination did not reveal any focal deficits. Diffuse weakness. SKIN: No rashes. Assessment Elevated troponin secondary to type 2 VT from hypoxia and CHF. New onset atrial fibrillation paroxysmal with RVR off amiodarone gtt. Heart rate controlled and in sinus mechanism. Acute hypoxic respiratory failure secondary to CHF exacerbation bilateral pleural effusion s/p left sided thoracentesis Acute kidney injury secondary to ATN Elevated kappa light chains work up intiated with oncology consultation. History of pulmonary embolism anticoagulated with eliquis Recent hiatal hernia repair with prolonged hospital stay Hypertension Hyperlipidemia GI prophylaxis DVT prophylaxis resumed on eliquis Full Code Plan Chest xray reveals bilateral pleural effusions patient resumed on IV lasix daily Follow up AM labs S/P left thoracentesis with no plans for right thoracentesis, resumed on eliquis Oncology consultation work up due to elevated kappa light chains, recommending b one marrow biopsy pending scheduling. Strict intake and output monitoring The impression and plan of care has been dictated by Milagros Jamsine Nurse Practitioner as directed. Dr. Carolina MD I have performed a history and physical examination and medical decision making of this patient, discussed the same with the dictator, and agree with the dictators assessment and plan as written, documented as a scribe. Based on total visit time, I have performed more than 50% of this visit. Objective - Vital Signs Vital signs: Vital Signs Temp 98.1 F 08/16/22 03:15 Pulse 62 08/16/22 11:13 Resp 22 08/16/22 11:13 BP 109/73 08/16/22 11:13 Pulse Ox 92 L 08/16/22 11:13 FiO2 Intake & Output 08/15/22 08/16/22 08/16/22 18:59 06:59 18:59 Intake Total 480 1080 118 Output Total 232 400 50 Balance 248 680 68 Weight 72.1 kg 72.1 kg Intake: Oral 480 1080 118 Output: Urine 200 400 Post Void Residual 32 0 50 Other: Voiding Method Bedside Commode Bedside Commode Bedside Commode # Voids 1 # Bowel Movements 1 - Labs CBC & Chem 7: 08/15/22 07:03 08/16/22 07:49 Labs: Abnormal Lab Results - Last 24 Hours (Table) 08/16/22 Range/Units 07:49 Carbon Dioxide 20 L (22-30) mmol/L BUN 61 H (7-17) mg/dL Creatinine 1.87 H (0.52-1.04) mg/dL Glucose 100 H (74-99) mg/dL Assessment and Plan Time with Patient: Less than 30
[2022-08-16] MEDS: ATORVASTATIN 20 MG TAB PO SCH (20:28)
[2022-08-17 07:50] LABS: African American GFR (CKD) 25 (>60 ml/min/1.73 sqM); Anion Gap 9 mmol/L; Blood Urea Nitrogen 58 mg/dL (7-17); Calcium 8.6 mg/dL (8.4-10.2); Carbon Dioxide 25 mmol/L (22-30); Chloride 105 mmol/L (98-107); Glucose 106 mg/dL (74-99); Non-African American GFR(CKD) 22 (>60 ml/min/1.73 sqM); Potassium 4.1 mmol/L (3.5-5.1); Sodium 139 mmol/L (137-145)
[2022-08-17] MEDS: METOPROLOL TARTRATE 12.5 MG TAB PO SCH (09:26)
[2022-08-17] MEDS: SODIUM BICARBONATE TAB 650 MG TAB PO SCH ×2 (09:26→21:10)
[2022-08-17] MEDS: ASPIRIN 81 MG PO SCH (09:26)
[2022-08-17] MEDS: SODIUM FERRIC GLUCONAT-SUCROSE 125 MG in SODIUM CHLORIDE 0.9% 100 ML IVPB SCH (09:26)
[2022-08-17] MEDS: FUROSEMIDE 10 MG/ML 4 ML VIAL IV SCH (09:26)
[2022-08-17] MEDS: APIXABAN 2.5 MG TABLET PO SCH ×4 (09:26→21:10)
[2022-08-17] MEDS: AMIODARONE 200 MG TAB PO SCH (09:26)
[2022-08-17] MEDS: FAMOTIDINE 20 MG TAB PO SCH (09:26)
[2022-08-17] MEDS: allopurinoL 100 MG TAB PO SCH (09:26)
--- NOTE | 2022-08-17 11:09 | P.PN ---
Subjective Progress Note Date: 08/17/22 I am seeing this patient in new consultation today 08/10/2022 for right sided chest pain and bilateral pleural effusions. Patient is an 81-year-old female with past medical history significant for recent prolonged hospitalization at [facility] where she had a hiatal hernia repair, and was discharged on . She also has history pulmonary embolism, atrial fibrillation on Eliquis, hypertension, hyperlipidemia, GERD. Patient presented early this morning complaining of a right-sided chest pain that started approximately 3 hours prior to arrival in the emergency room. Patient's pain is reproducible with movement or palpation of the right arm and chest wall. Denies any falls or injuries. Denies palpitations, orthopnea, PND. Denies any fevers, chills, cough, shortness of breath, nausea, vomiting, abdominal pain. Patient is currently sitting up in bed, on 2 L nasal cannula, in no acute distress. Chest CTA on arrival showed no evidence of pulmonary embolism. There were small to moderate size bilateral pleural effusions. No obvious ischemic changes on ECG. Troponins are elevated however at 0.93 and 0.92 respectively. Cardiology is on the case. NT proBNP elevated at 8280. BMP shows sodium 130, potassium 3.9, chloride 106, serum CO2, BUN 20, creatinine 1.02, glucose 77. CBC shows a WBC count of 17.6, hemoglobin 10.8, hematocrit 34.7, plt 249. Vital signs are stable. The patient is seen today 08/11/2022 in follow-up on the selective care unit. She is currently resting quite comfortably in bed. Awake and alert in no acute distress. She states her chest discomfort is improved. She still has some shortness of breath with conversation. Shortness of breath with exertion. She is maintaining good O2 saturations in the 90s on 2 L/m per nasal cannula. Echocardiogram revealed preserved left ventricular systolic function with ejection fraction 60-65%. Ultrasound of the chest revealed a 4.9 cm pocket on the right and a 7.2 cm pocket on the left. She is continued on Lasix 20 mg IV every 12 hours. White count 15.9. Hemoglobin 10.2. Platelets 215. INR 1.5. She remains on a heparin drip. Sodium 138. Potassium 4.3. Bicarb 20. BUN 28. Creatinine 1.26. The patient is seen today 08/12/2022 in follow-up on the selective care unit. She is awake and alert in no acute distress. She still feeling short of breath. She is maintaining O2 saturations in the mid 90s on room air but feels more comfortable with the oxygen on. Current O2 saturation at 99% on 2 L nasal cannula. She's been afebrile. Hemodynamically stable. White count 16.1. Hemoglobin 10.5. Platelets 210. Sodium 139. Potassium 5.2. Bicarb 15. BUN 38. Creatinine 1.59. Nephrology has been consulted. She remains on IV Lasix 20 mg every 12 hours. Follow-up chest x-ray will be ordered. The patient is seen today 08/13/2022 in follow-up on the selective care unit. She is currently sitting up at the bedside. Awake and alert in no acute distress. She had been admitted ongoing issues with shortness of breath and dyspnea on exertion. She does have bilateral pleural effusions left greater than right. She did undergo a left-sided thoracentesis today with 400 ML's of serosanguineous fluid removed. Follow-up chest x-ray showed no evidence of pneumothorax. Continued evidence of a right-sided pleural effusion. Her heparin drip will be resumed 2 hours post procedure. She is maintaining O2 saturations in the 90s on 3 L/m per nasal cannula. She did undergo a right-sided cardiac catheterization yesterday and was found abnormal left and minimally elevated right-sided pressures. Being considered for Revatio for her pulmonary hypertension likely mainly group 4. She did have atrial fibrillation with rapid ventricular response last evening was been initiated on amiodarone drip currently at 0.5 mg/m. She remains on Lasix 20 mg IV every 12 hours. Currently in a negative balance. The patient is seen today 08/14/2022 in follow-up on the selective care unit. She is currently resting comfortably in bed. Awake and alert in no acute distress. Maintaining good O2 saturations in the 90s on 3 L/m per nasal cannula. She remains on heparin drip. Sodium 138. Potassium 3.8. Bicarb 19. BUN 51. Creatinine 1.83. Pleural fluid analysis reveals a transudate with a total protein of 1.7 and LDH of 86. Cultures and cytology pending. Progress note dated 08/15/2022. The right chest, is relatively small, compared to the left side. Left thoracentesis was performed by my partner, and only 400 mL of fluid was retrieved. Currently, the patient's on 3 L of oxygen. Her factor X a inhibitor was restarted. There is no plans to do thoracentesis on the right side. White count is 9.9, hemoglobin 9.7, hematocrit 33, and platelet count 253,000. Sodium is 138, potassium 3.9, chlorides 106, CO2 24, BUN 58, and creatinine 2.06. The patient is seen today 08/16/2022 in follow-up on the selective care unit. Chest x-ray continues to show stable right-sided pleural effusion. Minimal left-sided pleural effusion. A bone scan revealed no sclerotic or lytic osseous lesions. Pleural fluid culture and cytology are pending. There are multiple family members in the room this morning. There is a meeting planned with oncology. She is continued on IV diuretics. Iron being replaced. Anticoagulated with Eliquis. The patient is seen today 08/17/2022 in follow-up on the selective care unit. She is currently sitting up in bed. Awake and alert in no acute distress. Maintaining O2 saturations in the 90s on 3 L/m per nasal cannula. Afebrile. Hemodynamically stable. Sodium 139. Potassium 4.1. Bicarb 25. BUN 58. Creatinine 2.06. Glucose 106. She is continued on IV diuretics. Anticoagulated with Eliquis. The plan is for bone marrow biopsy possibly in the outpatient setting with concerns for possible multiple myeloma. Objective - Vital Signs Vital signs: Vital Signs Temp 97.6 F 08/16/22 20:00 Pulse 71 08/17/22 08:00 Resp 18 08/17/22 08:00 BP 103/57 08/17/22 08:00 Pulse Ox 86 L 08/17/22 08:01 FiO2 Intake & Output 08/16/22 08/17/22 08/17/22 18:59 06:59 18:59 Intake Total 168 240 Output Total 200 337 200 Balance -32 -97 -200 Weight 72.1 kg 73 kg Intake: Oral 168 240 Output: Urine 150 300 100 Post Void Residual 50 37 100 Other: Voiding Method Bedside Commode External Catheter # Voids 1 1 # Bowel Movements 1 - Exam GENERAL EXAM: Alert, 81-year-old female, on 3 L nasal cannula, comfortable in no apparent distress. HEAD: Normocephalic and atraumatic EYES: Normal reaction of pupils, equal size. NOSE: Clear with pink turbinates. THROAT: No erythema or exudates. NECK: No masses, no JVD. CHEST: No chest wall deformity. No crepitus LUNGS: Equal air entry with faint bibasilar inspiratory crackles, right greater than left. CVS: S1 and S2 normal with no audible murmur, irregular rhythm. No extra heart sounds ABDOMEN: No hepatosplenomegaly, active bowel sounds, no guarding or rigidity. SPINE: No scoliosis or deformity SKIN: No rashes CENTRAL NERVOUS SYSTEM: No focal deficits, tone is normal in all 4 extremities. EXTREMITIES: There is mild nonpitting bilateral lower extremity edema. No clubbing, or cyanosis. Peripheral pulses are intact. - Labs CBC & Chem 7: 08/15/22 07:03 08/17/22 06:43 Labs: Abnormal Lab Results - Last 24 Hours (Table) 08/16/22 08/17/22 Range/Units 07:49 06:43 Carbon Dioxide 20 L (22-30) mmol/L BUN 61 H 58 H (7-17) mg/dL Creatinine 1.87 H 2.06 H (0.52-1.04) mg/dL Glucose 100 H 106 H (74-99) mg/dL Microbiology - Last 24 Hours (Table) 08/13/22 10:00 Gram Stain - Final Pleural Fluid Body Fluid Culture - Final Coagulase Negative Staph Assessment and Plan Assessment: Right sided chest pain, which is reproducible with coughing, deep inspiration, and palpation. Elevated troponins, possible NSTEMI Moderate sized bilateral lateral pleural effusions, greater on the left than right. Left-sided thoracentesis performed on 08/13/2022 with 400 ML's of serosanguineous fluid removed. Cytology negative for malignancy Acute exacerbation of diastolic congestive heart failure, patient has cardiomegaly and bilateral pleural effusions demonstrated on chest CTA. Pro-bnp elevated at 8280. Currently on IV diuretics Acute hypoxemic respiratory failure secondary to above, currently on 3 L nasal cannula Acute kidney injury, current creatinine 2.06 History of paroxysmal atrial fibrillation currently on a heparin drip. Currently on amiodarone drip. Previously anticoagulated on Eliquis. History of pulmonary embolism Hypertension Hyperlipidemia GERD, without esophagitis Recent prolonged hospital stay for repair of the hiatal hernia Plan: The patient was seen and evaluated Medications and labs reviewed Cytology negative for malignancy Still some concern for multiple myeloma Plan is for bone marrow biopsy Continues on IV diuretics Transitioned to Eliquis Titrate down the FiO2 as tolerated We will continue to follow I have personally seen and examined the patient, performed the documentation and the assessment and plan as written. Number of minutes spent on the visit: 10.
--- NOTE | 2022-08-17 11:25 | P.PN ---
Subjective Patient is seen for follow-up for acute kidney injury. Patient is currently being diuresed. Serum creatinine fluctuating between 1.8 and 2.0 mg/dL. Patient has an external catheter. 24 hour urine documented at 450 ML. I'm not sure of this is accurate. No significant complaints today. Objective - Vital Signs Vital signs: Vital Signs Temp 97.6 F 08/16/22 20:00 Pulse 71 08/17/22 08:00 Resp 18 08/17/22 08:00 BP 103/57 08/17/22 08:00 Pulse Ox 86 L 08/17/22 08:01 FiO2 Intake & Output 08/16/22 08/17/22 08/17/22 18:59 06:59 18:59 Intake Total 168 240 Output Total 200 337 200 Balance -32 -97 -200 Weight 72.1 kg 73 kg Intake: Oral 168 240 Output: Urine 150 300 100 Post Void Residual 50 37 100 Other: Voiding Method Bedside Commode External Catheter # Voids 1 1 # Bowel Movements 1 - Exam Patient is awake, comfortable, no acute distress Examination of the heart S1 and S2 Examination of the lungs decreased breath sounds at the bases Abdomen is soft nontender Examination lower extremity shows edema trace bilaterally - Labs CBC & Chem 7: 08/15/22 07:03 08/17/22 06:43 Labs: Abnormal Lab Results - Last 24 Hours (Table) 08/16/22 08/17/22 Range/Units 07:49 06:43 Carbon Dioxide 20 L (22-30) mmol/L BUN 61 H 58 H (7-17) mg/dL Creatinine 1.87 H 2.06 H (0.52-1.04) mg/dL Glucose 100 H 106 H (74-99) mg/dL Microbiology - Last 24 Hours (Table) 08/13/22 10:00 Gram Stain - Final Pleural Fluid Body Fluid Culture - Final Coagulase Negative Staph Assessment and Plan Assessment: 1. Acute kidney injury secondary to hemodynamic ATN. Also received IV contrast on 08/10/2022. Creatinine 1.02 on admission and staying 1.8-2.0. Worsened from diuresis. No hydronephrosis noted on kidney ultrasound. UA fairly benign. Has multiple kidney cysts however kidneys are not large in size. 2. A. fib with RVR s/p amiodarone drip. On oral amiodarone, Lopressor and anticoagulation. 3. Acute on chronic diastolic CHF with moderate pulmonary regurgitation and moderate to severe tricuspid regurgitation. 4. Volume overload with pleural effusions. Underwent left-sided thoracentesis with 400 mL drained on 08/13/2022. 5. Acute hypoxic respiratory failure. 6. Metabolic acidosis secondary to acute kidney injury. On oral bicarbonate. Improved. 7. Significantly elevated kappa light chains concerning for multiple myeloma. Oncology following. 8. Anemia. Iron deficiency noted. Plan: Continue with current dose of Lasix Continue with IV iron Repeat labs in a.m. Monitor urine output accurately
--- NOTE | 2022-08-17 13:12 | P.PN ---
Subjective Progress Note Date: 08/17/22 HISTORY OF PRESENT ILLNESS: This is an 81-year-old female patient of Dr. Elder with past medical history of hypertension, hyperlipidemia, family history of coronary artery disease, temporary bradycardia, acute pulmonary embolism 02/2022 status post Inari thrombectomy at [facility] by Dr. Hamilton. On 04/17/2022 she had an EF of 55-60% and continued elevated RVSP of 55 and underwent lower extremity ultrasound negative for DVT. Patient was recently hospitalized at [facility] from July due to hiatal hernia but unfortunately she developed new onset of atrial fibrillation was started on amiodarone and Coreg. She was having palpitations and dizziness was initially started on heparin drip developed right upper extremity hematoma as well as right hip hematoma. She barely was diagnosed with bilateral upper extremity blood clots as well. She was eventually cleared for surgery underwent hernia repair on 07/26/2022. During her hospitalization, patient was also started on Revatio but developed bowel impaction and this was stopped and not resumed. Patient has been resumed on eliquis. Patient feels occasional episodes of atrial fibrillation the last from a few minutes to a few hours. Patient was seen in the office yesterday and states she was feeling fine at that time. Subsequently she developed significant right shoulder, right-sided chest and right lateral rib pain. She has never had this before. She was provided morphine, Toradol and lidocaine and pain is improved but she still has it when she moves. There is some tenderness to palpation. She denies having any abdominal pain. She states she's had some shortness of breath. No lightheadedness or dizziness. She complains of lower extremity edema. Patient is seen today in the emergency center waiting for a bed on the cardiac stepdown unit. We have been asked to evaluate the patient for non-ST elevated myocardial infarction. EKG sinus rhythm with no acute ST changes, low voltage CTA of the chest no evidence of pulmonary emboli. Chest ultrasound reveals bilateral small to moderate pleural effusions, right pleural effusion pocket size 4.9 cm and left pleural effusion pocket size 7.2 cm. WBC 17.6, hemoglobin 10.8, platelet count 249. INR 1.5. D-dimer 3.05. BUN 20 creatinine 1.02, potassium 3.9. Alkaline phosphatase 136, total bilirubin 1.5. Troponin 0.928, 0.92, 1.05. ProBNP 8280 Home cardiac medications: Amiodarone 200 mg daily, Coreg 6.25 mg twice daily, eliquis 5 mg twice daily, simvastatin 40 mg in the evening, aspirin 81 mg daily Echocardiogram 04/17/2022 reveals EF of 55-60%, elevated RVSP of 55 08/11 Patient is seen today in follow up on the cardiac stepdown unit. Patient states pain is gone but she has shortness of breath stating that she is gasping for air. She states that she has been urinating quite a bit. Patient appears to be comfortable at rest. Heart rate is in the 70s to 90s, blood pressure 133/76, pulse ox 96% on 2 L nasal cannula. Repeat blood work reveals potassium 4.3, BUN 28 and creatinine 1.26. Patient has been continued on heparin drip. She is on Lasix 20 mg IV every 12 hours Echocardiogram reveals normal LV systolic function. Small pericardial effusion. 08/12 Vision seen and examined. She reports that she is feeling worse today. She is still having shortness of breath. She has right chest and right back discomfort that is tender on exam. She has decreased appetite and nausea, states she has not eaten today. She also feels weak and lightheaded and has not been out of bed. She denies any abdominal pain. Chest x-ray does show worsening pleural effusions. 08/13 Patient seen and examined. Patient underwent right heart catheterization yesterday which showed normal left-sided filling pressures and minimally elevated right-sided filling pressures with pulmonary hypertension likely related to prior pulmonary embolism. Therefore diuretics were discontinued and given 500 mL bolus given acute kidney injury. Nephrology saw patient this morning in place patient back on diuretics. We discussed with patient given patient had worsened symptoms despite diuresis and worsened effusion and normal left-sided filling pressures holding diuretics for now and monitoring kidney function. Patient did undergo thoracentesis with improvement and symptoms and additionally has been on amiodarone drip intermittently in A. fib however currently in sinus rhythm. She states she feels much better currently today. 08/14/2022 Patient examined this morning at the bedside. She is status post right heart catheterization performed yesterday showing normal left-sided filling pressures with minimally elevated right-sided filling pressures. Normal left-sided filling pressures argue against effusions and shortness of breath related to heart failure. Diuretics remain on hold secondary to acute kidney injury. Creatinine today remains the same as yesterday at 1.83. She remains on IV heparin. She currently denies chest pain or pressure. She currently denies shortness of breath. Telemetry reveals sinus mechanism. Blood pressure stable with a reading of 104/71. 08/15/2022 Patient examined this morning at the bedside. Patient denies SOB. Patient denies chest pain or pressure. She continues to report extreme weakness. Hematology has evaluated the patient this morning and plans are underway for bone marrow biopsy. She was evaluated by nephrology yesterday and resumed on Lasix. Creatinine 2.06. 08/16/2022 Patient examined this morning at the bedside. There are multiple family members present. Patient denies chest pain or pressure. She denies shortness of breath. She is maintained on IV Lasix per nephrology. Vital signs are stable. 08/17/2022 Patient examined this morning at the bedside. Patient denies chest pain or pressure. She denies shortness of breath. Patient continues to report generalized weakness. She remains on IV Lasix per nephrology. Vital signs are stable. PHYSICAL EXAM: VITAL SIGNS: Reviewed. GENERAL: Well-developed in no acute distress. NECK: Supple. No JVD or thyromegaly LUNGS: Respirations even and unlabored. Lungs diminished bilaterally. HEART: Regular rate and rhythm. S1 and S2 heard. EXTREMITIES: Normal range of motion. No clubbing or cyanosis. Peripheral pulses intact. No lower extremity edema ASSESSMENT: Elevated troponin, likely type 2 mechanism with prior LHC relatively normal. Some microvascular dysfunction noted previous cath. 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 Please reconsult if needed. Nurse practitioner note has been reviewed by physician. Signing provider agrees with the documented findings, assessment, and plan of care. Objective - Vital Signs Vital signs: Vital Signs Temp 97 F L 08/17/22 12:00 Pulse 78 08/17/22 12:00 Resp 18 08/17/22 12:00 BP 131/86 08/17/22 12:00 Pulse Ox 91 L 08/17/22 12:00 FiO2 Intake & Output 08/16/22 08/17/22 08/17/22 18:59 06:59 18:59 Intake Total 168 240 Output Total 200 337 200 Balance -32 -97 -200 Weight 72.1 kg 73 kg Intake: Oral 168 240 Output: Urine 150 300 100 Post Void Residual 50 37 100 Other: Voiding Method Bedside Commode External Catheter # Voids 1 1 # Bowel Movements 1 - Labs CBC & Chem 7: 08/15/22 07:03 08/17/22 06:43 Labs: Abnormal Lab Results - Last 24 Hours (Table) 08/17/22 Range/Units 06:43 BUN 58 H (7-17) mg/dL Creatinine 2.06 H (0.52-1.04) mg/dL Glucose 106 H (74-99) mg/dL Microbiology - Last 24 Hours (Table) 08/13/22 10:00 Gram Stain - Final Pleural Fluid Body Fluid Culture - Final Coagulase Negative Staph
--- NOTE | 2022-08-17 13:21 | P.PN ---
Subjective Progress Note Date: 08/17/22 This is an 81 year old female with history of heart failure and recent hiatal hernia repair at [place]. Patient was also found to have pulmonary embolism back in February. Patient is admitted for chest pain and being treated currently for acute heart failure. Status post left sided thoracentesis on 08/13 with 400 mls off and cytology is currently pending. Patient was taken off diuretics due to worsening renal function. Nephrology is following. Patient is resumed on IV lasix daily today. Continues to require oxygen support and reports significant shortness of breath and breathlessness when talking. Underwent cardiac catheterization with no significant coronary artery disease and normal filling pressures. Cardiology with no plans to re-cath patient. Eliquis has been resumed today. --Patient will require a wheelchair to complete ADL's, unable to complete with a can or walker currently due to the difficulty with ambulation from osteoarthritis fatigue and significant shortness of breath and breathlessness. Patient has assistance and someone to propel her with wheelchair. 08/15/2022 Patient evaluated today sitting up in chair. Continues with significant shortness of breath and breathlessness. Lungs are diminished. Received IV lasix x 1 yesterday and creatinine today up to 2.06. Patient has 500 ml of urine output in the last 24 hours. Recommending bladder scan Q6h and post void residuals. Nephrology following. Pleural fluid culture is negative so far. Cytology pending. Patient underwent bone scan reveals no visualized sclerotic or lytic osseous lesions. There is cardiomegaly with pulmonary vascular congestion and bilateral pleural effusions. White count has normalized. Oncology has been consulted for the elevated kappa light chains rule out underlying pathology like multiple myeloma. 08/16/2022 Patient evaluated today resting in bed continues to feel more short of breath. Oxygen saturation dropped to 88% on 2L and patient is now requiring 3-4L of oxygen. Chest xray shows bilateral pleural effusions, moderate right and minimal left has developed. Patient has been placed back on daily IV lasix. Creatinine today is 1.87. Oncology recommending bone marrow biopsy likely on Sunday. Pleural fluid cytology showing reactive mesothelial cells, does not appear to suggest malignancy. 08/17/2022 Patient is evaluated today appears more fatigued than yesterday. Patient continues to require increased oxygen need 86% on the 3L nasal cannula. Continues on IV lasix daily. Creatinine 2.06 today. Patient has made about 700 mls of urine in the last 24 hours. Pending bone marrow biopsy tentively scheduled for Sunday due to OR scheduling. Patient can continue on eliquis and will need to hold for 24 hours to the BM biopsy. Review of Systems Constitutional: Reports fatigue, no fever Cardio vascular: denied any chest pain, palpitations Gastrointestinal: denied any nausea, vomiting, diarrhea Pulmonary: Reports shortness of breath, no cough. Neurologic denied any new focal deficits All inpatient medications were reviewed and appropriate changes in these medications as dictated in the interval history and assessment and plan. PHYSICAL EXAMINATION: GENERAL: The patient is alert and oriented x3, not in any acute distress. Well developed, well nourished. Fatigued. on HEENT: Pupils are round and equally reacting to light. EOMI. No scleral icterus. No conjunctival pallor. Normocephalic, atraumatic. No pharyngeal erythema. No thyromegaly. CARDIOVASCULAR: S1 and S2 present. No murmurs, rubs, or gallops. PULMONARY: Chest is clear to auscultation, no wheezing or crackles. Right base is diminished ABDOMEN: Soft, nontender, nondistended, normoactive bowel sounds. No palpable organomegaly. MUSCULOSKELETAL: No joint swelling or deformity. EXTREMITIES: No cyanosis, clubbing, or pedal edema. NEUROLOGICAL: Gross neurological examination did not reveal any focal deficits. Diffuse weakness. SKIN: No rashes. Assessment Elevated troponin secondary to type 2 VT from hypoxia and CHF. Acute on chronic diastolic CHF with moderate to severe tricuspid regurgitation New onset atrial fibrillation paroxysmal with RVR off amiodarone gtt. Heart rate controlled and in sinus mechanism. Acute hypoxic respiratory failure secondary to CHF exacerbation bilateral pleural effusion s/p left sided thoracentesis Acute kidney injury secondary to ATN Elevated kappa light chains work up intiated concerns for multiple myeloma History of pulmonary embolism anticoagulated with eliquis Recent hiatal hernia repair with prolonged hospital stay Iron deficiency anemia Hypertension Hyperlipidemia GI prophylaxis DVT prophylaxis resumed on eliquis Full Code Plan Chest xray reveals bilateral pleural effusions patient resumed on IV lasix daily S/P left thoracentesis with no plans for right thoracentesis, resumed on eliquis Oncology consultation work up due to elevated kappa light chains, recommending bone marrow biopsy tentative for Sunday of next week Strict intake and output monitoring Follow up BMP in the AM Nephrology, cardiology, oncology, pulmonary following closely. The impression and plan of care has been dictated by Nurse Maria Del Carmen Read as directed. Dr. Carolina MD I have performed a history and physical examination and medical decision making of this patient, discussed the same with the dictator, and agree with the dict ators assessment and plan as written, documented as a scribe. Based on total visit time, I have performed more than 50% of this visit. Objective - Vital Signs Vital signs: Vital Signs Temp 97 F L 08/17/22 12:00 Pulse 78 08/17/22 12:00 Resp 18 08/17/22 12:00 BP 131/86 08/17/22 12:00 Pulse Ox 91 L 08/17/22 12:00 FiO2 Intake & Output 08/16/22 08/17/22 08/17/22 18:59 06:59 18:59 Intake Total 168 240 Output Total 200 337 200 Balance -32 -97 -200 Weight 72.1 kg 73 kg Intake: Oral 168 240 Output: Urine 150 300 100 Post Void Residual 50 37 100 Other: Voiding Method Bedside Commode External Catheter # Voids 1 1 # Bowel Movements 1 - Labs CBC & Chem 7: 08/15/22 07:03 08/17/22 06:43 Labs: Abnormal Lab Results - Last 24 Hours (Table) 08/17/22 Range/Units 06:43 BUN 58 H (7-17) mg/dL Creatinine 2.06 H (0.52-1.04) mg/dL Glucose 106 H (74-99) mg/dL Microbiology - Last 24 Hours (Table) 08/13/22 10:00 Gram Stain - Final Pleural Fluid Body Fluid Culture - Final Coagulase Negative Staph Assessment and Plan Time with Patient: Less than 30
[2022-08-17 13:24] VITALS: BMI 26.7
[2022-08-17] MEDS: dexAMETHasone 4 MG TAB PO SCH (17:48)
--- NOTE | 2022-08-17 18:57 | XR ---
EXAMINATION: XR chest 1V portable DATE AND TIME: 08/17/2022 6:14 PM CLINICAL INDICATION: right side diminished TECHNIQUE: AP portable upright COMPARISON: 08/16/2022 AP portable upright 6:55 AM FINDINGS: The large right pleural effusion is redemonstrated, appearing slightly increased. The passive atelect asis of the right lower lobe and right middle lobe is unchanged. Concurrent pneumonia can be clinical ly excluded. The [id number] left pleural effusion is redemonstrated. The passive atelectasis of the left lo wer lobe is unchanged. Concurrent pneumonia can be clinically excluded. There is no pneumothorax. The mediastinum is midline. Enlarged cardiac silhouette redemonstrated. No acute skeletal or soft tissue findings. IMPRESSION: Overall similar bilateral marked abnormalities. No new process.
[2022-08-17] MEDS: ATORVASTATIN 20 MG TAB PO SCH (21:10)
--- NOTE | 2022-08-17 22:11 | P.PN ---
Subjective Progress Note Date: 08/17/22 Principal diagnosis: SOB, elevated kappa LC Patient is resting comfortably in bed. Pt is reporting SOB and weakness. Breathing is mildly labored. Pt denies pain. Objective - Vital Signs Vital signs: Vital Signs Temp 97 F L 08/17/22 17:00 Pulse 83 08/17/22 17:00 Resp 16 08/17/22 17:00 BP 104/64 08/17/22 17:00 Pulse Ox 91 L 08/17/22 17:00 FiO2 Intake & Output 08/17/22 08/17/22 08/18/22 06:59 18:59 06:59 Intake Total 240 Output Total 337 805 Balance -97 -805 Weight 73 kg 73 kg Intake: Oral 240 Output: Urine 300 500 Post Void Residual 37 305 Other: Voiding Method External Catheter # Voids 1 1 # Bowel Movements 1 - Constitutional General appearance: Present: average body habitus, no acute distress - EENT Eyes: Present: anicteric sclerae, EOMI ENT: Present: hearing grossly normal - Respiratory Details: breathing mildly labored - Cardiovascular Details: skin warm and dry - Musculoskeletal Musculoskeletal: Present: generalized weakness - Psychiatric Psychiatric: Present: A&O x's 3, appropriate affect, intact judgment & insight - Labs CBC & Chem 7: 08/15/22 07:03 08/17/22 06:43 Labs: Abnormal Lab Results - Last 24 Hours (Table) 08/17/22 Range/Units 06:43 BUN 58 H (7-17) mg/dL Creatinine 2.06 H (0.52-1.04) mg/dL Glucose 106 H (74-99) mg/dL Microbiology - Last 24 Hours (Table) 08/13/22 10:00 Gram Stain - Final Pleural Fluid Body Fluid Culture - Final Coagulase Negative Staph Assessment and Plan (1) Pleural effusion Current Visit: Yes Status: Acute Priority: High Code(s): J90 - PLEURAL EFFUSION, NOT ELSEWHERE CLASSIFIED SNOMED Code(s): 82122282 (2) Bone marrow disorder Current Visit: Yes Status: Acute Priority: High Code(s): D75.9 - DISEASE OF BLOOD AND BLOOD-FORMING ORGANS, UNSPECIFIED SNOMED Code(s): 871074849 (3) NSTEMI (non-ST elevated myocardial infarction) Current Visit: Yes Status: Acute Priority: High Code(s): I21.4 - NON-ST ELEVATION (NSTEMI) MYOCARDIAL INFARCTION SNOMED Code(s): 70430804 Plan: Elevated [place] Light chains/concern for MM: -Serum kappa/lambda ratio was found to be significantly elevated at 50.9. Urine kappa LC also elevated at 421, however, this was not collected as a 24-hour sample. -Lab findings were discussed with patient. Further workup ordered to rule out underlying bone marrow disorders including multiple myeloma which is concerning due to significant elevation in kappa light chains. -24 hour urine kappa lambda LCs and urine protein electrophoresis pending -Bone survey revealed no visualized sclerotic or lytic osseous lesions -SPEP, no reported M-protein. Immunofixation showed no monoclonal paraprotein. IgG 1074, IgA 195, IgM 35. No significant elevations in immunoglobulins noted -Patient will need BM biopsy, scheduled for 08/21 -Family meeting was held with Dr. Lopes. Discussed in depth with patient and family lab findings and the concern for multiple myeloma and need for bone marrow biopsy for confirmation. It was also discussed with family that treatment for MM may help improve levels of kappa LC but end organ damage may not be rev ersible with treatment, and we will not know until we proceed through treatment. Family and patient's questions were answered to the best of our ability. Patient is agreeable with plan of care and wants to proceed with biopsy. -It was discussed with IM team today that patient's breathing has continued to worsen, as well as increasing creatinine levels. It was discussed that even though it is preferred not to start treatment with pulse dose dex prior to bone marrow biopsy as this can have effects on biopsy results, but due to concern for worsening condition we would start start pulse dose dex treatment Pleural effusions/SOB: -CTA chest upon admission showed no evidence of PE. Atelectasis in both lower lobes, worse on the left and moderate sized bilateral pleural effusions. S/p left sided thoracentesis on 08/13, 400cc removed. Cytology negative for malignancy. -Pulmonology following NSTEMI: -Tropinins elevated upon admission, patient continues on heparin. Echo showed normal LV systolic function and small pericardial effusion. S/p heart cath. -Cardiology following.
[2022-08-17] MEDS ORDERED: ALPRAZolam 0.25 MG TAB PO STA (22:57)
[2022-08-17 23:05] VITALS: RESP 18
--- NOTE | 2022-08-18 07:22 | XR ---
EXAMINATION TYPE: XR chest 2V DATE OF EXAM: 08/18/2022 COMPARISON: 08/17/2022 INDICATION: Pleural effusion TECHNIQUE: Frontal and lateral views of the chest are obtained. FINDINGS: The heart size is normal. The pulmonary vasculature is normal. There is a moderate right pleural effusion, similar to comparison. A minimal left pleural effusion m ay be present IMPRESSION: 1. Moderate right and small left pleural effusions, similar to comparison study
[2022-08-18 07:48] LABS: Anisocytosis Moderate; Basophils % (A) 0 %; Eosinophils # (A) 0.1 k/uL (0-0.7); Eosinophils % (A) 1 %; HCT 34.5 % (34.0-46.0); HGB 10.3 gm/dL (11.4-16.0); Hypochromasia Marked; Lymphocytes # (A) 0.4 k/uL (1.0-4.8); Lymphocytes % (A) 4 %; MCH 27.6 pg (25.0-35.0); MCHC 29.9 g/dL (31.0-37.0); MCV 92.4 fL (80.0-100.0); Macrocytosis Slight; Mean Platelet Volume 11.3; Microcytosis Slight; Monocytes # (A) 0.2 k/uL (0-1.0); Monocytes % (A) 2 %; Neutrophils # (A) 10.3 k/uL (1.3-7.7); Neutrophils % (A) 93 %; Platelet Count 294 k/uL (150-450); RBC 3.73 m/uL (3.80-5.40); RDW 22.9 % (11.5-15.5); WBC 11.1 k/uL (3.8-10.6)
[2022-08-18 08:05] LABS: African American GFR (CKD) 27 (>60 ml/min/1.73 sqM); Anion Gap 7 mmol/L; Blood Urea Nitrogen 64 mg/dL (7-17); Calcium 8.8 mg/dL (8.4-10.2); Carbon Dioxide 23 mmol/L (22-30); Chloride 108 mmol/L (98-107); Glucose 136 mg/dL (74-99); Non-African American GFR(CKD) 23 (>60 ml/min/1.73 sqM); Potassium 4.1 mmol/L (3.5-5.1); Sodium 138 mmol/L (137-145)
[2022-08-18] MEDS: FUROSEMIDE 10 MG/ML 4 ML VIAL IV SCH (09:46)
[2022-08-18] MEDS: SODIUM FERRIC GLUCONAT-SUCROSE 125 MG in SODIUM CHLORIDE 0.9% 100 ML IVPB SCH (09:46)
[2022-08-18] MEDS: AMIODARONE 200 MG TAB PO SCH (09:47)
[2022-08-18] MEDS: SODIUM BICARBONATE TAB 650 MG TAB PO SCH (09:47)
[2022-08-18] MEDS: APIXABAN 2.5 MG TABLET PO SCH (09:47)
[2022-08-18] MEDS: allopurinoL 100 MG TAB PO SCH (09:47)
[2022-08-18] MEDS: dexAMETHasone 4 MG TAB PO SCH (09:47)
[2022-08-18] MEDS: FAMOTIDINE 20 MG TAB PO SCH (09:47)
[2022-08-18] MEDS: METOPROLOL TARTRATE 12.5 MG TAB PO SCH (09:47)
--- NOTE | 2022-08-18 10:41 | P.PN ---
Subjective Patient is seen for follow-up for acute kidney injury. Patient is currently being diuresed. Serum creatinine fluctuating between 1.8 and 2.0 mg/dL. No significant complaints today. Patient is asking to see her family/kids. No significant shortness of breath Maintained on Lasix 40 mg IV daily Objective - Vital Signs Vital signs: Vital Signs Temp 97.2 F L 08/17/22 20:00 Pulse 73 08/18/22 04:00 Resp 18 08/18/22 04:00 BP 98/68 08/18/22 04:00 Pulse Ox 94 L 08/18/22 04:00 FiO2 Intake & Output 08/17/22 08/18/22 08/18/22 18:59 06:59 18:59 Output Total 805 200 Balance -805 -200 Weight 73 kg 72.7 kg Output: Urine 500 200 Post Void Residual 305 Other: Voiding Method Bedside Commode # Voids 1 1 - Exam Patient is awake, comfortable, no acute distress Examination of the heart S1 and S2 Examination of the lungs decreased breath sounds at the bases Abdomen is soft nontender Examination lower extremity shows edema trace bilaterally - Labs CBC & Chem 7: 08/18/22 07:31 08/18/22 07:31 Labs: Abnormal Lab Results - Last 24 Hours (Table) 08/18/22 08/18/22 Range/Units 07:31 07:31 WBC 11.1 H (3.8-10.6) k/uL RBC 3.73 L (3.80-5.40) m/uL Hgb 10.3 L (11.4-16.0) gm/dL MCHC 29.9 L (31.0-37.0) g/dL RDW 22.9 H (11.5-15.5) % Neutrophils # 10.3 H (1.3-7.7) k/uL Lymphocytes # 0.4 L (1.0-4.8) k/uL Chloride 108 H (98-107) mmol/L BUN 64 H (7-17) mg/dL Creatinine 1.96 H (0.52-1.04) mg/dL Glucose 136 H (74-99) mg/dL Assessment and Plan Assessment: 1. Acute kidney injury secondary to hemodynamic ATN. Also received IV contrast on 08/10/2022. Creatinine 1.02 on admission and staying 1.8-2.0. Blood pressure remains low. No hydronephrosis noted on kidney ultrasound. UA fairly benign. Has multiple kidney cysts however kidneys are not large in size. 2. A. fib with RVR s/p amiodarone drip. On oral amiodarone, Lopressor and anticoagulation. 3. Acute on chronic diastolic CHF with moderate pulmonary regurgitation and moderate to severe tricuspid regurgitation. 4. Volume overload with pleural effusions. Underwent left-sided thoracentesis with 400 mL drained on 08/13/2022. 5. Acute hypoxic respiratory failure. 6. Metabolic acidosis secondary to acute kidney injury. On oral bicarbonate. Improved. 7. Significantly elevated kappa light chains concerning for multiple myeloma. Oncology following. 8. Anemia. Iron deficiency noted. Plan: Continue with current dose of Lasix Continue with IV iron Repeat labs in a.m. Monitor urine output accurately Add low-dose midodrine as blood pressure remains low. Lopressor has been decreased 12.5 mg once a day
--- NOTE | 2022-08-18 11:30 | P.PN ---
Subjective Progress Note Date: 08/18/22 I am seeing this patient in new consultation today 08/10/2022 for right sided chest pain and bilateral pleural effusions. Patient is an 81-year-old female with past medical history significant for recent prolonged hospitalization at [facility] where she had a hiatal hernia repair, and was discharged on . She also has history pulmonary embolism, atrial fibrillation on Eliquis, hypertension, hyperlipidemia, GERD. Patient presented early this morning complaining of a right-sided chest pain that started approximately 3 hours prior to arrival in the emergency room. Patient's pain is reproducible with movement or palpation of the right arm and chest wall. Denies any falls or injuries. Denies palpitations, orthopnea, PND. Denies any fevers, chills, cough, shortness of breath, nausea, vomiting, abdominal pain. Patient is currently sitting up in bed, on 2 L nasal cannula, in no acute distress. Chest CTA on arrival showed no evidence of pulmonary embolism. There were small to moderate size bilateral pleural effusions. No obvious ischemic changes on ECG. Troponins are elevated however at 0.93 and 0.92 respectively. Cardiology is on the case. NT proBNP elevated at 8280. BMP shows sodium 130, potassium 3.9, chloride 106, serum CO2, BUN 20, creatinine 1.02, glucose 77. CBC shows a WBC count of 17.6, hemoglobin 10.8, hematocrit 34.7, plt 249. Vital signs are stable. The patient is seen today 08/11/2022 in follow-up on the selective care unit. She is currently resting quite comfortably in bed. Awake and alert in no acute distress. She states her chest discomfort is improved. She still has some shortness of breath with conversation. Shortness of breath with exertion. She is maintaining good O2 saturations in the 90s on 2 L/m per nasal cannula. Echocardiogram revealed preserved left ventricular systolic function with ejection fraction 60-65%. Ultrasound of the chest revealed a 4.9 cm pocket on the right and a 7.2 cm pocket on the left. She is continued on Lasix 20 mg IV every 12 hours. White count 15.9. Hemoglobin 10.2. Platelets 215. INR 1.5. She remains on a heparin drip. Sodium 138. Potassium 4.3. Bicarb 20. BUN 28. Creatinine 1.26. The patient is seen today 08/12/2022 in follow-up on the selective care unit. She is awake and alert in no acute distress. She still feeling short of breath. She is maintaining O2 saturations in the mid 90s on room air but feels more comfortable with the oxygen on. Current O2 saturation at 99% on 2 L nasal cannula. She's been afebrile. Hemodynamically stable. White count 16.1. Hemoglobin 10.5. Platelets 210. Sodium 139. Potassium 5.2. Bicarb 15. BUN 38. Creatinine 1.59. Nephrology has been consulted. She remains on IV Lasix 20 mg every 12 hours. Follow-up chest x-ray will be ordered. The patient is seen today 08/13/2022 in follow-up on the selective care unit. She is currently sitting up at the bedside. Awake and alert in no acute distress. She had been admitted ongoing issues with shortness of breath and dyspnea on exertion. She does have bilateral pleural effusions left greater than right. She did undergo a left-sided thoracentesis today with 400 ML's of serosanguineous fluid removed. Follow-up chest x-ray showed no evidence of pneumothorax. Continued evidence of a right-sided pleural effusion. Her heparin drip will be resumed 2 hours post procedure. She is maintaining O2 saturations in the 90s on 3 L/m per nasal cannula. She did undergo a right-sided cardiac catheterization yesterday and was found abnormal left and minimally elevated right-sided pressures. Being considered for Revatio for her pulmonary hypertension likely mainly group 4. She did have atrial fibrillation with rapid ventricular response last evening was been initiated on amiodarone drip currently at 0.5 mg/m. She remains on Lasix 20 mg IV every 12 hours. Currently in a negative balance. The patient is seen today 08/14/2022 in follow-up on the selective care unit. She is currently resting comfortably in bed. Awake and alert in no acute distress. Maintaining good O2 saturations in the 90s on 3 L/m per nasal cannula. She remains on heparin drip. Sodium 138. Potassium 3.8. Bicarb 19. BUN 51. Creatinine 1.83. Pleural fluid analysis reveals a transudate with a total protein of 1.7 and LDH of 86. Cultures and cytology pending. Progress note dated 08/15/2022. The right chest, is relatively small, compared to the left side. Left thoracentesis was performed by my partner, and only 400 mL of fluid was retrieved. Currently, the patient's on 3 L of oxygen. Her factor X a inhibitor was restarted. There is no plans to do thoracentesis on the right side. White count is 9.9, hemoglobin 9.7, hematocrit 33, and platelet count 253,000. Sodium is 138, potassium 3.9, chlorides 106, CO2 24, BUN 58, and creatinine 2.06. The patient is seen today 08/16/2022 in follow-up on the selective care unit. Chest x-ray continues to show stable right-sided pleural effusion. Minimal left-sided pleural effusion. A bone scan revealed no sclerotic or lytic osseous lesions. Pleural fluid culture and cytology are pending. There are multiple family members in the room this morning. There is a meeting planned with oncology. She is continued on IV diuretics. Iron being replaced. Anticoagulated with Eliquis. The patient is seen today 08/17/2022 in follow-up on the selective care unit. She is currently sitting up in bed. Awake and alert in no acute distress. Maintaining O2 saturations in the 90s on 3 L/m per nasal cannula. Afebrile. Hemodynamically stable. Sodium 139. Potassium 4.1. Bicarb 25. BUN 58. Creatinine 2.06. Glucose 106. She is continued on IV diuretics. Anticoagulated with Eliquis. The plan is for bone marrow biopsy possibly in the outpatient setting with concerns for possible multiple myeloma. The patient is seen today 08/18/2022 in follow-up on the selective care unit. She is resting comfortably in bed. Awake and alert in no acute distress. Remains quite weak. Maintaining O2 saturations in the 90s on 3 L/m per nasal cannula. Chest x-ray continues to show moderate right and small left pleural effusion. Similar to previous. White count 11.1. Hematoma 10.3. Platelets 294. Sodium 1:30. Potassium 4.1. Bicarb 23. BUN 64. Creatinine 1.96. ProBNP 16,600. Remains on IV diuretics. No accurate I&O. Her weight is similar at 73 kg. Remains on Eliquis. Objective - Vital Signs Vital signs: Vital Signs Temp 97.2 F L 08/17/22 20:00 Pulse 73 06/16/23 04:00 Resp 18 08/18/22 04:00 BP 98/68 08/18/22 04:00 Pulse Ox 94 L 08/18/22 04:00 FiO2 Intake & Output 08/17/22 08/18/22 08/18/22 18:59 06:59 18:59 Output Total 805 200 Balance -805 -200 Weight 73 kg 72.7 kg Output: Urine 500 200 Post Void Residual 305 Other: Voiding Method Bedside Commode # Voids 1 1 - Exam GENERAL EXAM: Alert, 81-year-old female, resting in bed, on 3 L nasal cannula, comfortable in no apparent distress. HEAD: Normocephalic and atraumatic EYES: Normal reaction of pupils, equal size. NOSE: Clear with pink turbinates. THROAT: No erythema or exudates. NECK: No masses, no JVD. CHEST: No chest wall deformity. No crepitus LUNGS: Equal air entry with faint bibasilar inspiratory crackles, right greater than left. CVS: S1 and S2 normal with no audible murmur, irregular rhythm. No extra heart sounds ABDOMEN: No hepatosplenomegaly, active bowel sounds, no guarding or rigidity. SPINE: No scoliosis or deformity SKIN: No rashes CENTRAL NERVOUS SYSTEM: No focal deficits, tone is normal in all 4 extremities. EXTREMITIES: There is mild nonpitting bilateral lower extremity edema. No clubbing, or cyanosis. Peripheral pulses are intact. - Labs CBC & Chem 7: 08/18/22 07:31 08/18/22 07:31 Labs: Abnormal Lab Results - Last 24 Hours (Table) 08/18/22 08/18/22 Range/Units 07:31 07:31 WBC 11.1 H (3.8-10.6) k/uL RBC 3.73 L (3.80-5.40) m/uL Hgb 10.3 L (11.4-16.0) gm/dL MCHC 29.9 L (31.0-37.0) g/dL RDW 22.9 H (11.5-15.5) % Neutrophils # 10.3 H (1.3-7.7) k/uL Lymphocytes # 0.4 L (1.0-4.8) k/uL Chloride 108 H (98-107) mmol/L BUN 64 H (7-17) mg/dL Creatinine 1.96 H (0.52-1.04) mg/dL Glucose 136 H (74-99) mg/dL Assessment and Plan Assessment: Right sided chest pain, which is reproducible with coughing, deep inspiration, and palpation. Elevated troponins, possible NSTEMI Moderate sized bilateral lateral pleural effusions, greater on the left than right. Left-sided thoracentesis performed on 08/13/2022 with 400 ML's of serosanguineous fluid removed. Cytology negative for malignancy Acute exacerbation of diastolic congestive heart failure, patient has cardiomegaly and bilateral pleural effusions demonstrated on chest CTA. Pro-bnp elevated at 8280. Currently on IV diuretics Acute hypoxemic respiratory failure secondary to above, currently on 3 L nasal cannula Acute kidney injury, current creatinine 2.06 History of paroxysmal atrial fibrillation initially on a heparin drip. Initially on amiodarone drip. Anticoagulated on Eliquis. History of pulmonary embolism Hypertension Hyperlipidemia GERD, without esophagitis Recent prolonged hospital stay for repair of the hiatal hernia Plan: The patient was seen and evaluated Medications and labs reviewed Still some concern for multiple myeloma Plan is for bone marrow biopsy Continues on IV diuretics Nephrology is following Titrate down the FiO2 as tolerated We will continue to follow I have personally seen and examined the patient, performed the documentation and the assessment and plan as written. Number of minutes spent on the visit: 10.
[2022-08-18 11:31] VITALS: TEMP 97.4
[2022-08-18 12:19] VITALS: BP 118/63; PULSE 71
[2022-08-18] MEDS ORDERED: ACETAMINOPHEN TAB 325 MG TAB PO PRN (12:37)
[2022-08-18] MEDS ORDERED: ACETAMINOPHEN IV (For NPO) 1,000 MG in EMPTY BAG 1 BAG IVPB ONE (13:17)
--- NOTE | 2022-08-18 14:09 | P.DS ---
Providers Date of admission: 08/10/22 02:23 Attending physician: Triny Rebolledo Consults: 08/10/22 02:21 Consult Physician Routine Consulting Provider: Rema Shankar Consult Reason/Comments: pleural effusions Do you want consulting provider notified?: Yes 08/12/22 12:01 Consult Physician Routine Consulting Provider: Sarika Rivas Consult Reason/Comments: david Do you want consulting provider notified?: Yes 08/15/22 08:02 Consult Physician Routine Consulting Provider: Zoran Underwood Consult Reason/Comments: elevated kappa light chains, suspect amyloid Do you want consulting provider notified?: Yes Primary care physician: [facility] Course: Final Diagnosis Elevated troponin secondary to type 2 ME from hypoxia and CHF. Acute on chronic diastolic CHF with moderate to severe tricuspid regurgitation New onset atrial fibrillation paroxysmal with RVR off amiodarone gtt. Heart rate controlled and in sinus mechanism. Acute hypoxic respiratory failure secondary to CHF exacerbation Bilateral pleural effusion s/p left sided thoracentesis Acute kidney injury secondary to ATN Elevated kappa light chains work up intiated concerns for multiple myeloma and possible cardiac amyloidosis History of pulmonary embolism anticoagulated with eliquis Recent hiatal hernia repair with prolonged hospital stay Iron deficiency anemia Hypertension Hyperlipidemia Do Not Resuscitate/Do Not Intubate Patient will be transitioned to inpatient hospice with [facility] services. Hospital Course This is an 81 year old female with history of heart failure and recent hiatal hernia repair at [place]. Patient was also found to have pulmonary embolism back in February. Patient is admitted for chest pain and being treated currently for acute heart failure with IV lasix and also found to have acute kidney injury on admission. Status post left sided thoracentesis on 08/13 with 400 mls off and cytology reveals no malignancy. Patient has been followed closely by nephrology, cardiology and pulmonary services. Continues to require oxygen support and reports significant shortness of breath and breathlessness when talking. Underwent cardiac catheterization with no significant coronary artery disease and normal filling pressures. Cardiology with no plans to re-cath patient. Eliquis has been resumed. Patient has continued on IV lasix and chest xray continues to demonstrate pleural effusion. 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 Patient is scheduled to undergo bone marrow biopsy on Sunday. Patient has required increased oxygen needs with chest xray continuing to demonstrate pleural effusion. Patient has diffuse generalized weakness and after meeting with care team and family hospice consultation was requested and patient will be transitioned to inpatient hospice services. The impression and plan of care has been dictated by Milagros Jasmine Nurse Practitioner as directed. Dr. Carolina MD I have performed a history and physical examination and medical decision making of this patient, discussed the same with the dictator, and agree with the dictators assessment and plan as written, documented as a scribe. Based on total visit time, I have performed more than 50% of this visit. Plan - Discharge Summary Discharge Rx Participant: No New Discharge Prescriptions: No Action Simvastatin 40 mg PO HS Aspirin [Adult Low Dose Aspirin EC] 81 mg PO DAILY Vit C/E/Zn/Coppr/Lutein/Zeaxan [Preservision Areds 2 Softgel] 1 tab PO DAILY Amiodarone [Cordarone] 200 mg PO DAILY Apixaban [Eliquis] 5 mg PO BID allopurinoL [Zyloprim] 200 mg PO DAILY carvediloL [Coreg] 6.25 mg PO BID Famotidine [Pepcid] 20 mg PO DAILY Omeprazole 20 mg PO AC-BRKFST Discharge Medication List Simvastatin 40 mg PO HS 08/12/14 [History] Aspirin [Adult Low Dose Aspirin EC] 81 mg PO DAILY 03/28/18 [History] Apixaban [Eliquis] 5 mg PO BID 06/05/22 [History] Vit C/E/Zn/Coppr/Lutein/Zeaxan [Preservision Areds 2 Softgel] 1 tab PO DAILY 06/21/22 [History] Amiodarone [Cordarone] 200 mg PO DAILY 08/10/22 [History] Famotidine [Pepcid] 20 mg PO DAILY 08/10/22 [History] Omeprazole 20 mg PO AC-BRKFST 08/10/22 [History] allopurinoL [Zyloprim] 200 mg PO DAILY 08/10/22 [History] carvediloL [Coreg] 6.25 mg PO BID 08/10/22 [History] Follow up Appointment(s)/Referral(s): Elie Lopes MD [STAFF PHYSICIAN] - 09/06/22 4:15 pm ([facility], [address] [place] [address] ) Nursing,Lazaro [NON-STAFF] - Nico Joiner DO [Primary Care Provider] - 1 Week Activity/Diet/Wound Care/Special Instructions: Patient will require a wheel chair to complete ADLs unable to complete with a cane or a walker r/t NSTEMI, difficulty with ambulation, osteoarthitis. She will have someone to propel her.
--- NOTE | 2022-08-18 16:16 | P.PN ---
Subjective Progress Note Date: 08/18/22 Principal diagnosis: Chest pain In follow-up today patient has asked her family to come in as she wants to speak to them. She is currently complaining of generalized pain and would like something for pain. Objective - Vital Signs Vital signs: Vital Signs Temp 97.4 F L 08/18/22 08:00 Pulse 71 08/18/22 14:00 Resp 18 08/18/22 14:00 BP 118/63 08/18/22 12:00 Pulse Ox 94 L 08/18/22 12:00 FiO2 Intake & Output 08/17/22 08/18/22 08/18/22 18:59 06:59 18:59 Intake Total 400 Output Total 805 200 0 Balance -805 -200 400 Weight 73 kg 72.7 kg Intake: Intake, IV Titration 400 Amount ACETAMINOPHEN IV (For NPO 400 ) 1,000 mg In Empty Bag 1 bag @ 400 mls/hr IVPB ONCE ONE Rx#:[id number] Output: Urine 500 200 0 Post Void Residual 305 Other: Voiding Method Bedside Commode Bedside Commode # Voids 1 1 - Constitutional General appearance: Present: average body habitus, cooperative, mild distress - Respiratory Details: Respirations even and unlabored at rest - Musculoskeletal Musculoskeletal: Present: generalized weakness - Psychiatric Psychiatric: Present: A&O x's 3, appropriate affect, intact judgment & insight - Labs CBC & Chem 7: 08/18/22 07:31 08/18/22 07:31 Labs: Abnormal Lab Results - Last 24 Hours (Table) 08/18/22 08/18/22 Range/Units 07:31 07:31 WBC 11.1 H (3.8-10.6) k/uL RBC 3.73 L (3.80-5.40) m/uL Hgb 10.3 L (11.4-16.0) gm/dL MCHC 29.9 L (31.0-37.0) g/dL RDW 22.9 H (11.5-15.5) % Neutrophils # 10.3 H (1.3-7.7) k/uL Lymphocytes # 0.4 L (1.0-4.8) k/uL Chloride 108 H (98-107) mmol/L BUN 64 H (7-17) mg/dL Creatinine 1.96 H (0.52-1.04) mg/dL Glucose 136 H (74-99) mg/dL Assessment and Plan (1) Chest wall pain Status: Acute Priority: High Code(s): R07.89 - OTHER CHEST PAIN SNOMED Code(s): 672626952 Plan: Concerns for amyloidosis -Patient was in the process of being worked up for possible amyloidosis -Bone marrow was scheduled for Sunday -Pulse dose dexamethasone started because of patient's symptoms -Case discussed with the family as well as Internal Medicine. Patient has decided that she is not wanting to pursue any further diagnostics and is not interested in any more medical treatment. She would like to go home and spend time she has left with her family and be comfortable. -Patient is being discharged to home with hospice and her family. -Agree with plan as patient wishes.
[2022-08-18] MEDS ORDERED: MIDODRINE 5 MG TAB PO SCH (17:30)
== END 2022-08-18 14:30 | disposition hospice, inpatient (51) | DRG 280 ==
LOC: EC 22:29 → 3SCARD 08-10 02:23
PROVIDERS: ADMIT Hospitalist; ATTEND Hospitalist
PROC: 4A023N6 Measurement of Cardiac Sampling and Pressure, Right Heart, Percutaneous Approach (ICD-10-PCS; principal; 2022-08-12 16:32)
PROC: 0W9B3ZX Drainage of Left Pleural Cavity, Percutaneous Approach, Diagnostic (ICD-10-PCS; 2022-08-13)
DX: I13.0 Hypertensive heart and chronic kidney disease with heart failure and stage 1 through stage 4 chronic kidney disease, or unspecified chronic kidney disease (principal); I21.A1 Myocardial infarction type 2; I50.33 Acute on chronic diastolic (congestive) heart failure; N17.0 Acute kidney failure with tubular necrosis; J96.01 Acute respiratory failure with hypoxia; I31.39 Other pericardial effusion (noninflammatory); J91.8 Pleural effusion in other conditions classified elsewhere; E87.20 Acidosis, unspecified; I27.24 Chronic thromboembolic pulmonary hypertension; N18.31 Chronic kidney disease, stage 3a; I48.0 Paroxysmal atrial fibrillation; Z66 Do not resuscitate; Z51.5 Encounter for palliative care; D50.9 Iron deficiency anemia, unspecified; I25.10 Atherosclerotic heart disease of native coronary artery without angina pectoris; I37.1 Nonrheumatic pulmonary valve insufficiency; N28.1 Cyst of kidney, acquired; K21.00 Gastro-esophageal reflux disease with esophagitis, without bleeding; I07.1 Rheumatic tricuspid insufficiency; E78.5 Hyperlipidemia, unspecified; H35.30 Unspecified macular degeneration; M10.9 Gout, unspecified; R58 Hemorrhage, not elsewhere classified; M19.90 Unspecified osteoarthritis, unspecified site; Z86.711 Personal history of pulmonary embolism; Z79.01 Long term (current) use of anticoagulants; Z79.82 Long term (current) use of aspirin; Z79.899 Other long term (current) drug therapy; Z96.653 Presence of artificial knee joint, bilateral; Z88.5 Allergy status to narcotic agent; Z88.0 Allergy status to penicillin; Z82.49 Family history of ischemic heart disease and other diseases of the circulatory system
CPT/HCPCS: 36415; 71045; 71046; 71275; 76604; 76770; 77075; 80048; 80053; 81003; 82232; 82728; 82810; 83540; 83550; 83615; 83735; 83880; 83883; 84155; 84157; 84165; 84484; 85018; 85025; 85027; 85379; 85610; 85730; 86334; 87070; 87102; 87116; 87205; 87206; 87252; 87496; 87498; 87502; 87529; 87634; 87798; 88108; 88305; 88341; 88342; 89050; 93005; 93306; 93451; 94760; 96361; 96365; 96366; 96375; 99291

== ENCOUNTER 2022-08-18 14:09 | Inpatient (IN) | payer MEDICAID ==
[2022-08-18] MEDS ORDERED: ONDANSETRON 4 MG/2 ML VIAL IVP PRN (14:21)
[2022-08-18] MEDS ORDERED: ATROPINE OPHTH SOLN 1% 5ML BTL SUBLINGUAL PRN (14:21)
[2022-08-18] MEDS ORDERED: LORazepam 2 MG/ML INJ IV PRN ×2 (14:21→19:18)
[2022-08-18] MEDS ORDERED: ACETAMINOPHEN TAB 325 MG TAB PO PRN (14:21)
[2022-08-18] MEDS ORDERED: SCOPOLAMINE 1 MG/72 HR PATCH TRANSDERM SCH (14:30)
[2022-08-18] MEDS: MORPHINE SULFATE 4 MG/ML SYRINGE IV PRN ×3 (15:38→21:25)
--- NOTE | 2022-08-18 16:38 | P.HPIM ---
History of Present Illness H&P Date: 08/18/22 This is an 81 year old female with history of heart failure and recent hiatal hernia repair at [place]. Patient was also found to have pulmonary embolism back in February. Patient is admitted for chest pain and being treated currently for acute heart failure with IV lasix and also found to have acute kidney injury on admission. Status post left sided thoracentesis on 08/13 with 400 mls off and cytology reveals no malignancy. Patient has been followed closely by nephrology, cardiology and pulmonary services. Continues to require oxygen support and reports significant shortness of breath and breathlessness when talking. Underwent cardiac catheterization with no significant coronary artery disease and normal filling pressures. Cardiology with no plans to re-cath patient. Eliquis has been resumed. Patient has continued on IV lasix and chest xray continues to demonstrate pleural effusion. 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 Patient is scheduled to undergo bone marrow biopsy on Sunday. Patient has required increased oxygen needs with chest xray continuing to demonstrate pleural effusion. Patient is evaluated today with significant pain and discomfort diffuse and states she just wants to be made comfortable and was requested family come to the bedside to see her. Patient and family after meeting with care team are okay with hospice consultation and after meeting with [facility], patient has been transitioned to inpatient hospice services. Review of Systems Constitutional: Reports fatigue and generalized pain denied any fever. Cardio vascular: denied any chest pain, palpitations Gastrointestinal: denied any nausea, vomiting, diarrhea Pulmonary: Reports shortness of breath Neurologic: Reports generalized weakness. All inpatient medications were reviewed and appropriate changes in these medications as dictated in the interval history and assessment and plan PHYSICAL EXAMINATION: GENERAL: The patient is alert and oriented x3, Fatigued, pale on 3L of oxygen. Well developed, well nourished. HEENT: Pupils are round and equally reacting to light. EOMI. No scleral icterus. No conjunctival pallor. Normocephalic, atraumatic. No pharyngeal erythema. No thyromegaly. CARDIOVASCULAR: S1 and S2 present. No murmurs, rubs, or gallops. PULMONARY: Right posterior lung diminished. ABDOMEN: Soft, nontender, nondistended, normoactive bowel sounds. No palpable organomegaly. MUSCULOSKELETAL: No joint swelling or deformity. EXTREMITIES: No cyanosis, clubbing, or pedal edema. NEUROLOGICAL: Gross neurological examination did not reveal any focal deficits. Diffuse weakness. SKIN: No rashes. Assessment Elevated troponin secondary to type 2 [place] from hypoxia and CHF. Acute on chronic diastolic CHF with moderate to severe tricuspid regurgitation New onset atrial fibrillation paroxysmal with RVR off amiodarone gtt. Heart rate controlled and in sinus mechanism. Acute hypoxic respiratory failure secondary to CHF exacerbation Bilateral pleural effusion s/p left sided thoracentesis Acute kidney injury secondary to ATN Elevated kappa light chains work up intiated concerns for multiple myeloma and possible cardiac amyloidosis History of pulmonary embolism anticoagulated with eliquis Recent hiatal hernia repair with prolonged hospital stay Iron deficiency anemia Hypertension Hyperlipidemia Do Not Resuscitate/Do Not Intubate Plan Patient has been transitioned to inpatient hospice with [facility] services. Family at the bedside and all questions have been answered. Continue supportive care and comfort care orders. The impression and plan of care has been dictated by Milagros Jasmine Nurse Practitioner as directed. Dr. Carolina MD I have performed a history and physical examination and medical decision making of this patient, discussed the same with the dictator, and agree with the dictators assessment and plan as written, documented as a scribe. Based on total visit time, I have performed more than 50% of this visit. Past Medical History Past Medical History: Atrial Fibrillation, Eye Disorder, GERD/Reflux, Hyperlipidemia, Hypertension, Osteoarthritis (OA) Additional Past Medical History / Comment(s): Macular Degeneration, Gout. right carpal tunnel surgery Nov 2021. COVID 19 vaccination (moderna x3) and a flu shot History of Any Multi-Drug Resistant Organisms: None Reported Past Surgical History: Breast Surgery, Hernia Repair, Joint Replacement, Orthopedic Surgery Additional Past Surgical History / Comment(s): RIGHT KNEE ARTHROSCOPY ,RIGHT BREAST BIOPSY, PARTIAL THYROIDECTOMY(RIGHT SIDE), BILATERAL TOTAL KNEE REPLACEMENTS, BILATERAL CATARACTS REMOVED, RIGHT CARPAL TUNNEL SURGERY. Past Anesthesia/Blood Transfusion Reactions: No Reported Reaction Past Psychological History: No Psychological Hx Reported Smoking Status: Never smoker Past Alcohol Use History: None Reported Additional Past Alcohol Use History / Comment(s): Patient is a lifelong nonsmoker. She denies any marijuana or illicit drug use. No alcohol use. She lives at home with her . Past Drug Use History: None Reported - Past Family History Sister(s) History Unknown: Yes Family Medical History: Cancer Additional Family Medical History / Comment(s): Patient has one sister that from recurrence of breast cancer. Father History Unknown: Yes Family Medical History: Renal Disease Additional Family Medical History / Comment(s): Father at age 82 from renal failure. Brother(s) History Unknown: Yes Family Medical History: Cancer, Myocardial Infarction (TN) Additional Family Medical History / Comment(s): Patient has 2 brothers that have passed, one from a myocardial infarction at age 65 and 1 from a tumor in his neck. Mother History Unknown: Yes Family Medical History: Chest Pain / Angina, Myocardial Infarction (TN) Additional Family Medical History / Comment(s): Mother at age 74 from myocardial infarction. Medications and Allergies Home Medications Medication Instructions Recorded Confirmed Type Simvastatin 40 mg PO HS 08/12/14 08/18/22 History Aspirin [Adult Low Dose Aspirin EC] 81 mg PO DAILY 03/28/18 08/18/22 History Apixaban [Eliquis] 5 mg PO BID 06/05/22 08/18/22 History Vit C/E/Zn/Coppr/Lutein/Zeaxan 1 tab PO DAILY 06/21/22 08/18/22 History [Preservision Areds 2 Softgel] Amiodarone [Cordarone] 200 mg PO DAILY 08/10/22 08/18/22 History Famotidine [Pepcid] 20 mg PO DAILY 08/10/22 08/18/22 History Omeprazole 20 mg PO AC-[facility] 08/10/22 08/18/22 History allopurinoL [Zyloprim] 200 mg PO DAILY 08/10/22 08/18/22 History carvediloL [Coreg] 6.25 mg PO BID 08/10/22 08/18/22 History Allergies Allergy/AdvReac Type Severity Reaction Status Date / Time Penicillins Allergy Rash/Hives Verified 08/10/22 11:22 codeine AdvReac Rapid Verified 08/10/22 11:22 Heart Rate Physical Exam Vitals: Intake and Output 08/18/22 08/18/22 08/18/22 06:59 14:59 22:59 Other: Weight 72.7 kg Assessment and Plan Time with Patient: Less than 30
[2022-08-18 19:34] VITALS: BP 126/80
[2022-08-19] MEDS: MORPHINE SULFATE 4 MG/ML SYRINGE IV PRN ×2 (01:45→14:22)
[2022-08-19] MEDS ORDERED: FUROSEMIDE 10 MG/ML 4 ML VIAL IV SCH (09:00)
--- NOTE | 2022-08-19 15:40 | P.PN ---
Subjective Progress Note Date: 08/19/22 This is an 81 year old female with history of heart failure and recent hiatal hernia repair at [place]. Patient was also found to have pulmonary embolism back in February. Patient is admitted for chest pain and being treated currently for acute heart failure with IV lasix and also found to have acute kidney injury on admission. Status post left sided thoracentesis on 08/13 with 400 mls off and cytology reveals no malignancy. Patient has been followed closely by nephrology, cardiology and pulmonary services. Continues to require oxygen support and reports significant shortness of breath and breathlessness when talking. Underwent cardiac catheterization with no significant coronary artery disease a nd normal filling pressures. Cardiology with no plans to re-cath patient. Eliquis has been resumed. Patient has continued on IV lasix and chest xray continues to demonstrate pleural effusion. 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 Patient is scheduled to undergo bone marrow biopsy on Sunday. Patient has required increased oxygen needs with chest xray continuing to demonstrate pleural effusion. Patient is evaluated today with significant pain and discomfort diffuse and states she just wants to be made comfortable and was requested family come to the bedside to see her. Patient and family after meeting with care team are okay with hospice consultation and after meeting with [facility], patient has been transitioned to inpatient hospice services. 08/19/2022 Patient is evaluated today resting in bed with family at the bedside. Followed by [facility] and continues on IV push morphine as needed. Patients heart rate is regular and bradycardic. Respirations around 10. Patient is nonresponsive. Unable to complete review of systems. PHYSICAL EXAMINATION: GENERAL: The patient is alert and oriented x0, Fatigued, on room air.. HEENT: Pupils are round and equally reacting to light. EOMI. No scleral icterus. No conjunctival pallor. Normocephalic, atraumatic. No pharyngeal erythema. No thyromegaly. CARDIOVASCULAR: S1 and S2 present. No murmurs, rubs, or gallops. PULMONARY: Lungs diminished bilaterally. ABDOMEN: Soft, nontender, nondistended, normoactive bowel sounds. No palpable organomegaly. MUSCULOSKELETAL: No joint swelling or deformity. EXTREMITIES: No cyanosis, clubbing, or pedal edema. NEUROLOGICAL: Unable to assess. SKIN: No rashes. Assessment Hospice and hospice care. Elevated troponin secondary to type 2 [place] from hypoxia and CHF. Acute on chronic diastolic CHF with moderate to severe tricuspid regurgitation New onset atrial fibrillation paroxysmal with RVR off amiodarone gtt. Heart rate controlled and in sinus mechanism. Acute hypoxic respiratory failure secondary to CHF exacerbation Bilateral pleural effusion s/p left sided thoracentesis Acute kidney injury secondary to ATN Elevated kappa light chains work up intiated concerns for multiple myeloma and possible cardiac amyloidosis History of pulmonary embolism anticoagulated with eliquis Recent hiatal hernia repair with prolonged hospital stay Iron deficiency anemia Hypertension Hyperlipidemia Do Not Resuscitate/Do Not Intubate Plan Patient has been transitioned to inpatient hospice with [facility] services. Family at the bedside and all questions have been answered. Continue supportive care and comfort care orders. The impression and plan of care has been dictated by Milagros Jasmine Nurse Practitioner as directed. Dr. Carolina MD I have performed a history and physical examination and medical decision making of this patient, discussed the same with the dictator, and agree with the dictators assessment and plan as written, documented as a scribe. Based on total visit time, I have performed more than 50% of this visit. Objective - Vital Signs Vital signs: Vital Signs Temp Pulse 70 08/19/22 14:00 Resp 10 L 08/19/22 14:00 BP 126/80 08/18/22 19:33 Pulse Ox 89 L 08/19/22 12:00 FiO2 Intake & Output 08/18/22 08/19/22 08/19/22 18:59 06:59 18:59 Intake Total 0 Output Total 0 Balance 0 0 Weight 72.7 kg Intake: Oral 0 Output: Urine 0 Assessment and Plan Time with Patient: Less than 30
[2022-08-19 20:34] VITALS: PULSE 65; RESP 11
--- NOTE | 2022-08-20 15:18 | P.DS ---
Providers Date of admission: 08/18/22 15:17 Attending physician: Triny Rebolledo Primary care physician: [facility] Hospital Course: Final Diagnosis General inpatient hospice Elevated troponin secondary to type 2 [place] from hypoxia and CHF. Acute on chronic diastolic CHF with moderate to severe tricuspid regurgitation New onset atrial fibrillation paroxysmal with RVR off amiodarone gtt. Heart rate controlled and in sinus mechanism. Acute hypoxic respiratory failure secondary to CHF exacerbation Bilateral pleural effusion s/p left sided thoracentesis Acute kidney injury secondary to ATN Elevated kappa light chains work up intiated concerns for multiple myeloma and possible cardiac amyloidosis History of pulmonary embolism anticoagulated with eliquis Recent hiatal hernia repair with prolonged hospital stay Iron deficiency anemia Hypertension Hyperlipidemia Do Not Resuscitate/Do Not Intubate Hospital Course This is an 81 year old female with history of heart failure and recent hiatal hernia repair at [place]. Patient was also found to have pulmonary embolism back in February. Patient is admitted for chest pain and being treated currently for acute heart failure with IV lasix and also found to have acute kidney injury on admission. Status post left sided thoracentesis on 08/13 with 400 mls off and cytology reveals no malignancy. Patient has been followed closely by nephrology, cardiology and pulmonary services. Continued to require oxygen support and reports significant shortness of breath and breathlessness when talking. Underwent cardiac catheterization with no significant coronary artery disease and normal filling pressures. Cardiology with no plans to re-cath patient. Eliquis has been resumed. Patient has continued on IV lasix and chest xray continues to demonstrate pleural effusion. 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 Patient is scheduled to undergo bone marrow biopsy on Sunday. Patient has required increased oxygen needs with chest xray continuing to demonstrate pleural effusion. Patient has diffuse generalized weakness and after meeting with care team and family hospice consultation was requested and patient was transitioned to general inpatient hospice. Patient on 08/20/2022 at 0650. Thank you for allowing us to participate in the care of this patient. The impression and plan of care has been dictated by Milagros Jasmine Nurse Practitioner as directed. Dr. Carolina MD I have performed a history and physical examination and medical decision making of this patient, discussed the same with the dictator, and agree with the dictators assessment and plan as written, documented as a scribe. Based on total visit time, I have performed more than 50% of this visit. Plan - Discharge Summary New Discharge Prescriptions: No Action Simvastatin 40 mg PO HS Aspirin [Adult Low Dose Aspirin EC] 81 mg PO DAILY Vit C/E/Zn/Coppr/Lutein/Zeaxan [Preservision Areds 2 Softgel] 1 tab PO DAILY Amiodarone [Cordarone] 200 mg PO DAILY Apixaban [Eliquis] 5 mg PO BID allopurinoL [Zyloprim] 200 mg PO DAILY carvediloL [Coreg] 6.25 mg PO BID Famotidine [Pepcid] 20 mg PO DAILY Omeprazole 20 mg PO AC-[facility] Discharge Medication List Simvastatin 40 mg PO HS 08/12/14 [History] Aspirin [Adult Low Dose Aspirin EC] 81 mg PO DAILY 03/28/18 [History] Apixaban [Eliquis] 5 mg PO BID 06/05/22 [History] Vit C/E/Zn/Coppr/Lutein/Zeaxan [Preservision Areds 2 Softgel] 1 tab PO DAILY 06/21/22 [History] Amiodarone [Cordarone] 200 mg PO DAILY 08/10/22 [History] Famotidine [Pepcid] 20 mg PO DAILY 08/10/22 [History] Omeprazole 20 mg PO AC-KT 08/10/22 [History] allopurinoL [Zyloprim] 200 mg PO DAILY 08/10/22 [History] carvediloL [Coreg] 6.25 mg PO BID 08/10/22 [History] Discharge Disposition: - Preliminary Cause of Preliminary Cause of : Congestive heart failure
== END 2022-08-20 09:45 | disposition expired | DRG 951 ==
LOC: 3SCARD 15:17
PROVIDERS: ADMIT Hospitalist; ATTEND Hospitalist
DX: Z51.5 Encounter for palliative care (principal); I21.A1 Myocardial infarction type 2; I50.33 Acute on chronic diastolic (congestive) heart failure; J96.01 Acute respiratory failure with hypoxia; N17.9 Acute kidney failure, unspecified; Z66 Do not resuscitate; I10 Essential (primary) hypertension; D50.9 Iron deficiency anemia, unspecified; E78.5 Hyperlipidemia, unspecified; E89.0 Postprocedural hypothyroidism; I07.1 Rheumatic tricuspid insufficiency; I11.0 Hypertensive heart disease with heart failure; I48.0 Paroxysmal atrial fibrillation; Z79.01 Long term (current) use of anticoagulants; Z79.82 Long term (current) use of aspirin; Z79.899 Other long term (current) drug therapy; Z82.49 Family history of ischemic heart disease and other diseases of the circulatory system; Z86.711 Personal history of pulmonary embolism; Z96.653 Presence of artificial knee joint, bilateral; Z88.5 Allergy status to narcotic agent; Z88.0 Allergy status to penicillin

== ENCOUNTER 2022-08-18 14:37 | Inpatient (IN) | payer MEDICAID, MEDICARE | END 2022-08-18 15:16 | disposition hospice, inpatient (51) | DRG 951 | LOC: 3SCARD 14:37 | PROVIDERS: ADMIT Hospitalist; ATTEND Hospitalist | DX: Z53.9 Procedure and treatment not carried out, unspecified reason (principal) ==